=== PATIENT | female | born 2005 | race Caucasian/White ===

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

== ENCOUNTER 2023-01-03 12:43 | Emergency (ER) | payer MEDICAID, SELFPAY ==
[2023-01-03 12:45] VITALS: BP 106/59; PULSE 57; RESP 20; TEMP 36.9; O2SAT 98; BMI 22.8
--- NOTE | 2023-01-03 13:05 | EXP.UTC ---
Discharge Plan Disposition Patient Disposition: Home, Self-Care Condition: Good Prescriptions Prescriptions: No Action omeprazole 20 mg capsule,delayed release(DR/EC) 20 mg PO DAILY Qty: 30 2RF ondansetron HCl 4 mg tablet 4 mg PO Q8H PRN (Reason: nausea and vomiting) Qty: 20 0RF Qulipta 60 mg tablet 60 mg PO DAILY 30 Days Qty: 30 5RF Nurtec ODT 75 mg tablet,disintegrating 75 mg PO ONCE PRN (Reason: headache abortive therapy) Qty: 8 5RF hydroxyzine HCl 25 mg tablet 25 mg PO HS PRN (Reason: sleep) Qty: 90 1RF omeprazole 20 mg capsule,delayed release(DR/EC) 20 mg PO DAILY hydroxyzine HCl 25 mg tablet 25 mg PO HS PRN (Reason: Insomnia) Nurtec ODT 75 mg tablet,disintegrating 75 mg PO DAILYP PRN (Reason: Headache) Referrals Follow up/Referrals: Kimmy Green PA [Primary Care Provider] - See instructions Clinical Impressions Clinical Impression: Migraine Instructions Patient Instructions: DI for Migraine Discharge ED Provider: Venecia Moore [facility] General Stated complaint: h/a, vomiting Mode of Arrival: Ambulatory Source of Information: Patient Limitations: No Limitations Time Seen by Provider: 01/03/23 13:10 Description of Symptoms (Recalled from Triage Doc. by RN): PATIENT C/O HEADACHE THAT STARTED FRIDAY AND TURNED INTO A MIGRAINE YESTERDAY HEENT Symptoms (Recalled from RN notes): Yes Resp Symptoms (Recalled from RN notes): No Skin Symptoms (Recalled from RN notes): No MS Symptoms (Recalled from RN notes): No Functional Status (Recalled from RN notes): WNL History of Present Illness Provider Complaint: Pt relates that she has had a headache all week and then last night developed into a migraine. She reports taking Zofran and Nurtec, but this did not help. She has had vomiting with her migraine. She has started her period and attributes her migraine to her period. Related Data Home Medications Medication Instructions Recorded Confirmed hydroxyzine HCl 25 mg tablet 25 mg PO HS PRN Insomnia 01/03/23 01/03/23 omeprazole 20 mg capsule,delayed 20 mg PO DAILY Acid reflux 01/03/23 01/03/23 release rimegepant 75 mg disintegrating 75 mg PO DAILYP PRN Headache 01/03/23 01/03/23 tablet (Nurtec ODT) Previous Rx's Medication Instructions Recorded atogepant 60 mg tablet (Qulipta) 60 mg PO DAILY Migraine 30 days 11/29/22 #30 tabs Allergies Allergy/AdvReac Type Severity Reaction Status Date / Time No Known Allergies Allergy Verified 11/27/22 10:38 Worker's Comp Is this a Worker's Comp case?: No [facility] Disclaimer: The information contained in this section may have been updated after the patient was seen, as this information can be updated by other users. Medical History (Updated 01/03/23 @ 13:28 by Venecia Moore APRN) Anxiety Generalized anxiety disorder History of anxiety History of asthma History of depression History of gastroesophageal reflux (GERD) History of migraine Migraine Surgical History History of esophagogastroduodenoscopy (EGD) Family History Other Asthma Cancer Thyroid disorder Social History Smoking Status: Current every day smoker tobacco type: e-cigarettes second hand exposure: No alcohol intake: never substance use type: denies use current occupational status: student and other Travel in the last 8 weeks: None household members: family housing: house number of children: 0 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
[2023-01-03 13:31] VITALS: BP 106/59; PULSE 57; RESP 20; TEMP 36.9; O2SAT 98
== END 2023-01-03 13:42 | disposition home or self-care (01) ==
PROVIDERS: Emergency Provider Nurse Practitioner Family; PCP Physician Assistant
DX: G43.909 Migraine, unspecified, not intractable, without status migrainosus (principal); R11.2 Nausea with vomiting, unspecified; F17.290 Nicotine dependence, other tobacco product, uncomplicated; F41.9 Anxiety disorder, unspecified
CPT/HCPCS: 96372; 99212; 99214; G0463

== ENCOUNTER → 2023-01-18 09:44 | Outpatient (CLI) | payer MEDICAID, SELFPAY ==
[2023-01-17 17:53] LABS: Adenovirus,PCR Not Detected (NotDetected); Bordetella Pertussis Not Detected (NotDetected); Chlamydophila Pneumoniae, PCR Not Detected (NotDetected); Coronavirus 19, PCR Not Detected (NotDetected); Coronavirus 229E Not Detected (NotDetected); Coronavirus NL63 Not Detected (NotDetected); Coronavirus OC43 Not Detected (NotDetected); Coronovirus HKU1,PCR Not Detected (NotDetected); Human Metapneumovirus Not Detected (NotDetected); Influenza A, PCR Not Detected (NotDetected); Influenza AH1, 2009 Not Detected (NotDetected); Influenza AH1, PCR Not Detected (NotDetected); Influenza AH3,PCR Not Detected (NotDetected); Influenza B, PCR Not Detected (NotDetected); Mycoplasma Pneumoniae, PCR Not Detected (NotDetected); Parainfluenza 1, PCR Not Detected (NotDetected); Parainfluenza 2, PCR Not Detected (NotDetected); Parainfluenza 3, PCR Not Detected (NotDetected); Parainfluenza 4, PCR Not Detected (NotDetected); Respiratory Syncytial Virus Not Detected (NotDetected); Rhinovirus/Enterovirus Not Detected (NotDetected)
== END ==
LOC: LAB.DROPOF 09:45
PROVIDERS: PCP Nurse Practitioner Family; Visit Provider Nurse Practitioner Family
DX: R06.02 Shortness of breath (principal); R06.89 Other abnormalities of breathing; R07.89 Other chest pain; R09.81 Nasal congestion
CPT/HCPCS: 87581; 87632; 87798; C9803; U0003; U0005

== ENCOUNTER 2023-02-06 13:52 | Emergency (ER) | payer MEDICAID, SELFPAY ==
[2023-02-06 13:52] VITALS: BP 106/63; PULSE 68; RESP 16; TEMP 37; O2SAT 99; BMI 21.9
--- NOTE | 2023-02-06 14:03 | EXP.UTC ---
Discharge Plan Disposition Patient Disposition: Home, Self-Care Condition: Fair Prescriptions Prescriptions: No Action azithromycin 250 mg tablet See Rx Instructions PO .COMPLEX Qty: 6 0RF Rx Instructions: take 500 mg today (day 1), then 250 mg for 4 days (days 2-5) [id number] 2-30-10 mg/5 mL syrup 7.5 ml PO Q6H PRN (Reason: cold symptoms) Qty: 118 0RF methylprednisolone [Medrol (Tito)] 4 mg tablets,dose pack 4 mg PO DAILY Qty: 21 0RF albuterol sulfate 90 mcg/actuation HFA aerosol inhaler 2 puff inhalation Q4-6H PRN (Reason: shortness of breath or wheezing) Qty: 8.5 0RF Qulipta 60 mg tablet 60 mg PO DAILY 30 Days Qty: 30 5RF omeprazole 20 mg capsule,delayed release(DR/EC) 20 mg PO DAILY hydroxyzine HCl 25 mg tablet 25 mg PO HS PRN (Reason: Insomnia) Nurtec ODT 75 mg tablet,disintegrating 75 mg PO DAILYP PRN (Reason: Headache) Referrals Follow up/Referrals: Kimmy Green PA [Primary Care Provider] - See instructions Activity Restrictions/Add. Instructions Additional Instructions/Restrictions: Given that you came in with epigastric discomfort that improved with Pepcid and GI cocktail is most likely that your symptoms are secondary to GERD. Please discuss with Kimmy if you are not improving over the next few weeks to get an outpatient endoscopy scheduled. Additionally you may take Pepcid [id number], Tums, Maalox, or other OTC symptomatic medications as discussed. Please return with any worsening symptoms. Clinical Impressions Clinical Impression: Abdominal pain, epigastric Instructions Patient Instructions: DI for Acute Abdominal Pain Discharge ED Provider: Kalia Hinson [facility] General Chief complaint: Abdominal Pain Stated complaint: LT side abd pain Time Seen by Provider: 02/06/23 15:33 History of Present Illness Provider Complaint: She states she has had left sided abdominal pain for the past 1 day. She has had some nausea, but no vomiting. She denies diarrhea and constipation. Her last normal bowel movement was yesterday. She denies any blood in her stool. She denies any urinary symptoms. She is currently on her period. Pressing on the left side of her abdomen makes her pain worse. Nothing that she can identify makes it better. Related Data Home Medications Medication Instructions Recorded Confirmed hydroxyzine HCl 25 mg tablet 25 mg PO HS PRN Insomnia 01/03/23 01/17/23 omeprazole 20 mg capsule,delayed 20 mg PO DAILY Acid reflux 01/03/23 01/17/23 release rimegepant 75 mg disintegrating 75 mg PO DAILYP PRN Headache 01/03/23 01/17/23 tablet (Nurtec ODT) Previous Rx's Medication Instructions Recorded atogepant 60 mg tablet (Qulipta) 60 mg PO DAILY Migraine 30 days 11/29/22 #30 tabs albuterol sulfate 90 mcg/actuation 2 puff inhalation Q4-6H PRN 01/17/23 aerosol inhaler shortness of breath or wheezing #8.5 grams azithromycin 250 mg tablet See Rx Instructions PO .COMPLEX #6 01/17/23 tabs [id number] 7.5 ml PO Q6H PRN cold symptoms 01/17/23 2 mg-30 mg-10 mg/5 mL oral syrup #118 mL methylprednisolone 4 mg tablets in 4 mg PO DAILY #21 tabs 01/17/23 a dose pack (Medrol (Tito)) Allergies Allergy/AdvReac Type Severity Reaction Status Date / Time No Known Allergies Allergy Verified 01/17/23 16:13 [facility] Disclaimer: The information contained in this section may have been updated after the patient was seen, as this information can be updated by other users. Medical History Anxiety Generalized anxiety disorder History of anxiety History of asthma History of depression History of gastroesophageal reflux (GERD) History of migraine Migraine Surgical History History of esophagogastroduodenoscopy (EGD) Family History (Reviewed 02/06/23 @ 20:20 by Jose David López
[2023-02-06 14:14] LABS: Microscopic, Urine URINE MICROSCOPIC (MICROSCOPIC)
[2023-02-06 14:16] LABS: Appearance,Urine CLEAR (Clear); Bilirubin,Urine Negative (Negative); Blood, Urine 3+ (Negative); Color,Urine YELLOW (Yellow); Glucose,Urine (UA) Negative (Negative); Ketones,Urine Negative (Negative); Leukocyte Esterase,Urine Negative (Negative); Nitrate,Urine Negative (Negative); Protein,Urine TRACE (Negative); Specific Gravity, Urine >= 1.030 (1.005-1.030); Urobilinogen,Urine 0.2 EU/dl (0.2)
[2023-02-06 14:44] LABS: Bacteria,Urine Trace /lpf; WBC,Urine Occasional #/hpf (0-3)
[2023-02-06 15:07] VITALS: BP 108/63; PULSE 83; RESP 16; TEMP 36.8; O2SAT 97; BMI 21.9
[2023-02-06 15:30] VITALS: BP 107/65; PULSE 70; O2SAT 100
--- NOTE | 2023-02-06 15:33 | HMH.EDGENADL ---
Discharge Plan Disposition Patient Disposition: Home, Self-Care Prescriptions Prescriptions: No Action azithromycin 250 mg tablet See Rx Instructions PO .COMPLEX Qty: 6 0RF Rx Instructions: take 500 mg today (day 1), then 250 mg for 4 days (days 2-5) jahmhupxccufgnj-awhhurxvy-DR 2-30-10 mg/5 mL syrup 7.5 ml PO Q6H PRN (Reason: cold symptoms) Qty: 118 0RF methylprednisolone [Medrol (Tito)] 4 mg tablets,dose pack 4 mg PO DAILY Qty: 21 0RF albuterol sulfate 90 mcg/actuation HFA aerosol inhaler 2 puff inhalation Q4-6H PRN (Reason: shortness of breath or wheezing) Qty: 8.5 0RF Qulipta 60 mg tablet 60 mg PO DAILY 30 Days Qty: 30 5RF omeprazole 20 mg capsule,delayed release(DR/EC) 20 mg PO DAILY hydroxyzine HCl 25 mg tablet 25 mg PO HS PRN (Reason: Insomnia) Nurtec ODT 75 mg tablet,disintegrating 75 mg PO DAILYP PRN (Reason: Headache) Referrals Follow up/Referrals: Kimmy Green PA [Primary Care Provider] - See instructions Activity Restrictions/Add. Instructions Additional Instructions/Restrictions: Given that you came in with epigastric discomfort that improved with Pepcid and GI cocktail is most likely that your symptoms are secondary to GERD. Please discuss with Kimmy if you are not improving over the next few weeks to get an outpatient endoscopy scheduled. Additionally you may take Pepcid cavz-ref-ktiwkcn, Tums, Maalox, or other OTC symptomatic medications as discussed. Please return with any worsening symptoms. Clinical Impressions Clinical Impression: Abdominal pain, epigastric Instructions Patient Instructions: DI for Acute Abdominal Pain Discharge ED Provider: Kalia Hinson General Adult HPI General Chief complaint: Abdominal Pain Stated complaint: LT side abd pain Time Seen by Provider: 02/06/23 15:33 Mode of Arrival: Ambulatory Limitations: No Limitations Description of Symptoms (Recalled from ER Triage Doc. by RN): Pt. complains of LUQ abdominal pain since last night. She states the pain is dull at rest and sharp ad stabing with deep breathing and movement. History of Present Illness HPI narrative: 18-year-old female presenting today with left upper quadrant and epigastric abdominal pain. States she has some mild back discomfort as well. Denies any hematuria she is currently on her period but no hematuria preceding this. Her last menstrual period was 1 month ago and she has been regular. She is not on any control pills she has no respiratory symptoms no shortness of breath she does however have a little bit of pain with deep inspiration in the same location of her chief complaint. She has a known history of GERD and is on omeprazole which has been worsening over the last few months. She denies any positional changes any exertional symptoms or chest pain. Denies any vaginal bleeding or vaginal discharge. She denies any changes in bowel movements such as constipation or diarrhea. She was at the urgent treatment clinic where she had a urinalysis performed and was unremarkable aside from blood and she was sent to the emergency department. Related Data Home Medications Medication Instructions Recorded Confirmed hydroxyzine HCl 25 mg tablet 25 mg PO HS PRN Insomnia 01/03/23 01/17/23 omeprazole 20 mg capsule,delayed 20 mg PO DAILY Acid reflux 01/03/23 01/17/23 release rimegepant 75 mg disintegrating 75 mg PO DAILYP PRN Headache 01/03/23 01/17/23 tablet (Nurtec ODT) Previous Rx's Medication Instructions Recorded atogepant 60 mg tablet (Qulipta) 60 mg PO DAILY Migraine 30 days 11/29/22 #30 tabs albuterol sulfate 90 mcg/actuation 2 puff inhalation Q4-6H PRN 01/17/23 aerosol inhaler shortness of breath or wheezing #8.5 grams azithromycin 250 mg tablet See Rx Instructions PO .COMPLEX #6 01/17/23 tabs yatamfpkhbvtdrt-oikpbthwqjdkrxc-TL 7.5 ml PO Q6H PRN cold symptoms 01/17/23 2 mg-30 mg-10 mg/5 mL oral syrup #118 mL methylpredniso
--- NOTE | 2023-02-06 15:40 | XR_ITS ---
FINAL REPORT CLINICAL HISTORY: dyspnea FINDINGS: SINGLE VIEW CHEST The heart size is normal. The mediastinum is normal. The lungs are clear. There is no pneumothorax. IMPRESSION: No acute cardiopulmonary process. Reviewed, Interpreted and Dictated by Bhupinder Barclay III, MD Transcribed by Jhon Velazquez Authenticated and [facility]
--- NOTE | 2023-02-06 15:50 | PC.NURSE ---
Pt. refusing IV and labwork at this time.
--- NOTE | 2023-02-06 15:52 | PC.NURSE ---
rad at BS for portable xray
--- NOTE | 2023-02-06 16:18 | PC.NURSE ---
Pt. reports abdominal pain is unchanged. made aware.
[2023-02-06 16:31] VITALS: BP 111/59; PULSE 67; RESP 16; TEMP 36.7; O2SAT 97
== END 2023-02-06 16:36 | disposition home or self-care (01) ==
LOC: UTC 13:54 → ER 15:03
PROVIDERS: Nurse Practitioner Family; Emergency Provider Student in an Organized Health Care Education/Training Program; PCP Physician Assistant
DX: R10.13 Epigastric pain (principal); R10.12 Left upper quadrant pain; F41.1 Generalized anxiety disorder; G43.909 Migraine, unspecified, not intractable, without status migrainosus; F17.290 Nicotine dependence, other tobacco product, uncomplicated; K21.9 Gastro-esophageal reflux disease without esophagitis
CPT/HCPCS: 71045; 81001; 99284; 99285

== ENCOUNTER → 2023-02-24 12:11 | Outpatient (CLI) | payer MEDICAID, SELFPAY ==
--- NOTE | 2023-02-24 12:16 | XR_ITS ---
FINAL REPORT CLINICAL HISTORY: LUQ pain FINDINGS: TWO-VIEW ABDOMEN There is a nonobstructive bowel gas pattern. No bowel dilation is identified. There is a small amount of diffuse fecal impaction. No abnormal calcification is seen. There is no free air. IMPRESSION: Diffuse fecal impaction without obstruction. Reviewed, Interpreted and Dictated by Ha Saldivar MD Transcribed by Kalie Moser Authenticated and [facility]
== END ==
PROVIDERS: PCP Physician Assistant; Visit Provider Physician Assistant
DX: R10.12 Left upper quadrant pain (principal)
CPT/HCPCS: 74019

== ENCOUNTER 2023-03-13 09:40 | Emergency (ER) | payer MEDICAID, SELFPAY ==
[2023-03-13 09:41] VITALS: BP 115/69; PULSE 103; RESP 18; TEMP 37.8; O2SAT 100; BMI 21.9
--- NOTE | 2023-03-13 10:09 | EXP.UTC ---
Discharge Plan Disposition Patient Disposition: Home, Self-Care Condition: Good Prescriptions Prescriptions: New ondansetron 4 mg tablet,disintegrating 4 mg PO Q8H PRN (Reason: nausea and vomiting) Qty: 10 0RF No Action tizanidine 2 mg capsule 2 - 4 mg PO HS Qty: 60 0RF Rx Instructions: Take 2 mg by mouth 1 hour prior to bedtime for 1-2 weeks. If headaches persist without any side effects, may increase to 4 mg by mouth until follow-up. albuterol sulfate 90 mcg/actuation HFA aerosol inhaler 2 puff inhalation Q4-6H PRN (Reason: shortness of breath or wheezing) Qty: 8.5 0RF Qulipta 60 mg tablet 60 mg PO DAILY 30 Days Qty: 30 5RF magnesium citrate Solution 150 ml PO DAILY Qty: 296 0RF polyethylene glycol 3350 [Miralax] 17 gram powder in packet 17 g PO DAILY Qty: 30 0RF docusate sodium [Stool Softener] 100 mg capsule 100 mg PO DAILY Qty: 30 0RF omeprazole 20 mg capsule,delayed release(DR/EC) 20 mg PO DAILY hydroxyzine HCl 25 mg tablet 25 mg PO HS PRN (Reason: Insomnia) Nurtec ODT 75 mg tablet,disintegrating 75 mg PO DAILYP PRN (Reason: Headache) Referrals Follow up/Referrals: Kimmy Green PA [Primary Care Provider] - See instructions Activity Restrictions/Add. Instructions Additional Instructions/Restrictions: *Monitor Temp, Over the counter Motrin or Tylenol as directed/as needed Tylenol every 4 hours and Motrin every 6 hours (as long as your family doctor has told you that you can take it) for fever or pain. and straight to ER if unable to lower temp less than 101.0 after medication given *Warm salt water gargles may help to soothe the throat *Throat Lozenges? *Warm fluids like tea with honey may help to soothe the throat? *Sleep elevated *Humidifier/Vaporizer Your throat swab was sent for culture. Those results are typically sent to your primary care. Be sure to follow up in 2-3 days with your family doctor/primary care physician if no improvement so they can review those result and treat if necessary. If you don?t have a primary care doctor, I recommend you get one but in the mean time, you will have to return to a walk in clinic Follow up IMMEDIATELY for new or worsening symptoms or no Noticeable improvement over the next 48-72 hours. 911 for difficulty breathing or swallowing Clinical Impressions Clinical Impression: Viral syndrome Stand Alone Forms Stand Alone Forms: Work/School Release Instructions Patient Instructions: Sore Throat, DI for Vomiting -- Adult, DI for Fever (Symptom) -- Adult Discharge ED Provider: Stephie Beauchamp [facility] [place] H[place] General Stated complaint: body aches,nausea,VOMITING, headache Mode of Arrival: Ambulatory Source of Information: Patient Limitations: No Limitations Time Seen by Provider: 03/13/23 10:09 Description of Symptoms (Recalled from Triage Doc. by RN): Patient reports sore throat, chills, nausea, vomiting, headache, fever, congestion since Friday. 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
[2023-03-13 10:40] VITALS: BP 115/69; PULSE 103; RESP 18; TEMP 37.8; O2SAT 100
[2023-03-13 14:33] LABS: UTC Influenza A Antigen Negative (Negative); UTC Strep Screen (Rapid) Negative (Negative)
[2023-03-13 14:34] LABS: UTC Influenza B Antigen Negative (Negative)
== END 2023-03-13 10:41 | disposition home or self-care (01) ==
PROVIDERS: Emergency Provider Nurse Practitioner; PCP Physician Assistant
DX: B34.9 Viral infection, unspecified (principal); R50.9 Fever, unspecified; R11.2 Nausea with vomiting, unspecified; R51.9 Headache, unspecified; R07.0 Pain in throat; F17.290 Nicotine dependence, other tobacco product, uncomplicated; K21.9 Gastro-esophageal reflux disease without esophagitis; F41.1 Generalized anxiety disorder; F32.A Depression, unspecified
CPT/HCPCS: 87804; 87880; 99212; 99214; G0463

== ENCOUNTER 2023-03-17 14:33 | Emergency (ER) | payer MEDICAID, SELFPAY ==
[2023-03-17 14:55] VITALS: BP 131/76; PULSE 88; RESP 16; TEMP 37; O2SAT 98; BMI 20.5
--- NOTE | 2023-03-17 15:15 | EXP.UTC ---
Discharge Plan Disposition Patient Disposition: Home, Self-Care Condition: Good Prescriptions Prescriptions: No Action tizanidine 2 mg capsule 2 - 4 mg PO HS Qty: 60 0RF Rx Instructions: Take 2 mg by mouth 1 hour prior to bedtime for 1-2 weeks. If headaches persist without any side effects, may increase to 4 mg by mouth until follow-up. albuterol sulfate 90 mcg/actuation HFA aerosol inhaler 2 puff inhalation Q4-6H PRN (Reason: shortness of breath or wheezing) Qty: 8.5 0RF Qulipta 60 mg tablet 60 mg PO DAILY 30 Days Qty: 30 5RF magnesium citrate Solution 150 ml PO DAILY Qty: 296 0RF polyethylene glycol 3350 [Miralax] 17 gram powder in packet 17 g PO DAILY Qty: 30 0RF docusate sodium [Stool Softener] 100 mg capsule 100 mg PO DAILY Qty: 30 0RF omeprazole 20 mg capsule,delayed release(DR/EC) 20 mg PO DAILY hydroxyzine HCl 25 mg tablet 25 mg PO HS PRN (Reason: Insomnia) Nurtec ODT 75 mg tablet,disintegrating 75 mg PO DAILYP PRN (Reason: Headache) ondansetron 4 mg tablet,disintegrating 4 mg PO Q8H PRN (Reason: nausea and vomiting) Qty: 10 0RF Referrals Follow up/Referrals: Kimmy Green PA [Primary Care Provider] - See instructions Activity Restrictions/Add. Instructions Additional Instructions/Restrictions: Go home lay down and sleep off remainder of migraine headache Follow up with your Family Doctor if needed Straight to ER if worse headache of your life Return if needed Clinical Impressions Clinical Impression: Migraine Qualifiers: Migraine type: unspecified Status migrainosus presence: without status migrainosus Intractability: not intractable Qualified Code(s): G43.909 - Migraine, unspecified, not intractable, without status migrainosus Instructions Patient Instructions: Migraine -- Adult, DI for Migraine Discharge ED Provider: Stephie Beauchamp [facility] General Stated complaint: possible migraine Mode of Arrival: Ambulatory Source of Information: Patient Limitations: No Limitations Time Seen by Provider: 03/17/23 15:00 Description of Symptoms (Recalled from Triage Doc. by RN): PATIENT C/O MIGRAINE WITH VOMITING SINCE YESTERDAY HEENT Symptoms (Recalled from RN notes): Yes Resp Symptoms (Recalled from RN notes): No Skin Symptoms (Recalled from RN notes): No MS Symptoms (Recalled from RN notes): No Functional Status (Recalled from RN notes): WNL History of Present Illness Provider Complaint: Patient states that she has a history of migraine headaches States that she started with one yesterday and has been having n/v with it like she normally does States that she has taken her prescribed medication for migraines but not helped States that this one is like others that she has had in the past Denies vision changes Denies worsee headache of her life Related Data Home Medications Medication Instructions Recorded Confirmed hydroxyzine HCl 25 mg tablet 25 mg PO HS PRN Insomnia 01/03/23 02/24/23 omeprazole 20 mg capsule,delayed 20 mg PO DAILY Acid reflux 01/03/23 02/24/23 release rimegepant 75 mg disintegrating 75 mg PO DAILYP PRN Headache 01/03/23 02/24/23 tablet (Nurtec ODT) Previous Rx's Medication Instructions Recorded atogepant 60 mg tablet (Qulipta) 60 mg PO DAILY Migraine 30 days 11/29/22 #30 tabs albuterol sulfate 90 mcg/actuation 2 puff inhalation Q4-6H PRN 01/17/23 aerosol inhaler shortness of breath or wheezing #8.5 grams docusate sodium 100 mg capsule 100 mg PO DAILY #30 caps 02/24/23 (Stool Softener) magnesium citrate 150 ml PO DAILY constipation #296 02/24/23 mL polyethylene glycol 3350 17 gram 17 g PO DAILY #30 ea 02/24/23 oral powder packet (Miralax) tizanidine 2 mg capsule 2 - 4 mg PO HS headache #60 caps 02/24/23 ondansetron 4 mg disintegrating 4 mg PO Q8H PRN nausea and 03/13/23 tablet vomiting #10 tabs Allergies Allergy/AdvReac Type Severity Reaction Status Date / Time No Known Allergies Rickey
[2023-03-17 15:32] VITALS: BP 131/76; PULSE 88; RESP 16; TEMP 37; O2SAT 98
== END 2023-03-17 15:55 | disposition home or self-care (01) ==
PROVIDERS: Emergency Provider Nurse Practitioner; PCP Physician Assistant
DX: G43.909 Migraine, unspecified, not intractable, without status migrainosus (principal); R11.2 Nausea with vomiting, unspecified; K21.9 Gastro-esophageal reflux disease without esophagitis; F17.290 Nicotine dependence, other tobacco product, uncomplicated; F41.1 Generalized anxiety disorder
CPT/HCPCS: 96372; 99212; 99214; G0463

== ENCOUNTER 2023-05-16 10:18 | Emergency (ER) | payer MEDICAID, SELFPAY ==
--- NOTE | 2023-05-16 10:52 | PC.NURSE ---
Pt ambulatory to ED room 9 from [facility]
[2023-05-16 11:00] VITALS: BP 114/66; PULSE 78; RESP 20; TEMP 36.9; O2SAT 100; BMI 21.4
--- NOTE | 2023-05-16 11:08 | EXP.UTC ---
Discharge Plan Disposition Patient Disposition: Home, Self-Care Condition: Good Prescriptions Prescriptions: New ondansetron 4 mg Tablet,Disintegrating 4 mg PO Q8H PRN (Reason: Nausea) Qty: 12 0RF No Action tizanidine 2 mg capsule 2 - 4 mg PO HS Qty: 60 0RF Rx Instructions: Take 2 mg by mouth 1 hour prior to bedtime for 1-2 weeks. If headaches persist without any side effects, may increase to 4 mg by mouth until follow-up. albuterol sulfate 90 mcg/actuation HFA aerosol inhaler 2 puff inhalation Q4-6H PRN (Reason: shortness of breath or wheezing) Qty: 8.5 0RF Qulipta 60 mg tablet 60 mg PO DAILY 30 Days Qty: 30 5RF magnesium citrate Solution 150 ml PO DAILY Qty: 296 0RF polyethylene glycol 3350 [Miralax] 17 gram powder in packet 17 g PO DAILY Qty: 30 0RF docusate sodium [Stool Softener] 100 mg capsule 100 mg PO DAILY Qty: 30 0RF omeprazole 20 mg capsule,delayed release(DR/EC) 20 mg PO DAILY hydroxyzine HCl 25 mg tablet 25 mg PO HS PRN (Reason: Insomnia) Nurtec ODT 75 mg tablet,disintegrating 75 mg PO DAILYP PRN (Reason: Headache) ondansetron 4 mg tablet,disintegrating 4 mg PO Q8H PRN (Reason: nausea and vomiting) Qty: 10 0RF Referrals Follow up/Referrals: Kimmy Green PA [Primary Care Provider] - See instructions Activity Restrictions/Add. Instructions Additional Instructions/Restrictions: Drink plenty of fluids. Take tylenol or ibuprofen for pain or fever. Take the medications as directed. Follow up with your regular doctor. GO TO THE ER FOR ANY WORSENING SYMPTOMS Clinical Impressions Clinical Impression: Gastroenteritis Stand Alone Forms Stand Alone Forms: Work/School Release Instructions Patient Instructions: DI for Viral Gastroenteritis -- Adult, Ondansetron Discharge ED Provider: Juan F Treadwell [facility] [place] General Stated complaint: vomiting, nausea and body aches Time Seen by Provider: 05/16/23 10:55 History of Present Illness Provider Complaint: He states that for the past 3 days she has had n/v/d. Related Data Home Medications Medication Instructions Recorded Confirmed hydroxyzine HCl 25 mg tablet 25 mg PO HS PRN Insomnia 06/02/23 07/24/23 omeprazole 20 mg capsule,delayed 20 mg PO DAILY Acid reflux 01/03/23 02/24/23 release rimegepant 75 mg disintegrating 75 mg PO DAILYP PRN Headache 01/03/23 02/24/23 tablet (Nurtec ODT) Previous Rx's Medication Instructions Recorded atogepant 60 mg tablet (Qulipta) 60 mg PO DAILY Migraine 30 days 11/29/22 #30 tabs albuterol sulfate 90 mcg/actuation 2 puff inhalation Q4-6H PRN 01/17/23 aerosol inhaler shortness of breath or wheezing #8.5 grams docusate sodium 100 mg capsule 100 mg PO DAILY #30 caps 02/24/23 (Stool Softener) magnesium citrate 150 ml PO DAILY constipation #296 02/24/23 mL polyethylene glycol 3350 17 gram 17 g PO DAILY #30 ea 02/24/23 oral powder packet (Miralax) tizanidine 2 mg capsule 2 - 4 mg PO HS headache #60 caps 02/24/23 ondansetron 4 mg disintegrating 4 mg PO Q8H PRN nausea and 03/13/23 tablet vomiting #10 tabs ondansetron 4 mg disintegrating 4 mg PO Q8H PRN Nausea #12 tabs 05/16/23 tablet Allergies Allergy/AdvReac Type Severity Reaction Status Date / Time No Known Allergies Allergy Verified 02/24/23 11:18 [facility] Disclaimer: The information contained in this section may have been updated after the patient was seen, as this information can be updated by other users. Medical History Anxiety Generalized anxiety disorder History of anxiety History of asthma History of depression History of gastroesophageal reflux (GERD) History of migraine Migraine Surgical History History of esophagogastroduodenoscopy (EGD) Family History Other Asthma Cancer T
[2023-05-16 11:15] VITALS: BP 114/66; PULSE 78; RESP 20; TEMP 36.9; O2SAT 100
[2023-05-16 11:20] LABS: UTC Influenza A Antigen Negative (Negative); UTC Influenza B Antigen Negative (Negative)
== END 2023-05-16 11:20 | disposition home or self-care (01) ==
LOC: UTC 10:21 → ER 10:51 → UTC 11:01
PROVIDERS: Emergency Provider Nurse Practitioner Family; PCP Physician Assistant
DX: A08.4 Viral intestinal infection, unspecified (principal); R11.2 Nausea with vomiting, unspecified; F17.290 Nicotine dependence, other tobacco product, uncomplicated; F41.1 Generalized anxiety disorder; K21.9 Gastro-esophageal reflux disease without esophagitis
CPT/HCPCS: 87804; 99212; 99214; G0463

== ENCOUNTER → 2023-06-17 08:27 | Outpatient (CLI) | payer MEDICAID, SELFPAY ==
[2023-06-17 19:27] LABS: Adenovirus,PCR Not Detected (NotDetected); Coronavirus 19, PCR Not Detected (NotDetected); Coronavirus 229E Not Detected (NotDetected); Coronavirus NL63 Not Detected (NotDetected); Coronavirus OC43 Not Detected (NotDetected); Coronovirus HKU1,PCR Not Detected (NotDetected); Human Metapneumovirus Not Detected (NotDetected); Influenza A, PCR Not Detected (NotDetected); Influenza AH1, 2009 Not Detected (NotDetected); Influenza AH1, PCR Not Detected (NotDetected); Influenza AH3,PCR Not Detected (NotDetected); Influenza B, PCR Not Detected (NotDetected); Parainfluenza 1, PCR Not Detected (NotDetected); Parainfluenza 2, PCR Not Detected (NotDetected); Parainfluenza 3, PCR Not Detected (NotDetected); Parainfluenza 4, PCR Not Detected (NotDetected); Respiratory Syncytial Virus Not Detected (NotDetected); Rhinovirus/Enterovirus Not Detected (NotDetected)
== END ==
PROVIDERS: PCP Physician Assistant; Visit Provider Internal Medicine
DX: R06.02 Shortness of breath (principal); Z20.828 Contact with and (suspected) exposure to other viral communicable diseases
CPT/HCPCS: 87632; 87635

== ENCOUNTER 2023-11-20 15:59 | Outpatient (CLI) | payer MEDICAID, SELFPAY ==
[2023-11-19 18:18] LABS: Basophils % 0.5 % (0.1-2.0); Eosinophils # 0.1 K/mm3 (0.0-0.4); Eosinophils % 1.8 % (0.1-12.0); Hematocrit 48.2 % (37.0-47.0); Hemoglobin 15.8 g/dL (12.2-16.2); Lymphocytes # 2.1 K/mm3 (0.7-4.5); Lymphocytes % 29.8 % (10-50); Mean Corpuscular HGB Conc 32.7 g/dL (31.8-35.4); Mean Corpuscular Hemoglobin 31.5 pg (27.0-31.2); Mean Corpuscular Volume 96.3 fl (81-99); Mean Platelet Volume 8.7 fl (7.4-10.4); Monocytes # 0.6 K/mm3 (0.1-1.0); Monocytes % 8.2 % (1.7-9.3); Neutrophils # 4.2 K/mm3 (1.8-7.8); Neutrophils % 59.7 % (37.0-80.0); Platelet Count 313 K/mm3 (142-424); Red Cell Distribution Width 13.1 % (11.5-17.5)
[2023-11-19 18:31] LABS: Alanine Aminotransferase 11 U/L (12-78); Albumin Level 4.9 g/dl (3.5-5.0); Albumin/Globulin Ratio 1.8 (1.1-1.8); Alkaline Phosphatase 65 U/L (38-126); Anion Gap 11.7 mEq/L (5-15); Aspartate Amino Transferase 20 U/L (14-36); Bilirubin,Total 0.5 mg/dl (0.2-1.3); Blood Urea Nitrogen 15 mg/dl (7-17); Calcium 10.1 mg/dl (8.4-10.2); Carbon Dioxide 28 mmol/L (22.0-30.0); Chloride 104 mmol/L (98-107); Cholesterol 184 mg/dl (140-200); Estimated Glomerular Filt Rate 91 ml/min (>60); GFR (African American) 111 ML/MIN (>60); Globulin 2.7 g/dL (1.3-3.2); Glucose 92 mg/dl (74-100); HDL Cholesterol 37 mg/dl (40-60); Potassium 3.7 mmoL/L (3.5-5.1); Sodium 140 mmol/L (136-145); Total Protein,Serum 7.6 g/dl (6.3-8.2); Triglycerides 70 mg/dl (30-150); VLDL Cholesterol 14 mg/dL (0-40)
[2023-11-19 18:43] LABS: Direct LDL Cholesterol 109.74 mg/dL (100-129)
[2023-11-19 18:47] LABS: Free Thyroxine Index 2.8 ug/dL (5.93-13.13); T4 (Thyroxine) 7.9 ug/dl (5.53-11.0); Triiodothryronine (T3) Uptake 35 % (23.5-40.5)
[2023-11-19 19:17] LABS: Vitamin B12 417 pg/mL (239-931)
[2023-11-19 20:51] LABS: Ferritin 26.2 ng/ml (6.24-137)
[2023-11-21 08:37] LABS: Thyroid Peroxidase Antibodies <9 IU/mL (0-34)
[2023-11-23 12:08] LABS: Thyroid Stimulating Immunoglob <0.10 IU/L (0.00-0.55)
== END 2023-11-20 23:59 | disposition home or self-care (01) ==
LOC: LAB.DROPOF 16:00
PROVIDERS: PCP Physician Assistant; Visit Provider Physician Assistant
DX: R63.4 Abnormal weight loss (principal); R53.83 Other fatigue; R71.8 Other abnormality of red blood cells; R74.01 Elevation of levels of liver transaminase levels; Z68.20 Body mass index [BMI] 20.0-20.9, adult
CPT/HCPCS: 80053; 80061; 82306; 82607; 82728; 84436; 84443; 84445; 84479; 85025; 86376

== ENCOUNTER 2023-12-10 10:05 | Outpatient (CLI) | payer MEDICAID, SELFPAY ==
--- NOTE | 2023-12-10 10:09 | US_ITS ---
FINAL REPORT TECHNIQUE: Real-time grayscale and color ultrasound of the thyroid was performed. CLINICAL HISTORY: fatigue and weight loss COMPARISON: None FINDINGS: The thyroid gland measures 42 x 14 x 15 mm on the right and 35 x 13 x 13 mm on the left. The isthmus measures 3 mm. Thyroid gland demonstrates normal echogenicity.. Nodules: Left 5 x 3 x 2 mm cystic nodule with macrocalcifications, TR 2. IMPRESSION: Left TR 2 nodule with no follow-up required per TI-RADS criteria. Reviewed, Interpreted and Dictated by Bhupinder Barclay III, MD Transcribed by Joann Romero Authenticated and . [facility]
== END 2023-12-10 23:59 | disposition home or self-care (01) ==
LOC: RAD 10:06
PROVIDERS: PCP Physician Assistant; Visit Provider Physician Assistant
DX: R53.83 Other fatigue (principal)
CPT/HCPCS: 76536

== ENCOUNTER 2023-12-25 11:50 | Emergency (ER) | payer MEDICAID, SELFPAY ==
[2023-12-25 12:00] VITALS: BP 106/58; PULSE 76; RESP 20; TEMP 36.8; O2SAT 100; BMI 20.9
--- NOTE | 2023-12-25 12:09 | EXP.UTC ---
Discharge Plan Disposition Patient Disposition: Home, Self-Care Condition: Good Prescriptions Prescriptions: No Action Qulipta 60 mg tablet 60 mg PO DAILY Qty: 30 2RF buspirone 5 mg tablet 5 mg PO DAILY Rx Instructions: Take 1 tablet by mouth twice daily Nurtec ODT 75 mg tablet,disintegrating 75 mg PO DAILYP PRN (Reason: Headache) Referrals Follow up/Referrals: Kimmy Green PA [Primary Care Provider] - See instructions Activity Restrictions/Add. Instructions Additional Instructions/Restrictions: Go home and rest. It would be best if you rested tomorrow too. Resume your oral medications later today. Follow up with your regular doctor. GO TO THE ER FOR ANY WORSENING SYMPTOMS OR CONCERN, ESPECIALLY BOWEL OR BLADDER ISSUES, SADDLE AREA NUMBNESS, FEVER, ETC Clinical Impressions Clinical Impression: Migraine Qualifiers: Migraine type: unspecified Status migrainosus presence: without status migrainosus Intractability: not intractable Qualified Code(s): G43.909 - Migraine, unspecified, not intractable, without status migrainosus Stand Alone Forms Stand Alone Forms: Work/School Release Instructions Patient Instructions: Ketorolac Injection, Dexamethasone Injection, Diphenhydramine Injection Discharge ED Provider: Juan F Treadwell [facility] General Stated complaint: migraine vomiting dizziness Time Seen by Provider: 12/25/23 12:09 History of Present Illness Provider Complaint: Patient states that she has a history of migraine headaches. States that she started with one yesterday and has been having n/v with it like she normally does. States that she has taken her prescribed medication for migraines but not helped. States that this one is like others that she has had in the past. Denies vision changes. Denies worse headache of her life. Related Data Home Medications Medication Instructions Recorded Confirmed rimegepant 75 mg disintegrating 75 mg PO DAILYP PRN Headache 01/03/23 12/25/23 tablet (Nurtec ODT) buspirone 5 mg tablet 5 mg PO DAILY 12/25/23 12/25/23 Previous Rx's Medication Instructions Recorded atogepant 60 mg tablet (Qulipta) 60 mg PO DAILY #30 tabs 12/24/23 Allergies Allergy/AdvReac Type Severity Reaction Status Date / Time No Known Allergies Allergy Verified 12/24/23 09:00 [facility] Disclaimer: The information contained in this section may have been updated after the patient was seen, as this information can be updated by other users. Medical History Generalized anxiety disorder History of migraine History of gastroesophageal reflux (GERD) History of depression History of asthma History of anxiety Anxiety Migraine Surgical History History of esophagogastroduodenoscopy (EGD) Family History Other Asthma Cancer Thyroid disorder Social History Smoking Status: Current every day smoker tobacco type: e-cigarettes second hand exposure: No alcohol intake: never substance use type: denies use current occupational status: student and other Travel in the last 8 weeks: None household members: family housing: house number of children: 0 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 Obtained: Yes All systems reviewed & no additional complaints except as documented Constitutional Constitutional: Denies chills, Denies fever(s) and Reports headache(s) Eyes Eyes: Denies eye discharge ENT Ears, Nose, Mouth, and Throat: Denies disequilibrium, Denies dizziness, Denies otalgia, Reports headache(s) and Denies sore throat Cardiovascular Cardiovascular: Denies chest pain Respiratory Respiratory: Denies shortness of breath, Denies chest congestion, Denies cough, Denies stridor and Denies wheezing Gastrointestinal Gastrointestingal: Denies nausea or vomiting Musculoskeletal Musculoskeletal: Reports system reviewed and no additional complaints, except as documented and Denies arthralgias Integumentary/Breasts Skin/Breast: Denies rash Neurologic Neurologic: Reports as per HPI, Denies confusion, Denies disequilibrium, Denies dizziness, Denies focal weakness, Reports headache(s), Denies paresthesias and Denies radicular pain Allergic/Immunologic Allergic/Immunologic: Denies wheezing Physical Exam General General appearance: alert and in no apparent distress Head Head exam: atraumatic, normocephalic and normal inspection Eye Eye exam: Present normal appearance, PERRL and EOMI ENT ENT exam: Present normal exam, normal oropharynx, mucous membranes moist, TM's normal bilaterally and normal external ear exam Neck Neck exam: Present normal inspection, full ROM and trachea midline; Absent meningismus or lymphadenopathy Chest Chest inspection: Present normal inspection and symmetric chest wall rise; Absent tenderness Respiratory Respiratory exam: Present normal lung sounds bilaterally; Absent respiratory distress Cardiovascular Cardiovascular exam: Present regular rate and normal rhythm; Absent JVD Abdominal Exam Abdominal exam: Present soft and normal bowel sounds; Absent distention, tenderness or guarding Extremities Exam Extremities exam: Present normal inspection, full ROM and normal capillary refill; Absent calf tenderness Back Exam Back exam: Present normal inspection; Absent tenderness Neurological Exam Neurological exam: Present alert, oriented X3, CN II-XII intact, normal gait and reflexes normal; Absent motor sensory deficit Expanded Neurological Exam Patient oriented to: Present person, place and time Speech: Present fluid speech Cranial nerves: Normal: EOM function (II, III, IV, ), facial sensation (V), facial palsy (VII), gag reflex (IX), spinal accessory function (XI) and tongue deviation (XII) Cerebellar function: Normal: finger to nose Cerebellar function: normal gait and Romberg normal Motor strength - LUE: 5/5 Motor strength - RUE: 5/5 Motor strength - LLE: 5/5 Motor strength - RLE: 5/5 DTR: 2+: biceps (L), biceps (R), patellar (L), patellar (R), Achilles tendon (L) and Achilles tendon (R) Psychiatric Psychiatric exam: Present normal affect and normal mood Skin Skin exam: Present warm, dry, intact and normal color Lymphatic Lymphatic Findings: no adenopathy Medical Decision Making Medical Records Medical records reviewed: No I reviewed the patient's medical records. Steve Inquiry Pt receiving controlled substance: No
[2023-12-25] MEDS: diphenhydrAMINE 50MG/ML VIAL 25 MG IM (12:25)
[2023-12-25] MEDS: DEXAMETHASONE 4MG/ML 1ML VIAL 8 MG IM (12:25)
[2023-12-25] MEDS: KETOROLAC 60MG/2ML VIAL 60 MG IM (12:25)
[2023-12-25 12:40] VITALS: BP 106/58; PULSE 76; RESP 20; TEMP 36.8; O2SAT 100
== END 2023-12-25 12:45 | disposition home or self-care (01) ==
PROVIDERS: Emergency Provider Nurse Practitioner Family; PCP Physician Assistant
DX: G43.909 Migraine, unspecified, not intractable, without status migrainosus (principal); R11.2 Nausea with vomiting, unspecified
CPT/HCPCS: 96372; 99212; 99214; G0463

== ENCOUNTER 2024-02-24 11:59 | Emergency (ER) | payer MEDICAID, SELFPAY ==
[2024-02-24 12:15] VITALS: BP 114/64; PULSE 95; RESP 20; TEMP 37.1; O2SAT 98; BMI 20.9
--- NOTE | 2024-02-24 12:16 | EXP.UTC ---
Discharge Plan Disposition Patient Disposition: Home, Self-Care Condition: Good Prescriptions Prescriptions: New amoxicillin 500 mg tablet 500 mg PO TID 10 Days Qty: 30 0RF [id number]-kaarntqdh-UG [Bromfed DM] 2-30-10 mg/5 mL Syrup 5 ml PO Q6H PRN (Reason: Cough) Qty: 240 0RF No Action Qulipta 60 mg tablet 60 mg PO DAILY Qty: 30 2RF buspirone 5 mg tablet 5 mg PO DAILY Rx Instructions: Take 1 tablet by mouth twice daily propranolol 10 mg tablet 10 mg PO DAILY Patient Comments: TAKE 1 TABLET BY MOUTH TWICE DAILY Nurtec ODT 75 mg tablet,disintegrating 75 mg PO DAILYP PRN (Reason: Headache) Referrals Follow up/Referrals: Kimmy Green PA [Primary Care Provider] - See instructions Activity Restrictions/Add. Instructions Additional Instructions/Restrictions: Drink plenty of fluids. Take tylenol or ibuprofen for pain or fever. Take the medications as directed. Follow up with your regular doctor. GO TO THE ER FOR ANY WORSENING SYMPTOMS Clinical Impressions Clinical Impression: Strep throat Stand Alone Forms Stand Alone Forms: Work/School Release Instructions Patient Instructions: Strep Throat, DI for Strep Throat, Amoxicillin Discharge ED Provider: Juan F Treadwell [facility] General Stated complaint: possible strep Time Seen by Provider: 02/24/24 12:15 History of Present Illness Provider Complaint: She states that for the past 2 days she has had sore throat, fever, and malaise. She has been exposed to strep throat. Related Data Home Medications Medication Instructions Recorded Confirmed rimegepant 75 mg disintegrating 75 mg PO DAILYP PRN Headache 01/03/23 02/24/24 tablet (Nurtec ODT) buspirone 5 mg tablet 5 mg PO DAILY 12/25/23 02/24/24 propranolol 10 mg tablet 10 mg PO DAILY 02/24/24 02/24/24 Previous Rx's Medication Instructions Recorded atogepant 60 mg tablet (Qulipta) 60 mg PO DAILY #30 tabs 12/24/23 amoxicillin 500 mg tablet 500 mg PO TID 10 days #30 tabs 02/24/24 yyrrxpmzgjmmtql-bzcvgnmknprbbmm-PM 5 ml PO Q6H PRN Cough #240 mL 02/24/24 2 mg-30 mg-10 mg/5 mL oral syrup (Bromfed DM) Allergies Allergy/AdvReac Type Severity Reaction Status Date / Time No Known Allergies Allergy Verified 12/24/23 09:00 [facility] Disclaimer: The information contained in this section may have been updated after the patient was seen, as this information can be updated by other users. Medical History Generalized anxiety disorder History of migraine History of gastroesophageal reflux (GERD) History of depression History of asthma History of anxiety Anxiety Migraine Surgical History History of esophagogastroduodenoscopy (EGD) Family History Other Asthma Cancer Thyroid disorder Social History Smoking Status: Current every day smoker tobacco type: e-cigarettes second hand exposure: No alcohol intake: never substance use type: denies use current occupational status: student and other Travel in the last 8 weeks: None household members: family housing: house number of children: 0 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 Obtained: Yes All systems reviewed & no additional complaints except as documented Constitutional Constitutional: Reports chills and Reports fever(s) Eyes Eyes: Denies eye discharge ENT Ears, Nose, Mouth, and Throat: Reports as per HPI Cardiovascular Cardiovascular: Denies chest pain Respiratory Respiratory: Denies chest congestion and Reports cough Gastrointestinal Gastrointestingal: Reports nausea; Denies abdominal pain, constipation, cramping, diarrhea or vomiting Musculoskeletal Musculoskeletal: Denies arthralgias Integumentary/Breasts Skin/Breast: Denies rash Neurologic Neurologic: Denies paresthesias Physical Exam General General appearance: alert and in no apparent distress Head Head exam: atraumatic, normocephalic and normal inspection Eye Eye exam: Present normal appearance, PERRL and EOMI ENT ENT exam: Present mucous membranes moist and normal external ear exam Expanded ENT Exam TM/Canal exam: Bilateral TM: erythema and bulging Nose exam: Absent sinus tenderness Mouth exam: Present normal external inspection; Absent drooling Teeth exam: Present normal inspection Throat exam: Present tonsillar erythema, tonsillomegaly and tonsillar exudate Neck Neck exam: Present normal inspection, full ROM and trachea midline; Absent tenderness, meningismus or lymphadenopathy Chest Chest inspection: Present normal inspection and symmetric chest wall rise; Absent tenderness Respiratory Respiratory exam: Present normal lung sounds bilaterally; Absent respiratory distress, wheezes, stridor or accessory muscle use Cardiovascular Cardiovascular exam: Present regular rate and normal rhythm; Absent systolic murmur or diastolic murmur Abdominal Exam Abdominal exam: Present soft and normal bowel sounds; Absent distention, tenderness, guarding, rebound or rigidity Extremities Exam Extremities exam: Present normal inspection and normal capillary refill; Absent calf tenderness Back Exam Back exam: Present normal inspection and full ROM; Absent tenderness, CVA tenderness (R) or CVA tenderness (L) Neurological Exam Neurological exam: Present alert, oriented X3 and CN II-XII intact Psychiatric Psychiatric exam: Present normal affect and normal mood Skin Skin exam: Present warm, dry, intact and normal color Medical Decision Making Medical Records Medical records reviewed: No I reviewed the patient's medical records. Steve Inquiry Pt receiving controlled substance: No Lab Data Lab results reviewed: Yes I reviewed the patient's lab results.
[2024-02-24 12:31] LABS: UTC Strep Screen (Rapid) Positive (Negative)
[2024-02-24 12:45] VITALS: BP 114/64; PULSE 95; RESP 20; TEMP 37.1; O2SAT 98
== END 2024-02-24 12:47 | disposition home or self-care (01) ==
PROVIDERS: Emergency Provider Nurse Practitioner Family; PCP Physician Assistant
DX: J02.0 Streptococcal pharyngitis (principal); R50.9 Fever, unspecified; R53.81 Other malaise
CPT/HCPCS: 87880; 99212; 99214; G0463

== ENCOUNTER 2024-02-26 09:12 | Outpatient (CLI) | payer MEDICAID, SELFPAY ==
[2024-02-26 17:49] LABS: Adenovirus,PCR Not Detected (NotDetected); Bordetella Pertussis Not Detected (NotDetected); Chlamydophila Pneumoniae, PCR Not Detected (NotDetected); Coronavirus 19, PCR Not Detected (NotDetected); Coronavirus 229E Not Detected (NotDetected); Coronavirus NL63 Not Detected (NotDetected); Coronavirus OC43 Not Detected (NotDetected); Coronovirus HKU1,PCR Not Detected (NotDetected); Human Metapneumovirus Not Detected (NotDetected); Influenza A, PCR Not Detected (NotDetected); Influenza AH1, 2009 Not Detected (NotDetected); Influenza AH1, PCR Not Detected (NotDetected); Influenza AH3,PCR Not Detected (NotDetected); Influenza B, PCR Not Detected (NotDetected); Mycoplasma Pneumoniae, PCR Not Detected (NotDetected); Parainfluenza 1, PCR Not Detected (NotDetected); Parainfluenza 2, PCR Not Detected (NotDetected); Parainfluenza 3, PCR Not Detected (NotDetected); Parainfluenza 4, PCR Not Detected (NotDetected); Respiratory Syncytial Virus Not Detected (NotDetected)
[2024-02-26 23:14] LABS: Rhinovirus/Enterovirus Detected (NotDetected)
== END 2024-02-26 23:59 | disposition home or self-care (01) ==
LOC: LAB.DROPOF 02-27 09:13
PROVIDERS: PCP Student in an Organized Health Care Education/Training Program; Visit Provider Student in an Organized Health Care Education/Training Program
DX: J06.9 Acute upper respiratory infection, unspecified (principal); Z72.0 Tobacco use
CPT/HCPCS: 87581; 87632; 87635; 87798

== ENCOUNTER 2024-04-01 10:20 | Outpatient (CLI) | payer MEDICAID, SELFPAY | END 2024-04-01 23:59 | disposition home or self-care (01) | LOC: LAB.DROPOF 04-02 10:07 | PROVIDERS: PCP Student in an Organized Health Care Education/Training Program; Visit Provider Student in an Organized Health Care Education/Training Program | DX: J02.9 Acute pharyngitis, unspecified (principal) | CPT/HCPCS: 87070 ==

== ENCOUNTER 2024-04-06 16:57 | Emergency (ER) | payer MEDICAID, SELFPAY ==
[2024-04-06 18:30] VITALS: BP 112/68; PULSE 90; RESP 20; TEMP 36.9; O2SAT 100; BMI 20.7
--- NOTE | 2024-04-06 18:43 | ED_ITS ---
Discharge Plan Disposition Patient Disposition: Home, Self-Care Condition: Good Prescriptions Prescriptions: New amoxicillin 500 mg tablet 500 mg PO TID 10 Days Qty: 30 0RF methylprednisolone 4 mg Tablets,Dose Pack 4 mg PO DIRECTED 6 Days Qty: 21 0RF Rx Instructions: Take 1 pack as directed for 6 days mpdhqxhvlgtyopb-davuvncns-OE [Bromfed DM] 2-30-10 mg/5 mL Syrup 5 ml PO Q6H PRN (Reason: Cough) Qty: 240 0RF No Action buspirone 5 mg tablet 5 mg PO DAILY Rx Instructions: Take 1 tablet by mouth twice daily propranolol 10 mg tablet 10 mg PO DAILY Patient Comments: TAKE 1 TABLET BY MOUTH TWICE DAILY Nurtec ODT 75 mg tablet,disintegrating 75 mg PO DAILYP PRN (Reason: Headache) Qulipta 60 mg tablet 60 mg PO DAILY Patient Comments: TAKE 1 TABLET BY MOUTH ONCE DAILY Referrals Follow up/Referrals: Kimmy Green PA [Primary Care Provider] - See instructions Activity Restrictions/Add. Instructions Additional Instructions/Restrictions: Drink plenty of fluids. Take tylenol or ibuprofen for pain or fever. Take the medications as directed. Follow up with your regular doctor. GO TO THE ER FOR ANY WORSENING SYMPTOMS Clinical Impressions Clinical Impression: Sinusitis, Acute viral syndrome Stand Alone Forms Stand Alone Forms: Work/School Release Instructions Patient Instructions: Sinusitis, DI for Sinusitis Print Language Print Language: Upper Sorbian Discharge ED Provider: Juan F Treadwell [facility] [place] HPI General Stated complaint: SOA, radha Time Seen by Provider: 04/06/24 18:37 Related Data Home Medications ?Medication ?Instructions ?Recorded ?Confirmed rimegepant 75 mg disintegrating 75 mg PO DAILYP PRN Headache 01/03/23 04/06/24 tablet (Nurtec ODT) buspirone 5 mg tablet 5 mg PO DAILY 12/25/23 04/06/24 propranolol 10 mg tablet 10 mg PO DAILY 02/24/24 04/06/24 atogepant 60 mg tablet (Qulipta) 60 mg PO DAILY 04/06/24 04/06/24 Previous Rx's ?Medication ?Instructions ?Recorded amoxicillin 500 mg tablet 500 mg PO TID 10 days #30 tabs 04/06/24 imnldcivgteykwi-pbyibivpqzknxan-OF 5 ml PO Q6H PRN Cough #240 mL 04/06/24 2 mg-30 mg-10 mg/5 mL oral syrup (Bromfed DM) methylprednisolone 4 mg tablets in 4 mg PO DIRECTED 6 days #21 tabs 04/06/24 a dose pack Allergies Allergy/AdvReac Type Severity Reaction Status Date / Time No Known Allergies Allergy Verified 04/01/24 10:32 [facility] Disclaimer: The information contained in this section may have been updated after the patient was seen, as this information can be updated by other users. Medical History Generalized anxiety disorder History of migraine History of gastroesophageal reflux (GERD) History of depression History of asthma History of anxiety Anxiety Migraine Surgical History History of esophagogastroduodenoscopy (EGD) Family History Other Asthma Cancer Thyroid disorder Social History Smoking Status: Current every day smoker tobacco type: e-cigarettes second hand exposure: No alcohol intake: never substance use type: denies use current occupational status: student and other Travel in the last 8 weeks: None household members: family housing: house number of children: 0 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: Yes All systems reviewed & no additional complaints except as documented Constitutional Constitutional: Reports chills and Reports fever(s) Eyes Eyes: Denies eye discharge ENT Ears, Nose, Mouth, and Throat: Reports as per HPI Cardiovascular Cardiovascular: Denies chest pain Respiratory Respiratory: Denies chest congestion and Reports cough Gastrointestinal Gastrointestingal: Reports nausea; Denies abdominal pain, constipation, cramping, diarrhea or vomiting Musculoskeletal Musculoskeletal: Denies arthralgias Integumentary/Breasts Skin/Breast: Denies rash Neurologic Neurologic: Denies paresthesias Physical Exam General General appearance: alert and in no apparent distress Head Head exam: atraumatic, normocephalic and normal inspection Eye Eye exam: Present normal appearance, PERRL and EOMI ENT ENT exam: Present mucous membranes moist and normal external ear exam Expanded ENT Exam TM/Canal exam: Bilateral TM: erythema and bulging Nose exam: Absent sinus tenderness Mouth exam: Present normal external inspection; Absent drooling Teeth exam: Present normal inspection Throat exam: Present tonsillar erythema, tonsillomegaly and tonsillar exudate Neck Neck exam: Present normal inspection, full ROM and trachea midline; Absent tenderness, meningismus or lymphadenopathy Chest Chest inspection: Present normal inspection and symmetric chest wall rise; Absent tenderness Respiratory Respiratory exam: Present normal lung sounds bilaterally; Absent respiratory distress, wheezes, stridor or accessory muscle use Cardiovascular Cardiovascular exam: Present regular rate and normal rhythm; Absent systolic murmur or diastolic murmur Abdominal Exam Abdominal exam: Present soft and normal bowel sounds; Absent distention, tenderness, guarding, rebound or rigidity Extremities Exam Extremities exam: Present normal inspection and normal capillary refill; Absent calf tenderness Back Exam Back exam: Present normal inspection and full ROM; Absent tenderness, CVA tenderness (R) or CVA tenderness (L) Neurological Exam Neurological exam: Present alert, oriented X3 and CN II-XII intact Psychiatric Psychiatric exam: Present normal affect and normal mood Skin Skin exam: Present warm, dry, intact and normal color Medical Decision Making Medical Records Medical records reviewed: No I reviewed the patient's medical records. Steve Inquiry Pt receiving controlled substance: No Lab Data Lab results reviewed: Yes I reviewed the patient's lab results.
[2024-04-06 18:56] VITALS: BP 112/68; PULSE 90; RESP 20; TEMP 36.9; O2SAT 100
== END 2024-04-06 19:07 | disposition home or self-care (01) ==
PROVIDERS: Emergency Provider Nurse Practitioner Family; PCP Physician Assistant
DX: J01.90 Acute sinusitis, unspecified (principal); B34.9 Viral infection, unspecified
CPT/HCPCS: 87635; 99212; 99214; G0463

== ENCOUNTER 2024-04-21 14:34 | Emergency (ER) | payer MEDICAID, SELFPAY ==
[2024-04-21 15:07] VITALS: BP 114/70; PULSE 94; RESP 20; TEMP 36.9; O2SAT 98; BMI 20.9
--- NOTE | 2024-04-21 15:18 | EXP.UTC ---
Discharge Plan Disposition Patient Disposition: Home, Self-Care Condition: Good Prescriptions Prescriptions: No Action buspirone 5 mg tablet 5 mg PO DAILY Rx Instructions: Take 1 tablet by mouth twice daily propranolol 10 mg tablet 10 mg PO DAILY Patient Comments: TAKE 1 TABLET BY MOUTH TWICE DAILY Nurtec ODT 75 mg tablet,disintegrating 75 mg PO DAILYP PRN (Reason: Headache) Qulipta 60 mg tablet 60 mg PO DAILY Patient Comments: TAKE 1 TABLET BY MOUTH ONCE DAILY amoxicillin 500 mg tablet 500 mg PO TID 10 Days Qty: 30 0RF methylprednisolone 4 mg Tablets,Dose Pack 4 mg PO DIRECTED 6 Days Qty: 21 0RF Rx Instructions: Take 1 pack as directed for 6 days xpzgmtygdwirptb-tcwvjwgqc-IB [Bromfed DM] 2-30-10 mg/5 mL Syrup 5 ml PO Q6H PRN (Reason: Cough) Qty: 240 0RF Referrals Follow up/Referrals: Kimmy Green PA [Primary Care Provider] - See instructions Activity Restrictions/Add. Instructions Additional Instructions/Restrictions: *Monitor Temp, Over the counter Motrin or Tylenol as directed/as needed Tylenol every 4 hours and Motrin every 6 hours (as long as your family doctor has told you that you can take it) for fever or pain. and straight to ER if unable to lower temp less than 101.0 after medication given *Warm salt water gargles may help to soothe the throat *Throat Lozenges? *Warm fluids like tea with honey may help to soothe the throat? *Sleep elevated *Humidifier/Vaporizer The cough medication you was prescribed has a decongestant in it that should help with your nasal congestion Your throat swab was sent for culture. Those results are typically sent to your primary care. Be sure to follow up in 2-3 days with your family doctor/primary care physician if no improvement so they can review those result and treat if necessary. If you don?t have a primary care doctor, I recommend you get one but in the mean time, you will have to return to a walk in clinic Follow up IMMEDIATELY for new or worsening symptoms or no Noticeable improvement over the next 48-72 hours. 911 for difficulty breathing or swallowing You were tested for today for COVID19 your test result should be back in the next 24 hours, you may check your results on the [facility] My Health Portal Clinical Impressions Clinical Impression: Viral syndrome Stand Alone Forms Stand Alone Forms: Work/School Release Instructions Patient Instructions: DI for Viral Syndrome, Cough, DI for Nasal Congestion Print Language Print Language: Bulgarian Discharge ED Provider: Stephie Beauchamp [facility] [place] HPI General Stated complaint: congestion, sore throat, body aches Mode of Arrival: Ambulatory Source of Information: Patient Time Seen by Provider: 04/21/24 15:18 Description of Symptoms (Recalled from Triage Doc. 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 Just finished antibiotics a few days ago Related Data Home Medications ?Medication ?Instructions ?Recorded ?Confirmed rimegepant 75 mg disintegrating 75 mg PO DAILYP PRN Headache 01/03/23 04/06/24 tablet (Nurtec ODT) buspirone 5 mg tablet 5 mg PO DAILY 12/25/23 04/06/24 propranolol 10 mg tablet 10 mg PO DAILY 02/24/24 04/06/24 atogepant 60 mg tablet (Qulipta) 60 mg PO DAILY 04/06/24 04/06/24 Previous Rx's ?Medication ?Instructions ?Recorded amoxicillin 500 mg tablet 500 mg PO TID 10 days #30 tabs 04/06/24 oqpnfrlskuhgipi-ldpaysdiaheolun-BN 5 ml PO Q6H PRN Cough #240 mL 04/06/24 2 mg-30 mg-10 mg/5 mL oral syrup (Bromfed DM) methylprednisolone 4 mg tablets in 4 mg PO DIRECTED 6 days #21 tabs 04/06/24 a dose pack Allergies Allergy/AdvReac Type Severity Reaction Status Date / Time No Known Allergies Allergy Verified 04/01/24 10:32 Worker's Comp Is this a Worker's Comp case?: No [facility] Disclaimer: The information contained in this section may have been updated after the patient was seen, as this information can be updated by other users. Medical History Generalized anxiety disorder History of migraine History of gastroesophageal reflux (GERD) History of depression History of asthma History of anxiety Anxiety Migraine Surgical History History of esophagogastroduodenoscopy (EGD) Family History Other Asthma Cancer Thyroid disorder Social History Smoking Status: Current every day smoker tobacco type: e-cigarettes second hand exposure: No alcohol intake: never substance use type: denies use current occupational status: student and other Travel in the last 8 weeks: None household members: family housing: house number of children: 0 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 Obtained: Yes All systems reviewed & no additional complaints except as documented and Yes Systems reviewed as appropriate & no additional complaints except as documented Constitutional Constitutional: Reports system reviewed and no additional complaints, except as documented, Reports as per HPI, Reports body ache, Reports chills and Reports headache(s) ENT Ears, Nose, Mouth, and Throat: Reports system reviewed and no additional complaints, except as documented, Reports as per HPI, Reports headache(s), Reports nasal congestion, Reports sinus pressure and Reports sore throat Cardiovascular Cardiovascular: Reports system reviewed and no additional complaints, except as documented and Reports as per HPI Respiratory Respiratory: Reports system reviewed and no additional complaints, except as documented and Reports as per HPI Gastrointestinal Gastrointestingal: Reports system reviewed and no additional complaints, except as documented, as per HPI and diarrhea Neurologic Neurologic: Reports headache(s) Physical Exam General General appearance: alert and in no apparent distress ENT ENT exam: Present mucous membranes moist Expanded ENT Exam Nose exam: Present sinus tenderness Throat exam: Present other (PND noted) Respiratory Respiratory exam: Present normal lung sounds bilaterally; Absent respiratory distress or wheezes Cardiovascular Cardiovascular exam: Present regular rate, normal rhythm and normal heart sounds Abdominal Exam Abdominal exam: Present soft and normal bowel sounds; Absent distention or tenderness Neurological Exam Neurological exam: Present alert, oriented X3 and normal gait Medical Decision Making Medical Records Screening: Per USPSTF and CDC recommendations, given the prevalence of disease in our region, it is our hospital?s policy to screen for HIV and viral Hepatitis for all patients aged 18 and over and those with ongoing risk factors. Steve Inquiry Pt receiving controlled substance: No Steve was queried for this patient: No Vital Signs: 04/21/24 15:07 Temperature 98.5 F Temperature Source Oral Pulse Rate [Left Brachial] 94 H Respiratory Rate 20 Blood Pressure [Left Arm] 114/70 Blood Pressure Mean [Left Arm] 84 02 Sat by Pulse Oximetry 98 Lab Data Lab results reviewed: Yes I reviewed the patient's lab results. Orders (Tests/Meds): ORDERS Category Date Time Status Covid-19 Nasal PCR ([facility]) Routine Lab 04/21/24 15:08 Ordered
[2024-04-21 15:32] LABS: UTC Strep Screen (Rapid) Negative (Negative)
[2024-04-21 15:48] VITALS: BP 114/70; PULSE 94; RESP 20; TEMP 36.9
--- NOTE | 2024-04-22 08:17 | PC.NURSE ---
pt called and I relayed her positive covid results to her.
== END 2024-04-21 15:49 | disposition home or self-care (01) ==
PROVIDERS: Emergency Provider Nurse Practitioner; PCP Physician Assistant
DX: U07.1 COVID-19 (principal); R05.9 Cough, unspecified; R07.0 Pain in throat; R19.7 Diarrhea, unspecified
CPT/HCPCS: 87635; 87880; 99212; 99213; G0463

== ENCOUNTER 2024-05-20 19:22 | Emergency (ER) | payer MEDICAID, SELFPAY ==
[2024-05-20 19:23] VITALS: BP 114/72; PULSE 99; RESP 16; TEMP 37.2; O2SAT 99; BMI 20.5
--- NOTE | 2024-05-20 19:40 | ED_ITS ---
Discharge Plan Disposition Patient Disposition: Home, Self-Care Prescriptions Prescriptions: No Action buspirone 5 mg tablet 5 mg PO DAILY Rx Instructions: Take 1 tablet by mouth twice daily propranolol 10 mg tablet 10 mg PO DAILY Patient Comments: TAKE 1 TABLET BY MOUTH TWICE DAILY Nurtec ODT 75 mg tablet,disintegrating 75 mg PO DAILYP PRN (Reason: Headache) Qulipta 60 mg tablet 60 mg PO DAILY Patient Comments: TAKE 1 TABLET BY MOUTH ONCE DAILY amoxicillin 500 mg tablet 500 mg PO TID 10 Days Qty: 30 0RF methylprednisolone 4 mg Tablets,Dose Pack 4 mg PO DIRECTED 6 Days Qty: 21 0RF Rx Instructions: Take 1 pack as directed for 6 days [id number]-[id number]-MP [Bromfed DM] 2-30-10 mg/5 mL Syrup 5 ml PO Q6H PRN (Reason: Cough) Qty: 240 0RF Referrals Follow up/Referrals: Kimmy Green PA [Primary Care Provider] - See instructions Activity Restrictions/Add. Instructions Additional Instructions/Restrictions: Please follow-up with your neurologist as previously instructed and return with any significant worsening of her symptoms. Clinical Impressions Clinical Impression: Migraine Print Language Print Language: Romansh Discharge ED Provider: Kalia Hinson General Adult HPI General Chief complaint: Headache Stated complaint: Migraine with vomiting Time Seen by Provider: 05/20/24 19:26 Mode of Arrival: Ambulatory Source of Information: Patient Limitations: No Limitations Description of Symptoms (Recalled from ER Triage Doc. by RN): pt to ED with c/o migraine and vomiting since last night. pt reports hx of migraines and has taken her prescribed medications without adequate relief. Pt has also taken tylenol and ibuprofen. Pt reports pain is mostly behind her eyes and worsened with light/noise. History of Present Illness HPI narrative: Patient is a 19-year-old female presenting today with a recurrent and refractory migraine. She has a history of chronic migraines that she has dealt with for the last 8 years. She has been on many medications for this in the past. I said to come to the urgent treatment clinic for migraine medications in the past. She states that this particular migraine has been worsening since last night nothing really out of the ordinary for this. She has follow-up with neurology. She denies any fevers or chills or focal neurologic deficits or a symptom component to this. Related Data Home Medications ?Medication ?Instructions ?Recorded ?Confirmed rimegepant 75 mg disintegrating 75 mg PO DAILYP PRN Headache 01/03/23 04/06/24 tablet (Nurtec ODT) buspirone 5 mg tablet 5 mg PO DAILY 12/25/23 04/06/24 propranolol 10 mg tablet 10 mg PO DAILY 02/24/24 04/06/24 atogepant 60 mg tablet (Qulipta) 60 mg PO DAILY 04/06/24 04/06/24 Previous Rx's ?Medication ?Instructions ?Recorded amoxicillin 500 mg tablet 500 mg PO TID 10 days #30 tabs 04/06/24 vedowmnvuytzubl-fgejneisyiyspql-PY 5 ml PO Q6H PRN Cough #240 mL 04/06/24 2 mg-30 mg-10 mg/5 mL oral syrup (Bromfed DM) methylprednisolone 4 mg tablets in 4 mg PO DIRECTED 6 days #21 tabs 04/06/24 a dose pack Allergies Allergy/AdvReac Type Severity Reaction Status Date / Time No Known Allergies Allergy Verified 04/01/24 10:32 [facility] Disclaimer: The information contained in this section may have been updated after the patient was seen, as this information can be updated by other users. 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 Other Medical History Have you received the Flu Vaccine for this season: Yes Have you received the Pneumonia Vaccine: No ROS Obtained: Yes All systems reviewed & no additional complaints except as documented Physical Exam General General appearance: alert and in no apparent distress Respiratory Respiratory exam: Present normal lung sounds bilaterally Cardiovascular Cardiovascular exam: Present regular rate and normal rhythm Neurological Exam Neurological exam: Present alert, oriented X3, CN II-XII intact and normal gait; Absent motor sensory deficit Medical Decision Making Medical Records Screening: Per USPSTF and CDC recommendations, given the prevalence of disease in our region, it is our hospital?s policy to screen for HIV and viral Hepatitis for all patients aged 18 and over and those with ongoing risk factors. Steve Inquiry Pt receiving controlled substance: No Vital Signs: 05/20/24 19:23 Temperature 98.9 F Temperature Source Oral Pulse Rate [Left Radial] 99 H Respiratory Rate 16 Blood Pressure [Right Arm] 114/72 Blood Pressure Mean [Right Arm] 86 Blood Pressure Source [Right Arm] Automatic Cuff Blood Pressure Position [Right Arm] Sitting 02 Sat by Pulse Oximetry 99 Oxygen Delivery Method Room Air Orders (Tests/Meds): ED MEDICATIONS Generic Name Dose Route Start Last Admin Trade Name Freq PRN Reason Stop Dose Admin Lactated Ringer's 1,000 mls @ 999 mls/hr 05/20/24 19:45 05/20/24 20:18 Lactated Ringer's 1000 Ml Bag IV 05/20/24 20:45 Not Given .Q1H1M DHARMESH Discontinued Medications Generic Name Dose Route Start Last Admin Trade Name Freq PRN Reason Stop Dose Admin Dexamethasone Sodium Phosphate 10 mg 05/20/24 19:38 05/20/24 19:50 Dexamethasone 4mg/Ml 1ml Vial IV 05/20/24 19:39 10 mg ONCE ONE Administration Diphenhydramine HCl 25 mg 05/20/24 19:38 05/20/24 19:47 Diphenhydramine 50mg/Ml Vial IV 05/20/24 19:39 25 mg ONCE ONE Administration Ketorolac Tromethamine 15 mg 05/20/24 19:38 05/20/24 19:47 Ketorolac 30mg/Ml Vial IV 05/20/24 19:39 15 mg ONCE ONE Administration Prochlorperazine Edisylate 10 mg 05/20/24 19:38 05/20/24 19:47 Prochlorperazine 10mg/2ml Vial IV 05/20/24 19:39 10 mg ONCE ONE Administration Medical Decision Narrative: 19-year-old female with above history and physical GCS of 15 nonfocal and normal neurologic exam presenting today with recurrent and refractory migraine. No red flags from history of physical standpoint from emergency standpoint will give IV migraine cocktail including Toradol Benadryl Compazine and dexamethasone. I have advised that she follow-up with a headache specialist and we will give her a referral to this. Reassessment 8:29 PM patient states she is feeling much better pain is tolerable she was to go home she does not want stay and wait for her IV fluids. She was discharged in stable and improved condition. Critical Care Critical Care Time Critical Care Time: No
[2024-05-20] MEDS: KETOROLAC 30MG/ML VIAL 15 MG IV (19:47)
[2024-05-20] MEDS: PROCHLORPERAZINE 10MG/2ML VIAL 10 MG IV (19:47)
[2024-05-20] MEDS: diphenhydrAMINE 50MG/ML VIAL 25 MG IV (19:47)
[2024-05-20] MEDS: DEXAMETHASONE 4MG/ML 1ML VIAL 10 MG IV (19:50)
--- NOTE | 2024-05-20 20:15 | PC.NURSE ---
while giving pts meds, pt reports she does not want her IV fluids, and she wants to go home. Reported to MD Hinson, who states he will speak with pt. pt in bathroom at this time. MD Hinson talking to pts mother.
[2024-05-20 20:29] VITALS: BP 114/72; PULSE 99; RESP 16; TEMP 37.2; O2SAT 99
== END 2024-05-20 20:33 | disposition home or self-care (01) ==
PROVIDERS: Emergency Provider Student in an Organized Health Care Education/Training Program; PCP Physician Assistant
DX: G43.909 Migraine, unspecified, not intractable, without status migrainosus (principal); R11.11 Vomiting without nausea; H53.143 Visual discomfort, bilateral; H83.3X3 Noise effects on inner ear, bilateral
CPT/HCPCS: 96361; 96374; 96375; 99283; J0780; J1100; J1200; J1885; J7120

== ENCOUNTER 2024-06-03 21:01 | Emergency (ER) | payer MEDICAID, SELFPAY ==
[2024-06-03 21:04] VITALS: BP 132/83; PULSE 90; RESP 18; TEMP 36.9; O2SAT 100; BMI 21.1
--- NOTE | 2024-06-03 21:38 | ED_ITS ---
Discharge Plan Disposition Patient Disposition: Home, Self-Care Prescriptions Prescriptions: No Action buspirone 5 mg tablet 5 mg PO DAILY Rx Instructions: Take 1 tablet by mouth twice daily propranolol 10 mg tablet 10 mg PO DAILY Patient Comments: TAKE 1 TABLET BY MOUTH TWICE DAILY Nurtec ODT 75 mg tablet,disintegrating 75 mg PO DAILYP PRN (Reason: Headache) Qulipta 60 mg tablet 60 mg PO DAILY Patient Comments: TAKE 1 TABLET BY MOUTH ONCE DAILY amoxicillin 500 mg tablet 500 mg PO TID 10 Days Qty: 30 0RF methylprednisolone 4 mg Tablets,Dose Pack 4 mg PO DIRECTED 6 Days Qty: 21 0RF Rx Instructions: Take 1 pack as directed for 6 days [id number] [Bromfed DM] 2-30-10 mg/5 mL Syrup 5 ml PO Q6H PRN (Reason: Cough) Qty: 240 0RF Referrals Follow up/Referrals: Kimmy Green PA [Primary Care Provider] - See instructions Activity Restrictions/Add. Instructions Additional Instructions/Restrictions: Please follow-up with your COMPUTER SUPPORT ANALYST. Please return to the emergency department if you develop any new or worsening symptoms or become concerned for your health. Clinical Impressions Clinical Impression: Abdominal pain, Ovarian cyst Instructions Patient Instructions: DI for Acute Abdominal Pain Print Language Print Language: Bengali Discharge ED Provider: Berny Dobson General Adult HPI <VAL Willingham - Last Filed: 06/03/24 22:53> General Chief complaint: Abdominal Pain Stated complaint: Pain in lower left side with nausea Time Seen by Provider: 06/03/24 21:37 History of Present Illness HPI narrative: Patient presents for evaluation of abdominal pain. Patient gives a history of 24 hours of onset of left lower quadrant abdominal pain. She stated to begin around approximately noon yesterday and has been constant and persistent since. She denies any nausea vomiting diarrhea and has had a bowel movement and is passing flatus. She took a test on Friday which was negative but predated the abdominal pain. She has had no vaginal discharge no dysuria no hematuria. Pain does not radiate and is located in the left lower quadrant. Related Data Home Medications ?Medication ?Instructions ?Recorded ?Confirmed rimegepant 75 mg disintegrating 75 mg PO DAILYP PRN Headache 01/03/23 04/06/24 tablet (Nurtec ODT) buspirone 5 mg tablet 5 mg PO DAILY 12/25/23 04/06/24 propranolol 10 mg tablet 10 mg PO DAILY 02/24/24 04/06/24 atogepant 60 mg tablet (Qulipta) 60 mg PO DAILY 04/06/24 04/06/24 Previous Rx's ?Medication ?Instructions ?Recorded amoxicillin 500 mg tablet 500 mg PO TID 10 days #30 tabs 04/06/24 jtrzmslvujfcrxn-bbqzcadyrctlrxr-PI 5 ml PO Q6H PRN Cough #240 mL 04/06/24 2 mg-30 mg-10 mg/5 mL oral syrup (Bromfed DM) methylprednisolone 4 mg tablets in 4 mg PO DIRECTED 6 days #21 tabs 04/06/24 a dose pack Allergies Allergy/AdvReac Type Severity Reaction Status Date / Time No Known Allergies Allergy Verified 04/01/24 10:32 PFS <VAL Willingham - Last Filed: 06/03/24 22:53> [facility] [place] Disclaimer: The information contained in this section may have been updated after the patient was seen, as this information can be updated by other users. Medical History Generalized anxiety disorder History of migraine History of gastroesophageal reflux (GERD) History of depression History of asthma History of anxiety Anxiety Migraine Surgical History History of esophagogastroduodenoscopy (EGD) Family History Other Asthma Cancer Thyroid disorder Social History Smoking Status: Current every day smoker tobacco type: e-cigarettes second hand exposure: No alcohol intake: never substance use type: denies use current occupational status: student and other Travel in the last 8 weeks: None household members: family housing: house number of children: 0 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 Other Medical History Have you received the Flu Vaccine for this season: Yes Have you received the Pneumonia Vaccine: No <VAL Willingham - Last Filed: 06/03/24 22:53> ROS Obtained: Yes Systems reviewed as appropriate & no additional complaints except as documented Physical Exam <VAL Willingham - Last Filed: 06/03/24 22:53> General General appearance: alert and in no apparent distress Respiratory Respiratory exam: Present normal lung sounds bilaterally Cardiovascular Cardiovascular exam: Present regular rate Neurological Exam Neurological exam: Present alert and oriented X3 Medical Decision Making <VAL Willingham - Last Filed: 06/03/24 22:53> Medical Records Medical records reviewed: Yes I reviewed the patient's medical records. Screening: Per USPSTF and CDC recommendations, given the prevalence of disease in our region, it is our hospital?s policy to screen for HIV and viral Hepatitis for all patients aged 18 and over and those with ongoing risk factors. Steve Inquiry Pt receiving controlled substance: No Vital Signs: 06/03/24 21:04 Temperature 98.5 F Temperature Source Oral Pulse Rate [Left] 90 Respiratory Rate 18 Blood Pressure [Right Arm] 132/83 Blood Pressure Mean [Right Arm] 99 02 Sat by Pulse Oximetry 100 Oxygen Delivery Method Room Air Lab Data Lab results reviewed: Yes I reviewed the patient's lab results. Lab Results 06/03/24 21:39: WBC 10.2, RBC 4.69, Hgb 14.8, Hct 42.3, MCV 90.1, MCH 31.5 H, MCHC 34.9, RDW 12.7, Plt Count 291, MPV 7.1 L, Neut % (Auto) 63.3, Lymph % (Auto) 28.8, Stanton % (Auto) 5.7, Eos % (Auto) 1.7, Baso % (Auto) 0.5, Neut # (Auto) 6.5, Lymph # (Auto) 3.0, Stanton # (Auto) 0.6, Eos # (Auto) 0.2, Baso # (Auto) 0.1, Sodium 139, Potassium 3.4 L, Chloride 104, Carbon Dioxide 25, Anion Gap 13.4, BUN 15, Creatinine 0.90, Estimated Creat Clear 76, Estimated GFR 79, Est GFR ( Amer) 96, Glucose 98, Calcium 9.6, Total Bilirubin 0.5, AST 18, ALT 11 L, Alkaline Phosphatase 51, Total Protein 7.7, Albumin 4.9, Globulin 2.8, Albumin/Globulin Ratio 1.8, Serum HCG, Qual Negative, HIV 1&2 Antibody Rapid Nonreactive 06/03/24 21:42: Urine Color Yellow, Urine Appearance Clear, Urine pH 6.0, Ur Specific [place] 1.015, Urine Protein Negative, Urine Glucose (UA) Negative, Urine Ketones Negative, Urine Blood Negative, Urine Nitrate Negative, Urine Bilirubin Negative, Urine Urobilinogen 0.2, Ur Leukocyte Esterase Negative, Urine WBC Occasional, Ur Squamous Epith Cells 3-5, Urine Bacteria Trace 06/03/24 21:39 06/03/24 21:39 Orders (Tests/Meds): ED MEDICATIONS Generic Name Dose Route Start Last Admin Trade Name Freq PRN Reason Stop Dose Admin Sodium Chloride 10 ml 06/03/24 22:18 06/03/24 22:20 Sodium Chloride 0.9% 10ml Syr (Rad Only) IV 07/03/24 22:17 10 ml NEEDED PRN Administration Maintain IV Site Discontinued Medications Generic Name Dose Route Start Last Admin Trade Name Freq PRN Reason Stop Dose Admin Acetaminophen 1,000 mg 06/03/24 21:41 06/03/24 21:46 Acetaminophen 500mg Tab PO 06/03/24 21:42 1,000 mg ONCE ONE Administration Iopamidol 75 ml 06/03/24 22:18 06/03/24 22:21 Iopamidol-370 (76%);100ml Bottle IV 06/03/24 22:19 75 ml ONCE ONE Administration Ketorolac Tromethamine 15 mg 06/03/24 21:41 06/03/24 22:07 Ketorolac 30mg/Ml Vial IV 06/03/24 21:42 15 mg ONCE ONE Administration Ondansetron HCl 4 mg 06/03/24 21:41 06/03/24 21:46 Ondansetron 4mg/2ml Vial IV 06/03/24 21:42 4 mg ONCE ONE Administration ORDERS Category Date Time Status CT abdomen pelvis w con Stat Cat Scan 06/03/24 21:42 Completed US transvaginal Stat Exams 06/03/24 22:35 Completed CBC w/Auto Diff [Complete Blood Count Auto Diff] Stat Lab 06/03/24 21:39 Completed CMP [Comprehensive Metabolic Panel] Stat Lab 06/03/24 21:39 Completed HCG Qualitative, Serum Stat Lab 06/03/24 21:39 Completed HIV (1&2) Antibody Rapid Stat Lab 06/03/24 21:39 Completed Hep C Ab with Reflex to RNA Stat Lab 06/03/24 21:39 Received UA [Urinalysis and Microscopic] Stat Lab 06/03/24 21:42 Completed Medical Decision Narrative: In summary patient is a 19-year-old female who presents to the emergency department for evaluation of left lower quadrant abdominal pain. Patient is hemodynamically stable upon arrival, afebrile. Exam is remarkable for tenderness to palpation even lightly in the left lower quadrant without rebound or guarding or rigidity. Bowel sounds normal active.. Differential diagnosis includes ovarian cyst versus diverticulitis versus versus kidney stone versus UTI versus gastroenteritis although less likely etc. Initial workup will be conducted with hematologic labs CT scan abdomen pelvis. Initial interventions include Tylenol Toradol Zofran. Initial workup reviewed by me shows that her hematologic labs are nonactionable however my informed interpretation of her CT scan shows a left adnexal cyst that appears to be greater than 4 cm prior to radiology read. Upon repeat evaluation patient only had minimal improvement after initial intervention. Given this I ordered a transvaginal ultrasound as the risk of torsion is high given the size of the cyst. That is pending at the time of handoff to Dr. Dobson at 2300 hrs. <Garrett Lu MD - Last Filed: 06/03/24 23:08> Vital Signs: 06/03/24 21:04 Temperature 98.5 F Temperature Source Oral Pulse Rate [Left] 90 Respiratory Rate 18 Blood Pressure [Right Arm] 132/83 Blood Pressure Mean [Right Arm] 99 02 Sat by Pulse Oximetry 100 Oxygen Delivery Method Room Air Lab Data Lab Results 06/03/24 21:39: WBC 10.2, RBC 4.69, Hgb 14.8, Hct 42.3, MCV 90.1, MCH 31.5 H, MCHC 34.9, RDW 12.7, Plt Count 291, MPV 7.1 L, Neut % (Auto) 63.3, Lymph % (Auto) 28.8, Stanton % (Auto) 5.7, Eos % (Auto) 1.7, Baso % (Auto) 0.5, Neut # (Auto) 6.5, Lymph # (Auto) 3.0, Stanton # (Auto) 0.6, Eos # (Auto) 0.2, Baso # (Auto) 0.1, Sodium 139, Potassium 3.4 L, Chloride 104, Carbon Dioxide 25, Anion Gap 13.4, BUN 15, Creatinine 0.90, Estimated Creat Clear 76, Estimated GFR 79, Est GFR ( Amer) 96, Glucose 98, Calcium 9.6, Total Bilirubin 0.5, AST 18, ALT 11 L, Alkaline Phosphatase 51, Total Protein 7.7, Albumin 4.9, Globulin 2.8, Albumin/Globulin Ratio 1.8, Serum HCG, Qual Negative, HIV 1&2 Antibody Rapid Nonreactive 06/03/24 21:42: Urine Color Yellow, Urine Appearance Clear, Urine pH 6.0, Ur Specific [place] 1.015, Urine Protein Negative, Urine Glucose (UA) Negative, Urine Ketones Negative, Urine Blood Negative, Urine Nitrate Negative, Urine Bilirubin Negative, Urine Urobilinogen 0.2, Ur Leukocyte Esterase Negative, Urine WBC Occasional, Ur Squamous Epith Cells 3-5, Urine Bacteria Trace Orders (Tests/Meds): ED MEDICATIONS Generic Name Dose Route Start Last Admin Trade Name Freq PRN Reason Stop Dose Admin Sodium Chloride 10 ml 06/03/24 22:18 06/03/24 22:20 Sodium Chloride 0.9% 10ml Syr (Rad Only) IV 07/03/24 22:17 10 ml NEEDED PRN Administration Maintain IV Site Discontinued Medications Generic Name Dose Route Start Last Admin Trade Name Freq PRN Reason Stop Dose Admin Acetaminophen 1,000 mg 06/03/24 21:41 06/03/24 21:46 Acetaminophen 500mg Tab PO 06/03/24 21:42 1,000 mg ONCE ONE Administration Iopamidol 75 ml 06/03/24 22:18 06/03/24 22:21 Iopamidol-370 (76%);100ml Bottle IV 06/03/24 22:19 75 ml ONCE ONE Administration Ketorolac Tromethamine 15 mg 06/03/24 21:41 06/03/24 22:07 Ketorolac 30mg/Ml Vial IV 06/03/24 21:42 15 mg ONCE ONE Administration Ondansetron HCl 4 mg 06/03/24 21:41 06/03/24 21:46 Ondansetron 4mg/2ml Vial IV 06/03/24 21:42 4 mg ONCE ONE Administration ORDERS Category Date Time Status CT abdomen pelvis w con Stat Cat Scan 06/03/24 21:42 Completed US transvaginal Stat Exams 06/03/24 22:35 Completed CBC w/Auto Diff [Complete Blood Count Auto Diff] Stat Lab 06/03/24 21:39 Completed CMP [Comprehensive Metabolic Panel] Stat Lab 06/03/24 21:39 Completed HCG Qualitative, Serum Stat Lab 06/03/24 21:39 Completed HIV (1&2) Antibody Rapid Stat Lab 06/03/24 21:39 Completed Hep C Ab with Reflex to RNA Stat Lab 06/03/24 21:39 Received UA [Urinalysis and Microscopic] Stat Lab 06/03/24 21:42 Completed Medical Decision Narrative: In summary patient is a 19-year-old female who presents to the emergency department for evaluation of left lower quadrant abdominal pain. Patient is hemodynamically stable upon arrival, afebrile. Exam is remarkable for tenderness to palpation even lightly in the left lower quadrant without rebound or guarding or rigidity. Bowel sounds normal active.. Differential diagnosis includes ovarian cyst versus diverticulitis versus versus kidney stone versus UTI versus gastroenteritis although less likely etc. Initial workup will be conducted with hematologic labs CT scan abdomen pelvis. Initial interventions include Tylenol Toradol Zofran. Initial workup reviewed by me shows that her hematologic labs are nonactionable however my informed interpretation of her CT scan shows a left adnexal cyst that appears to be greater than 4 cm prior to radiology read. Upon repeat evaluation patient only had minimal improvement after initial intervention. Given this I ordered a transvaginal ultrasound as the risk of torsion is high given the size of the cyst. That is pending at the time of handoff to Dr. Dobson at 2300 hrs. I was consulted by the ANTONY, and we discussed the complexity of the problems being addressed. I approved the treatment and management plan for this patient's care in the emergency department, thus performing a substantive portion of the medical decision making. Garrett Lu MD <Berny Dobson MD - Last Filed: 06/04/24 00:16> Vital Signs: 06/03/24 21:04 Temperature 98.5 F Temperature Source Oral Pulse Rate [Left] 90 Respiratory Rate 18 Blood Pressure [Right Arm] 132/83 Blood Pressure Mean [Right Arm] 99 02 Sat by Pulse Oximetry 100 Oxygen Delivery Method Room Air Lab Data Lab Results 06/03/24 21:39: WBC 10.2, RBC 4.69, Hgb 14.8, Hct 42.3, MCV 90.1, MCH 31.5 H, MCHC 34.9, RDW 12.7, Plt Count 291, MPV 7.1 L, Neut % (Auto) 63.3, Lymph % (Auto) 28.8, Stanton % (Auto) 5.7, Eos % (Auto) 1.7, Baso % (Auto) 0.5, Neut # (Auto) 6.5, Lymph # (Auto) 3.0, Stanton # (Auto) 0.6, Eos # (Auto) 0.2, Baso # (Auto) 0.1, Sodium 139, Potassium 3.4 L, Chloride 104, Carbon Dioxide 25, Anion Gap 13.4, BUN 15, Creatinine 0.90, Estimated Creat Clear 76, Estimated GFR 79, Est GFR ( Amer) 96, Glucose 98, Calcium 9.6, Total Bilirubin 0.5, AST 18, ALT 11 L, Alkaline Phosphatase 51, Total Protein 7.7, Albumin 4.9, Globulin 2.8, Albumin/Globulin Ratio 1.8, Serum HCG, Qual Negative, HIV 1&2 Antibody Rapid Nonreactive 06/03/24 21:42: Urine Color Yellow, Urine Appearance Clear, Urine pH 6.0, Ur Specific [place] 1.015, Urine Protein Negative, Urine Glucose (UA) Negative, Urine Ketones Negative, Urine Blood Negative, Urine Nitrate Negative, Urine Bilirubin Negative, Urine Urobilinogen 0.2, Ur Leukocyte Esterase Negative, Urine WBC Occasional, Ur Squamous Epith Cells 3-5, Urine Bacteria Trace Orders (Tests/Meds): ED MEDICATIONS Generic Name Dose Route Start Last Admin Trade Name Freq PRN Reason Stop Dose Admin Sodium Chloride 10 ml 06/03/24 22:18 06/03/24 22:20 Sodium Chloride 0.9% 10ml Syr (Rad Only) IV 07/03/24 22:17 10 ml NEEDED PRN Administration Maintain IV Site Discontinued Medications Generic Name Dose Route Start Last Admin Trade Name Freq PRN Reason Stop Dose Admin Acetaminophen 1,000 mg 06/03/24 21:41 06/03/24 21:46 Acetaminophen 500mg Tab PO 06/03/24 21:42 1,000 mg ONCE ONE Administration Iopamidol 75 ml 06/03/24 22:18 06/03/24 22:21 Iopamidol-370 (76%);100ml Bottle IV 06/03/24 22:19 75 ml ONCE ONE Administration Ketorolac Tromethamine 15 mg 06/03/24 21:41 06/03/24 22:07 Ketorolac 30mg/Ml Vial IV 06/03/24 21:42 15 mg ONCE ONE Administration Ondansetron HCl 4 mg 06/03/24 21:41 06/03/24 21:46 Ondansetron 4mg/2ml Vial IV 06/03/24 21:42 4 mg ONCE ONE Administration ORDERS Category Date Time Status CT abdomen pelvis w con Stat Cat Scan 06/03/24 21:42 Completed US transvaginal Stat Exams 06/03/24 22:35 Completed CBC w/Auto Diff [Complete Blood Count Auto Diff] Stat Lab 06/03/24 21:39 Completed CMP [Comprehensive Metabolic Panel] Stat Lab 06/03/24 21:39 Completed HCG Qualitative, Serum Stat Lab 06/03/24 21:39 Completed HIV (1&2) Antibody Rapid Stat Lab 06/03/24 21:39 Completed Hep C Ab with Reflex to RNA Stat Lab 06/03/24 21:39 Received UA [Urinalysis and Microscopic] Stat Lab 06/03/24 21:42 Completed Medical Decision Narrative: In summary patient is a 19-year-old female who presents to the emergency department for evaluation of left lower quadrant abdominal pain. Patient is hemodynamically stable upon arrival, afebrile. Exam is remarkable for tenderness to palpation even lightly in the left lower quadrant without rebound or guarding or rigidity. Bowel sounds normal active.. Differential diagnosis includes ovarian cyst versus diverticulitis versus versus kidney stone versus UTI versus gastroenteritis although less likely etc. Initial workup will be conducted with hematologic labs CT scan abdomen pelvis. Initial interventions include Tylenol Toradol Zofran. Initial workup reviewed by me shows that her hematologic labs are nonactionable however my informed interpretation of her CT scan shows a left adnexal cyst that appears to be greater than 4 cm prior to radiology read. Upon repeat evaluation patient only had minimal improvement after initial intervention. Given this I ordered a transvaginal ultrasound as the risk of torsion is high given the size of the cyst. That is pending at the time of handoff to Dr. Dobson at 2300 hrs. I was consulted by the ANTONY, and we discussed the complexity of the problems being addressed. I approved the treatment and management plan for this patient's care in the emergency department, thus performing a substantive portion of the medical decision making. MD Bronson Rutherford MD: I assumed care of the patient at the time of handoff from the prior provider. On reassessment the transvaginal ultrasound shows a complex cyst, possibly hemorrhagic, on the left side but shows no evidence of ovarian torsion. I had an extensive discussion with patient regarding her CT and ultrasound findings. No evidence of torsion at this time, but she is still at risk for torsion given the size of the cyst. I gave her strict return precautions and encouraged her to follow-up with her COMPUTER SUPPORT ANALYST as soon as possible. Critical Care <VAL Willingham - Last Filed: 06/03/24 22:53> Critical Care Time Critical Care Time: No
--- NOTE | 2024-06-03 21:42 | CT_ITS ---
PROCEDURE INFORMATION: Exam: CT Abdomen And Pelvis With Contrast Exam date and time: 06/03/2024 10:21 PM Age: 19 years old Clinical indication: Abdominal pain; Additional info: Left lower quadrant abdominal pain TECHNIQUE: Imaging protocol: Computed tomography of the abdomen and pelvis with contrast. Radiation optimization: All CT scans at this facility use at least one of these dose optimization techniques: automated exposure control; mA and/or kV adjustment per patient size (includes targeted exams where dose is matched to clinical indication); or iterative reconstruction. Contrast material: ISOVUE; Contrast volume: 75 ml; Contrast route: IV; COMPARISON: 1. CT ABDOMEN PELVIS W CON 10/20/2020 3:[address] ABDOMEN PELVIS WO/W CON 03/11/2020 5:[address] abdomen pelvis w con 12/13/2018 1:31 PM FINDINGS: Liver: Normal. Gallbladder and biliary ducts: No acute process. Pancreas: Normal. Spleen: Normal. Adrenal glands: The adrenal glands appear normal. Kidneys and ureters: There are no soft tissue renal masses or hydronephrosis. Stomach and bowel: There is large volume stool throughout the colon. Appendix: No evidence of appendicitis. Intraperitoneal space: There is a small volume of free fluid in the pelvis. Vasculature: The abdominal aorta and its major branches appear normal without evidence of aneurysm or stenosis. There are pelvic phleboliths. Lymph nodes: No lymphadenopathy. Urinary bladder: Unremarkable as visualized. Reproductive: There is a 4.7 cm left adnexal cyst, further evaluation with pelvic ultrasound is suggested. Bones/joints: The visualized osseous structures of the abdomen and pelvis appear normal for patient age. Soft tissues: Unremarkable. IMPRESSION: There is a 4.7 cm left adnexal cyst, further evaluation with pelvic ultrasound is suggested.
[2024-06-03] MEDS: ONDANSETRON 4MG/2ML VIAL 4 MG IV (21:46)
[2024-06-03] MEDS: ACETAMINOPHEN 500MG TAB 1000 MG PO (21:46)
[2024-06-03 21:48] LABS: Basophils # 0.1 K/mm3 (0-0.2); Basophils % 0.5 % (0.1-2.0); Eosinophils # 0.2 K/mm3 (0.0-0.4); Eosinophils % 1.7 % (0.1-12.0); Hematocrit 42.3 % (37.0-47.0); Hemoglobin 14.8 g/dL (12.2-16.2); Lymphocytes % 28.8 % (10-50); Mean Corpuscular HGB Conc 34.9 g/dL (31.8-35.4); Mean Corpuscular Hemoglobin 31.5 pg (27.0-31.2); Mean Corpuscular Volume 90.1 fl (81-99); Mean Platelet Volume 7.1 fl (7.4-10.4); Monocytes # 0.6 K/mm3 (0.1-1.0); Monocytes % 5.7 % (1.7-9.3); Neutrophils # 6.5 K/mm3 (1.8-7.8); Neutrophils % 63.3 % (37.0-80.0); Platelet Count 291 K/mm3 (142-424); Red Blood Count 4.69 M/mm3 (4.20-5.40); Red Cell Distribution Width 12.7 % (11.5-17.5); White Blood Count 10.2 K/mm3 (4.8-10.8)
[2024-06-03 21:53] LABS: Albumin Level 4.9 g/dl (3.5-5.0); Chloride 104 mmol/L (98-107); Sodium 139 mmol/L (136-145)
[2024-06-03 21:54] LABS: Potassium 3.4 mmoL/L (3.5-5.1)
[2024-06-03 21:56] LABS: Alanine Aminotransferase 11 U/L (12-78); Albumin/Globulin Ratio 1.8 (1.1-1.8); Alkaline Phosphatase 51 U/L (38-126); Anion Gap 13.4 mEq/L (5-15); Aspartate Amino Transferase 18 U/L (14-36); Bilirubin,Total 0.5 mg/dl (0.2-1.3); Blood Urea Nitrogen 15 mg/dl (7-17); Carbon Dioxide 25 mmol/L (22.0-30.0); Creatinine Clearance Estimated 76 mL/min (50-200); Estimated Glomerular Filt Rate 79 ml/min (>60); GFR (African American) 96 ML/MIN (>60); Globulin 2.8 g/dL (1.3-3.2); Total Protein,Serum 7.7 g/dl (6.3-8.2)
[2024-06-03 21:57] LABS: Calcium 9.6 mg/dl (8.4-10.2); Glucose 98 mg/dl (74-100)
[2024-06-03 22:03] LABS: HCG Qualitative, Serum Negative (Negative)
[2024-06-03] MEDS: KETOROLAC 30MG/ML VIAL 15 MG IV (22:07)
[2024-06-03] MEDS: SODIUM CHLORIDE 0.9% 10ML SYR (RAD ONLY) 10 ML IV (22:20)
[2024-06-03 22:21] LABS: Microscopic, Urine URINE MICROSCOPIC (MICROSCOPIC)
[2024-06-03] MEDS: IOPAMIDOL-370 (76%);100ML BOTTLE 75 ML IV (22:21)
[2024-06-03 22:27] LABS: Appearance,Urine CLEAR (Clear); Bilirubin,Urine Negative (Negative); Blood, Urine Negative (Negative); Color,Urine YELLOW (Yellow); Glucose,Urine (UA) Negative (Negative); Ketones,Urine Negative (Negative); Leukocyte Esterase,Urine Negative (Negative); Nitrate,Urine Negative (Negative); Protein,Urine Negative (Negative); Specific Gravity, Urine 1.015 (1.005-1.030); Urobilinogen,Urine 0.2 EU/dl (0.2)
--- NOTE | 2024-06-03 22:35 | US_ITS ---
PROCEDURE INFORMATION: Exam: US Duplex Artery or Vein of the Abdominal and/or Reproductive Organs, Limited Ovaries Exam date and time: 06/03/2024 10:48 PM Age: 19 years old Clinical indication: Abdominal pain; Right lower quadrant; Additional info: Rlq abd pain TECHNIQUE: Imaging protocol: Real-time duplex ultrasound scan of the arterial or venous flow with branch scale, color Doppler flow and spectral waveform analysis with image documentation. Limited duplex exam focused on the ovaries. Duplex exam was performed to evaluate for torsion and other vascular conditions. COMPARISON: CT ABDOMEN PELVIS W CON 06/03/2024 10:21 PM FINDINGS: Uterus: Endometrial lining measures 1 cm. Uterus measures 6.7 x 3.5 x 4.9 cm. Right ovary/adnexa: Right ovary measures 3.0 x 2.6 x 1.8 cm. There is normal arterial and venous flow to the right ovary. Left ovary/adnexa: Left ovary measures 5.5 x 6.3 x 4.4 cm. There is a complex cystic lesion in the left ovary which 5.1 x 3.5 x 3.8 cm. There is normal arterial and venous flow to the left ovary. IMPRESSION: 5.1 cm left ovarian cyst may be hemorrhagic. Six week follow-up study is suggested. Normal vascular flow is demonstrated to both ovaries. PROCEDURE INFORMATION: Exam: US Pelvis, Transvaginal, Non-Obstetric Exam date and time: 06/03/2024 10:48 PM Age: 19 years old Clinical indication: Abdominal pain; Right lower quadrant; Additional info: Rlq abd pain TECHNIQUE: Imaging protocol: Real-time transvaginal pelvic (non-obstetric) ultrasound with image documentation. Transvaginal imaging was used for better evaluation of the endometrium, adnexa, and/or cervix. COMPARISON: CT ABDOMEN PELVIS W CON 06/03/2024 10:21 PM FINDINGS: Uterus: Endometrial lining measures 1 cm. Uterus measures 6.7 x 3.5 x 4.9 cm. Right ovary/adnexa: Right ovary measures 3.0 x 2.6 x 1.8 cm. There is normal arterial and venous flow to the right ovary. Left ovary/adnexa: Left ovary measures 5.5 x 6.3 x 4.4 cm. There is a complex cystic lesion in the left ovary which 5.1 x 3.5 x 3.8 cm. There is normal arterial and venous flow to the left ovary. Urinary bladder: Urinary bladder is limited. Intraperitoneal space: No free fluid.
[2024-06-03 22:44] LABS: HIV (1&2) Antibody Rapid NONREACTIVE (NONREACTIVE)
[2024-06-03 22:48] LABS: Bacteria,Urine Trace /lpf; WBC,Urine Occasional #/hpf (0-3)
[2024-06-04 00:16] VITALS: BP 99/62; PULSE 90; RESP 16; TEMP 36.9; O2SAT 99
[2024-06-05 05:11] LABS: HCV Ab Non Reactive (Non Reactive)
== END 2024-06-04 00:17 | disposition home or self-care (01) ==
PROVIDERS: Emergency Medicine; Physician Assistant; Emergency Provider Emergency Medicine; PCP Physician Assistant
DX: N83.209 Unspecified ovarian cyst, unspecified side (principal); R10.32 Left lower quadrant pain; R11.0 Nausea
CPT/HCPCS: 74177; 76830; 80053; 81001; 84703; 85025; 86803; 87389; 96374; 96375; 99285; J1885; J2405; Q9967

== ENCOUNTER 2024-06-09 08:52 | Outpatient (CLI) | payer MEDICAID, SELFPAY ==
--- NOTE | 2024-06-09 08:56 | CA_ITS ---
FINAL REPORT TECHNIQUE: Color Doppler, duplex Doppler and compression sonography of the right lower extremity venous system was performed. CLINICAL HISTORY: right leg pain and edema x 1 month without injury COMPARISON: None FINDINGS: There is no evidence of deep venous thrombosis from the level of the groin to the calf. The veins are patent and compressible. IMPRESSION: No evidence of deep venous thrombosis right lower extremity. Reviewed, Interpreted and Dictated by Bhupinder Barclay III, MD Transcribed by Joann Romero Authenticated and [facility]
== END 2024-06-09 23:59 | disposition home or self-care (01) ==
LOC: RT 08:52
PROVIDERS: PCP Physician Assistant; Visit Provider Physician Assistant
DX: M79.661 Pain in right lower leg (principal)
CPT/HCPCS: 93971

== ENCOUNTER 2024-06-10 07:15 | Emergency (ER) | payer MEDICAID, SELFPAY ==
[2024-06-10 07:17] VITALS: BP 119/73; PULSE 90; RESP 17; TEMP 36.8; O2SAT 97; BMI 20.4
--- NOTE | 2024-06-10 07:26 | PC.NURSE ---
Dr. Garcia at bedside
--- NOTE | 2024-06-10 07:33 | US_ITS ---
PROCEDURE INFORMATION: Exam: US Pelvis, Transvaginal, Non-Obstetric Exam date and time: 06/10/2024 7:49 AM Age: 19 years old Clinical indication: Pelvic pain; Additional info: Large L ov cyst, worsened pain TECHNIQUE: Imaging protocol: Real-time transvaginal pelvic (non-obstetric) ultrasound with image documentation. Transvaginal imaging was used for better evaluation of the endometrium, adnexa, and/or cervix. COMPARISON: US TRANSVAGINAL 06/03/2024 10:48 PM FINDINGS: Uterus: The uterus measures 6.9 x 3.5 x 3.9 cm. No focal myometrial lesions. Endometrial echo complex measures 0.8 cm Right ovary/adnexa: Right ovary measures 2.4 x 2.6 x 1.8 cm (6.2 mL). There is a 1.5 x 2.6 x 1.8 cm dominant follicle. Ovarian stroma is unremarkable. There is normal arterial inflow and venous outflow. Left ovary/adnexa: Left ovary measures 1.7 x 4.3 x 2.1 cm (8.6 mL). Irregular-walled cystic lesions due to decompression. Ovarian stroma is otherwise unremarkable. There is normal arterial inflow and venous outflow. Urinary bladder: Urinary bladder is limited. Intraperitoneal space: No free fluid. IMPRESSION: Decompressed prior left ovarian cysts. Otherwise, unremarkable evaluation of the uterus and adnexa.
--- NOTE | 2024-06-10 07:39 | ED_ITS ---
Discharge Plan Disposition Patient Disposition: Home, Self-Care Condition: Good Prescriptions Prescriptions: New ondansetron 4 mg tablet,disintegrating 4 mg PO Q8H PRN (Reason: nausea and vomiting) 4 Days Qty: 12 0RF dicyclomine 20 mg tablet 20 mg PO QID PRN (Reason: abdominal pain) Qty: 20 0RF ketorolac 10 mg tablet 10 mg PO Q8H PRN (Reason: pain) 3 Days Qty: 12 0RF No Action buspirone 5 mg tablet 5 mg PO DAILY Rx Instructions: Take 1 tablet by mouth twice daily propranolol 10 mg tablet 10 mg PO DAILY Patient Comments: TAKE 1 TABLET BY MOUTH TWICE DAILY Nurtec ODT 75 mg tablet,disintegrating 75 mg PO DAILYP PRN (Reason: Headache) Qulipta 60 mg tablet 60 mg PO DAILY Patient Comments: TAKE 1 TABLET BY MOUTH ONCE DAILY amoxicillin 500 mg tablet 500 mg PO TID 10 Days Qty: 30 0RF methylprednisolone 4 mg Tablets,Dose Pack 4 mg PO DIRECTED 6 Days Qty: 21 0RF Rx Instructions: Take 1 pack as directed for 6 days [id number] [Bromfed DM] 2-30-10 mg/5 mL Syrup 5 ml PO Q6H PRN (Reason: Cough) Qty: 240 0RF Referrals Follow up/Referrals: Kimmy Green PA [Primary Care Provider] - See instructions Activity Restrictions/Add. Instructions Additional Instructions/Restrictions: You were evaluated in the emergency department today. 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 You may also take Tylenol every 4-6 hours at home as needed. Follow-up closely with your primary care provider. Return to the emergency department for new or worsening symptoms Clinical Impressions Clinical Impression: Abdominal pain, Nausea vomiting and diarrhea, Ruptured cyst of left ovary Stand Alone Forms Stand Alone Forms: Work/School Release Instructions Patient Instructions: DI for Acute Abdominal Pain Print Language Print Language: Serbian Discharge ED Provider: Linn Garcia General Adult HPI General Chief complaint: Abdominal Pain Stated complaint: abd pain, bleeding, nausea, diarrhea, ovary cyst Time Seen by Provider: 06/10/24 07:26 Mode of Arrival: Family Vehicle Source of Information: Patient Limitations: No Limitations Description of Symptoms (Recalled from ER Triage Doc. by RN): Pt c/o left sided pelvic pain that radiates to her mid pelvis. She reports nausea, dry heaving, and diarrhea. Denies any fever, body aches, or chills. She was seen 1 w ago 06/03 and dx with 5.1 cm left ovarian cyst and has follow-up with OBGYN, Dr. Pool Garduno, and was prescirbed Gabapentin. Pt has not taken any medications this am. History of Present Illness HPI narrative: This patient is a 19-year-old female with history of mood disorder presenting to the emergency department for evaluation with concern for lower abdominal pain. Patient was seen here 06/03/2024 for abdominal pain and was diagnosed with a left ovarian cyst. She had good arterial flow on US and was discharged. She followed up with gynecology and was reportedly prescribed gabapentin. She notes that she woke up this morning with nausea, vomiting, and diarrhea as well as an increase in her pelvic pain. She did not take any medications this morning prior to coming in. Given that the pain is much worse, she decided to come in. No fevers, chills, urinary symptoms, vaginal discharge, or other concerns. Related Data Home Medications ?Medication ?Instructions ?Recorded ?Confirmed rimegepant 75 mg disintegrating 75 mg PO DAILYP PRN Headache 01/03/23 04/06/24 tablet (Nurtec ODT) buspirone 5 mg tablet 5 mg PO DAILY 12/25/23 04/06/24 propranolol 10 mg tablet 10 mg PO DAILY 02/24/24 04/06/24 atogepant 60 mg tablet (Qulipta) 60 mg PO DAILY 04/06/24 04/06/24 Previous Rx's ?Medication ?Instructions ?Recorded amoxicillin 500 mg tablet 500 mg PO TID 10 days #30 tabs 04/06/24 uajvhdsnwznqqgh-ztyzotnasudiksq-VN 5 ml PO Q6H PRN Cough #240 mL 04/06/24 2 mg-30 mg-10 mg/5 mL oral syrup (Bromfed DM) methylprednisolone 4 mg tablets in 4 mg PO DIRECTED 6 days #21 tabs 04/06/24 a dose pack dicyclomine 20 mg tablet 20 mg PO QID PRN abdominal pain 06/10/24 #20 tabs ketorolac 10 mg tablet 10 mg PO Q8H PRN pain 3 days #12 06/10/24 tabs ondansetron 4 mg disintegrating 4 mg PO Q8H PRN nausea and 06/10/24 tablet vomiting 4 days #12 tabs Allergies Allergy/AdvReac Type Severity Reaction Status Date / Time No Known Allergies Allergy Verified 04/01/24 10:32 [facility] Disclaimer: The information contained in this section may have been updated after the patient was seen, as this information can be updated by other users. Medical History Generalized anxiety disorder History of migraine History of gastroesophageal reflux (GERD) History of depression History of asthma History of anxiety Anxiety Migraine Surgical History History of esophagogastroduodenoscopy (EGD) Family History Other Asthma Cancer Thyroid disorder Social History Smoking Status: Current every day smoker tobacco type: e-cigarettes second hand exposure: No alcohol intake: never substance use type: denies use current occupational status: student and other Travel in the last 8 weeks: None household members: family housing: house number of children: 0 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 Other Medical History Have you received the Flu Vaccine for this season: Yes Have you received the Pneumonia Vaccine: No ROS Obtained: Yes All systems reviewed & no additional complaints except as documented Physical Exam General General appearance: alert and in no apparent distress Head Head exam: atraumatic and normocephalic Eye Eye exam: Present normal appearance, PERRL and EOMI ENT ENT exam: Present normal exam, normal oropharynx, mucous membranes moist and normal external ear exam Neck Neck exam: Present normal inspection, full ROM and trachea midline; Absent tenderness Chest Chest inspection: Present normal inspection and symmetric chest wall rise; Absent tenderness Respiratory Respiratory exam: Present normal lung sounds bilaterally; Absent respiratory distress, wheezes, stridor or accessory muscle use Cardiovascular Cardiovascular exam: Present regular rate and normal rhythm Abdominal Exam Abdominal exam: Present soft and tenderness (Lower abdomen); Absent distention, guarding, rebound or rigidity Extremities Exam Extremities exam: Present normal inspection, full ROM and normal capillary refill; Absent tenderness or edema Back Exam Back exam: Present normal inspection and full ROM; Absent tenderness Neurological Exam Neurological exam: Present alert, oriented X3, CN II-XII intact and normal gait; Absent motor sensory deficit Psychiatric Psychiatric exam: Present normal affect and normal mood Skin Skin exam: Present warm and dry Medical Decision Making Medical Records Medical records reviewed: Yes I reviewed the patient's medical records. Screening: Per USPSTF and CDC recommendations, given the prevalence of disease in our region, it is our hospital?s policy to screen for HIV and viral Hepatitis for all patients aged 18 and over and those with ongoing risk factors. Steve Inquiry Pt receiving controlled substance: No Vital Signs: 06/10/24 07:17 Temperature 98.3 F Temperature Source Oral Pulse Rate [Right] 90 Respiratory Rate 17 Blood Pressure [Right Arm] 119/73 Blood Pressure Mean [Right Arm] 88 Blood Pressure Source [Right Arm] Automatic Cuff 02 Sat by Pulse Oximetry 97 Oxygen Delivery Method Room Air Lab Data Lab results reviewed: Yes I reviewed the patient's lab results. Lab Results 06/10/24 07:21: Urine Color Dark yellow, Urine Appearance Cloudy, Urine pH 5.5, Ur Specific Hollis >= 1.030, Urine Protein 1+ A, Urine Glucose (UA) Negative, Urine Ketones Negative, Urine Blood 3+ A, Urine Nitrate Negative, Urine Bilirubin 1+ A, Urine Urobilinogen 0.2, Ur Leukocyte Esterase Trace, Urine RBC 3-5, Urine WBC Occasional, Ur Squamous Epith Cells 10-20, Urine Bacteria 1+ 06/10/24 07:40: WBC 5.3, RBC 4.77, Hgb 15.0, Hct 43.3, MCV 90.8, MCH 31.4 H, MCHC 34.6, RDW 12.7, Plt Count 219, MPV 7.1 L, Neut % (Auto) 81.9 H, Lymph % (Auto) 11.4, [place] % (Auto) 5.3, Eos % (Auto) 0.7, Baso % (Auto) 0.7, Neut # (Auto) 4.4, Lymph # (Auto) 0.6 L, [place] # (Auto) 0.3, Eos # (Auto) 0.0, Baso # (Auto) 0.0, Sodium 140, Potassium 4.4, Chloride 108 H, Carbon Dioxide 25, Anion Gap 11.4, BUN 10, Creatinine 0.70, Estimated Creat Clear 98, Estimated GFR 106, Est GFR ( Amer) 128, Glucose 104 H, Calcium 9.3, Total Bilirubin 0.5, AST 21, ALT 11 L, Alkaline Phosphatase 56, Total Protein 7.2, Albumin 4.6, Globulin 2.6, Albumin/Globulin Ratio 1.8, Lipase 84, Serum HCG, Qual Negative 06/10/24 07:40 06/10/24 07:40 Orders (Tests/Meds): ED MEDICATIONS Discontinued Medications Generic Name Dose Route Start Last Admin Trade Name Fabiana PRN Reason Stop Dose Admin Acetaminophen 1,000 mg 06/10/24 08:46 06/10/24 08:54 Acetaminophen 500mg Tab PO 06/10/24 08:47 1,000 mg ONCE ONE Administration Dicyclomine HCl 20 mg 06/10/24 08:46 06/10/24 08:54 Dicyclomine 10mg Capsule PO 06/10/24 08:47 20 mg ONCE ONE Administration Ketorolac Tromethamine 15 mg 06/10/24 07:33 06/10/24 07:44 Ketorolac 30mg/Ml Vial IV 06/10/24 07:34 15 mg ONCE ONE Administration Ondansetron HCl 4 mg 06/10/24 07:33 06/10/24 07:45 Ondansetron 4mg/2ml Vial IV 06/10/24 07:34 4 mg ONCE ONE Administration ORDERS Category Date Time Status US transvaginal Stat Exams 06/10/24 07:33 Completed Complete Blood Count Auto Diff Stat Lab 06/10/24 07:40 Completed Comprehensive Metabolic Panel Stat Lab 06/10/24 07:40 Completed Diarrhea 23 Panel, PCR Stat Lab 06/10/24 07:33 Ordered Lipase Stat Lab 06/10/24 07:40 Completed Serum [HCG Qualitative, Serum] Stat Lab 06/10/24 07:40 Completed UA [Urinalysis and Microscopic] Stat Lab 06/10/24 07:21 Completed Urine Culture Stat Micro 06/10/24 07:21 Received Medical Decision Narrative: In summary, this patient is a 19-year-old female presenting to the Emergency Department for evaluation of lower abdominal pain in the setting of ovarian cyst as well as new nausea, vomiting, and diarrhea. Differential diagnoses considered include but are not limited to gastroenteritis, colitis, ovarian cyst, ovarian torsion. Ruling out the most morbid conditions drove assessment. I reviewed patient's past medical records and noted previous evaluation here 06/03/2024 and diagnosis of ovarian cyst as per HPI. On exam, the patient is sitting upright in no acute distress. She has some lower abdominal tenderness but no rebound or guarding. Nothing focal, no right lower quadrant tenderness. Workup included CBC, CMP, lipase, urinalysis, transvaginal ultrasound to ensure that the patient has not developed ovarian torsion with her known large ovarian cyst. She was given IV Toradol and Zofran for symptomatic improvement. I independently interpreted ultrasound prior to the radiologist read and noted previous large cyst that was noted is newly visualized. Please see their read for final interpretation. Labs were obtained that demonstrated no significant leukocytosis, transaminitis, electrolyte derangements, or other concerns. Labs are reassuring. Urine is contaminated with squamous cells. Culture was sent and is pending. Radiology read confirms decompressed ovarian cyst. It is possible she could have ruptured the cyst and that is why she had an increase in pain, vs gastroenteritis. At time, I feel we have excluded acute life-threatening pathology or surgical emergency On reassessment, patient had good improvement after administration of interventions above, but she does still have some pain. For this, she was given oral Tylenol and Bentyl, which did help. Given improvement in symptoms and reassuring workup and exam, I feel that she is appropriate for discharge home with prescriptions for Toradol, Bentyl, and Zofran as well as instructions for close outpatient follow-up and strict return precautions. She was discharged after all questions were answered Critical Care Critical Care Time Critical Care Time: No
[2024-06-10 07:41] LABS: Microscopic, Urine URINE MICROSCOPIC (MICROSCOPIC)
[2024-06-10 07:43] LABS: Appearance,Urine CLOUDY (Clear); Blood, Urine 3+ (Negative); Color,Urine DARK YELLOW (Yellow); Glucose,Urine (UA) Negative (Negative); Ketones,Urine Negative (Negative); Leukocyte Esterase,Urine TRACE (Negative); Nitrate,Urine Negative (Negative); PH,Urine 5.5 (5.0-8.5); Protein,Urine 1+ (Negative); Specific Gravity, Urine >= 1.030 (1.005-1.030); Urobilinogen,Urine 0.2 EU/dl (0.2)
[2024-06-10] MEDS: KETOROLAC 30MG/ML VIAL 15 MG IV (07:44)
[2024-06-10 07:45] LABS: Bilirubin,Urine 1+ (Negative)
[2024-06-10] MEDS: ONDANSETRON 4MG/2ML VIAL 4 MG IV (07:45)
[2024-06-10 07:52] LABS: Basophils % 0.7 % (0.1-2.0); Eosinophils % 0.7 % (0.1-12.0); Hematocrit 43.3 % (37.0-47.0); Lymphocytes # 0.6 K/mm3 (0.7-4.5); Lymphocytes % 11.4 % (10-50); Mean Corpuscular HGB Conc 34.6 g/dL (31.8-35.4); Mean Corpuscular Hemoglobin 31.4 pg (27.0-31.2); Mean Corpuscular Volume 90.8 fl (81-99); Mean Platelet Volume 7.1 fl (7.4-10.4); Monocytes # 0.3 K/mm3 (0.1-1.0); Monocytes % 5.3 % (1.7-9.3); Neutrophils # 4.4 K/mm3 (1.8-7.8); Neutrophils % 81.9 % (37.0-80.0); Platelet Count 219 K/mm3 (142-424); Red Blood Count 4.77 M/mm3 (4.20-5.40); Red Cell Distribution Width 12.7 % (11.5-17.5); White Blood Count 5.3 K/mm3 (4.8-10.8)
[2024-06-10 08:00] LABS: Bacteria,Urine 1+ /lpf; WBC,Urine Occasional #/hpf (0-3)
--- NOTE | 2024-06-10 08:00 | PC.NURSE ---
pt to u/s via wheelchair
[2024-06-10 08:04] LABS: HCG Qualitative, Serum Negative (Negative)
[2024-06-10 08:09] LABS: Albumin Level 4.6 g/dl (3.5-5.0); Chloride 108 mmol/L (98-107); Potassium 4.4 mmoL/L (3.5-5.1); Sodium 140 mmol/L (136-145)
[2024-06-10 08:12] LABS: Alanine Aminotransferase 11 U/L (12-78); Albumin/Globulin Ratio 1.8 (1.1-1.8); Alkaline Phosphatase 56 U/L (38-126); Anion Gap 11.4 mEq/L (5-15); Aspartate Amino Transferase 21 U/L (14-36); Bilirubin,Total 0.5 mg/dl (0.2-1.3); Blood Urea Nitrogen 10 mg/dl (7-17); Calcium 9.3 mg/dl (8.4-10.2); Carbon Dioxide 25 mmol/L (22.0-30.0); Creatinine Clearance Estimated 98 mL/min (50-200); Estimated Glomerular Filt Rate 106 ml/min (>60); GFR (African American) 128 ML/MIN (>60); Globulin 2.6 g/dL (1.3-3.2); Glucose 104 mg/dl (74-100); Lipase 84 U/L (23-300); Total Protein,Serum 7.2 g/dl (6.3-8.2)
--- NOTE | 2024-06-10 08:14 | PC.NURSE ---
pt back from u/s
[2024-06-10 08:30] VITALS: BP 102/66; PULSE 100; RESP 18; O2SAT 100
--- NOTE | 2024-06-10 08:44 | PC.NURSE ---
Dr. Garcia at bedside discussing results and POC
[2024-06-10] MEDS: ACETAMINOPHEN 500MG TAB 1000 MG PO (08:54)
[2024-06-10] MEDS: DICYCLOMINE 10MG CAPSULE 20 MG PO (08:54)
[2024-06-10 09:20] VITALS: BP 100/49; PULSE 103; RESP 16; TEMP 37; O2SAT 98
== END 2024-06-10 09:26 | disposition home or self-care (01) ==
PROVIDERS: Emergency Provider Emergency Medicine; PCP Physician Assistant
DX: N83.202 Unspecified ovarian cyst, left side (principal); R11.2 Nausea with vomiting, unspecified; R19.7 Diarrhea, unspecified; R10.9 Unspecified abdominal pain
CPT/HCPCS: 76830; 80053; 81001; 83690; 84703; 85025; 87086; 96374; 96375; 99284; J1885; J2405

== ENCOUNTER 2024-07-06 17:22 | Emergency (ER) | payer MEDICAID, SELFPAY ==
[2024-07-06 18:35] VITALS: BP 104/63; PULSE 69; RESP 20; TEMP 36.9; O2SAT 100; BMI 20.7
[2024-07-06 18:47] LABS: UTC Strep Screen (Rapid) Negative (Negative)
[2024-07-06 18:48] LABS: UTC Influenza A Antigen Negative (Negative); UTC Influenza B Antigen Negative (Negative)
--- NOTE | 2024-07-06 19:06 | EXP.UTC ---
Discharge Plan Disposition Patient Disposition: Home, Self-Care Condition: Good Prescriptions Prescriptions: No Action cyproheptadine 4 mg tablet 4 mg PO HS Qty: 60 3RF Rx Instructions: Take 1 tablet 1 hour before bedtime for 2 weeks, then may increase to 2 tablets 1 hour before bedtime Qulipta 60 mg tablet 60 mg PO DAILY Qty: 30 3RF Nurtec ODT 75 mg tablet,disintegrating 75 mg PO DAILYP PRN (Reason: Headache) Qty: 30 3RF buspirone 5 mg tablet 5 mg PO DAILY Rx Instructions: Take 1 tablet by mouth twice daily Referrals Follow up/Referrals: Kimmy Green PA [Primary Care Provider] - See instructions Activity Restrictions/Add. Instructions Additional Instructions/Restrictions: *Monitor Temp, Over the counter Motrin or Tylenol as directed/as needed Tylenol every 4 hours and Motrin every 6 hours (as long as your family doctor has told you that you can take it) for fever or pain. and straight to ER if unable to lower temp less than 101.0 after medication given *Warm salt water gargles may help to soothe the throat *Throat Lozenges? *Warm fluids like tea with honey may help to soothe the throat? *Sleep elevated *Humidifier/Vaporizer *Over the counter Cold and cough may help with your symptoms make sure to discuss with your Pharmacist before taking anything Your throat swab was sent for culture. Those results are typically sent to your primary care. Be sure to follow up in 2-3 days with your family doctor/primary care physician if no improvement so they can review those result and treat if necessary. If you don?t have a primary care doctor, I recommend you get one but in the mean time, you will have to return to a walk in clinic Follow up IMMEDIATELY for new or worsening symptoms or no Noticeable improvement over the next 48-72 hours. 911 for difficulty breathing or swallowing Clinical Impressions Clinical Impression: Viral upper respiratory infection Instructions Patient Instructions: Sore Throat, DI for Viral Upper Respiratory Infection -- Adult Print Language Print Language: Frisian Discharge ED Provider: Stephie Beauchamp [facility] [place] General Stated complaint: sore throat,cough,congestion,nausea Mode of Arrival: Ambulatory Source of Information: Patient Time Seen by Provider: 07/06/24 19:06 Description of Symptoms (Recalled from Triage Doc. by RN): SORE THROAT, COUGH AND CONGESTION, FEVERS, BIRCH, NAUSEA HEENT Symptoms (Recalled from RN notes): Yes Resp Symptoms (Recalled from RN notes): Yes Skin Symptoms (Recalled from RN notes): No MS Symptoms (Recalled from RN notes): No Functional Status (Recalled from RN notes): WNL History of Present Illness Provider Complaint: Patient states that she started feeling bad over the weekend States that she has been having cough, sore throat, headache, and fever States that today she wasnt feeling any better and was worried that she may have flu or strep so she came in to get checked Related Data Home Medications ?Medication ?Instructions ?Recorded ?Confirmed buspirone 5 mg tablet 5 mg PO DAILY 12/25/23 07/06/24 Previous Rx's ?Medication ?Instructions ?Recorded atogepant 60 mg tablet (Qulipta) 60 mg PO DAILY #30 tabs 06/22/24 cyproheptadine 4 mg tablet 4 mg PO HS Headache #60 tabs 06/22/24 rimegepant 75 mg disintegrating 75 mg PO DAILYP PRN Headache #30 06/22/24 tablet (Nurtec ODT) tabs Allergies Allergy/AdvReac Type Severity Reaction Status Date / Time No Known Allergies Allergy Verified 06/22/24 13:53 Worker's Comp Is this a Worker's Comp case?: No [facility] Disclaimer: The information contained in this section may have been updated after the patient was seen, as this information can be updated by other users. Medical History Generalized anxiety disorder History of migraine History of gastroesophageal reflux (GERD) History of depression History of asthma History of anxiety Anxiety Migraine Surgical History History of esophagogastroduodenoscopy (EGD) Family History Other Asthma Cancer Thyroid disorder Social History Smoking Status: Current every day smoker tobacco type: e-cigarettes second hand exposure: No alcohol intake: never substance use type: denies use current occupational status: student and other Travel in the last 8 weeks: None household members: family housing: house number of children: 0 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 Obtained: Yes All systems reviewed & no additional complaints except as documented and Yes Systems reviewed as appropriate & no additional complaints except as documented Constitutional Constitutional: Reports system reviewed and no additional complaints, except as documented, Reports as per HPI, Reports body ache, Reports chills and Reports fever(s) Eyes Eyes: Reports system reviewed and no additional complaints, except as documented and Reports as per HPI ENT Ears, Nose, Mouth, and Throat: Reports nasal congestion, Reports nasal discharge and Reports sore throat Cardiovascular Cardiovascular: Reports system reviewed and no additional complaints, except as documented and Reports as per HPI Respiratory Respiratory: Reports system reviewed and no additional complaints, except as documented, Reports as per HPI and Reports cough Gastrointestinal Gastrointestingal: Reports system reviewed and no additional complaints, except as documented and as per HPI Physical Exam General General appearance: alert and in no apparent distress ENT ENT exam: Present mucous membranes moist Expanded ENT Exam Nose exam: Present other (reports clear drainage); Absent sinus tenderness Throat exam: Present tonsillar erythema; Absent tonsillomegaly or tonsillar exudate Respiratory Respiratory exam: Present normal lung sounds bilaterally; Absent respiratory distress or wheezes Cardiovascular Cardiovascular exam: Present regular rate, normal rhythm and normal heart sounds Neurological Exam Neurological exam: Present alert, oriented X3 and normal gait Medical Decision Making Medical Records Screening: Per USPSTF and CDC recommendations, given the prevalence of disease in our region, it is our hospital?s policy to screen for HIV and viral Hepatitis for all patients aged 18 and over and those with ongoing risk factors. Steve Inquiry Pt receiving controlled substance: No Steve was queried for this patient: No Vital Signs: 07/06/24 18:35 Temperature 98.4 F Temperature Source Oral Pulse Rate [Left Radial] 69 Respiratory Rate 20 Blood Pressure [Left Arm] 104/63 L Blood Pressure Mean [Left Arm] 76 02 Sat by Pulse Oximetry 100 Lab Data Lab results reviewed: Yes I reviewed the patient's lab results. Lab Results 07/06/24 18:38: Influenza Type A Ag Negative, Influenza Type B Ag Negative, Strep Scn Rapid Clinic Negative Orders (Tests/Meds): ORDERS Category Date Time Status Strep Screen Confirmation Stat Micro 07/06/24 18:38 Received
[2024-07-06 19:22] VITALS: BP 104/63; PULSE 69; RESP 20; TEMP 36.9
== END 2024-07-06 19:22 | disposition home or self-care (01) ==
PROVIDERS: Emergency Provider Nurse Practitioner; PCP Physician Assistant
DX: J06.9 Acute upper respiratory infection, unspecified (principal); R50.9 Fever, unspecified; J02.9 Acute pharyngitis, unspecified; R05.9 Cough, unspecified; R09.81 Nasal congestion; R51.9 Headache, unspecified; R11.0 Nausea
CPT/HCPCS: 87804; 87880; 99212; G0381

== ENCOUNTER 2024-07-21 16:23 | Emergency (ER) | payer MEDICAID, SELFPAY ==
--- NOTE | 2024-07-21 16:37 | ED_ITS ---
Discharge Plan Disposition Patient Disposition: Home, Self-Care Condition: Good Prescriptions Prescriptions: New amoxicillin 875 mg tablet 875 mg PO Q12H Qty: 20 0RF krwmfazodkswtnc-pitirqjsl-QK [Bromfed DM] 2-30-10 mg/5 mL Syrup 5 ml PO Q6H PRN (Reason: Cough) Qty: 240 0RF No Action cyproheptadine 4 mg tablet 4 mg PO HS Qty: 60 3RF Rx Instructions: Take 1 tablet 1 hour before bedtime for 2 weeks, then may increase to 2 tablets 1 hour before bedtime Qulipta 60 mg tablet 60 mg PO DAILY Qty: 30 3RF Nurtec ODT 75 mg tablet,disintegrating 75 mg PO DAILYP PRN (Reason: Headache) Qty: 30 3RF buspirone 5 mg tablet 5 mg PO DAILY Rx Instructions: Take 1 tablet by mouth twice daily Referrals Follow up/Referrals: Kimmy Green PA [Primary Care Provider] - See instructions Activity Restrictions/Add. Instructions Additional Instructions/Restrictions: Drink plenty of fluids. Take tylenol or ibuprofen for pain or fever. Take the medications as directed. Follow up with your regular doctor. GO TO THE ER FOR ANY WORSENING SYMPTOMS Throw your tooth brush away and get a new one. Clinical Impressions Clinical Impression: Strep throat Stand Alone Forms Stand Alone Forms: Work/School Release Instructions Patient Instructions: Strep Throat, DI for Strep Throat Print Language Print Language: Martiniquais Discharge ED Provider: Juan F Treadwell [facility] [place] General Stated complaint: body aches,sore throat,fever,nausea Time Seen by Provider: 07/21/24 16:36 History of Present Illness Provider Complaint: she states that she has had sore throat for the past 2 days. Related Data Home Medications ?Medication ?Instructions ?Recorded ?Confirmed buspirone 5 mg tablet 5 mg PO DAILY 12/25/23 07/21/24 Previous Rx's ?Medication ?Instructions ?Recorded atogepant 60 mg tablet (Qulipta) 60 mg PO DAILY #30 tabs 06/22/24 cyproheptadine 4 mg tablet 4 mg PO HS Headache #60 tabs 06/22/24 rimegepant 75 mg disintegrating 75 mg PO DAILYP PRN Headache #30 06/22/24 tablet (Nurtec ODT) tabs amoxicillin 875 mg tablet 875 mg PO Q12H #20 tabs 07/21/24 vepflzjidfassjt-rxymgqozxftvekk-SA 5 ml PO Q6H PRN Cough #240 mL 07/21/24 2 mg-30 mg-10 mg/5 mL oral syrup (Bromfed DM) Allergies Allergy/AdvReac Type Severity Reaction Status Date / Time No Known Allergies Allergy Verified 06/22/24 13:53 PFSH [facility] Disclaimer: The information contained in this section may have been updated after the patient was seen, as this information can be updated by other users. Medical History Generalized anxiety disorder History of migraine History of gastroesophageal reflux (GERD) History of depression History of asthma History of anxiety Anxiety Migraine Surgical History History of esophagogastroduodenoscopy (EGD) Family History Other Asthma Cancer Thyroid disorder Social History Smoking Status: Current every day smoker tobacco type: e-cigarettes second hand exposure: No alcohol intake: never substance use type: denies use current occupational status: student and other Travel in the last 8 weeks: None household members: family housing: house number of children: 0 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 Have you lived/traveled outside US in past 30 days?: No Contact w/someone who lives/traveled outside US past 30 days?: No Exposure to someone with infectious disease in past 14 days?: No Do you have a fever (greater than 100.4 F or 38 C)?: Yes Have you tested positive for COVID-19: No Exposed to someone with COVID-19 in past 14 days?: No Do you have a sore throat?: Yes Do you have a cough?: No Do you have any weakness?: No Do you have any diarrhea?: No Are you experiencing any unusual bleeding?: No Do you have any muscle aches/pain?: No Do you have any abdominal pain?: No Are you experiencing loss of taste or smell?: No ROS Obtained: Yes All systems reviewed & no additional complaints except as documented Constitutional Constitutional: Reports chills and Reports fever(s) Eyes Eyes: Denies eye discharge ENT Ears, Nose, Mouth, and Throat: Reports as per HPI Cardiovascular Cardiovascular: Denies chest pain Respiratory Respiratory: Denies chest congestion and Reports cough Gastrointestinal Gastrointestingal: Reports nausea; Denies abdominal pain, constipation, cramping, diarrhea or vomiting Musculoskeletal Musculoskeletal: Denies arthralgias Integumentary/Breasts Skin/Breast: Denies rash Neurologic Neurologic: Denies paresthesias Physical Exam General General appearance: alert and in no apparent distress Head Head exam: atraumatic, normocephalic and normal inspection Eye Eye exam: Present normal appearance, PERRL and EOMI ENT ENT exam: Present mucous membranes moist and normal external ear exam Expanded ENT Exam TM/Canal exam: Bilateral TM: erythema and bulging Nose exam: Absent sinus tenderness Mouth exam: Present normal external inspection; Absent drooling Teeth exam: Present normal inspection Throat exam: Present tonsillar erythema, tonsillomegaly and tonsillar exudate Neck Neck exam: Present normal inspection, full ROM and trachea midline; Absent tenderness, meningismus or lymphadenopathy Chest Chest inspection: Present normal inspection and symmetric chest wall rise; Absent tenderness Respiratory Respiratory exam: Present normal lung sounds bilaterally; Absent respiratory distress, wheezes, stridor or accessory muscle use Cardiovascular Cardiovascular exam: Present regular rate and normal rhythm; Absent systolic murmur or diastolic murmur Abdominal Exam Abdominal exam: Present soft and normal bowel sounds; Absent distention, tenderness, guarding, rebound or rigidity Extremities Exam Extremities exam: Present normal inspection and normal capillary refill; Absent calf tenderness Back Exam Back exam: Present normal inspection and full ROM; Absent tenderness, CVA tenderness (R) or CVA tenderness (L) Neurological Exam Neurological exam: Present alert, oriented X3 and CN II-XII intact Psychiatric Psychiatric exam: Present normal affect and normal mood Skin Skin exam: Present warm, dry, intact and normal color Medical Decision Making Medical Records Medical records reviewed: No I reviewed the patient's medical records. Screening: Per USPSTF and CDC recommendations, given the prevalence of disease in our region, it is our hospital?s policy to screen for HIV and viral Hepatitis for all patients aged 18 and over and those with ongoing risk factors. Steve Inquiry Pt receiving controlled substance: No Lab Data Lab results reviewed: Yes I reviewed the patient's lab results.
[2024-07-21 16:38] VITALS: BP 131/79; PULSE 132; RESP 18; TEMP 37.9; O2SAT 99; BMI 21.2
[2024-07-21] MEDS: IBUPROFEN 400 MG TABLET PO (16:43)
[2024-07-21 16:49] LABS: UTC Strep Screen (Rapid) Positive (Negative)
[2024-07-21 16:54] LABS: UTC Influenza A Antigen Negative (Negative); UTC Influenza B Antigen Negative (Negative)
[2024-07-21 17:15] VITALS: BP 131/79; PULSE 132; RESP 18; TEMP 37.7
== END 2024-07-21 17:18 | disposition home or self-care (01) ==
PROVIDERS: Emergency Provider Nurse Practitioner Family; PCP Physician Assistant
DX: J02.0 Streptococcal pharyngitis (principal)
CPT/HCPCS: 87804; 87880; 99213; G0381

== ENCOUNTER 2024-08-05 17:44 | Emergency (ER) | payer MEDICAID, SELFPAY ==
[2024-08-05 18:00] VITALS: BP 111/61; PULSE 79; RESP 16; TEMP 36.8; O2SAT 98; BMI 20.5
--- NOTE | 2024-08-05 18:06 | EXP.UTC ---
Discharge Plan Disposition Patient Disposition: Home, Self-Care Condition: Good Prescriptions Prescriptions: New azithromycin [Zithromax] 250 mg tablet 250 mg PO UD DOSE PK Qty: 6 0RF Rx Instructions: Take two (2) tablets today, then one (1) tablet days #2 thru #5 methylprednisolone 4 mg Tablets,Dose Pack 4 mg PO DIRECTED 6 Days Qty: 21 0RF Rx Instructions: Take 1 pack as directed for 6 days gzmpsnvjyrbmrwh-xxvblfeva-YA [Bromfed DM] 2-30-10 mg/5 mL Syrup 5 ml PO Q6H PRN (Reason: Cough) Qty: 240 0RF No Action cyproheptadine 4 mg tablet 4 mg PO HS Qty: 60 3RF Rx Instructions: Take 1 tablet 1 hour before bedtime for 2 weeks, then may increase to 2 tablets 1 hour before bedtime Qulipta 60 mg tablet 60 mg PO DAILY Qty: 30 3RF Nurtec ODT 75 mg tablet,disintegrating 75 mg PO DAILYP PRN (Reason: Headache) Qty: 30 3RF buspirone 5 mg tablet 5 mg PO DAILY Rx Instructions: Take 1 tablet by mouth twice daily Referrals Follow up/Referrals: Kimmy Green PA [Primary Care Provider] - See instructions Activity Restrictions/Add. Instructions Additional Instructions/Restrictions: Drink plenty of fluids. Take tylenol or ibuprofen for pain or fever. Take the medications as directed. Follow up with your regular doctor. GO TO THE ER FOR ANY WORSENING SYMPTOMS Clinical Impressions Clinical Impression: Acute bronchitis Stand Alone Forms Stand Alone Forms: Work/School Release Instructions Patient Instructions: Acute Bronchitis, DI for Acute Bronchitis Print Language Print Language: Bhutanese Discharge ED Provider: Juan F Treadwell [facility] General Stated complaint: cough,ribs and back pain Mode of Arrival: Ambulatory Source of Information: Patient Time Seen by Provider: 08/05/24 18:06 Description of Symptoms (Recalled from Triage Doc. by RN): COUGH, NONPRODUCTIVE BUT FEELS LIKE IT IS STUCK IN CHEST, HURTING INTO RIBS AND BACK HEENT Symptoms (Recalled from RN notes): No Resp Symptoms (Recalled from RN notes): Yes Skin Symptoms (Recalled from RN notes): No MS Symptoms (Recalled from RN notes): No Functional Status (Recalled from RN notes): WNL Related Data Home Medications ?Medication ?Instructions ?Recorded ?Confirmed buspirone 5 mg tablet 5 mg PO DAILY 12/25/23 08/05/24 Previous Rx's ?Medication ?Instructions ?Recorded atogepant 60 mg tablet (Qulipta) 60 mg PO DAILY #30 tabs 06/22/24 cyproheptadine 4 mg tablet 4 mg PO HS Headache #60 tabs 06/22/24 rimegepant 75 mg disintegrating 75 mg PO DAILYP PRN Headache #30 06/22/24 tablet (Nurtec ODT) tabs azithromycin 250 mg tablet 250 mg PO UD DOSE PK #6 tabs 08/05/24 (Zithromax) mweoexgothyskwm-sqmuxjmlolufzxf-PT 5 ml PO Q6H PRN Cough #240 mL 08/05/24 2 mg-30 mg-10 mg/5 mL oral syrup (Bromfed DM) methylprednisolone 4 mg tablets in 4 mg PO DIRECTED 6 days #21 tabs 08/05/24 a dose pack Allergies Allergy/AdvReac Type Severity Reaction Status Date / Time No Known Allergies Allergy Verified 06/22/24 13:53 Worker's Comp Is this a Worker's Comp case?: No [facility] Disclaimer: The information contained in this section may have been updated after the patient was seen, as this information can be updated by other users. Medical History Generalized anxiety disorder History of migraine History of gastroesophageal reflux (GERD) History of depression History of asthma History of anxiety Anxiety Migraine Surgical History History of esophagogastroduodenoscopy (EGD) Family History Other Asthma Cancer Thyroid disorder Social History Smoking Status: Current every day smoker tobacco type: e-cigarettes second hand exposure: No alcohol intake: never substance use type: denies use current occupational status: student and other Travel in the last 8 weeks: None household members: family housing: house number of children: 0 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 Have you lived/traveled outside US in past 30 days?: No Contact w/someone who lives/traveled outside US past 30 days?: No Exposure to someone with infectious disease in past 14 days?: No Do you have a fever (greater than 100.4 F or 38 C)?: No Have you tested positive for COVID-19: No Exposed to someone with COVID-19 in past 14 days?: No Do you have a sore throat?: No Do you have a cough?: Yes Do you have any weakness?: No Do you have any diarrhea?: No Are you experiencing any unusual bleeding?: No Do you have any muscle aches/pain?: No Do you have any abdominal pain?: No Are you experiencing loss of taste or smell?: No ROS Obtained: Yes All systems reviewed & no additional complaints except as documented Constitutional Constitutional: Reports poor appetite Eyes Eyes: Reports system reviewed and no additional complaints, except as documented ENT Ears, Nose, Mouth, and Throat: Reports as per HPI Cardiovascular Cardiovascular: Reports system reviewed and no additional complaints, except as documented and Denies chest pain Respiratory Respiratory: Denies shortness of breath, Reports chest congestion, Reports cough, Denies stridor and Denies wheezing Gastrointestinal Gastrointestingal: Reports system reviewed and no additional complaints, except as documented; Denies abdominal pain, diarrhea or vomiting Musculoskeletal Musculoskeletal: Reports system reviewed and no additional complaints, except as documented and Denies arthralgias Integumentary/Breasts Skin/Breast: Reports system reviewed and no additional complaints, except as documented and Denies rash Neurologic Neurologic: Denies paresthesias Allergic/Immunologic Allergic/Immunologic: Denies wheezing Physical Exam General General appearance: alert and in no apparent distress Eye Eye exam: Present normal appearance, PERRL and EOMI ENT ENT exam: Present mucous membranes moist and normal external ear exam Expanded ENT Exam External ear exam: Present normal external inspection TM/Canal exam: Bilateral TM: erythema and bulging Nose exam: Absent sinus tenderness Nasal speculum exam: Bilateral: normal Mouth exam: Present normal external inspection; Absent drooling Teeth exam: Present normal inspection Throat exam: Present tonsillar erythema and tonsillomegaly Neck Neck exam: Present normal inspection, full ROM and trachea midline; Absent tenderness, lymphadenopathy or thyromegaly Chest Chest inspection: Present normal inspection and symmetric chest wall rise; Absent tenderness or rash Respiratory Respiratory exam: Present normal lung sounds bilaterally; Absent respiratory distress, wheezes, stridor or accessory muscle use Cardiovascular Cardiovascular exam: Present regular rate, normal rhythm and normal heart sounds Abdominal Exam Abdominal exam: Present soft; Absent distention, tenderness, guarding, rebound or rigidity Extremities Exam Extremities exam: Present normal inspection, full ROM and normal capillary refill; Absent tenderness or calf tenderness Back Exam Back exam: Present normal inspection and full ROM; Absent tenderness Neurological Exam Neurological exam: Present alert and oriented X3 Psychiatric Psychiatric exam: Present normal affect and normal mood Skin Skin exam: Present warm, dry, intact and normal color Lymphatic Lymphatic Findings: no adenopathy Medical Decision Making Medical Records Medical records reviewed: No I reviewed the patient's medical records. Screening: Per USPSTF and CDC recommendations, given the prevalence of disease in our region, it is our hospital?s policy to screen for HIV and viral Hepatitis for all patients aged 18 and over and those with ongoing risk factors. Steve Inquiry Pt receiving controlled substance: No Vital Signs: 08/05/24 18:00 Temperature 98.3 F Temperature Source Oral Pulse Rate [Left Radial] 79 Respiratory Rate 16 Blood Pressure [Left Arm] 111/61 Blood Pressure Mean [Left Arm] 77 02 Sat by Pulse Oximetry 98 Lab Data Lab results reviewed: Yes I reviewed the patient's lab results.
[2024-08-05 18:44] VITALS: BP 111/61; PULSE 79; RESP 16; TEMP 36.8
== END 2024-08-05 19:01 | disposition home or self-care (01) ==
PROVIDERS: Emergency Provider Nurse Practitioner Family; PCP Physician Assistant
DX: J20.9 Acute bronchitis, unspecified (principal)
CPT/HCPCS: 99213; G0381

== ENCOUNTER 2024-08-14 15:33 | Emergency (ER) | payer MEDICAID, SELFPAY ==
[2024-08-14 15:43] VITALS: BP 151/76; PULSE 98; RESP 14; TEMP 37.2; O2SAT 97; BMI 20.1
--- NOTE | 2024-08-14 15:48 | ED_ITS ---
Discharge Plan Disposition Patient Disposition: Home, Self-Care Condition: Good Prescriptions Prescriptions: New doxycycline hyclate 100 mg capsule 100 mg PO BID 10 Days Qty: 20 0RF yiiwfytwkwrjhpx-fhpuggloe-ID [Bromfed DM] 2-30-10 mg/5 mL syrup 10 ml PO Q4-6H PRN (Reason: cold symptoms) Qty: 200 0RF No Action cyproheptadine 4 mg tablet 4 mg PO HS Qty: 60 3RF Rx Instructions: Take 1 tablet 1 hour before bedtime for 2 weeks, then may increase to 2 tablets 1 hour before bedtime Nurtec ODT 75 mg tablet,disintegrating 75 mg PO DAILYP PRN (Reason: Headache) Qty: 30 3RF Referrals Follow up/Referrals: Kimmy Green PA [Primary Care Provider] - See instructions Activity Restrictions/Add. Instructions Additional Instructions/Restrictions: Take medication as prescribed. Increase fluids and rest. Tylenol/Ibuprofen as needed for pain/fever. Follow up next week with your PCP. Clinical Impressions Clinical Impression: Community acquired pneumonia Qualifiers: Laterality: unspecified laterality Qualified Code(s): J18.9 - Pneumonia, unspecified organism Instructions Patient Instructions: Pneumonia--Adult Print Language Print Language: New Zealander Discharge ED Provider[place] Venecia [place] [facility] [place] General Stated complaint: bronchitis+ diff breathing Mode of Arrival: Ambulatory Source of Information: Patient Time Seen by Provider: 08/14/24 15:43 Description of Symptoms (Recalled from Triage Doc. by RN): WORSENING BROCHITIS HEENT Symptoms (Recalled from RN notes): No Resp Symptoms (Recalled from RN notes): Yes Skin Symptoms (Recalled from RN notes): No MS Symptoms (Recalled from RN notes): No Functional Status (Recalled from RN notes): WNL History of Present Illness Provider Complaint: Pt reports that she was seen on 08/05 and diagnosed with bronchitis and was given antibiotics, Bromfed, and steroids. She reports that her symptoms have worsened. She states that her chest and ribs hurt when she tries to lay down and she feels as if she can't get a good breath. Related Data Previous Rx's ?Medication ?Instructions ?Recorded cyproheptadine 4 mg tablet 4 mg PO HS Headache #60 tabs 06/22/24 rimegepant 75 mg disintegrating 75 mg PO DAILYP PRN Headache #30 06/22/24 tablet (Nurtec ODT) tabs cgjjcyvugnnipks-clxaxhugbybnzrg-TV 10 ml PO Q4-6H PRN cold symptoms 08/14/24 2 mg-30 mg-10 mg/5 mL oral syrup #200 mL (Bromfed DM) doxycycline hyclate 100 mg capsule 100 mg PO BID 10 days #20 caps 08/14/24 Allergies Allergy/AdvReac Type Severity Reaction Status Date / Time No Known Allergies Allergy Verified 06/22/24 13:53 Worker's Comp Is this a Worker's Comp case?: No [facility] Disclaimer: The information contained in this section may have been updated after the flower nt was seen, as this information can be updated by other users. Medical History Generalized anxiety disorder History of migraine History of gastroesophageal reflux (GERD) History of depression History of asthma History of anxiety Anxiety Migraine Surgical History History of esophagogastroduodenoscopy (EGD) Family History Other Asthma Cancer Thyroid disorder Social History Smoking Status: Current every day smoker tobacco type: e-cigarettes second hand exposure: No alcohol intake: never substance use type: denies use current occupational status: student and other Travel in the last 8 weeks: None household members: family housing: house number of children: 0 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 Have you lived/traveled outside US in past 30 days?: No Contact w/someone who lives/traveled outside US past 30 days?: No Exposure to someone with infectious disease in past 14 days?: No Do you have a fever (greater than 100.4 F or 38 C)?: No Have you tested positive for COVID-19: No Exposed to someone with COVID-19 in past 14 days?: No Do you have a sore throat?: No Do you have a cough?: No Do you have any weakness?: No Do you have any diarrhea?: No Are you experiencing any unusual bleeding?: No Do you have any muscle aches/pain?: No Do you have any abdominal pain?: No Are you experiencing loss of taste or smell?: No ROS Obtained: Yes All systems reviewed & no additional complaints except as documented Constitutional Constitutional: Reports system reviewed and no additional complaints, except as documented and Reports malaise Eyes Eyes: Reports system reviewed and no additional complaints, except as documented ENT Ears, Nose, Mouth, and Throat: Reports system reviewed and no additional complaints, except as documented and Reports nasal discharge Cardiovascular Cardiovascular: Reports system reviewed and no additional complaints, except as documented Respiratory Respiratory: Reports chest congestion, Reports cough and Reports pain with cough Gastrointestinal Gastrointestingal: Reports system reviewed and no additional complaints, except as documented Genitourinary Female Genitourinary: Reports system reviewed and no additional complaints, except as documented Musculoskeletal Musculoskeletal: Reports system reviewed and no additional complaints, except as documented Integumentary/Breasts Skin/Breast: Reports system reviewed and no additional complaints, except as documented Neurologic Neurologic: Reports system reviewed and no additional complaints, except as documented Endocrine Endocrine: Reports system reviewed and no additional complaints, except as documented Hematologic/Lymphatic Henatologic/Lymphatic: Reports system reviewed and no additional complaints, except as documented Allergic/Immunologic Allergic/Immunologic: Reports system reviewed and no additional complaints, except as documented Physical Exam General General appearance: alert and in no apparent distress Head Head exam: atraumatic and normocephalic Eye Eye exam: Present normal appearance Expanded ENT Exam External ear exam: Present normal external inspection Nasal speculum exam: Bilateral: normal Mouth exam: Present normal external inspection Teeth exam: Present normal inspection Throat exam: Present normal inspection Neck Neck exam: Present normal inspection; Absent lymphadenopathy Chest Chest inspection: Present normal inspection and symmetric chest wall rise Respiratory Respiratory exam: Present other Expanded Respiratory Exam Location: Left: decreased breath sounds, Right: decreased breath sounds and Lower: decreased breath sounds Cardiovascular Cardiovascular exam: Present regular rate, normal rhythm and normal heart sounds Abdominal Exam Abdominal exam: Present soft and normal bowel sounds Extremities Exam Extremities exam: Present normal inspection Back Exam Back exam: Present normal inspection Neurological Exam Neurological exam: Present alert and oriented X3 Psychiatric Psychiatric exam: Present normal affect and normal mood Skin Skin exam: Present warm, dry and intact Lymphatic Lymphatic Findings: no adenopathy Medical Decision Making Medical Records Screening: Per USPSTF and CDC recommendations, given the prevalence of disease in our region, it is our hospital?s policy to screen for HIV and viral Hepatitis for all patients aged 18 and over and those with ongoing risk factors. Steve Inquiry Pt receiving controlled substance: No Steve was queried for this patient: No Vital Signs: 08/14/24 15:43 Temperature 98.9 F Temperature Source Oral Pulse Rate [Left Radial] 98 H Respiratory Rate 14 Blood Pressure [Left Arm] 151/76 H Blood Pressure Mean [Left Arm] 101 02 Sat by Pulse Oximetry 97
--- NOTE | 2024-08-14 15:55 | XR_ITS ---
PROCEDURE INFORMATION: Exam: XR Chest Exam date and time: 08/14/2024 4:29 PM Age: 19 years old Clinical indication: Cough and shortness of breath; Additional info: R/O pna TECHNIQUE: Imaging protocol: Radiologic exam of the chest. Views: 2 views. PA and Lateral COMPARISON: CR XR CHEST PORTABLE 02/06/2023 3:48 PM FINDINGS: Tubes, catheters and devices: None. Lungs: Questionable minimal central perihilar interstitial pulmonary infiltrates within the lungs. The peripheral lungs are otherwise clear. Pleural spaces: No pleural effusion. No pneumothorax. Heart/Mediastinum: Mediastinum and sharifa appear unremarkable. Bones/joints: No acute bony abnormality identified. IMPRESSION: Questionable perihilar infiltrates.
[2024-08-14 16:16] LABS: UTC Pregnancy Test, Urine Negative (Negative)
--- NOTE | 2024-08-14 16:39 | PC.NURSE ---
PT GONE TO XRAY
--- NOTE | 2024-08-14 16:42 | PC.NURSE ---
PT ARRIVED BACK TO ROOM FROM XRAY
[2024-08-14 17:16] VITALS: BP 151/76; PULSE 98; RESP 14; TEMP 37.2
== END 2024-08-14 17:19 | disposition home or self-care (01) ==
PROVIDERS: Emergency Provider Nurse Practitioner Family; PCP Physician Assistant
DX: J18.9 Pneumonia, unspecified organism (principal)
CPT/HCPCS: 71046; 81025; 99213; G0381

== ENCOUNTER 2024-09-09 18:09 | Emergency (ER) | payer MEDICAID, SELFPAY ==
[2024-09-09 18:11] VITALS: BP 121/69; PULSE 82; RESP 16; TEMP 36.6; O2SAT 99; BMI 21.9
[2024-09-09 18:22] VITALS: BP 121/69; PULSE 81; O2SAT 97
--- NOTE | 2024-09-09 18:26 | ED_ITS ---
<Statement entered by Linn Garcia DO - 09/10/24 00:23> I was consulted by the ANTONY, and we discussed the complexity of the problems being addressed. I approved the treatment and management plan for this patient's care in the emergency department, thus performing a substantive portion of the medical decision making. Linn Garcia DO Discharge Plan Disposition Patient Disposition: Home, Self-Care Condition: Good Prescriptions Prescriptions: No Action cyproheptadine 4 mg tablet 4 mg PO HS Qty: 60 3RF Rx Instructions: Take 1 tablet 1 hour before bedtime for 2 weeks, then may increase to 2 tablets 1 hour before bedtime Nurtec ODT 75 mg tablet,disintegrating 75 mg PO DAILYP PRN (Reason: Headache) Qty: 30 3RF doxycycline hyclate 100 mg capsule 100 mg PO BID 10 Days Qty: 20 0RF ixfthjtifbwhcup-qemjucycs-BM [Bromfed DM] 2-30-10 mg/5 mL syrup 10 ml PO Q4-6H PRN (Reason: cold symptoms) Qty: 200 0RF Referrals Follow up/Referrals: Kimmy Green PA [Primary Care Provider] - See instructions Activity Restrictions/Add. Instructions Additional Instructions/Restrictions: As we discussed please call Dr. Garduno office in the morning to schedule follow-up. If you have continued new or worsening signs or symptoms follow-up with Dr. Garduno or return to the ER as needed. Please utilize the disimpaction sheet that I gave you and then after you have a bowel movement start MiraLAX daily the next day. Follow-up with your PCP within 1 week for recheck. Clinical Impressions Clinical Impression: Pain due to intrauterine contraceptive device (IUD) Qualifiers: Encounter type: initial encounter Qualified Code(s): T83.84XA - Pain due to genitourinary prosthetic devices, implants and grafts, initial encounter Constipation Qualifiers: Constipation type: unspecified constipation type Qualified Code(s): K59.00 - Constipation, unspecified Stand Alone Forms Stand Alone Forms: Work/School Release Print Language Print Language: Yakut Discharge ED Provider: Linn Garcia General Adult HPI General Chief complaint: Urogenital-Female Stated complaint: IUD painful Time Seen by Provider: 09/09/24 18:24 History of Present Illness HPI narrative: Patient presents for evaluation of abdominal cramping. Patient had an IUD placed by Dr. Garduno in [place] on Friday. She had expected discomfort on Friday and Friday but by Friday it was gone. Patient was doing well until today and she began having lower abdominal cramping again. However it is much more intense and persistent. Patient states that she is having some vaginal bleeding but has only gone through 2 pads today. She denies any fever chills hemoptysis hematochezia melena hematemesis hematuria. She reports that she is tolerant of oral intake and has had a bowel movement and is passing flatus. Related Data Previous Rx's ?Medication ?Instructions ?Recorded cyproheptadine 4 mg tablet 4 mg PO HS Headache #60 tabs 06/22/24 rimegepant 75 mg disintegrating 75 mg PO DAILYP PRN Headache #30 06/22/24 tablet (Nurtec ODT) tabs wovnamzvaapezkf-vonoclribhmjaue-NL 10 ml PO Q4-6H PRN cold symptoms 08/14/24 2 mg-30 mg-10 mg/5 mL oral syrup #200 mL (Bromfed DM) doxycycline hyclate 100 mg capsule 100 mg PO BID 10 days #20 caps 08/14/24 Allergies Allergy/AdvReac Type Severity Reaction Status Date / Time No Known Allergies Allergy Verified 06/22/24 13:53 [facility] Disclaimer: The information contained in this section may have been updated after the patient was seen, as this information can be updated by other users. Medical History Generalized anxiety disorder History of migraine History of gastroesophageal reflux (GERD) History of depression History of asthma History of anxiety Anxiety Migraine Surgical History History of esophagogastroduodenoscopy (EGD) Family History Other Asthma Cancer Thyroid disorder Social History Smoking Status: Current every day smoker tobacco type: e-cigarettes second hand exposure: No alcohol intake: never substance use type: denies use current occupational status: student and other Travel in the last 8 weeks: None household members: family housing: house number of children: 0 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 Have you lived/traveled outside US in past 30 days?: No Contact w/someone who lives/traveled outside US past 30 days?: No Exposure to someone with infectious disease in past 14 days?: No Do you have a fever (greater than 100.4 F or 38 C)?: No Have you tested positive for COVID-19: No Exposed to someone with COVID-19 in past 14 days?: No Do you have a sore throat?: No Do you have a cough?: No Do you have any weakness?: No Do you have any diarrhea?: No Are you experiencing any unusual bleeding?: No Do you have any muscle aches/pain?: No Do you have any abdominal pain?: No Are you experiencing loss of taste or smell?: No Other Medical History Have you received the Flu Vaccine for this season: Yes Have you received the Pneumonia Vaccine: No ROS Obtained: Yes Systems reviewed as appropriate & no additional complaints except as documented Physical Exam General General appearance: alert and in no apparent distress Respiratory Respiratory exam: Present normal lung sounds bilaterally Cardiovascular Cardiovascular exam: Present regular rate Neurological Exam Neurological exam: Present alert and oriented X3 Medical Decision Making Medical Records Medical records reviewed: Yes I reviewed the patient's medical records. Screening: Per USPSTF and CDC recommendations, given the prevalence of disease in our region, it is our hospital?s policy to screen for HIV and viral Hepatitis for all patients aged 18 and over and those with ongoing risk factors. Steve Inquiry Pt receiving controlled substance: No Vital Signs: 09/09/24 18:11 09/09/24 18:22 09/09/24 18:31 Temperature 97.9 F Temperature Source Oral Pulse Rate 81 90 Pulse Rate [Right] 82 Respiratory Rate 16 Blood Pressure 121/69 116/63 Blood Pressure [Right Arm] 121/69 Blood Pressure Mean 77 74 Blood Pressure Mean [Right Arm] 86 02 Sat by Pulse Oximetry 99 97 96 Oxygen Delivery Method Room Air Room Air Lab Data Lab results reviewed: Yes I reviewed the patient's lab results. Lab Results 09/09/24 18:35: WBC 5.7, RBC 4.86, Hgb 14.5, Hct 44.0, MCV 90.5, MCH 29.8, MCHC 33.0, RDW 11.9, Plt Count 215, MPV 9.4, Neut % (Auto) 63.4, Lymph % (Auto) 23.3, [place] % (Auto) 10.6 H, Eos % (Auto) 2.1, Baso % (Auto) 0.4, Neut # (Auto) 3.6, Lymph # (Auto) 1.3, [place] # (Auto) 0.6, Eos # (Auto) 0.1, Baso # (Auto) 0.0, PT 10.0, INR 0.90, Sodium 140, Potassium 3.8, Chloride 104, Carbon Dioxide 29, Anion Gap 10.8, BUN 12, Creatinine 0.70, Estimated Creat Clear 102, Estimated GFR 106, Est GFR ( Amer) 128, Glucose 93, Calcium 9.1, Total Bilirubin 0.4, AST 25, ALT 16, Alkaline Phosphatase 56, Total Protein 7.0, Albumin 4.5, Globulin 2.5, Albumin/Globulin Ratio 1.8 09/09/24 18:45: Urine Color Yellow, Urine Appearance Clear, Urine pH 6.0, Ur Specific Angela 1.025, Urine Protein Negative, Urine Glucose (UA) Negative, Urine Ketones Negative, Urine Blood 3+ A, Urine Nitrate Negative, Urine Bilirubin Negative, Urine Urobilinogen 0.2, Ur Leukocyte Esterase Negative, Urine HCG, Qual Negative 09/09/24 18:35 09/09/24 18:35 Orders (Tests/Meds): ED MEDICATIONS Discontinued Medications Generic Name Dose Route Start Last Admin Trade Name Toniq PRN Reason Stop Dose Admin Acetaminophen 1,000 mg 09/09/24 18:27 09/09/24 18:44 Acetaminophen 1,000mg/100ml Vial IV 09/09/24 18:28 1,000 mg ONCE ONE Administration Iopamidol 75 ml 09/09/24 19:16 09/09/24 19:17 Iopamidol-370 (76%);100ml Bottle IV 09/09/24 19:17 75 ml ONCE ONE Administration Ketorolac Tromethamine 15 mg 09/09/24 18:27 09/09/24 18:43 Ketorolac 30mg/Ml Vial IV 09/09/24 18:28 15 mg ONCE ONE Administration Sodium Chloride 10 ml 09/09/24 19:16 09/09/24 19:17 Sodium Chloride 0.9% 10ml Syr (Rad Only) IV 09/09/24 19:17 10 ml ONCE ONE Administration ORDERS Category Date Time Status CT abdomen pelvis w con Stat Cat Scan 09/09/24 18:27 Completed CBC w/Auto Diff [Complete Blood Count Auto Diff] Stat Lab 09/09/24 18:35 Completed CMP [Comprehensive Metabolic Panel] Stat Lab 09/09/24 18:35 Completed INR [Prothrombin Time INR] Stat Lab 09/09/24 18:35 Completed UA [Urinalysis and Microscopic] Stat Lab 09/09/24 18:45 Results Urine , HCG Qual. Stat Lab 09/09/24 18:45 Completed Medical Decision Narrative: In summary patient is a 19-year-old female who presents to the emergency department for evaluation of abdominal cramping after IUD placement. Patient is hemodynamically stable with a blood pressure 121/69 pulse 82 with normal sinus rhythm on the bedside monitor breathing 16 times a minute satting at 99% on room air upon arrival, afebrile. Physical exam is remarkable for mild abdominal discomfort on palpation in the suprapubic area but there is no rebound or guarding or rigidity. Bowel sounds normal active.. Differential diagnosis includes uterine cramping after IUD placement versus UTI versus postoperative complication etc. Initial workup will be conducted with hematologic labs urine CT scan abdomen pelvis. Initial interventions include Tylenol Toradol. Initial workup reviewed by me shows that her hematologic labs are nonactionable patient is not urinalysis is bland and my informed interpretation of her CT scan abdomen pelvis shows no acute intra-abdominal abnormality prior to radiology read.. Upon repeat evaluation patient had significant improvement in her discomfort after initial intervention. Given this patient is appropriate for discharge with close follow-up with her PATIENT SERVICES ASSISTANT and strict return precautions. Critical Care Critical Care Time Critical Care Time: No
--- NOTE | 2024-09-09 18:27 | CT_ITS ---
PROCEDURE INFORMATION: Exam: CT Abdomen And Pelvis With Contrast Exam date and time: 09/09/2024 7:14 PM Age: 19 years old Clinical indication: Abdominal pain; Additional info: Abdominal pain after iud placement TECHNIQUE: Imaging protocol: Computed tomography of the abdomen and pelvis with contrast. Radiation optimization: All CT scans at this facility use at least one of these dose optimization techniques: automated exposure control; mA and/or kV adjustment per patient size (includes targeted exams where dose is matched to clinical indication); or iterative reconstruction. Contrast material: ISOVUE; Contrast volume: 75 ml; Contrast route: IV; COMPARISON: CT ABDOMEN PELVIS W CON 06/03/2024 10:21 PM FINDINGS: Liver: Unremarkable. Gallbladder and biliary ducts: No calcified stones. No ductal dilation. Pancreas: Unremarkable. No ductal dilation. Spleen: No splenomegaly. Adrenal glands: No mass. Kidneys and ureters: Unremarkable. No significant hydronephrosis. Stomach and bowel: No definite mural thickening. No obstruction. Appendix: No findings to suggest appendicitis. Intraperitoneal space: No significant fluid collection. No definite free air. Vasculature: Unremarkable. No aneurysm. Lymph nodes: No pathologically enlarged lymph nodes. Urinary bladder: Unremarkable. Reproductive: IUD. Probable 1.7 cm follicle within LEFT ovary. Bones/joints: No acute fracture. Soft tissues: Unremarkable. IMPRESSION: No definite acute intraabdominal abnormality.
[2024-09-09 18:31] VITALS: BP 116/63; PULSE 90; O2SAT 96
[2024-09-09] MEDS: KETOROLAC 30MG/ML VIAL 15 MG IV (18:43)
[2024-09-09] MEDS: ACETAMINOPHEN 1,000MG/100ML VIAL 1000 MG IV (18:44)
[2024-09-09 18:45] LABS: Basophils % 0.4 % (0.1-2.0); Eosinophils # 0.1 K/mm3 (0.0-0.4); Eosinophils % 2.1 % (0.1-12.0); Hemoglobin 14.5 g/dL (12.2-16.2); Lymphocytes # 1.3 K/mm3 (0.7-4.5); Lymphocytes % 23.3 % (10-50); Mean Corpuscular Hemoglobin 29.8 pg (27.0-31.2); Mean Corpuscular Volume 90.5 fl (81-99); Mean Platelet Volume 9.4 fl (7.4-10.4); Monocytes # 0.6 K/mm3 (0.1-1.0); Monocytes % 10.6 % (1.7-9.3); Neutrophils # 3.6 K/mm3 (1.8-7.8); Neutrophils % 63.4 % (37.0-80.0); Platelet Count 215 K/mm3 (142-424); Red Blood Count 4.86 M/mm3 (4.20-5.40); Red Cell Distribution Width 11.9 % (11.5-17.5); White Blood Count 5.7 K/mm3 (4.8-10.8)
[2024-09-09 18:51] LABS: Microscopic, Urine URINE MICROSCOPIC (MICROSCOPIC)
[2024-09-09 18:52] LABS: Appearance,Urine CLEAR (Clear); Bilirubin,Urine Negative (Negative); Blood, Urine 3+ (Negative); Color,Urine YELLOW (Yellow); Glucose,Urine (UA) Negative (Negative); Ketones,Urine Negative (Negative); Leukocyte Esterase,Urine Negative (Negative); Nitrate,Urine Negative (Negative); Protein,Urine Negative (Negative); Specific Gravity, Urine 1.025 (1.005-1.030); Urobilinogen,Urine 0.2 EU/dl (0.2)
[2024-09-09 18:52] LABS: Albumin Level 4.5 g/dl (3.5-5.0); Chloride 104 mmol/L (98-107); Potassium 3.8 mmoL/L (3.5-5.1); Sodium 140 mmol/L (136-145)
[2024-09-09 18:54] LABS: Urine Pregnancy, HCG Qual. Negative (Negative)
[2024-09-09 18:55] LABS: Alanine Aminotransferase 16 U/L (12-78); Albumin/Globulin Ratio 1.8 (1.1-1.8); Alkaline Phosphatase 56 U/L (38-126); Anion Gap 10.8 mEq/L (5-15); Aspartate Amino Transferase 25 U/L (14-36); Bilirubin,Total 0.4 mg/dl (0.2-1.3); Blood Urea Nitrogen 12 mg/dl (7-17); Calcium 9.1 mg/dl (8.4-10.2); Carbon Dioxide 29 mmol/L (22.0-30.0); Creatinine Clearance Estimated 102 mL/min (50-200); Estimated Glomerular Filt Rate 106 ml/min (>60); GFR (African American) 128 ML/MIN (>60); Globulin 2.5 g/dL (1.3-3.2); Glucose 93 mg/dl (74-100)
[2024-09-09] MEDS: SODIUM CHLORIDE 0.9% 10ML SYR (RAD ONLY) 10 ML IV (19:17)
[2024-09-09] MEDS: IOPAMIDOL-370 (76%);100ML BOTTLE 75 ML IV (19:17)
--- NOTE | 2024-09-09 19:28 | PC.NURSE ---
Report received from Nancie PHILLIP Pt awake alert and oriented x3 Skin pink warm and dry Speech clear and appropriate. Resp full and easy Pt states pain a 3 on 1-10 scale at this time
[2024-09-09 20:13] LABS: Amorphous Sediment,Urine 1+ /lpf; Bacteria,Urine 1+ /lpf; Mucus,Urine 1+ /lpf
[2024-09-09 20:22] VITALS: TEMP 36.9
--- NOTE | 2024-09-09 20:53 | PC.NURSE ---
Pt alert and oriented skin pink warm and dry Resp full and easy at time of discharge
[2024-09-09 20:54] VITALS: BP 109/72; PULSE 79; RESP 20; TEMP 36.8; O2SAT 98
== END 2024-09-09 20:55 | disposition home or self-care (01) ==
PROVIDERS: Physician Assistant; Emergency Provider Emergency Medicine; PCP Physician Assistant
DX: T83.84XA Pain due to genitourinary prosthetic devices, implants and grafts, initial encounter (principal); K59.00 Constipation, unspecified; F17.290 Nicotine dependence, other tobacco product, uncomplicated; R10.30 Lower abdominal pain, unspecified
CPT/HCPCS: 74177; 80053; 81001; 81025; 85025; 85610; 96374; 96375; 99284; J0131; J1885; Q9967

== ENCOUNTER 2024-11-14 00:46 | Emergency (ER) | payer MEDICAID, SELFPAY ==
--- NOTE | 2024-11-14 00:49 | [facility].EDGENADL ---
Discharge Plan Disposition Patient Disposition: Home, Self-Care Prescriptions Prescriptions: No Action cyproheptadine 4 mg tablet 4 mg PO HS Qty: 30 5RF Rx Instructions: Take 1 tablet 1 hour before bedtime for 2 weeks, then may increase to 2 tablets 1 hour before bedtime Nurtec ODT 75 mg tablet,disintegrating 75 mg PO ONCE PRN (Reason: Headache) Qty: 8 5RF Referrals Follow up/Referrals: Kimmy Green PA [Primary Care Provider] - See instructions Activity Restrictions/Add. Instructions Additional Instructions/Restrictions: Please follow-up with your primary care provider. Please return to the emergency department if you develop any new or worsening symptoms or become concerned for your health. Clinical Impressions Clinical Impression: Left lower quadrant abdominal pain Instructions Patient Instructions: DI for Acute Abdominal Pain Print Language Print Language: Arabic Discharge ED Provider: Berny Dobson General Adult HPI General Chief complaint: Abdominal Pain Stated complaint: left side abd pain Time Seen by Provider: 11/14/24 00:49 History of Present Illness HPI narrative: 19-year-old female with history of prior ovarian presents for left pelvic pain, nausea vomiting, diarrhea. Reports symptoms started around 10:30 PM. She reports she has had approximately 10 episodes of diarrhea since that time. She reports that she had a 5 cm cyst last year around [facility], has never had to have any surgical intervention. Denies any fever at home. Did not take anything for nausea or pain prior to arrival. She reports that the last time she had her cyst ruptured she had diarrhea in the same way that she is today. Related Data Previous Rx's ?Medication ?Instructions ?Recorded cyproheptadine 4 mg tablet 4 mg PO HS Headache #30 tabs 10/06/24 rimegepant 75 mg disintegrating 75 mg PO ONCE PRN Headache #8 tabs 10/06/24 tablet (Nurtec ODT) Allergies Allergy/AdvReac Type Severity Reaction Status Date / Time No Known Allergies Allergy Verified 10/06/24 09:17 [facility] Disclaimer: The information contained in this section may have been updated after the patient was seen, as this information can be updated by other users. Medical History Generalized anxiety disorder History of migraine History of gastroesophageal reflux (GERD) History of depression History of asthma History of anxiety Anxiety Migraine Surgical History History of esophagogastroduodenoscopy (EGD) Family History Other Asthma Cancer Thyroid disorder Social History Smoking Status: Current every day smoker tobacco type: e-cigarettes second hand exposure: No alcohol intake: never substance use type: denies use current occupational status: student and other Travel in the last 8 weeks: None household members: family housing: house number of children: 0 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 Have you lived/traveled outside US in past 30 days?: No Contact w/someone who lives/traveled outside US past 30 days?: No Exposure to someone with infectious disease in past 14 days?: No Do you have a fever (greater than 100.4 F or 38 C)?: No Have you tested positive for COVID-19: No Exposed to someone with COVID-19 in past 14 days?: No Do you have a sore throat?: No Do you have a cough?: No Do you have any weakness?: No Do you have any diarrhea?: No Are you experiencing any unusual bleeding?: No Do you have any muscle aches/pain?: No Do you have any abdominal pain?: Yes Are you experiencing loss of taste or smell?: No Other Medical History Have you received the Flu Vaccine for this season: Yes Have you received the Pneumonia Vaccine: No ROS Obtained: Yes All systems reviewed & no additional complaints except as documented Physical Exam General General appearance: alert and in no apparent distress Head Head exam: atraumatic and normocephalic Eye Eye exam: Present normal appearance, PERRL and EOMI ENT ENT exam: Present normal oropharynx and normal external ear exam Neck Neck exam: Present normal inspection and full ROM Chest Chest inspection: Present normal inspection and symmetric chest wall rise; Absent tenderness Respiratory Respiratory exam: Present normal lung sounds bilaterally; Absent respiratory distress Cardiovascular Cardiovascular exam: Present regular rate and normal rhythm Abdominal Exam Abdominal exam: Present soft and tenderness (Generalized, worsening left lower quadrant); Absent distention or guarding Extremities Exam Extremities exam: Present normal inspection; Absent edema or joint swelling Back Exam Back exam: Present normal inspection; Absent tenderness Neurological Exam Neurological exam: Present alert and oriented X3; Absent motor sensory deficit Psychiatric Psychiatric exam: Present normal affect and normal mood Skin Skin exam: Present warm, dry and normal color Lymphatic Lymphatic Findings: no adenopathy Medical Decision Making Medical Records Medical records reviewed: Yes I reviewed the patient's medical records. Screening: Per USPSTF and CDC recommendations, given the prevalence of disease in our region, it is our hospital?s policy to screen for HIV and viral Hepatitis for all patients aged 18 and over and those with ongoing risk factors. Steve Inquiry Pt receiving controlled substance: No Steve was queried for this patient: No Vital Signs: 11/14/24 00:57 11/14/24 01:00 11/14/24 04:06 Temperature 97.8 F 98.9 F Temperature Source Oral Pulse Rate 60 66 Pulse Rate [Radial] 79 Respiratory Rate 18 20 Blood Pressure 104/75 L 104/75 L Blood Pressure [Right Arm] 117/76 Blood Pressure Mean 82 Blood Pressure Mean [Right Arm] 89 Blood Pressure Position [Right Arm] Sitting 02 Sat by Pulse Oximetry 99 99 Oxygen Delivery Method Room Air Room Air Lab Data Lab results reviewed: Yes I reviewed the patient's lab results. Lab Results 11/14/24 01:19: Urine Color Yellow, Urine Appearance Clear, Urine pH 5.5, Ur Specific [place] >= 1.030, Urine Protein Negative, Urine Glucose (UA) Negative, Urine Ketones Negative, Urine Blood Negative, Urine Nitrate Negative, Urine Bilirubin Negative, Urine Urobilinogen 0.2, Ur Leukocyte Esterase Negative, Urine RBC None, Urine WBC Occasional, Ur Squamous Epith Cells 3-5, Urine Bacteria Trace, Urine Mucus Trace, Urine HCG, Qual Negative Orders (Tests/Meds): ED MEDICATIONS Discontinued Medications Generic Name Dose Route Start Last Admin Trade Name Fabiana PRN Reason Stop Dose Admin Acetaminophen 1,000 mg 11/14/24 01:00 11/14/24 01:05 Acetaminophen 500mg Tab PO 11/14/24 01:01 1,000 mg ONCE ONE Administration Ketorolac Tromethamine 30 mg 11/14/24 02:14 11/14/24 02:21 Ketorolac 30mg/Ml Vial IM 11/14/24 02:15 30 mg ONCE ONE Administration Ondansetron HCl 4 mg 11/14/24 01:00 11/14/24 01:05 Ondansetron 4mg Odt SL 11/14/24 01:01 4 mg ONCE ONE Administration ORDERS Category Date Time Status US transvaginal Stat Exams 11/14/24 01:55 Completed UA [Urinalysis and Microscopic] Stat Lab 11/14/24 01:19 Completed Urine , HCG Qual. Stat Lab 11/14/24 01:19 Completed Medical Decision Narrative: 19-year-old female with history of prior ovarian cyst presents for left lower quadrant abdominal pain, nausea vomiting and diarrhea that all started relatively suddenly this evening.. History was obtained via interactive discussion with patient. On arrival, patient is [afebrile, hemodynamically stable, satting appropriately, alert, oriented x4, GCS 15], moving all extremities spontaneously. Full physical exam performed and significant for generalized abdominal tenderness, worse left lower quadrant. Differential includes but is not limited to gastroenteritis/food poisoning, ectopic , ruptured ovarian cyst, ovarian torsion, UTI. Patient was given Tylenol, Zofran for symptomatic management and correction of underlying abnormalities. Workup initiated including UA, urine and transvaginal ultrasound. On re-evaluation, patient [remains afebrile, HD stable.] Laboratory workup independently interpreted by me and significant for negative test, negative UA. Imaging independently interpreted by me and significant for no evidence of ovarian mass, cyst or torsion. See radiology read for full review of final results. CT imaging was considered, but deemed unnecessary due to low utility. Given patient history, exam and workup, patient's presentation most likely represents mild colitis/gastroenteritis. No right lower quadrant tenderness to suggest appendicitis. No abnormalities noted on transvaginal ultrasound to suggest torsion. Interactive discussion was had with the patient regarding her presentation. Patient discharged in stable condition with return precautions.. Procedures Risk/Benefits of Procedure(s) Were Explained: Yes Critical Care Critical Care Time Critical Care Time: No
--- OUTSIDE RECORDS SUMMARY | 2024-11-14 00:51 | XMS_ITS | Data Portability ---
Author Organization [facility] ADMIN Address [address] [place] [id number] Care Team Providers Care Final Operations Technician Name Role Phone KIMMY GREEN Primary Care Provider Assessment No assessment recorded. Plan of Treatment Reminders Order Date Submit Date Provider Last Modified By Organization Details Last Modified Time Details Appointments None recorded. Lab None recorded. Referral None recorded. Procedures None recorded. Surgeries None recorded. Imaging None recorded. Medication Orders propranolol 10 mg tablet 2023 024 [facility], [address], [address], 4 12:03:20 Qulipta 60 mg tablet 2023 024 [facility], [address], [address], 4 12:03:19 Patient TargetsNo targets recorded. Patient InstructionsNo instructions recorded. Reason for Referral None Reported. Problems Name Problem SNOMED Code Status Onset Date Resolution Date Notes Provider Name and Address Organization Details Recorded Time Migraine [id number] Active 2023 Latrice james, [facility] & [place] 4 11:21:37 Episodic migraine 78354497499918 6 Active [address], [place], [address] , [facility] & [place] 4 12:01:54 Chronic daily headache 90537402641018 2 Active [address], [place], [address] , [facility] & [place] 12:02:01 Problem Notes None recorded. Procedures Surgical History Date Name Laterality Status Provider Name and Address Organization Details Recorded Time esophagogastroduodenoscopy completed Michelle Emery [facility] [place] 11:23:51 Imaging Results None recorded. Procedure Notes None recorded. Medical Equipment None Reported. Allergies No known drug allergies Medications Name Sig Start Date Stop Date Status Note LastModified by Organization Details LastModified Time buspirone 5 mg tablet TAKE 1 TABLET BY MOUTH TWICE DAILY active Not Available Not Available No t Available tizanidine 2 mg tablet 01/27 completed Not Available Not Available Not Available propranolol 10 mg tablet TAKE 1 TABLET BY MOUTH TWICE DAILY active Not Available Not Available No t Available docusate sodium 100 mg capsule TAKE 1 CAPSULE BY MOUTH ONCE DAILY 01/27 completed Not Available Not Available Not Available hydroxyzine HCl 25 mg tablet TAKE 1 TABLET BY MOUTH AT BEDTIME NEEDED FOR SLEEP 01/27 completed Not Available Not Available Not Available polyethylen e glycol 3350 17 gram/dose oral powder MIX AND DRINK 17 GRAMS DAILY DIRECTED 01/27 completed Not Available Not Available Not Available ondansetron 4 mg disintegrat ing tablet DISSOLVE 1 TABLET IN MOUTH EVERY 8 HOURS NEEDED FOR NAUSEA 01/27 completed Not Available Not Available Not Available Nurtec ODT 75 mg disintegrat ing tablet Take 1 tablet by oral route as needed. active Not Available Not Available No t Available Qulipta 60 mg tablet TAKE 1 TABLET BY MOUTH ONCE DAILY active Not Available Not Available No t Available Vitals Date Recorded Heart rate Systolic blood pressure Diastolic blood pressure Provider Name and Address Organization Details Last Updated DateTime 01/28/2024 79 /min 107 mm[Hg] 65 mm[Hg] Latrice Emery [facility] & [place] 01/28/2024 11:29:37 Date Recorded Body height Body mass index (BMI) Body weight Provider Name and Address Organization Details Last Updated DateTime 01/28/2024 152.4 cm 20.7 kg/m2 17370.79 g Venecia Keating, [address] , [place], [address], [facility] & [place] 01/28/2024 11:42:26 Social History Question Answer Notes LastModified by Organizat ion Details LastModified Time Tobacco Smoking Status Never Smoker [facility] [place] 01/28/2024 11:23:16 What Is Your Level Of Alcohol Consumption? None Information not available 01/28/2024 What Is Your Level Of Caffeine Consumption? Occasional Information not available 01/28/2024 Are You Currently Employed? Yes Information not available 01/28/2024 What Is Your Relationship Status? Single Lives With Parents Information not available 01/28/2024 Do You Use Any Illicit Or Recreational Drugs? No Information not available 01/28/2024 Are You Currently In School? No Some College Information not available 01/28/2024 Sex: Unknown Functional Status None recorded. Mental Status None recorded. Family History Relationship Description Onset Age of this Age Resolved Age Notes LastModified by Organization Details LastModified Time Father No current problems or disability ldalla Not available 01/27 11:21:46 Mother No current problems or disability ldalla Not available 01/27 11:21:46 Mother Hypothyroidi sm ldalla Not available 2023 11:22:05 Paternal Grandmother Malignant tumor of breast ldalla Not available 2023 11:22:35 Maternal Grandmother Hypothyroidi sm ldalla Not available 2023 11:22:47 Medical History Condition Response Anxiety/Depression Y Spine Problems Y ADD/ADHD Y Reflux/GERD Y Gynecological HistoryNo gynecological history recorded. Obstetrics History GPAL:G 0 P 0 0 0 0 Past Encounters Encounter ID Performer Location Encounter Start Date Encounter Closed Date Diagnosis/Indication Diagnosis SNOMED-CT Code Diagnosis ICD10 Code Diagnosis Note [id number] DO REBECCA Kiser [facility] [address] [facility],[address] [place] [address] 01/28/2024 11:15:14 01/28/2024 12:08:09 Episodic migraine [id number] 17571 G43.C1 She is having 2 migraine episodes a month since qulipta was added. This would be reasonable to continue due to good clinical response. She needs new prescripti on today.She is not able to give me the name of her prior neurologis t to obtain records. I asked her to see if she is able to get any records from her PCP. Chronic da ayanna headache [id number] [address]6965 R51.9 Daily headaches that have persisted despite improved migraine control. These do affect her quality of life and likely need interventi on. She is encouraged to do regular physical exercise and obtain good sleep habits. She can try adding daily magnesium and riboflavin as these supplement s can be helpful with headaches. Will give her a trial of propranolo l, if this is effective this also could work for migraines. She is asked to keep a BIRCH log until the next visit. Health Concerns Section Related Observation LastModified by Organization Detai ls LastModified Time None Recorded Concern Status LastModified by Organization Details LastModified Time None Recorded Advance Directives Directive None Recorded Payers Encounter Date Sequence Insurance Name Policy Number Policy Dewitt Covered Member ID Dewitt Member ID Guarantor Name 01/28/2024 1 [facility] (MEDICAID HMO) Ly Gaston [id number] Ly Gaston Notes Date Note Type Note Provider Name and Address Organization Details Recorded Time 01/28/2024 text/html 19 y/o right handed female here for neurologic consultation requested by Kimmy Green regarding migraines. Ly is the primary historian for today's visit. Ly was diagnosed with migraines at age 11. She really never had any treatment for the headaches until the last couple of years. She was seeing a neurologist in [place] but can't recall the physician's name. She last saw her about a year ago. While under the neurologist care she was started on qulipta and nurtec for migraines. She estimates being on these for a year and half. She does feel that once she was started on these medications her migraine frequency definitely decreased. At the same time she has noticed an increase in her daily headaches. She has never been on a preventative other than qulipta. Currently she is having a non migrainous daily headache. She has a more severe migraine headache about twice a month. Her primary headaches are a dull holocephalic headaches that are associated with sensitivity to light and feeling tired. She will be able to get through her job with a headache but once she is done she will often have to go home and go to bed. She feels tired from these daily headaches. She has not had any recent ER visits due to headaches.She often does not need to take anything for the daily headaches but if they are bothersome enough she will take ibuprofen or tylenol. These OTC medications will help ease the headache.She finds stress is her biggest trigger for these daily headaches.She does report getting regular sleep and exercise. Venecia Keating, DO [address], [place], [address], [facility] - [place] & [place] 01/28/2024 12:17:24 OBGyn Episode No OBEpisode recorded.
[2024-11-14 00:57] VITALS: BP 117/76; PULSE 79; RESP 18; TEMP 36.6; O2SAT 99; BMI 23.4
[2024-11-14 01:00] VITALS: BP 104/75; PULSE 60; O2SAT 99
[2024-11-14] MEDS: ACETAMINOPHEN 500MG TAB 1000 MG PO (01:05)
[2024-11-14] MEDS: ONDANSETRON 4MG ODT 4 MG SL (01:05)
[2024-11-14 01:44] LABS: Microscopic, Urine URINE MICROSCOPIC (MICROSCOPIC)
[2024-11-14 01:47] LABS: Appearance,Urine CLEAR (Clear); Bilirubin,Urine Negative (Negative); Blood, Urine Negative (Negative); Color,Urine YELLOW (Yellow); Glucose,Urine (UA) Negative (Negative); Ketones,Urine Negative (Negative); Leukocyte Esterase,Urine Negative (Negative); Nitrate,Urine Negative (Negative); PH,Urine 5.5 (5.0-8.5); Protein,Urine Negative (Negative); Specific Gravity, Urine >= 1.030 (1.005-1.030); Urobilinogen,Urine 0.2 EU/dl (0.2)
[2024-11-14 01:48] LABS: Urine Pregnancy, HCG Qual. Negative (Negative)
--- NOTE | 2024-11-14 01:55 | US_ITS ---
PROCEDURE INFORMATION: Exam: US Pelvis, Transvaginal, Non-Obstetric Exam date and time: 11/14/2024 2:02 AM Age: 19 years old Clinical indication: Pelvic pain; Additional info: Left pelvic pain, possible torsion TECHNIQUE: Imaging protocol: Real-time transvaginal pelvic (non-obstetric) ultrasound with image documentation. Transvaginal imaging was used for better evaluation of the endometrium, adnexa, and/or cervix. COMPARISON: US TRANSVAGINAL 06/10/2024 7:49 AM FINDINGS: Uterus: The uterus measures 6.4 x 2.8 x 4.4 cm. The endometrium measures 2.6 mm. Right ovary/adnexa: The right ovary measures 3.9 x 2.8 x 2.3 cm. Multiple cysts are seen in the right adnexa. Left ovary/adnexa: The left ovary measures 3.0 x 2.2 x 1.4 cm. Urinary bladder: Urinary bladder is limited. Vasculature: Arterial and venous flow is noted bilaterally. Intraperitoneal space: No free fluid is noted. IMPRESSION: No evidence of torsion or mass.
--- NOTE | 2024-11-14 01:55 | PC.NURSE ---
notified radiology of TVUS order.
[2024-11-14 02:03] LABS: Bacteria,Urine Trace /lpf; Mucus,Urine Trace /lpf; WBC,Urine Occasional #/hpf (0-3)
[2024-11-14] MEDS: KETOROLAC 30MG/ML VIAL 30 MG IM (02:21)
[2024-11-14 04:06] VITALS: BP 104/75; PULSE 66; RESP 20; TEMP 37.2; O2SAT 98
== END 2024-11-14 04:13 | disposition home or self-care (01) ==
PROVIDERS: Emergency Provider Emergency Medicine; PCP Physician Assistant
DX: R10.32 Left lower quadrant pain (principal); R11.2 Nausea with vomiting, unspecified; R19.7 Diarrhea, unspecified
CPT/HCPCS: 76830; 81001; 81025; 96372; 99284; J1885; Q0162

== ENCOUNTER 2025-01-25 18:15 | Outpatient (CLI) | payer MEDICAID, SELFPAY ==
[2025-01-25 20:18] LABS: HCG Qualitative, Serum Negative (Negative)
--- OUTSIDE RECORDS SUMMARY | 2025-01-26 12:29 | XMS_ITS | Clinical Summary ---
Author Organization Healthcare Address [address] [place] [address] Care Team Providers Care Registered Nurse Post Partum Name Role Phone Kimmy Green Primary Care Provider [phone] Allergies No known active allergies Medications Nurtec 75 MG tablet dispersible DISSOLVE 1 TABLET BY MOUTH ONCE DAILY NEEDED FOR HEADACHE 3 Active cyproheptadine (Periactin) 4 MG tablet Take 1 tablet (4 mg) by mouth nightly. Active Active Problems Problem Noted Date Diagnosed Date History of ovarian cyst 09/29/2024 Pelvic and perineal pain 09/29/2024 Lactose intolerance 10/31/2020 Weight loss 10/31/2020 Migraines 08/18/2019 Anxiety and depression 03/09/2019 Delayed gastric emptying 03/09/2019 GERD (gastroesophageal reflux disease) 9 Encounters Date Type Department Care Team Description 11/18/2024 10:45 AM EDT Procedure Visit Obstetrics & Gynecology [address] [place] [phone] Sheila Gale, STEEL CHECKER, DNP Encounter for IUD removal (Primary Dx); Family planning education, guidance, and counseling; LGSIL on Pap smear of cervix 11/18/2024 Travel 11/15/2024 Travel from Last 3 Months Family History Medical History Relation Name Comments ADD / ADHD Father Other cancer Maternal Grandmother Autoimmune disease Mother Yareli lewis Depression Mother Yareli lewis Thyroid disease Mother Yareli lewis Breast cancer Paternal Grandmother Anxiety disorder Sister 1 Depression Sister 2 Summer quinton Miscarriages / Stillbirths Sister 2 Summer frankli n Depression Sister 3 Saray alcantara Relation Name Status Comments Father Maternal Grandmother Mother Yareli lewis Paternal Grandmother Sister 1 Sister 2 Summer quinton Sister 3 Saray alcantara Social History Tobacco Use Types Packs/Day Years Used Date Smoking Tobacco: Never Passive Smoke Exposure: Yes Smokeless Tobacco: Never Tobacco Cessation:Counseling Given: Not Answered Alcohol Use Standard Drinks/Week Comments Never 0 (1 standard drink = 0.6 oz pur e alcohol) PHQ-2 Answer Date Recorded Patient Health Questionnaire-2 Score 0 11/18/2024 PHQ-9 Answer Date Recorded Patient Health Questionnaire-9 Score 0 09/03/2024 Comments No Sex and Gender Information Value Date Recorded Sex Assigned at Not on file Legal Sex Female 6:47 PM EDT Gender Identity Not on file Sexual Orientation Not on file Last Filed Vital Signs Vital Sign Reading Time Taken Comments Blood Pressure 112/72 11/18/2024 10:51 AM EDT Pulse 67 11/18/2024 10:51 AM EDT Temperature 36.8 C (98.2 F) 11/18/2024 10:51 AM EDT Respiratory Rate 20 09/03/2024 1:44 PM EST Oxygen Saturation 99% 11/18/2024 10: 51 AM EDT Inhaled Oxygen Concentration - - Weight 52.5 kg (115 lb 11.9 oz) 025 10:51 AM EDT Height 152.4 cm (5') 10/06/2024 10:28 AM EST Body Mass Index 22.6 10/06/2024 10:28 AM EST Plan of Treatment Upcoming Encounters Date Type Department Care Team (Late st Contact Info) Description 08/25/2025 2:00 PM EST Procedure Visit Obstetrics & Gynecology [address] [place] [address] Pool Garduno MD [address] [place] [address] Health Maintenance Due Date Last Done Comments [facility]-/Child/Adol SDOH Screenings 2003 HPV Vaccines (3 - 3-dose series) 07/15/2019 02/15/2019, 2019 [facility]- SDOH Screenings 2021 [facility]-Adult SDOH Screenings 2021 [facility]-DTaP,Tdap,and Td Vaccines (7 - Td or Tdap) 10/26/2023 10/25/2013, 01/14/2007, 04/20/2004, Additional history exists [facility]-Pap Smear 01/14/2024 [id number] Vaccine (3 - season) 2024 09/21/2021, 08/24/2021 [facility]-Influenza Vaccine (Season Ended) 2025 05/03/2009, 05/27/2008, 06/01/2007 [facility]-Chlamydia and Gonorrhea Screening 08/24/2025 08/24/2024, 08/24/2024, 01/08/2024, Additional history exists [facility]-Depression Screening 11/18/2025 11/18/2024, 08/06 [facility]-Zoster Vaccines (1 of 2) 2053 10/25/2013, 01/16/2004 [facility]-Pneumococcal Vaccine: Pediatrics (0 to 5 Years) and At-Risk Patients (6 to 49 Years) Aged Out 2003, 2003, 2003 No longer eligible based on patient's age to complete this topic [facility]-HIB Vaccines Completed 01/16/2004, , 2003 [facility]-Hepatitis B Vaccines Completed 004, 2003, 2003 [facility]-IPV Vaccines Completed 01/14/2007, , 2003, Additional history exists [facility]-Varicella Vaccines Completed 10/25/2013, 2003 [facility]-Hepatitis A Vaccines Completed 03/06/2018, 08/05 [facility]-HIV Screening Completed 08/24/2024, , 11/20/2022 [facility]-Hepatitis C Screening Completed 2024, 01/08/2024, 11/20/2022 [facility]-Rotavirus Vaccines Aged Out No lo nger eligible based on patient's age to complete this topic Procedures Procedure Name Priority Date/Time Associated Diagnosis Comments AL REMOVE INTRAUTERINE DEVICE Routine 11/18/2024 10:45 AM EDT Encounter for IUD removal HEPATITIS C ANTIBODY W/REFLEX TO HCV QUANT PCR Routine 08/24/2024 3:03 PM EST Screening for STD (sexually transmitted disease) HIV 1/2 ANTIBODY/ANTIGEN SCREEN WITH REFLEX TO HIV I/II DIFFERENTIATION Routine 08/24/2024 3:03 PM EST Screening for STD (sexually transmitted disease) CHLAMYDIA TRACHOMATIS DNA BY PCR Routine 08/24/2024 3:03 PM EST Screening for STD (sexually transmitted disease) from Last 3 Months or Most Recently Relevant to Health Maintenance Results * AL REMOVE INTRAUTERINE DEVICE (11/18/2024 10:45 AM EDT) Narrative Sheila Gale APRN, DNP - 11/18/2024 10:45 AM EDT Sheila Gale APRN, DNP 11/18/2024 11:39 AM IUD Management Performed by: Sheila Gale APRN, DNP Authorized by: Sheila Gale APRN, DNP Procedure: IUD removal Consent obtained by patient, parent, or legal power of workers compensation defense attorney - including discussion of procedure risks and benefits, patient questions answered, and patient education provided: yes Reason for removal: patient request Strings visualized: yes IUD grasped by forceps: yes IUD removed: yes Date/Time of Removal: 11/18/2024 11:15 AM Removed without complications: yes IUD intact: yes Removal comments: Pt tolerated procedure well. Sheila Gale APRN, DNP IN CLINIC/BEDSIDE ORDER BEKA Final Result * Chlamydia trachomatis DNA by PCR (08/24/2024 3:03 PM EST) Chlamydia trachomatis DNA PCR Result Not Detected Not Detected 08/25/2024 2:46 PM EST [facility] Urine Urine specimen obtained by clean catch procedure / Unknown Non-blood Collection / Unknown 08/24/2024 3:03 PM EST 08/24/2024 6:01 PM EST Narrative [facility] - 08/25/2024 2:46 PM EST This test is performed by the [employer] m2000 instrument for Real Time PCR C. trachomatis and N. gonorrhea. This test is FDA approved for use with endocervical, vaginal, and urine specimens. This test is used for clinical purposes. It should not be regarded as invesigational or for research. The [facility] Clinical Microbiology Laboratory is certified under the Clinical Laboratory Improvement Amendments of 1988 (CLIA-88) as qualified to perform high complexity clinical laboratory testing. Result Nakita Garduno MD LAB MICROBIOLOGY - [facility] Final Result Performing Organization Address [facility]/ZIP Co de Phone Number [facility] [address] [place] [address] * HIV 1 & 2 Antibody/Antigen Screen (08/24/2024 3:03 PM EST) Pathologist [facility] HIV 1 & 2 Antibody/Antigen Screen Non Reactive Non Reactive 08/24/2024 6:39 PM EST [facility] Comment:Screening for HIV 1 & 2 antibodies, and P24 antigen is NONREACTIVE. No confirmatory testing is required. Blood Venous blood specimen / Unknown Venipuncture / Unknown 08/24/2024 3:03 PM EST 08/24/2024 6:02 PM EST Result Nakita Garduno MD LAB BLOOD ORDERABLES Final Resu lt Performing Organization Address [facility] Co de Phone Number [facility] [address] [place] [address] * Hepatitis C Antibody w/Reflex to HCV Quant PCR (08/24/2024 3:03 PM EST) Pathologist [facility] Hepatitis C Antibody Negative Negative 08/24/2024 7:19 PM EST [facility] Blood Venous blood specimen / Unknown Venipuncture / Unknown 08/24/2024 3:03 PM EST 08/24/2024 6:02 PM EST Result Nakita Garduno MD LAB BLOOD ORDERABLES Final Resu lt Performing Organization Address City/[facility]/ZIP Co de Phone Number [facility] [address] [place] [address] from Last 3 Months or Most Recently Relevant to Health Maintenance Insurance [facility] MEDICAID Care Teams Registered Nurse Post Partum Relationship Specialty Start Date End Date Kimmy Green PA [address] [place] [address] PCP - General 12/15/20
== END 2025-01-25 23:59 | disposition home or self-care (01) ==
LOC: LAB.DROPOF 01-26 12:27
PROVIDERS: PCP Student in an Organized Health Care Education/Training Program; Visit Provider Student in an Organized Health Care Education/Training Program
DX: N39.0 Urinary tract infection, site not specified (principal); N91.2 Amenorrhea, unspecified
CPT/HCPCS: 84703; 87086; 87088; 87186

== ENCOUNTER 2025-03-04 08:40 | Outpatient (CLI) | payer MEDICAID, SELFPAY ==
[2025-03-04 15:11] LABS: Coronavirus 19, PCR Not Detected (NotDetected); Influenza A, PCR Not Detected (NotDetected); Influenza B, PCR Not Detected (NotDetected)
--- OUTSIDE RECORDS SUMMARY | 2025-03-05 10:12 | XMS_ITS | Clinical Summary ---
Author Organization [facility] Address [address] [place] [address] Care Team Providers Care Golf Technician Name Role Phone Kimmy Green Primary Care Provider [phone] Allergies No known active allergies Medications Nurtec [...] emptying 03/09/2019 GERD (gastroesophageal reflux disease) 9 Family History Medical History Relation Name Comments ADD / ADHD Father Other cancer Maternal Grandmother Autoimmune disease Mother Yareli lewis Depression Mother Yareli lewis Thyroid disease Mother Yareli lewis Breast cancer Paternal Grandmother Anxiety disorder Sister 1 Depression Sister 2 summer Miscarriages / Stillbirths Sister 2 Summer frankli [...] Visit Obstetrics & Gynecology [address] [place] [address] Pool Garduno MD [address] [place] [address] Health Maintenance Due Date Last Done Comments [facility]-Infant/Child/Adol SDOH Screenings 2003 HPV Vaccines (3 - 3-dose series) 07/15/2019 02/15/2019, 2019 [facility]- SDOH Screenings 2021 [facility]-Adult SDOH Screenings 2021 [facility]-DTaP,Tdap,and Td Vaccines (7 - Td or Tdap) 10/26/2023 10/25/2013, 01/14/2007, 04/20/2004, Additional history exists [facility]-Pap Smear 01/14/2024 [id number] Vaccine ( season) 2024 09/21/2021, 08/24/2021 [facility]-Influenza Vaccine (#1) 04/04/202505/03, 05/27/2008, 06/01/2007 [facility]-Chlamydia and Gonorrhea Screening 08/24/2025 [...] Procedure Name Priority Date/Time Associated Diagnosis Comments HEPATITIS C ANTIBODY W/REFLEX TO HCV QUANT [...] Recently Relevant to Health Maintenance Results * Chlamydia trachomatis DNA by PCR (08/24/2024 3:03 PM EST) Chlamydia trachomatis DNA PCR Result Not Detected Not Detected 08/25/2024 2:46 PM EST [facility] Urine Urine specimen obtained by clean catch procedure / Unknown Non-blood Collection / Unknown 08/24/2024 3:03 PM EST 08/24/2024 6:01 PM EST Narrative [facility] - 08/25/2024 2:46 PM EST This test is performed by the [employer] instrument for Real Time PCR C. trachomatis and N. gonorrhea. This test is FDA approved for use with endocervical, vaginal, and urine specimens. This test is used for clinical purposes. It should not be regarded as invesigational or for research. The [facility] Clinical Microbiology Laboratory is certified under the Clinical Laboratory Improvement Amendments of 1988 (CLIA-88) as qualified to perform high complexity clinical laboratory testing. us Pool Garduno MD LAB [facility]OLOGY [facility] Final Result Performing Organization Address City/[facility]/ZIP Co de Phone Number [facility] [address] [place] [address] * HIV 1 & 2 Antibody/Antigen Screen (08/24/2024 3:03 PM EST) Pathologist [facility] HIV 1 & 2 Antibody/Antigen Screen Non Reactive Non Reactive 08/24/2024 6:39 PM EST [facility] Comment:Screening for HIV 1 & 2 antibodies, and P24 antigen is NONREACTIVE. No confirmatory testing is required. Blood Venous blood specimen / Unknown Venipuncture / Unknown 08/24/2024 3:03 PM EST 08/24/2024 6:02 PM EST Result Nakiat Garduno MD LAB BLOOD ORDERABLES Final Resu lt Performing Organization Address City/[facility]/ZIP Co de Phone Number [facility] [address] [place] [address] * Hepatitis C Antibody w/Reflex to HCV Quant PCR (08/24/2024 3:03 PM EST) Hepatitis C Antibody Negative Negative 08/24/2024 7:19 PM EST [facility] Blood Venous blood specimen / Unknown Venipuncture / Unknown 08/24/2024 3:03 PM EST 08/24/2024 6:02 PM EST us Pool Garduno MD LAB BLOOD ORDERABLES Final Resu lt [facility] [address] [place] [address] from Last 3 Months or Most Recently Relevant to Health Maintenance Insurance [facility] MEDICAID Care Teams Golf Technician Relationship Specialty Start Date End Date Kimmy Green PA [address] [place] [address] PCP - General 12/15/20
== END 2025-03-04 23:59 | disposition home or self-care (01) ==
LOC: LAB.DROPOF 03-05 10:10
PROVIDERS: PCP Nurse Practitioner Family; Visit Provider Nurse Practitioner Family
DX: J06.9 Acute upper respiratory infection, unspecified (principal)
CPT/HCPCS: 87631

== ENCOUNTER 2025-03-30 11:12 | Emergency (ER) | payer MEDICAID, SELFPAY ==
--- OUTSIDE RECORDS SUMMARY | 2025-03-16 13:30 | XMS_ITS | Encounter Summary ---
Author Organization Healthcare Address [address] [place] [address] Care Team Providers Care Superintendent Transportation Name Role Phone Kimmy Green Primary Care Provider [phone] Reason for Visit * Reason Comments Metrorrhagia Having 40 day cycles . Encounter Details Date Type Department Care Team (Late st Contact Info) Description 03/16/2025 1:30 PM EDT Office Visit Obstetrics & Gynecology [address] [place] [address] Radha Blue MD [address] [place] [address] Family planning education, guidance, and counseling (Primary Dx); Menorrhagia with irregular cycle Social History Tobacco Use Types Packs/Day Years Used Date Smoking Tobacco: Never Passive Smoke Exposure: Yes Smokeless Tobacco: Never Alcohol Use Standard Drinks/Week Comments Never 0 (1 standard drink = 0.6 oz pur e alcohol) PHQ-2 Answer Date Recorded Patient Health Questionnaire-2 Score 0 03/16/2025 PHQ-9 Answer Date Recorded Patient Health Questionnaire-9 Score 0 03/16/2025 Comments No Sex and Gender Information Value Date Recorded Sex Assigned at Not on file Legal Sex Female 6:47 PM EDT Gender Identity Not on file Sexual Orientation Not on file documented as of this encounter Last Filed Vital Signs Vital Sign Reading Time Taken Comments Blood Pressure 108/72 03/16/2025 1:36 PM EDT Pulse 80 03/16/2025 1:36 PM EDT Temperature - - Respiratory Rate 16 03/16/2025 1:36 PM EDT Oxygen Saturation 97% 03/16/2025 1:36 PM EDT Inhaled Oxygen Concentration - - Weight 51.7 kg (114 lb) 03/16/2025 1:36 PM EDT Height 152.4 cm (5') 03/16/2025 1:36 PM EDT Body Mass Index 22.26 03/16/2025 1:36 PM EDT documented in this encounter Functional Status * Over the past 2 weeks, how often have you been bothered by any of the following problems? Question Answer Date of Assessment Author Little interest or pleasure in doing things Not at all 03/16/2025 1:37 PM EDT Bob Tavarez Feeling down, depressed, or hopeless Not at all 03/16/2025 1:37 PM EDT Bob Tavarez Patient Health Questionnaire -2 Score 0 03/16/2025 1:37 PM EDT Bob Tavarez * Question Answer Date of Assessment Author Trouble falling or staying a sleep, or sleeping too much Not at all 03/16/2025 1:37 PM EDT Bob Tavarez Feeling tired or having candie le energy Not at all 03/16/2025 1:37 PM EDT Bob Tavarez Poor appetite or overeating Not at all 03/16/2025 1: 37 PM EDT Bob Tavarez Feeling bad about yourself - or that you are a failure or have let yourself or your family down Not at all 03/16/2025 1:37 PM EDT Jose David Tavarez Trouble concentrating on thi ngs, such as reading the newspaper or watching television Not at all 03/16/2025 1:37 PM EDT Bob Tavarez Moving or speaking so slowly that other people could have noticed? Or the opposite - being so fidgety or restless that you have been moving around a lot more than usual. Not at all 03/16/2025 1:37 PM EDT Bob Tavarez Thoughts that you would be b maggi off or hurting yourself in some way Not at all 03/16/2025 1:37 PM EDT Bob Tavraez Patient Health Questionnaire -9 Score 0 03/16/2025 1:37 PM EDT Bob Tavarez * If you checked off any problems on this questionnaire so far, Question Answer Date of Assessment Author How difficult have these problems made it for you to do your work, take care of things at home, or get along with other people? Not difficult at all 03/16/2025 1:37 PM EDT Bob Tavarez documented as of this encounter Miscellaneous Notes * Assessment & Plan Note - Maria Isaac - 03/16/2025 1:30 PM EDTAssociated Problem(s): Menorrhagia with irregular cycle Orders: tranexamic acid (Lysteda) 650 MG tablet tablet; Take 2 tablets by mouth 3 times a day for 20 days. * Assessment & Plan Note - Maria Isaac - 03/16/2025 1:30 PM EDTAssociated Problem(s): Family planning education, guidance, and counseling Orders: Follicle stimulating hormone; Future Estradiol; Future Prolactin; Future Testosterone Total 17-Hydroxyprogesterone; Future Hemoglobin A1c; Future CBC; Future * Progress Notes - Maria Isaac - 03/16/2025 1:30 PM EDT Gynecology Progress Note Chief Complaint Patient presents with Metrorrhagia Having 40 day cycles. Subjective History of Present Illness: Bharati Gaston is a 20 y.o. who presents for irregular and heavy cycles. She states that she has 14-40 days between each cycle. LMP was 8/6-8/12. Has 6-7 days cycles with heavy bleeding. She states she has to use a super tampon and a pad and has to change every hour. She is also actively trying to conceive and has been trying since her IUD removal this past November. The patient???s medical, surgical, family, social history were reviewed, as well as current medications and allergies. Review of Systems All other systems reviewed and are negative. Current Outpatient Medications Medication Instructions cyproheptadine (PERIACTIN) 4 mg, Nightly Nurtec 75 MG tablet dispersible DISSOLVE 1 TABLET BY MOUTH ONCE DAILY NEEDED FOR HEADACHE tranexamic acid (LYSTEDA) 1,300 mg, Oral, 3 times daily Objective BP 108/72 Pulse 80 Resp 16 Ht 1.524 m (5') Wt 51.7 kg (114 lb) LMP 03/09/2025 Physical Exam: Physical Exam Constitutional: Appearance: Normal appearance. HENT: Head: Normocephalic and atraumatic. Eyes: Pupils: Pupils are equal, round, and reactive to light. Cardiovascular: Rate and Rhythm: Normal rate. Pulmonary: Effort: Pulmonary effort is normal. Neurological: General: No focal deficit present. Mental Status: She is alert and oriented to person, place, and time. Skin: General: Skin is warm. Capillary Refill: Capillary refill takes less than 2 seconds. Psychiatric: Mood and Affect: Mood normal. Behavior: Behavior normal. Thought Content: Thought content normal. Judgment: Judgment normal. Vitals and nursing note reviewed. Labs & Imaging: CBC, FSH, A1C, Estradiol, Prolactin, total testosterone, 17-hydroxyprogesterone; will f/u result Assessment/Plan Bharati Gaston is a 20 y.o. presenting for irregular periods and menorrhagia. - Discussed treatment options for heavy bleeding including hormonal or Lysteda. Since patient is actively trying to conceive, counseled patient on Lysteda use to decrease amount of bleeding. Patient agreeable to plan - Discussed obtaining labs and ultrasound to further assess irregular periods. Will f/u on result - Patient has been actively trying to conceive for 3 months. - RTC for CAREER DEVELOPMENT DIRECTOR US Assessment & Plan Family planning education, guidance, and counseling Orders: Follicle stimulating hormone; Future Estradiol; Future Prolactin; Future Testosterone Total 17-Hydroxyprogesterone; Future Hemoglobin A1c; Future CBC; Future Menorrhagia with irregular cycle Orders: tranexamic acid (Lysteda) 650 MG tablet tablet; Take 2 tablets by mouth 3 times a day for 20 days. RTC for CAREER DEVELOPMENT DIRECTOR US Time Spent: I personally spent a total of 28 minutes on this encounter. This time includes face to face with patient, counseling and discussion and/or coordination of care. Cosigned by Radha Blue MD at 03/16/2025 3:53 PM EDT Associated attestation - Radha Blue MD - 03/16/2025 3:53 PM EDT I saw and evaluated the patient with the medical/GIS COORDINATOR/PA student. I discussed the case with the medical/GIS COORDINATOR/PA student and agree with the findings and plan as documented. I personally performed the Examand Medical Decision Making. documented in this encounter Plan of Treatment Upcoming Encounters Date Type Department Care Team (Late st Contact Info) Description 04/06/2025 3:00 PM EDT Office Visit Obstetrics & Gynecology [address] [place] [address] Radha Blue MD [address] [place] [address] 08/25/2025 2:00 PM EST Procedure Visit Obstetrics & Gynecology [address] [place] [address] Pool Garduno MD [address] [place] [address] documented as of this encounter Procedures Procedure Name Priority Date/Time Associated Diagnosis Comments TESTOSTERONE, TOTAL Routine 03/16/2025 2 :26 PM EDT Family planning education, guidance, and counseling 17-HYDROXYPROGESTERON E, PEDS (ESOTERIX) Routine 03/16/2025 2:26 PM EDT Family planning education, guidance, and counseling PROLACTIN, SERUM Routine 03/16/2025 2:26 PM EDT Family planning education, guidance, and counseling ESTRADIOL, ADULT PREMENOPAUSAL, FEMALE Routine 03/16/2025 2:26 PM EDT Family planning education, guidance, and counseling CBC W/O DIFFERENTIAL Routine 03/16/2025 2:26 PM EDT Family planning education, guidance, and counseling HEMOGLOBIN A1C Routine 03/16/2025 2:26 PM EDT Family planning education, guidance, and counseling FOLLICLE STIMULATING HORMONE, SERUM Routine 03/16/2025 2:26 PM EDT Family planning education, guidance, and counseling documented in this encounter Results * CBC (03/16/2025 2:26 PM EDT) WBC Count 7.57 3.70 - 10.30 10*3/uL LAB HEMATOLOGY METHOD 03/16/2025 7:04 PM EDT [facility] RBC Count 4.58 3.90 - 5.20 10*6/uL LAB HEMATOLOGY METHOD 03/16/2025 7:04 PM EDT [facility] HGB 14.2 11.2 - 15.7 g/dL LAB HEMATOLOGY METHOD 03/16/2025 7:04 PM EDT [facility] HCT 41.7 34.0 - 45.0 % LAB HEMATOLOGY METHOD 03/16/2025 7:04 PM EDT [facility] Platelet Count 272 155 - 369 10*3/uL LAB HEMATOLOGY METHOD 03/16/2025 7:04 PM EDT [facility] MCV 91 79 - 98 fL LAB HEMATOLOGY METHOD 03/16/2025 7:04 PM EDT [facility] MCH 31.0 26.0 - 32.0 pg LAB HEMATOLOGY METHOD 03/16/2025 7:04 PM EDT [facility] MCHC 34.1 30.7 - 35.5 g/dL LAB HEMATOLOGY METHOD 03/16/2025 7:04 PM EDT [facility] RDW 11.5 11.5 - 14.5 % LAB HEMATOLOGY METHOD 03/16/2025 7:04 PM EDT [facility] MPV 10.3 8.8 - 12.5 fL LAB HEMATOLOGY METHOD 03/16/2025 7:04 PM EDT [facility] nRBC 0.0 <=0.0 per 100 WBCs LAB HEMATOLOGY METHOD 03/16/2025 7:04 PM EDT [facility] Blood Venous blood specimen / Unknown Venipuncture / Unknown 03/16/2025 2:26 PM EDT 03/16/2025 6:38 PM EDT us Radha Blue MD LAB BLOOD ORDERABLES Fin al Result Performing Organization Address City/[facility]/ZIP Co de Phone Number [facility] [address] [place] [address] * Hemoglobin A1c (03/16/2025 2:26 PM EDT) Hemoglobin A1c 4.9 <5.7 % 03/16/2025 8:41 PM EDT [facility] Blood Venous blood specimen / Unknown Venipuncture / Unknown 03/16/2025 2:26 PM EDT 03/16/2025 6:38 PM EDT Narrative [facility] - 03/16/2025 8:41 PM EDT HA1C Interpretive Data: Diagnosis of Diabetes: Diabetic > or = 6.5% Pre-diabetic 5.7 to 6.4% Non-diabetic < or = 5.6% Glycemic Targets for Type I and Type II Diabetics: Non- Adults <7.0% Adults <6.0% Children and Adolescents <7.5% Source: [place] [employer]. Standards of medical care in diabetes,2017. Diabetes Care.2017:40 (suppl 1):S1-S135. us Radha Blue MD LAB BLOOD ORDERABLES Fin al Result Performing Organization Address City/[facility]/ZIP Co de Phone Number [facility] [address] [place] [address] * 17-Hydroxyprogesterone (03/16/2025 2:26 PM EDT) 17 [place] PROGESTERONE 33 ng/dL 2024 8:09 PM EDT [facility] (JOSE CARLOS) Comment: This test was developed and its performance characteristics determined by [facility]. It has not been cleared or approved by the Food and Drug Administration. Reference Range: Adult Female Follicular: 15 - 70 Luteal: 35 - 290 Blood Venous blood specimen / Unknown Venipuncture / Unknown 03/16/2025 2:26 PM EDT 03/16/2025 6:35 PM EDT Narrative MYLES LUIS MANUEL) - 03/21/2025 8:09 PM EDT Performed at: [facility] [employer] [address] [place] [id number] Instructor [employer]: Andria DAILY, Phone: [phone] Radha Blue MD LAB BLOOD ORDERABLES Fin al Result Performing Organization Address City/[facility]/ZIP Co de Phone Number [facility] LUIS MANUEL) * Testosterone Total (03/16/2025 2:26 PM EDT) [facility] Testosterone Total 21.2 ng/dL 03/19/2025 5:04 PM EDT [facility] Comment: Female Reference Values, age greater than 18 years: premenopausal ................ 10.0-55.0 ng/dL postmenopausal ............... 7.0-40.0 ng/dL Blood Venous blood specimen / Unknown Venipuncture / Unknown 03/16/2025 2:26 PM EDT 03/16/2025 6:38 PM EDT Narrative [facility] - 03/19/2025 5:04 PM EDT Test performed by LC-MS/MS at the [facility]. This test was developed and its performance characteristics determined by [facility]. It has not been cleared or approved by the FDA. The laboratory is regulated under CLIA as qualified to perform high-complexity testing. This test is used for clinical purposes. Radha Blue MD LAB BLOOD ORDERABLES Fin al Result [facility] [address] [place] [address] * Prolactin (03/16/2025 2:26 PM EDT) Prolactin, Serum 21.0 4.4 - 23.3 ng/mL 03/16/2025 11:26 PM EDT [facility] Blood Venous blood specimen / Unknown Venipuncture / Unknown 03/16/2025 2:26 PM EDT 03/16/2025 6:35 PM EDT Narrative [facility] - 03/16/2025 11:26 PM EDT Performed by Miryam electrochemiluminescent immunoassay which is traceable to the Prolactin 3rd IRP (WHO 84/500). Results obtained with different test methods or kits cannot be used interchangeably. us Radha Blue MD LAB BLOOD ORDERABLES Fin al Result Performing Organization Address City/[facility]/[place]IP [place] [address] * Estradiol (03/16/2025 2:26 PM EDT) Estradiol 27.6 pg/mL 03/16/2025 7:3 1 PM EDT [facility] Blood Venous blood specimen / Unknown Venipuncture / Unknown 03/16/2025 2:26 PM EDT 03/16/2025 6:35 PM EDT Narrative [facility] - 03/16/2025 7:31 PM EDT Females >17 Y (pg/mL): Follicular Phase 26 -233 Ovulatory Peak Phase 60 - 600 Luteal Phase 30 - 305 Post-Menopausal <138 us Radha Blue MD LAB BLOOD ORDERABLES Fin al Result [facility] [address] [place] [address] * Follicle stimulating hormone (03/16/2025 2:26 PM EDT) FSH 6.9 mIU/mL 03/16/2025 11:26 PM EDT [facility] Blood Venous blood specimen / Unknown Venipuncture / Unknown 03/16/2025 2:26 PM EDT 03/16/2025 6:35 PM EDT Narrative [facility] - 03/16/2025 11:26 PM EDT FSH Female Reference Ranges: Huey Stage 1: 0.6 - 8.4 mIU/mL Huey Stage 2: 0.6 - 8.9 mIU/mL Huey Stage 3: 0.5 - 8.9 mIU/mL Huey Stage 4-5: 0.7 - 9.3 mIU/mL Adult Female >17 years: Follicular: 3.5 - 12.5 mIU/mL Midcycle: 4.7 - 21.5 mIU/mL Luteal: 1.7 - 7.7 mIU/mL Postmenopause: 25.8 - 134.8 mIU/mL : low to undetectable us Radha Blue MD LAB BLOOD ORDERABLES [facility] al Result [facility] [address] [place] [address] documented in this encounter Visit Diagnoses Diagnosis Family planning education, guidance, and counseling- Primary Other general counseling and advice for contraceptive management Menorrhagia with irregular cycle documented in this encounter Additional Health Concerns Assessment Noted Time PHQ-9 Depression Total Score: 0 03/16/20 25 1:37 PM EDT A fall risk assessment has been complete d for the patient 03/16/2025 1:38 PM EDT A Body Mass Index follow-up plan has been documented for the patient 03/16/2025 3:53 PM EDT documented as of this encounter Care Teams Superintendent Transportation Relationship Specialty Start Date End Date Kimmy Green PA [address] [place] [address] PCP - General 12/15/20 documented as of this encounter
[2025-03-30 11:21] VITALS: BP 106/60; PULSE 59; RESP 16; TEMP 37.1; O2SAT 97; BMI 22.3
--- NOTE | 2025-03-30 11:31 | XR_ITS ---
PROCEDURE INFORMATION: Exam: XR Right Wrist Exam date and time: 03/30/2025 11:44 AM Age: 20 years old Clinical indication: Pain; Wrist; Right; Additional info: Right wrist injury TECHNIQUE: Imaging protocol: Radiologic exam of the right wrist. Views: 3 or more views. COMPARISON: No relevant prior studies available. FINDINGS: Bones/joints: Normal. Soft tissues: Normal. IMPRESSION: No acute findings.
--- NOTE | 2025-03-30 11:56 | PC.NURSE ---
attempted to place patient in treatment room. patient not currently in lobby, will call radiology to see if patient is in xray.
--- NOTE | 2025-03-30 12:00 | PC.NURSE ---
patient moved to treatment room 10 from [facility] at this time
--- NOTE | 2025-03-30 12:01 | ED_ITS ---
<Statement entered by Bhupendra Gomez MD - 03/30/25 13:06> I was consulted by the ANTONY, and we discussed the complexity of the problems being addressed. I approve the treatment and management plan for this patient's care in the emergency department, thus performing a substantive portion of the medical decision making. Bhupendra Gomez MD Discharge Plan Disposition Patient Disposition: Home, Self-Care Condition: Fair Prescriptions Prescriptions: No Action cyproheptadine 4 mg tablet 4 mg PO HS Qty: 30 5RF Rx Instructions: Take 1 tablet 1 hour before bedtime for 2 weeks, then may increase to 2 tablets 1 hour before bedtime Referrals Follow up/Referrals: Kimmy Green PA [Primary Care Provider, Medical] - See instructions Activity Restrictions/Add. Instructions Additional Instructions/Restrictions: Use Rodney wrap for comfort. Use ice, ibuprofen and Tylenol for pain and swelling. If any other problems or concerns please return to PCP for further treatment and management. Clinical Impressions Clinical Impression: Right wrist sprain Instructions Patient Instructions: DI for Wrist Sprain Print Language Print Language: Portuguese Discharge ED Provider: Bhupendra Gomez General Adult HPI General Chief complaint: Extremity Injury, Upper Stated complaint: R Wrist Injury Time Seen by Provider: 03/30/25 11:44 Mode of Arrival: Ambulatory Source of Information: Patient Description of Symptoms (Recalled from ER Triage Doc. by RN): Patient states yesterday morning she was changing a child and injured her right wrist. Patient states she has full ROM in wrist and continued working throughout the day but continues to have pain all the way through arm and wrist. Patient states she took 2 x Tylenol about 0730 this morning. History of Present Illness HPI narrative: 20-year-old female presents to the ED after injuring her right hand and wrist yesterday while changing a child at work. She says it was hurting yesterday she took Tylenol and ibuprofen. She says it has been hurting worse this morning. She said it hurts through her wrist and thumb. Related Data Previous Rx's ?Medication ?Instructions ?Recorded cyproheptadine 4 mg tablet 4 mg PO HS Headache #30 ta bs 10/06/24 Allergies Allergy/AdvReac Type Severity Reaction Status Date / Time No Known Allergies Allergy Verified 03/29/25 17:02 [facility] Disclaimer: The information contained in this section may have been updated after the patient was seen, as this information can be updated by other users. Medical History Sinusitis Allergic rhinitis Generalized anxiety disorder History of migraine History of gastroesophageal reflux (GERD) History of depression History of asthma History of anxiety Anxiety Migraine Surgical History History of esophagogastroduodenoscopy (EGD) Family History Other Asthma Cancer Thyroid disorder Social History Smoking Status: Current every day smoker tobacco type: e-cigarettes second hand exposure: No alcohol intake: never substance use type: denies use current occupational status: student and other Travel in the last 8 weeks?: None household members: family housing: house number of children: 0 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 Have you lived/traveled outside US in past 30 days?: No Contact w/someone who lives/traveled outside US past 30 days?: No Exposure to someone with infectious disease in past 14 days?: No Do you have a fever (greater than 100.4 F or 38 C)?: No Have you tested positive for COVID-19?: No Exposed to someone with COVID-19 in past 14 days?: No Do you have a sore throat?: No Do you have a cough?: No Do you have any weakness?: No Do you have any diarrhea?: No Are you experiencing any unusual bleeding?: No Do you have any muscle aches/pain?: No Do you have any abdominal pain?: No Are you experiencing loss of taste or smell?: No Other Medical History Have you received the Flu Vaccine for this season: Yes Have you received the Pneumonia Vaccine: No ROS Obtained: Yes Systems reviewed as appropriate & no additional complaints except as documented Constitutional Constitutional: Reports as per HPI Physical Exam General General appearance: alert and in no apparent distress Head Head exam: normocephalic Eye Eye exam: Present PERRL and EOMI ENT ENT exam: Present normal oropharynx and mucous membranes moist Neck Neck exam: Present full ROM and trachea midline Respiratory Respiratory exam: Present normal lung sounds bilaterally Cardiovascular Cardiovascular exam: Present regular rate, normal rhythm, normal heart sounds, +S1 and +S2 Extremities Exam Extremities exam: Present full ROM, tenderness and normal capillary refill Neurological Exam Neurological exam: Present alert and oriented X3 Skin Skin exam: Present warm, dry and intact Medical Decision Making Medical Records Screening: Per USPSTF and CDC recommendations, given the prevalence of disease in our region, it is our hospital?s policy to screen for HIV and viral Hepatitis for all patients aged 18 and over and those with ongoing risk factors. Steve Inquiry Pt receiving controlled substance: No Steve was queried for this patient: No Vital Signs: 03/30/25 11:21 03/30/25 12:39 03/30/25 12:42 Temperature 98.7 F 98.0 F Temperature Source Oral Pulse Rate 81 81 Pulse Rate [Left Brachial] 59 L Respiratory Rate 16 16 Blood Pressure 99/69 L 99/69 L Blood Pressure [Left Arm] 106/60 L Blood Pressure Mean [Left Arm] 75 Blood Pressure Source [Left Arm] Automatic Cuff Blood Pressure Position [Left Arm] Sitting 02 Sat by Pulse Oximetry 97 98 Oxygen Delivery Method Room Air Orders (Tests/Meds): ORDERS Category Date Time Status Wrist XR right minimum 3 views [XR wrist RT min 3V] Exams 03/30/25 11:31 Completed Stat Medical Decision Narrative: patient is a 20-year-old female presenting to the emergency department for evaluation of right wrist pain since yesterday. Patient is hemodynamically stable and nontoxic-appearing upon arrival, afebrile. Differential diagnosis includes wrist sprain versus fracture. Workup will be conducted with specific imagiing. I viewed the wrist imaging did not see initial fracture. I am waiting for radiology to read. Radiology read no acute fracture. Patient will go home with Rodney wrap, ibuprofen and Tylenol for pain and swelling and then see PCP if any worsening pain or swelling. Patient safe for discharge home. Critical Care Critical Care Time Critical Care Time: No
--- OUTSIDE RECORDS SUMMARY | 2025-03-30 12:09 | XMS_ITS | Encounter Summary ---
Author Organization Healthcare Address [address] [place] [address] Care Team Providers Care Global Engineering Manager Name Role Phone Kimmy Green Primary Care Provider [phone] Encounter Details Date Type Department Care Team (Latest Contact Info) Description 03/16/2025 Travel Social History Tobacco Use Types Packs/Day Years [...] on file documented as of this encounter Functional Status * Over the [...] Bob Tavarez documented as of this encounter Plan of Treatment Upcoming Encounters Date Type Department Care Team (Late st Contact Info) Description 04/06/2025 3:00 PM EDT Office Visit Obstetrics & Gynecology [address] [place] [address] Radha Blue MD [address] [place] [address] 08/25/2025 2:00 PM EST Procedure Visit Obstetrics & Gynecology [address] [place] [address] Pool Garduno MD [address] [place] [address] documented as of this encounter Visit Diagnoses Not on filedocumented in this encounter Additional Health Concerns Assessment Noted Time PHQ-9 Depression Total Score: 0 03/16/20 25 1:37 PM EDT A fall risk assessment has been complete d for the patient 03/16/2025 1:38 PM EDT A Body Mass Index follow-up plan has been documented for the patient 03/16/2025 3:53 PM EDT documented as of this encounter Care Teams Global Engineering Manager Relationship Specialty Start Date End Date Kimmy Green PA [address] [place] [address] PCP - General 12/15/20 documented as of this encounter
--- OUTSIDE RECORDS SUMMARY | 2025-03-30 12:09 | XMS_ITS | Encounter Summary ---
Author Organization Healthcare Address [address] [place] [address] Care Team Providers Care Crystal Finisher Name Role Phone Kimmy Green Primary Care Provider [phone] Encounter Details Date Type Department Care Team (Late st Contact Info) Description 03/22/2025 Results Follow-Up Obstetrics & Gynecology [address] [place] [address] Radha Blue MD [address] [place] [address] Social History Tobacco Use Types Packs/Day Years [...] on file documented as of this encounter Plan of Treatment Upcoming Encounters Date Type Department Care Team (Late st Contact Info) Description 04/06/2025 3:00 PM EDT Office Visit Obstetrics & Gynecology [address] [place] [address] Radha Blue MD [address] [place] [address] 08/25/2025 2:00 PM EST Procedure Visit Obstetrics & Gynecology [address] [place] [address] Pool Garduno MD [address] [place] [address] documented as of this encounter [...] documented as of this encounter Care Teams Crystal Finisher Relationship Specialty Start Date End Date Kimmy Green PA [address] [place] [address] PCP - General 12/15/20 documented as of this encounter
--- OUTSIDE RECORDS SUMMARY | 2025-03-30 12:09 | XMS_ITS | Clinical Summary ---
Author Organization [facility] Address [address] [place] [address] Care Team Providers Care Dynamics Ax Technical Architect Name Role Phone Kimmy Green Primary Care Provider [phone] Allergies No known active allergies Medications Nurtec 75 MG tablet dispersible DISSOLVE 1 TABLET BY MOUTH ONCE DAILY NEEDED FOR HEADACHE 3 Active cyproheptadine (Periactin) 4 MG tablet Take 1 tablet (4 mg) by mouth nightly. Active tranexamic acid (Lysteda) 650 MG tablet tabletIndication s:Menorrhagia with irregular cycle Take 2 tablets by mouth 3 times a day for 20 days. 30 tablet 3 5 04/05/20 25 Active Active Problems Problem Noted Date Diagnosed Date Menorrhagia with irregular cycle 03/16/2025 Assessment & Plan (03/16/2025 3:53 PM EDT): Orders: tranexamic acid (Lysteda) 650 MG tablet tablet; Take 2 tablets by mouth 3 times a day for 20 days. Family planning education, guidance, and benefits counselor ing 03/16/2025 Assessment & Plan (03/16/2025 3:53 PM EDT): Orders: Follicle stimulating hormone; Future Estradiol; Future Prolactin; Future Testosterone Total 17-Hydroxyprogesterone; Future Hemoglobin A1c; Future CBC; Future History of ovarian cyst 09/29/2024 Pelvic and perineal pain 09/29/2024 Lactose intolerance 10/31/2020 Weight loss 10/31/2020 Migraines 08/18/2019 Anxiety and depression 03/09/2019 Delayed gastric emptying 03/09/2019 GERD (gastroesophageal reflux disease) 9 Encounters Date Type Department Care Team Description 03/22/2025 Results Follow-Up Obstetrics & Gynecology [address] [address] Radha Blue MD 03/16/2025 1:30 PM EDT Office Visit Obstetrics & Gynecology [address] [address] Radha Blue MD Family planning education, guidance, and counseling (Primary Dx); Menorrhagia with irregular cycle 03/16/2025 Travel 03/15/2025 Travel from Last 3 Months Family History Medical History Relation Name Comments ADD / ADHD Father Other cancer Maternal Grandmother Autoimmune disease Mother Yareli lewis Depression Mother Yareli lewis Thyroid disease Mother Yareli lewis Breast cancer Paternal Grandmother Anxiety disorder Sister 1 Depression Sister 2 Summer [place] Miscarriages / Stillbirths Sister 2 Summer [facility] n Depression Sister 3 Saray alcantara Relation [...] Pulse 80 03/16/2025 1:36 PM EDT Temperature 36.8 C (98.2 F) 11/18/2024 10:51 AM EDT Respiratory Rate 16 03/16/2025 1:36 PM EDT Oxygen Saturation 97% 03/16/2025 1:36 PM EDT Inhaled Oxygen Concentration - - Weight 51.7 kg (114 lb) 03/16/2025 1:36 PM EDT Height 152.4 cm (5') 03/16/2025 1:36 PM EDT Body Mass Index 22.26 03/16/2025 1:36 PM EDT Plan of Treatment Upcoming Encounters Date Type Department Care Team (Late st Contact Info) Description 04/06/2025 3:00 PM EDT Office Visit Obstetrics & Gynecology [address] [place] [address] Radha Blue MD [address] [place] [address] 08/25/2025 2:00 PM EST Procedure Visit Obstetrics & Gynecology [address] [place] [address] Pool Garduno MD [address] [place] [address] Health Maintenance Due Date Last Done Comments [facility]-/Child/Adol SDOH Screenings 2003 HPV Vaccines (3 - 3-dose series) 07/15/2019 02/15/2019, 2019 [facility]- SDOH Screenings 2021 [facility]-Adult SDOH Screenings 2021 [facility]-DTaP,Tdap,and Td Vaccines (7 - Td or Tdap) 10/26/2023 10/25/2013, 01/14/2007, 04/20/2004, Additional history exists [facility]-Pap Smear 01/14/2024 QQI-OCKYM-26 Vaccine ( - season) 2024 09/21/2021, 08/24/2021 [facility]-Influenza Vaccine (#1) 04/04/202505/03, 05/27/2008, 06/01/2007 [facility]-Chlamydia and Gonorrhea Screening 08/24/2025 08/24/2024, 08/24/2024, 01/08/2024, Additional history exists [facility]-Depression Screening 03/16/2026 03/16/2025, 03/04 [facility]-Zoster Vaccines (1 of 2) 2053 10/25/2013, [...] Procedure Name Priority Date/Time Associated Diagnosis Comments CBC W/O DIFFERENTIAL Routine 03/16/2025 2:26 PM EDT Family planning education, guidance, and counseling HEMOGLOBIN A1C Routine 03/16/2025 2:26 PM EDT Family planning education, guidance, and counseling 17-HYDROXYPROGESTERONE, PEDS (ESOTERIX) Routine 03/16/2025 2:26 PM EDT Family planning education, guidance, and counseling PROLACTIN, SERUM Routine 03/16/2025 2:26 PM EDT Family planning education, guidance, and counseling ESTRADIOL, ADULT PREMENOPAUSAL, FEMALE Routine 03/16/2025 2:26 PM EDT Family planning education, guidance, and counseling FOLLICLE STIMULATING HORMONE, SERUM Routine 03/16/2025 2:26 PM EDT Family planning education, guidance, and counseling TESTOSTERONE, TOTAL Routine 03/16/2025 2 :26 PM EDT Family planning education, guidance, and counseling HEPATITIS C ANTIBODY W/REFLEX TO HCV QUANT [...] Recently Relevant to Health Maintenance Results * Testosterone Total (03/16/2025 2:26 PM EDT) Testosterone Total 21.2 ng/dL 03/19/2025 5:04 PM EDT [facility] Comment: Female Reference Values, age greater than 18 years: premenopausal ................ 10.0-55.0 ng/dL postmenopausal ............... 7.0-40.0 ng/dL Blood Venous blood specimen / Unknown Venipuncture / Unknown 03/16/2025 2:26 PM EDT 03/16/2025 6:38 PM EDT Narrative [facility] - 03/19/2025 5:04 PM EDT Test performed by LC-MS/MS at the [facility]. This test was developed and its performance characteristics determined by [facility]. It has not been cleared or approved by the FDA. The laboratory is regulated under CLIA as qualified to perform high-complexity testing. This test is used for clinical purposes. us Radha Blue MD LAB BLOOD ORDERABLES Fin al Result [facility] [address] [place] [address] * 17-Hydroxyprogesterone (03/16/2025 2:26 PM EDT) 17 [...] PM EDT 03/16/2025 6:35 PM EDT Narrative [facility] (JOSE [facility]) - 03/21/2025 8:09 PM EDT Performed at: [facility] [employer] [address] [place] [address] [id number] Gang Head Saw Operator: Andria DAILY, Phone: [phone] us Radha Blue MD LAB BLOOD ORDERABLES Fin al Result Performing Organization Address City/[facility]/ZIP Co de Phone Number [facility]EL) * Prolactin (03/16/2025 2:26 PM EDT) Prolactin, Serum 21.0 4.4 - 23.3 ng/mL 03/16/2025 11:26 PM EDT [facility] Blood Venous blood specimen / Unknown Venipuncture / Unknown 03/16/2025 2:26 PM EDT 03/16/2025 6:35 PM EDT Narrative [facility] - 03/16/2025 11:26 PM EDT Performed by [employer] electrochemiluminescent immunoassay which is traceable to the Prolactin 3rd IRP (WHO 84/500). Results obtained with different test methods or kits cannot be used interchangeably. Radha Blue MD LAB BLOOD ORDERABLES Fin al Result [facility] [address] [place] [address] * Estradiol (03/16/2025 2:26 PM EDT) Pathologist [facility] Estradiol 27.6 pg/mL 03/16/2025 7:3 1 PM EDT [facility] Blood Venous blood specimen / Unknown Venipuncture / Unknown 03/16/2025 2:26 PM EDT 03/16/2025 6:35 PM EDT Narrative [facility] - 03/16/2025 7:31 PM EDT Females >17 Y (pg/mL): Follicular Phase 26 -233 Ovulatory Peak Phase 60 - 600 Luteal Phase 30 - 305 Post-Menopausal <138 us Radha Blue MD LAB BLOOD ORDERABLES Fin al Result [facility] [address] [place] [address] * CBC (03/16/2025 2:26 PM EDT) Pathologist [facility] WBC Count 7.57 3.70 - 10.30 10*3/uL LAB HEMATOLOGY METHOD 03/16/2025 7:04 PM EDT [facility] RBC Count 4.58 3.90 - 5.20 10*6/uL LAB HEMATOLOGY METHOD 03/16/2025 7:04 PM EDT [facility] HGB 14.2 11.2 - 15.7 g/dL LAB HEMATOLOGY METHOD 03/16/2025 7:04 PM EDT [facility] HCT 41.7 34.0 - 45.0 % LAB HEMATOLOGY METHOD 03/16/2025 7:04 PM EDT [facility] Platelet Count 272 155 - 369 10*3/uL LAB HEMATOLOGY METHOD 03/16/2025 7:04 PM EDT [facility] MCV 91 79 - 98 fL LAB HEMATOLOGY METHOD 03/16/2025 7:04 PM EDT [facility] MCH 31.0 26.0 - 32.0 pg LAB HEMATOLOGY METHOD 03/16/2025 7:04 PM EDT [facility] MCHC 34.1 30.7 - 35.5 g/dL LAB HEMATOLOGY METHOD 03/16/2025 7:04 PM EDT [facility] RDW 11.5 11.5 - 14.5 % LAB HEMATOLOGY METHOD 03/16/2025 7:04 PM EDT [facility] MPV 10.3 8.8 - 12.5 fL LAB HEMATOLOGY METHOD 03/16/2025 7:04 PM EDT [facility] nRBC 0.0 <=0.0 per 100 WBCs LAB HEMATOLOGY METHOD 03/16/2025 7:04 PM EDT [facility] Blood Venous blood specimen / Unknown Venipuncture / Unknown 03/16/2025 2:26 PM EDT 03/16/2025 6:38 PM EDT us Radha Blue MD LAB BLOOD ORDERABLES Fin al Result Performing Organization Address [facility]/ZIP Co de Phone Number [facility] [address] [place] [address] * Hemoglobin A1c (03/16/2025 2:26 PM EDT) Hemoglobin A1c 4.9 <5.7 % 03/16/2025 8:41 PM EDT [facility] Blood Venous blood specimen / Unknown Venipuncture / Unknown 03/16/2025 2:26 PM EDT 03/16/2025 6:38 PM EDT Narrative [facility] - 03/16/2025 8:41 PM EDT HA1C Interpretive Data: Diagnosis of Diabetes: Diabetic > or = 6.5% Pre-diabetic 5.7 to 6.4% Non-diabetic < or = 5.6% Glycemic Targets for Type I and Type II Diabetics: Non- Adults <7.0% Adults <6.0% Children and Adolescents <7.5% Source: [place] [employer]. Standards of medical care in diabetes,2017. Diabetes Care.2017:40 (suppl 1):S1-S135. us Radha Blue MD LAB BLOOD ORDERABLES Fin al Result Performing Organization Address [facility] Co de Phone Number [facility] [address] [place] [address] * Follicle stimulating hormone (03/16/2025 2:26 PM EDT) FSH 6.9 mIU/mL 03/16/2025 11:26 PM EDT [facility] Blood Venous blood specimen / Unknown Venipuncture / Unknown 03/16/2025 2:26 PM EDT 03/16/2025 6:35 PM EDT Narrative [facility] - 03/16/2025 11:26 PM EDT FSH [...] MD LAB BLOOD ORDERABLES Fin al Result [facility] [address] [place] [address] * Chlamydia trachomatis DNA by PCR (08/24/2024 3:03 PM EST) Chlamydia trachomatis DNA PCR Result Not Detected Not Detected 08/25/2024 2:46 PM EST [facility] Urine Urine specimen obtained by clean catch procedure / Unknown Non-blood Collection / Unknown 08/24/2024 3:03 PM EST 08/24/2024 6:01 PM EST Narrative [facility] - 08/25/2024 2:46 PM EST This test is performed by the [employer] m2000 instrument for Real Time PCR C. trachomatis and N. gonorrhea. This test is FDA approved for use with endocervical, vaginal, and urine specimens. This test is used for clinical purposes. It should not be regarded as invesigational or for research. The [facility]biology [facility] is certified under the Clinical Laboratory Improvement Amendments of 1988 (CLIA-88) as qualified to perform high complexity clinical laboratory testing. Result Nakita Garduno MD LAB MICROBIOLOGY - GENERAL ORDE [facility] Final Result Performing Organization Address [facility]/ZIP Co de Phone Number [facility] [address] [place] [address] * HIV 1 & 2 Antibody/Antigen Screen (08/24/2024 3:03 PM EST) HIV 1 & 2 Antibody/Antigen Screen Non Reactive Non Reactive 08/24/2024 6:39 PM EST [facility] Comment:Screening for HIV 1 & 2 antibodies, and P24 antigen is NONREACTIVE. No confirmatory testing is required. Blood Venous blood specimen / Unknown Venipuncture / Unknown 08/24/2024 3:03 PM EST 08/24/2024 6:02 PM EST Result Nakita Garduno MD LAB BLOOD ORDERABLES Final Resu lt Performing Organization Address [facility] Co de Phone Number [facility] [address] [place] [address] * Hepatitis C Antibody w/Reflex to HCV Quant PCR (08/24/2024 3:03 PM EST) Hepatitis C Antibody Negative Negative 08/24/2024 7:19 PM EST [facility] Blood Venous blood specimen / Unknown Venipuncture / Unknown 08/24/2024 3:03 PM EST 08/24/2024 6:02 PM EST Result Nakita Garduno MD LAB BLOOD ORDERABLES Final Resu lt Performing Organization Address City/[facility]/ZIP Co de Phone Number [facility] [address] [place] [address] from Last 3 Months or Most Recently Relevant to Health Maintenance Insurance [facility] Care Teams Dynamics Ax Technical Architect Relationship Specialty Start Date End Date Kimmy Green PA [address] [place] [address] PCP - General 12/15/20
--- OUTSIDE RECORDS SUMMARY | 2025-03-30 12:09 | XMS_ITS | Encounter Summary ---
Author Organization [facility] Address [address] [place] [address] Care Team Providers Care Piece Worker Name Role Phone Kimmy Green Primary Care Provider [phone] Encounter Details Date Type Department Care Team (Latest Contact Info) Description 03/15/2025 Travel Social History Tobacco Use Types Packs/Day [...] EDT Office Visit Obstetrics & Gynecology [address] [place] [address] Radha Blue MD [address] [place] [address] 08/25/2025 2:00 PM EST Procedure Visit Obstetrics & Gynecology [address] [place] [address] Pool Garduno MD [address] [place] [address] documented as of this encounter Visit Diagnoses Not on filedocumented in this encounter Additional Health Concerns Assessment Noted Time PHQ-9 Depression Total Score: 0 09/03/19 25 1:50 PM EST A fall risk assessment has been complete d for the patient 11/18/2024 10:52 AM EDT A Body Mass Index follow-up plan has been documented for the patient 11/18/2024 11:39 AM EDT documented as of this encounter Care Teams Piece Worker Relationship Specialty Start Date End Date Kimmy Green PA [address] [place] [address] PCP - General 12/15/20 documented as of this encounter
[2025-03-30 12:39] VITALS: BP 99/69; PULSE 81; O2SAT 98
[2025-03-30 12:42] VITALS: BP 99/69; PULSE 81; RESP 16; TEMP 36.7; O2SAT 99
== END 2025-03-30 12:43 | disposition home or self-care (01) ==
PROVIDERS: Emergency Provider Student in an Organized Health Care Education/Training Program; PCP Physician Assistant
DX: S63.501A Unspecified sprain of right wrist, initial encounter (principal); X50.0XXA Overexertion from strenuous movement or load, initial encounter
CPT/HCPCS: 73110; 99283

== ENCOUNTER 2025-05-06 09:07 | Outpatient (CLI) | payer MEDICAID, SELFPAY ==
--- OUTSIDE RECORDS SUMMARY | 2025-03-16 13:30 | XMS_ITS | Encounter Summary ---
Author Organization Healthcare Address [address] [place] [address] Care Team Providers Care Service Engineer Name Role Phone Kimmy Green Primary Care Provider [phone] Reason for Visit * Reason Comments Metrorrhagia Having 40 day cycles . Encounter Details Date Type Department Care Team (Late st Contact Info) Description 03/16/2025 1:30 PM EDT Office Visit Obstetrics & Gynecology [address] [place] [address] Radha Blue MD [address] [place] [address] Family planning education, guidance, and [...] PM EDT Bob Tavarez Patient Health Questionnaire -9 Score 0 03/16/2025 1:37 PM EDT Bob Tavarez * How difficult have these problems made it for you to do your work, take care of things at home, or get along with other people? Answer Date of Assessment Author Not difficult at all 03/16/2025 1:37 PM EDT Bob Grigsby documented as of this encounter Miscellaneous Notes [...] conceive for 3 months. - RTC for INTERVENTIONAL PHYSICIAN US Assessment & Plan Family planning education, guidance, and counseling Orders: Follicle stimulating hormone; Future Estradiol; Future Prolactin; Future Testosterone Total 17-Hydroxyprogesterone; Future Hemoglobin A1c; Future CBC; Future Menorrhagia with irregular cycle Orders: tranexamic acid (Lysteda) 650 MG tablet tablet; Take 2 tablets by mouth 3 times a day for 20 days. RTC for INTERVENTIONAL PHYSICIAN US Time Spent: I personally spent a total of 28 minutes on this encounter. This time includes face to face with patient, counseling and discussion and/or coordination of care. Cosigned by Radha Blue MD at 03/16/2025 3:53 PM EDT Associated attestation - Radha Blue MD - 03/16/2025 3:53 PM EDT I saw and evaluated the patient with the medical/CLINICAL EDUCATION COORDINATOR/PA student. I discussed the case with the medical/CLINICAL EDUCATION COORDINATOR/PA student and agree with the findings and plan as documented. I personally performed the Examand Medical Decision Making. documented in this encounter Plan of Treatment Upcoming Encounters Date Type Department Care Team (Late st Contact Info) Description 05/11/2025 1:45 PM EDT Office Visit Obstetrics & Gynecology [address] [place] [address] Radha Blue MD [address] [place] [address] 07/13/2025 2:00 PM EST Office Visit Obstetrics & Gynecology [address] [place] [address] Radha Blue MD [address] [place] [address] 08/25/2025 2:00 PM EST Procedure Visit Obstetrics & Gynecology [address] [place] [address] Pool Garduno MD [address] [place] [address] documented as of this encounter Procedures Procedure [...] LAB HEMATOLOGY METHOD 03/16/2025 7:04 PM EDT [facility] RBC Count 4.58 3.90 - 5.20 10*6/uL LAB HEMATOLOGY METHOD 03/16/2025 7:04 PM EDT [facility] HGB 14.2 11.2 - 15.7 g/dL LAB HEMATOLOGY METHOD 03/16/2025 7:04 PM EDT [facility] HCT 41.7 34.0 - 45.0 % LAB HEMATOLOGY METHOD 03/16/2025 7:04 PM EDT [facility] Platelet Count 272 155 - 369 10*3/uL LAB HEMATOLOGY METHOD 03/16/2025 7:04 PM EDT [facility] MCV 91 79 - 98 fL LAB HEMATOLOGY METHOD 03/16/2025 7:04 PM EDT [facility] MCH 31.0 26.0 - 32.0 pg LAB HEMATOLOGY METHOD 03/16/2025 7:04 PM EDT [facility] MCHC 34.1 30.7 - 35.5 g/dL LAB HEMATOLOGY METHOD 03/16/2025 7:04 PM EDT [facility] RDW 11.5 11.5 - 14.5 % LAB HEMATOLOGY METHOD 03/16/2025 7:04 PM EDT [facility] MPV 10.3 8.8 - 12.5 fL LAB HEMATOLOGY METHOD 03/16/2025 7:04 PM EDT [facility] nRBC 0.0 <=0.0 per 100 WBCs LAB HEMATOLOGY METHOD 03/16/2025 7:04 PM EDT [facility] Blood Venous blood specimen / Unknown Venipuncture / Unknown 03/16/2025 2:26 PM EDT 03/16/2025 6:38 PM EDT us Radha Blue MD LAB BLOOD ORDERABLES Fin al Result [facility] [address] [place] [address] * Hemoglobin A1c (03/16/2025 2:26 PM EDT) Hemoglobin A1c 4.9 <5.7 % 03/16/2025 8:41 PM EDT [facility] Blood Venous blood specimen / Unknown Venipuncture / Unknown 03/16/2025 2:26 PM EDT 03/16/2025 6:38 PM EDT Narrative [facility] - 03/16/2025 8:41 PM EDT HA1C Interpretive Data: Diagnosis of Diabetes: Diabetic > or = 6.5% Pre-diabetic 5.7 to 6.4% Non-diabetic < or = 5.6% Glycemic Targets for Type I and Type II Diabetics: Non- Adults <7.0% Adults <6.0% Children and Adolescents <7.5% Source: [place] [employer]. Standards of medical care in diabetes,2017. Diabetes Care.2017:40 (suppl 1):S1-S135. us Radha Blue MD LAB BLOOD ORDERABLES Fin al Result [facility] [address] [place] [address] * 17-Hydroxyprogesterone (03/16/2025 2:26 PM EDT) 17 [place] PROGESTERONE 33 ng/dL 2024 8:09 PM EDT [facility] (JOSE CARLOS) Comment: This test was developed and its performance characteristics determined by [facility]. It has not been cleared or approved by the Food and Drug Administration. Reference Range: Adult Female Follicular: 15 - 70 Luteal: 35 - 290 Blood Venous blood specimen / Unknown Venipuncture / Unknown 03/16/2025 2:26 PM EDT 03/16/2025 6:35 PM EDT Narrative [facility] (JOSE CARLOS) - 03/21/2025 8:09 PM EDT Performed at: - [facility] [address] [place] [id number] Wrapper And Preserver: Andria DAILY, Phone: [phone] us Radha Blue MD LAB BLOOD ORDERABLES Fin al Result [facility] LUIS MANUEL) * Testosterone Total (03/16/2025 2:26 PM EDT) Pathologist [facility] Testosterone Total 21.2 ng/dL 03/19/2025 5:04 PM EDT [facility] Comment: Female Reference Values, age greater than 18 years: premenopausal ................ 10.0-55.0 ng/dL postmenopausal ............... 7.0-40.0 ng/dL Blood Venous blood specimen / Unknown Venipuncture / Unknown 03/16/2025 2:26 PM EDT 03/16/2025 6:38 PM EDT Narrative [facility] - 03/19/2025 5:04 PM EDT Test performed by LC-MS/MS at the [facility]. This test was developed and its performance characteristics determined by [facility]. It has not been cleared or approved by the FDA. The laboratory is regulated under CLIA as qualified to perform high-complexity testing. This test is used for clinical purposes. Radha Blue MD LAB BLOOD ORDERABLES Fin al Result Performing Organization Address City/[facility]/ZIP Co de Phone Number [facility] [address] [place] [address] * Prolactin (03/16/2025 2:26 PM EDT) Prolactin, Serum 21.0 4.4 - 23.3 ng/mL 03/16/2025 11:26 PM EDT [facility] Blood Venous blood specimen / Unknown Venipuncture / Unknown 03/16/2025 2:26 PM EDT 03/16/2025 6:35 PM EDT Narrative [facility] - 03/16/2025 11:26 PM EDT Performed by Miryam electrochemiluminescent immunoassay which is traceable to the Prolactin 3rd IRP (WHO 84/500). Results obtained with different test methods or kits cannot be used interchangeably. Radha Blue MD LAB BLOOD ORDERABLES Fin al Result Performing Organization Address [facility] de Phone Number [facility] [address] [place] [address] * Estradiol (03/16/2025 2:26 PM EDT) Estradiol 27.6 pg/mL 03/16/2025 7:3 1 PM EDT [facility] Blood Venous blood specimen / Unknown Venipuncture / Unknown 03/16/2025 2:26 PM EDT 03/16/2025 6:35 PM EDT Narrative [facility] - 03/16/2025 7:31 PM EDT Females >17 Y (pg/mL): Follicular Phase 26 -233 Ovulatory Peak Phase 60 - 600 Luteal Phase 30 - 305 Post-Menopausal <138 Radha Blue MD LAB BLOOD ORDERABLES Fin al Result [facility] [address] [place] [address] * Follicle stimulating hormone (03/16/2025 2:26 PM EDT) FSH 6.9 mIU/mL 03/16/2025 11:26 PM EDT [facility] Blood Venous blood specimen / Unknown Venipuncture / Unknown 03/16/2025 2:26 PM EDT 03/16/2025 6:35 PM EDT Narrative [facility] - 03/16/2025 11:26 PM [...] MD LAB BLOOD ORDERABLES Fin al Result [facility] [address] [place] [address] documented in this encounter Visit Diagnoses Diagnosis [...] documented as of this encounter Care Teams Service Engineer Relationship Specialty Start Date End Date Kimmy Green PA [address] [place] [address] PCP - General 12/15/20 documented as of this encounter
--- OUTSIDE RECORDS SUMMARY | 2025-04-06 14:55 | XMS_ITS | Encounter Summary ---
Author Organization Healthcare Address [address] [place] [address] Care Team Providers Care Microstrategy Bi Developer Name Role Phone Kimmy Green Primary Care Provider [phone] Encounter Details Date Type Department Care Team (Latest Contact Info) Description 04/06/2025 2:55 PM EDT Ancillary Procedure Obstetrics & Gynecology [address] [place] [address] Menorrhagia with irregular cycle Social History Tobacco Use Types Packs/Day Years Used Date Smoking Tobacco: Never Passive Smoke Exposure: Yes Smokeless Tobacco: Never Alcohol Use Standard Drinks/Week Comments Never 0 (1 standard drink = 0.6 oz pur e alcohol) PHQ-2 Answer Date Recorded Patient Health Questionnaire-2 Score 0 04/06/2025 PHQ-9 Answer Date Recorded Patient Health Questionnaire-9 [...] pleasure in doing things Not at all 04/06/2025 3:03 PM EDT Maria Eugenia Kirkland Feeling down, depressed, or hopeless Not at all 04/06/2025 3:03 PM EDT Maria Eugenia Kirkland Patient Health Questionnaire -2 Score 0 04/06/2025 3:03 PM EDT Maria Eugenia Kirkland * How difficult have these problems made it for you to do your work, take care of things at home, or get along with other people? Answer Date of Assessment Author Not difficult at all 04/06/2025 3:03 PM EDT Maria Eugenia Fuentes am documented as of this encounter Plan of Treatment Upcoming Encounters Date Type Department Care Team (Late st Contact Info) Description 05/11/2025 1:45 PM EDT Office Visit Obstetrics & Gynecology [address] [place] [phone] Radha Blue MD [address] [place] [address] 07/13/2025 2:00 PM EST Office Visit Obstetrics & Gynecology [address] [place] [phone] [place] [address] [place] [phone] 08/25/2025 2:00 PM EST Procedure Visit Obstetrics & Gynecology [address] [place] [phone] Pool Garduno MD [address] [place] [address] documented as of this encounter Procedures Procedure Name Priority Date/Time Associated Diagnosis Comments US PELVIS TRANSVAGINAL Routine 04/06/2025 2:52 PM EDT Menorrhagia with irregular cycle documented in this encounter Results * US Pelvis Transvaginal (04/06/2025 2:52 PM EDT) Anatomical Region Laterality Modality Pelvis Ultrasound 04/06/2025 3:17 PM EDT Impressions 04/06/2025 4:37 PM EDT The OB Ultrasound you requested has been resulted. Please navigate to the Imaging tab in [employer] for review. This message has been generated by the interface. Narrative Procedure Note Radha Blue MD - 04/06/2025 IMPRESSION: The OB Ultrasound you requested has been resulted. Please navigate to theImaging tab in [employer] for review. This message has been generated by [employer] us Radha Blue MD IMG US PROCEDURES Final Result documented in this encounter Visit Diagnoses Diagnosis Menorrhagia with irregular cycle documented in this encounter Additional Health Concerns Assessment Noted Time PHQ-9 Depression Total Score: 0 03/16/20 25 1:37 PM EDT A fall risk assessment has been complete d for the patient 04/06/2025 3:03 PM EDT A Body Mass Index follow-up plan has been documented for the patient 04/06/2025 4:02 PM EDT documented as of this encounter Care Teams Microstrategy Bi Developer Relationship Specialty Start Date End Date Kimmy Green PA [address] [place] [address] PCP - General 12/15/20 documented as of this encounter
--- OUTSIDE RECORDS SUMMARY | 2025-04-06 15:00 | XMS_ITS | Encounter Summary ---
Author Organization Healthcare Address [address] [place] [address] Care Team Providers Care Chemistry Manager Name Role Phone Kimmy Green Primary Care Provider [phone] Reason for Visit * Reason Comments Ultrasound Drafter Commercial usPt denies pain , no complaints. Encounter Details Date Type Department Care Team (Late st Contact Info) Description 04/06/2025 3:00 PM EDT Office Visit Obstetrics & Gynecology [address] [place] [address] Radha Blue MD [address] [place] [address] Menorrhagia with irregular cycle (Primary Dx); Cyst of right ovary; Family planning education, guidance, and counseling Social History Tobacco Use Types Packs/Day Years [...] Sign Reading Time Taken Comments Blood Pressure 100/62 04/06/2025 3:02 PM EDT Pulse 71 04/06/2025 3:02 PM EDT Temperature 37 C (98.6 F) 04/06/2025 3:02 PM EDT Respiratory Rate - - Oxygen Saturation 99% 04/06/2025 3:02 PM EDT Inhaled Oxygen Concentration - - Weight 51.9 kg (114 lb 8.5 oz) 04/06/2025 3:02 P M EDT Height 152.4 cm (5') 04/06/2025 3:02 PM EDT Body Mass Index 22.37 04/06/2025 3:02 PM EDT documented in this encounter Functional [...] Fuentes am documented as of this encounter Miscellaneous Notes * Assessment & Plan Note - Radha Blue MD - 04/06/2025 3:00 PM EDT Associated Problem(s): Menorrhagia with irregular cycle Orders: US Pelvis Transvaginal; Future progesterone (Prometrium) 200 MG capsule; Take 1 capsule by mouth every 14 days. * Assessment & Plan Note - Radha Blue MD - 04/06/2025 3:00 PM EDT Associated Problem(s): Cyst of right ovary * Assessment & Plan Note - Radha Blue MD - 04/06/2025 3:00 PM EDT Associated Problem(s): Family planning education, guidance, and counseling * Progress Notes - Radha Blue MD - 04/06/2025 3:00 PM EDT Gynecology Progress Note Chief Complaint Patient presents with Ultrasound Drafter Commercial us Pt denies pain, no complaints. Subjective History of Present Illness: Bharati Gaston is a 20 y.o. 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 History from last visit: She states that she has 14-40 days between each cycle. LMP was 8-03/15. Has 6-7 days cycles with heavy bleeding. [...] BY MOUTH ONCE DAILY NEEDED FOR HEADACHE progesterone (PROMETRIUM) 200 mg, Oral, Every 14 days Objective BP 100/62 Pulse 71 Temp 37 ??C (98.6 ??F) Ht 1.524 m (5') Wt 51.9 kg (114 lb 8.5 oz) LMP 03/09/2025 (Exact Date) Physical Exam: Physical Exam Constitutional: Appearance: Normal appearance. Genitourinary: Vulva normal. HENT: Head: Normocephalic and atraumatic. Eyes: Extraocular Movements: Extraocular movements intact. Cardiovascular: Rate and Rhythm: Normal rate. Pulmonary: Effort: Pulmonary effort is normal. Abdominal: General: Bowel sounds are normal. There is no distension. Palpations: Abdomen is soft. Tenderness: There is no abdominal tenderness. Neurological: General: No focal deficit present. Mental Status: She is alert and oriented to person, place, and time. Psychiatric: Mood and Affect: Mood normal. Behavior: Behavior normal. Thought Content: Thought content normal. Judgment: Judgment normal. Vitals and nursing note reviewed. Exam conducted with a tool design drafter present. Labs & Imaging: CBC, FSH, A1C, Estradiol, Prolactin, total testosterone, 17-hydroxyprogesterone from previous visitnormal TVUS: normal uterus and left ovary, right ovary with 3 cm unilocular solid mass with internal dots and lines, no internal vascularity, no free fluid Assessment/Plan Bharati Gaston is a 20 y.o. presenting for irregular periods and menorrhagia. Assessment & Plan Menorrhagia with irregular cycle Orders: US Pelvis Transvaginal; Future progesterone (Prometrium) 200 MG capsule; Take 1 capsule by mouth every 14 days. Cyst of right ovary Family planning education, guidance, and counseling - labs normal - US does not show signs of PCOS - does have irregular periods. discussed trial of progesterone to induce menses if cycles are > 35 days. Discussed that 85-90% of couples will conceive within 12 months. Discussed timed intercourse days 11-19 every other day. Discussed it can take up to 2 weeks after completing course of Prometrium to have bleeding. Discussed if no bleeding within 14 days of finishing 10 day course to call. - discussed incidental finding of cyst on ultrasound. Discussed likely hemorrhagic cyst vs. Dermoidvs. Endometrioma or others. She is not having pelvic pain. Discussed that it is likely unrelated toabnormal periods. Will perform US in 3 months to evaluate. Discussed reasons to call sooner. - will return for GAS OPERATIONS SUPERINTENDENT US to follow up cyst in 3 months and to see how progesterone/periods are. Will likely discuss ovulation induction agent if needed. - RTC for GAS OPERATIONS SUPERINTENDENT US and follow up in 3 months Time Spent: I personally spent a total of 32 minutes on this encounter. This time includes face to face with patient, counseling and discussion and/or coordination of care. documented in this encounter Plan of Treatment Upcoming Encounters Date Type Department Care Team (Late st Contact Info) Description 05/11/2025 1:45 PM EDT Office Visit Obstetrics & Gynecology [address] [place] [address] Radha Blue MD [address] [place] [address] 07/13/2025 2:00 PM EST Office Visit Obstetrics & Gynecology [address] [place] [address] Radha Blue MD [address] [place] [address] 08/25/2025 2:00 PM EST Procedure Visit Obstetrics & Gynecology [address] [place] [address] [place] [address] [place] [phone] documented as of this encounter Results * US Pelvis Transvaginal (04/06/2025 2:52 PM EDT) Anatomical Region Laterality Modality Pelvis Ultrasound 04/06/2025 3:17 PM EDT Impressions 04/06/2025 4:37 PM EDT The OB Ultrasound you requested has been resulted. Please navigate to the Imaging tab in [employer] for review. This message has been generated by the interface. Narrative Procedure Note Radha Blue MD - 04/06/2025 IMPRESSION: The OB Ultrasound you requested has been resulted. Please navigate to theImaging tab in [employer] for review. This message has been generated by [employer]. us Radha Blue MD IMG US PROCEDURES Final Result documented in this encounter Visit Diagnoses Diagnosis Menorrhagia with irregular cycle- Primary Cyst of right ovary Other and unspecified ovarian cyst Family planning education, guidance, and counseling Other general counseling and advice for contraceptive [...] documented as of this encounter Care Teams Chemistry Manager Relationship Specialty Start Date End Date Kimmy Green PA [address] [place] [address] PCP - General 12/15/20 documented as of this encounter
--- OUTSIDE RECORDS SUMMARY | 2025-04-11 23:15 | XMS_ITS | Encounter Summary ---
Author Organization [employer] ([place], [place], [place], [place]) Address [address] [place] [address] Care Team Providers Care Dioramist Name Role Phone [facility], [facility] Primary Care Provider Kimmy Green PA-C Primary Care Provider [phone] Reason for Visit * Reason Comments Abdominal Pain Pt c/o lower abdomin al pain x 1 hr with nausea. Hx of ovarian cyst Encounter Details Date Type Department Care Team (Late st Contact Info) Description 04/11/2025 11:15 PM EDT - 04/12/2025 1:57 AM EDT Emergency [facility] Emergency Department [address] [place] [phone] Nneka Angel MD [facility] [place] [address] Ovarian cyst (Primary Dx); Cyst of ovary, unspecified laterality Discharge Disposition: Home or Self Care Social History Tobacco Use Types Packs/Day Years Used Date Smoking Tobacco: Never Assessed Comments Unknown Sex and Gender Information Value Date Recorded Sex Assigned at Not on file Legal Sex Female 10:10 PM CDT Gender Identity Not on file Sexual Orientation Not on file documented as of this encounter Last Filed Vital Signs Vital Sign Reading Time Taken Comments Blood Pressure 113/64 04/12/2025 1:15 AM EDT Pulse 87 04/12/2025 1:15 AM EDT Temperature 36.4 C (97.6 F) 04/11/2025 11:21 PM EDT Respiratory Rate 18 04/11/2025 11:21 PM EDT Oxygen Saturation 99% 04/12/2025 1:15 AM EDT Inhaled Oxygen Concentration - - Weight 51.3 kg (113 lb) 04/11/2025 11:21 PM EDT Height 152.4 cm (5') 04/11/2025 11:21 PM EDT Body Mass Index 22.07 04/11/2025 11:21 PM EDT documented in this encounter Discharge Instructions * Attachments The following attachments cannot be sent through Care Everywhere. * Ovarian Cyst [id number] ([place]aguan) documented in this encounter ED Notes * Nneka Angel MD - 04/11/2025 11:27 PM EDT Subjective Chief Complaint: Abdominal Pain (Pt c/o lower abdominal pain x 1 hr with nausea. Hx of ovarian cyst) HPI 20-year-old female with medical problems as listed below presents to ED with complaints of lower abdominal pain that began 1 hour prior to arrival. Patient reports associated nausea. She denies any fever or chills, chest pain or shortness of breath, vomiting, diarrhea or urinary complaints. She endorses history of ovarian cyst recently diagnosed. She denies any history of intra- abdominal procedures. She denies any vaginal bleeding or discharge. Last menstrual period was 03/09/2025. Patient History No past medical history on file. No past surgical history on file. No family history on file. Social History Tobacco Use Smoking status: Not on file Smokeless tobacco: Not on file Substance Use Topics Alcohol use: Not on file I reviewed the HPI, ROS and PFSH documentation recorded by others in the medical record and supplemented my note as needed. Review of Systems Review of Systems Gastrointestinal: Positive for abdominal pain and nausea. All other systems reviewed and are negative. Physical Exam ED Triage Vitals [04/11/25 2321] Encounter Vitals Group BP 121/65 Girls Systolic BP Percentile Girls Diastolic BP Percentile Boys Systolic BP Percentile Boys Diastolic BP Percentile Pulse 81 Resp 18 Temp 97.6 ??F (36.4 ??C) Temp src Tympanic SpO2 98 % Weight 51.3 kg (113 lb) Height 1.524 m (5') Head Circumference Peak Flow Pain Score Nine Pain Loc Pain Education Exclude from Growth Chart Physical Exam Vitals and nursing note reviewed. Constitutional: General: She is not in acute distress. Appearance: Normal appearance. She is normal weight. She is not ill-appearing. HENT: Head: Normocephalic. Mouth/Throat: Mouth: Mucous membranes are dry. Pharynx: Oropharynx is clear. Cardiovascular: Rate and Rhythm: Normal rate and regular rhythm. Pulmonary: Effort: Pulmonary effort is normal. No respiratory distress. Breath sounds: Normal breath sounds. Abdominal: General: Bowel sounds are normal. Palpations: Abdomen is soft. Tenderness: There is abdominal tenderness in the right upper quadrant and right lower quadrant. Musculoskeletal: Cervical back: Neck supple. Right lower leg: No edema. Left lower leg: No edema. Neurological: Mental Status: She is alert. Mental status is at baseline. Neurological Exam Mental Status Alert. Ortho Exam ED Course & MDM Medications sodium chloride flush 10 mL (has no administration in time range) sodium chloride 0.9% (NS) bolus (0 mLs intravenous Stopped 04/12/25 0103) ketorolac (TORADOL) injection 15 mg (15 mg intravenous Given 04/12/25 0003) ondansetron (ZOFRAN) injection 4 mg (4 mg intravenous Given 04/12/25 0002) iopamidoL (ISOVUE-370) 370 mg iodine /mL (76 %) injection 75 mL (75 mLs intravenous Given 04/12/25 0058) Results for orders placed or performed during the hospital encounter of 04/11/25 Screen, urine Result Value Ref Range Preg Test, Ur Negative Negative, Inconclusive Urinalysis w/Microscopic Result Value Ref Range Color, UA Yellow Clarity, UA Clear Specific Adams, UA >=1.030 1.002 - 1.030 pH, UA 6.0 5.0 - 9.0 Leukocytes, UA Negative Negative Nitrite, UA Negative Negative Protein, UA Negative Negative Glucose, UA Negative Negative Ketones, UA Negative Negative Urobilinogen, UA 0.2 mg/dL Normal Bilirubin, UA Negative Negative Blood, UA Negative Negative WBC, UA None Seen None Seen, Occasional , 0-5 /HPF Specimen Source Urine, Clean Catch CBC with Auto Diff Result Value Ref Range WBC 14.3 (H) 4.8 - 10.8 K/??L RBC 4.58 3.50 - 5.20 M/??L Hemoglobin 14.0 11.7 - 15.8 GM/DL Hematocrit 40.1 35.0 - 47.0 % MCV 88 81 - 101 fL MCH 30.6 27.0 - 34.0 pg MCHC 34.9 32.0 - 36.0 GM/DL RDW 11.4 (L) 11.5 - 14.5 % Platelets 268 150 - 400 K/CU MM MPV 9.5 9.4 - 12.4 fL Nucleated Red Blood Cell 0.0 0 - 0.2 % % Neutros 80 37 - 80 % % Lymphs 14 10 - 50 % % Monos 6 5 - 13 % % Eos 1 0 - 7 % % Baso 0 0 - 3 % NRBC Absolute <0.01 0 - 0.012 K/ul # Neutros 11.39 (H) 2.00 - 6.90 K/??L # Lymphs 1.94 0.60 - 3.40 K/??L # Monos 0.80 0.00 - 0.90 K/??L # Eos 0.10 0.00 - 0.70 K/??L # Baso 0.04 0.00 - 0.20 K/??L Immature Granulocytes-Relative 0.30 % # IG 0.05 (H) 0.00 - 0.00 K/uL Comprehensive metabolic panel Result Value Ref Range Sodium 138 136 - 145 meq/L Potassium 3.6 3.5 - 5.1 meq/L Chloride 104 98 - 107 meq/L CO2 27 21 - 32 meq/L Calcium 8.9 8.5 - 10.1 mg/dL Glucose 138 (H) 74 - 100 mg/dL BUN 13 7 - 18 mg/dL Creatinine 0.78 0.55 - 1.10 mg/dL BUN/Creatinine 17 Albumin 4.1 3.4 - 5.0 g/dL Alkaline Phosphatase 67 46 - 116 U/L ALT 12 12 - 78 U/L AST 13 (L) 15 - 37 U/L Total Bilirubin 0.3 0.2 - 1.0 mg/dL Protein, Total 7.3 6.4 - 8.2 gm/dL Anion Gap 11 11 - 22 A/G Ratio 1.3 Globulin 3.2 g/dL Osmolality Calc 278.0 mOsm/kg eGFR (mL/min/1.73m2) >60 >=60 mL/min/1.73m2 Lipase Result Value Ref Range Lipase 57 16 - 77 U/L CT ABDOMEN/PELVIS WITH IV CONTRAST Final Result 1. Heterogeneous right adnexal lesion measuring 4.1 x 4 cm with small amount of high density pelvic free fluid likely reflecting a component of hemorrhage. Hemorrhagic cyst is possible and can be further characterized with pelvic ultrasound. 2. No other acute findings. Appendix is normal. Authenticated and Course as of 04/12/25147Apr 12, 2025 0038 Labs unremarkable [CD] 0106 I have personally interpreted her CT abd/pelvis. No gallstones. [CD] 0147 Nneka Angel MD: I saw the patient [id number]. I performed a substantive portion of the MDM. My differential diagnosis includes the following severe or life-threatening etiologies: ovarian torsion, ovarian cyst, appendicitis, nephrolithiasis.CT scan shows a hemorrhagic ovarian cyst. Pain improved at this time. Will dc [CD] ED Course User Index [CD] Nneka Angel MD Procedures Medical Decision Making 20-year-old female presents for evaluation of lower abdominal pain. On examination patient is nontoxic-appearing sitting in bed in no acute distress. Vital signs are normal and stable. Cardiopulmonary exam is benign. On abdominal exam patient exhibits soft abdomen without distention right upper quadrant tenderness as well as right lower quadrant abdominal tenderness to palpation. No rebound or guarding. IVs obtained, labs and urine studies were collected. Patient was administered supportive measures. CT scan of the abdomen pelvis with IV contrast was performed. Differential diagnosis to include but not limited to: Cholecystitis, appendicitis, pancreatitis, ruptured ovarian cyst, ectopic Amount and/or Complexity of Data Reviewed Labs: ordered. Radiology: ordered. Risk Prescription drug management. Assessment & Plan Clinical Impression Diagnosis Comment Added By Time Added Ovarian cyst Nneka Angel MD 04/12/2025 1:47 AM Disposition Discharge [1] - 04/12/2025 1:47 AM New Prescriptions No medications on file Contact information for follow-up Kimmy Green PA-C Specialty: Physician Hide Cleaner Relationship: PCP - General [address] [place] [id number] Next Steps: Schedule an appointment as soon as possible for a visit Electronically Signed By Nneka Angel MD 04/12/25147 documented in this encounter Plan of Treatment Not on file documented as of this encounter Procedures Procedure Name Priority Date/Time Associated Diagnosis Comments CT ABDOMEN/PELVIS WITH IV CONTRAST STAT 04/12/2025 12:58 AM EDT SCREEN, URINE STAT 04/12/2025 12:27 AM EDT URINALYSIS W/ MICROSCOPIC STAT 04/12/2025 12:27 AM EDT CBC W/ AUTO DIFF STAT 04/12/2025 12:0 2 AM EDT LIPASE STAT 04/12/2025 12:02 AM EDT COMPREHENSIVE METABOLIC PANEL STAT 04/12/2025 12:02 AM EDT documented in this encounter Results * CT ABDOMEN/PELVIS WITH IV CONTRAST (04/12/2025 12:58 AM EDT) Anatomical Region Laterality Modality Abdomen, Pelvis Computed Tomogra phy (CT) 04/12/2025 1:41 AM EDT Impressions 04/12/2025 1:41 AM EDT 1. Heterogeneous right adnexal lesion measuring 4.1 x 4 cm with small amount of high density pelvic free fluid likely reflecting a component of hemorrhage. Hemorrhagic cyst is possible and can be further characterized with pelvic ultrasound. 2. No other acute findings. Appendix is normal. Authenticated and Narrative 04/12/2025 1:41 AM EDT FINAL REPORT TECHNIQUE: null CLINICAL HISTORY: RLQ pain x few hours, hx of ovarian cysts, no prior studies COMPARISON: null FINDINGS: CT abdomen and pelvis with contrast Comparison: None provided Findings: No consolidation or effusion. The liver enhances homogeneously. Gallbladder is unremarkable. No biliary dilatation. The portal and splenic veins appear patent. The spleen, pancreas, and adrenal glands are unremarkable. Both kidneys enhance symmetrically without hydroureteronephrosis. No bowel obstruction, pneumoperitoneum, or pneumatosis. The appendix is normal. Nonaneurysmal aorta. No enlarged abdominal or pelvic lymph nodes. The urinary bladder and uterus are unremarkable. Heterogeneous hypodense right adnexal lesion measuring 4.1 x 4 cm with small amount of high-density pelvic fluid. There are no aggressive osseous lesions. Procedure Note Jose Alejandro Limon MD - 04/12/2025 FINAL REPORT TECHNIQUE: null CLINICAL HISTORY: RLQ pain x few hours, hx of ovarian cysts, no prior studies COMPARISON: null FINDINGS: CT abdomen and pelvis with contrast Comparison: None provided Findings: No consolidation or effusion. The liver enhances homogeneously. Gallbladder is unremarkable. No biliary dilatation. The portal and splenic veins appear patent. The spleen, pancreas, and adrenal glands are unremarkable. Both kidneys enhance symmetrically without hydroureteronephrosis. No bowel obstruction, pneumoperitoneum, or pneumatosis. The appendix is normal. Nonaneurysmal aorta. No enlarged abdominal or pelvic lymph nodes. The urinary bladder and uterus are unremarkable. Heterogeneous hypodense right adnexal lesion measuring 4.1 x 4 cm with small amount of high-density pelvic fluid. There are no aggressive osseous lesions. IMPRESSION: 1. Heterogeneous right adnexal lesion measuring 4.1 x 4 cm with small amount of high density pelvic free fluid likely reflecting a component of hemorrhage. Hemorrhagic cyst is possible and can be further characterized with pelvic ultrasound. 2. No other acute findings. Appendix is normal. Authenticated and Annalee Whiting PA-C [facility] ORDERABLES Final Res ult * Urinalysis w/Microscopic (04/12/2025 12:27 AM EDT) Color, UA Yellow 04/12/2025 12:36 AM EDT [facility] Clarity, UA Clear 04/12/2025 12:36 AM EDT [facility] Specific Adams, UA >=1.030 1.002 - 1.030 04/12/2025 12:36 AM EDT [facility] pH, UA 6.0 5.0 - 9.0 04/12/2025 12:36 AM EDT [facility] Leukocytes, UA Negative Negative 04/12/2025 12:36 AM EDT [facility] Nitrite, UA Negative Negative 04/12/2025 12:36 AM EDT [facility] Protein, UA Negative Negative 04/12/2025 12:36 AM EDT [facility] Glucose, UA Negative Negative 04/12/2025 12:36 AM EDT [facility] Ketones, UA Negative Negative 04/12/2025 12:36 AM EDT [facility] Urobilinogen, UA 0.2 mg/dL Normal 04/12/2025 12:36 AM EDT [facility] Bilirubin, UA Negative Negative 04/12/2025 12:36 AM EDT [facility] Blood, UA Negative Negative 04/12/2025 12:36 AM EDT [facility] WBC, UA None Seen None Seen, Occasional , 0-5 /HPF 04/12/2025 12:36 AM EDT [facility] Specimen Source Urine, Clean Catch 04/12/2025 12:36 AM EDT [facility] Urine URINE SPECIMEN COLLECTION, CLEAN CATCH / Unknown 04/12/2025 12:27 AM EDT 04/12/2025 12:27 AM EDT Nneka Angel MD URINE ORDERABLES Final Re sult [facility] [address] [place] [address] * Screen, urine (04/12/2025 12:27 AM EDT) Preg Test, Ur Negative Negative, Inconclusive 04/12/2025 12:38 AM EDT [facility] Urine 04/12/2025 12:2 7 AM EDT 04/12/2025 12:27 AM EDT us Nneka Angel MD URINE ORDERABLES Final Re sult [facility] [address] [place] [address] * Lipase (04/12/2025 12:02 AM EDT) Lipase 57 16 - 77 U/L 04/12/2025 12:37 AM EDT [facility] Blood Venipuncture / Unknown 04/12/2025 12:02 AM EDT 04/12/2025 12:10 AM EDT us Annalee Whiting PA-C LAB BLOOD ORDERABLES Final Result [facility] [address] [place] [address] * (ABNORMAL) Comprehensive metabolic panel (04/12/2025 12:02 AM EDT) Sodium 138 136 - 145 meq/L 04/12/2025 12:36 AM EDT [facility] Potassium 3.6 3.5 - 5.1 meq/L 04/12/2025 12:36 AM EDT [facility] Chloride 104 98 - 107 meq/L 04/12/2025 12:36 AM EDT [facility] CO2 27 21 - 32 meq/L 04/12/2025 12:36 AM EDT [facility] Calcium 8.9 8.5 - 10.1 mg/dL 04/12/2025 12:36 AM EDT [facility] Glucose 138(H) 74 - 100 mg/dL 04/12/2025 12:36 AM EDT [facility] BUN 13 7 - 18 mg/dL 04/12/2025 12:36 AM EDT [facility] Creatinine 0.78 0.55 - 1.10 mg/dL 04/12/2025 12:36 AM EDT [facility] BUN/Creatinine 17 04/12/2025 12:36 AM EDT [facility] Albumin 4.1 3.4 - 5.0 g/dL 04/12/2025 12:36 AM EDT [facility] Alkaline Phosphatase 67 46 - 116 U/L 04/12/2025 12:36 AM EDT [facility] ALT 12 12 - 78 U/L 04/12/2025 12:36 AM EDT [facility] AST 13(L) 15 - 37 U/L 04/12/2025 12:36 AM EDT [facility] Total Bilirubin 0.3 0.2 - 1.0 mg/dL 04/12/2025 12:36 AM EDT [facility] Protein, Total 7.3 6.4 - 8.2 gm/dL 04/12/2025 12:36 AM EDT [facility] Anion Gap 11 11 - 22 04/12/2025 12:36 AM EDT [facility] A/G Ratio 1.3 04/12/2025 12:36 AM EDT [facility] Globulin 3.2 g/dL 04/12/2025 12:36 AM EDT [facility] Osmolality Calc 278.0 mOsm/kg 12:36 AM EDT [facility] eGFR (mL/min/1.73m2) >60 >=60 mL/min/1.7 3m2 04/12/2025 12:36 AM EDT [facility] Comment:ESTIMATED GFR IS NOT ACCURATE CREATININE CLEARANCE IN PREDICTING GLOMERULAR FILTRATION RATE. ESTIMATED GFR IS NOT APPLICABLE FOR DIALYSIS PATIENTS. Blood Venipuncture / Unknown 04/12/2025 12:02 AM EDT 04/12/2025 12:10 AM EDT Annalee Whiting PA-C LAB BLOOD ORDERABLES Final Result [facility] [address] [place] [address], [facility] [phone] * (ABNORMAL) CBC with Auto Diff (04/12/2025 12:02 AM EDT) WBC 14.3(H) 4.8 - 10.8 K/ L 04/12/2025 12:15 AM EDT [facility] RBC 4.58 3.50 - 5.20 M/ L 04/12/2025 12:15 AM EDT [facility] Hemoglobin 14.0 11.7 - 15.8 GM/DL 04/12/2025 12:15 AM EDT [facility] Hematocrit 40.1 35.0 - 47.0 % 04/12/2025 12:15 AM EDT [facility] MCV 88 81 - 101 fL 04/12/2025 12:15 AM EDT [facility] MCH 30.6 27.0 - 34.0 pg 04/12/2025 12:15 AM EDT [facility] MCHC 34.9 32.0 - 36.0 GM/DL 04/12/2025 12:15 AM EDT [facility] RDW 11.4(L) 11.5 - 14.5 % 04/12/2025 12:15 AM EDT [facility] Platelets 268 150 - 400 K/CU MM 04/12/2025 12:15 AM EDT [facility] MPV 9.5 9.4 - 12.4 fL 04/12/2025 12:15 AM EDT [facility] Nucleated Red Blood Cell 0.0 0 - 0.2 % 04/12/2025 12:15 AM EDT [facility] % Neutros 80 37 - 80 % 04/12/2025 12:15 AM EDT [facility] % Lymphs 14 10 - 50 % 04/12/2025 12:15 AM EDT [facility] % Monos 6 5 - 13 % 04/12/2025 12:15 AM EDT [facility] % Eos 1 0 - 7 % 04/12/2025 12:15 AM EDT [facility] % Baso 0 0 - 3 % 04/12/2025 12:15 AM EDT [facility] NRBC Absolute <0.01 0 - 0.012 K/ul 04/12/2025 12:15 AM EDT [facility] # Neutros 11.39(H) 2.00 - 6.90 K/ L 04/12/2025 12:15 AM EDT [facility] # Lymphs 1.94 0.60 - 3.40 K/ L 04/12/2025 12:15 AM EDT [facility] # Monos 0.80 0.00 - 0.90 K/ L 04/12/2025 12:15 AM EDT [facility] # Eos 0.10 0.00 - 0.70 K/ L 04/12/2025 12:15 AM EDT [facility] # Baso 0.04 0.00 - 0.20 K/ L 04/12/2025 12:15 AM EDT [facility] Immature Granulocytes-Re lative 0.30 % 04/12/2025 12:15 AM EDT [facility] # IG 0.05(H) 0.00 - 0.00 K/uL 04/12/2025 12:15 AM EDT [facility] Blood Venipuncture / Unknown 04/12/2025 12:02 AM EDT 04/12/2025 12:10 AM EDT Narrative [facility] - 04/12/2025 12:15 AM EDT When CBC w/ Auto Diff is ordered the lab will add a Manual Differential as a quality check at no additional charge if: Lymphocytes greater than seventy five percent with normal or increased WBC Monocytes greater than Fifteen percent Basophil greater than four percent Bands >10% or several immature myeloids are seen on scan Blast? Flag noted Atypical Lymph flag noted Annalee Whiting PA-C LAB BLOOD ORDERABLES Final Result [facility] [address] [id number] [phone] documented in this encounter Visit Diagnoses Diagnosis Ovarian cyst- Primary Other and unspecified ovarian cyst Cyst of ovary, unspecified laterality documented in this encounter Administered Medications Inactive Administered Medications - up to 3 most recent administrations Medication Order MAR Action Action Date Dose Rate Site iopamidoL (ISOVUE-370) 370 mg iodine /mL (76 %) injection 75 mL 75 mL IMG once as needed, intravenous, contrast, Starting on Fri04/11/25 at 2330, For 1 dose, Intra-op Given 04/12/2025 12:58 AM EDT 75 mLs ketorolac (TORADOL) injection 15 mg 15 mg Once, intravenous, On Fri04/11/25 at 2330, For 1 dose Given 04/12/2025 12:03 AM EDT 15 mg ondansetron (ZOFRAN) injection 4 mg 4 mg Once, intravenous, On Fri04/11/25 at 2330, For 1 dose, For IV push, give over 2 - 5 minutes. Given 04/12/2025 12:02 AM EDT 4 mg sodium chloride 0.9% (NS) bolus 1,000 mL Once, intravenous, Administer over 60 Minutes, On Fri04/11/25 at 2330, For 1 dose New Bag 04/12/2025 12:03 AM EDT 1,000 mLs 1000 mL/hr sodium chloride flush 10 mL 10 mL As needed, intravenous, line care, Line care for flush, Starting on Fri04/11/25 at 2327, For 30 doses documented in this encounter Active and Recently Administered Medications Times are shown in EDT. Scheduled Medication Order 04/10/2025 04/11/2025 04/12/2025 ketorolac (TORADOL) injection 15 mg (COMPLETED) 15 mg Once, intravenous, On Fri04/11/25 at 2330, For 1 dose 0003 (Given - Provid er: Mily Green RN) ondansetron (ZOFRAN) injection 4 mg (COMPLETED) 4 mg Once, intravenous, On Fri04/11/25 at 2330, For 1 dose, For IV push, give over 2 - 5 minutes. 0002 (Given - Provid er: Mily Green RN) sodium chloride 0.9% (NS) bolus (COMPLETED) 1,000 mL Once, intravenous, Administer over 60 Minutes, On Fri04/11/25 at 2330, For 1 dose 0003 (New Bag - Prov ider: Mily Green RN)0103 (Stopped - Provider: Angelic Renaldo, RN) PRN Medication Order 04/10/2025 04/11/2025 04/12/2025 iopamidoL (ISOVUE-370) 370 mg iodine /mL (76 %) injection 75 mL (COMPLETED) 75 mL IMG once as needed, intravenous, contrast, Starting on Fri04/11/25 at 2330, For 1 dose, Intra-op 0058 (Given - Provid er: Silke Fletcher) sodium chloride flush 10 mL 10 mL As needed, intravenous, line care, Line care for flush, Starting on Fri04/11/25 at 2327, For 30 doses documented in this encounter Care Teams Dioramist Relationship Specialty Start Date End Date [facility], [facility] [place] [address] PCP - General 04/11/25 04/11/25 Kimmy Green, [place] [address] [place] [address] PCP - General Physician Hide Cleaner 04/12/25 documented as of this encounter
--- OUTSIDE RECORDS SUMMARY | 2025-04-20 14:30 | XMS_ITS | Encounter Summary ---
Author Organization [facility] Address [address] [place] [address] Care Team Providers Care Surgical Technician Name Role Phone Kimmy Green Primary Care Provider [phone] Reason for Visit * Reason Comments Ovarian Cyst Follow up from ER, h emorrhagic cyst. Encounter Details Date Type Department Care Team (Late st Contact Info) Description 04/20/2025 2:30 PM EDT Office Visit Obstetrics & Gynecology [address] [place] [address] Radha Blue MD [address] [place] [address] Hemorrhagic cyst of ovary (Primary Dx) Social History Tobacco Use Types Packs/Day Years Used Date Smoking Tobacco: Never Passive Smoke Exposure: Yes Smokeless Tobacco: Never Alcohol Use Standard Drinks/Week Comments Never 0 (1 standard drink = 0.6 oz pur e alcohol) PHQ-2 Answer Date Recorded Patient Health Questionnaire-2 Score 0 04/20/2025 PHQ-9 Answer Date Recorded Patient Health Questionnaire-9 Score 0 04/20/2025 Comments No Sex and Gender Information Value Date Recorded Sex Assigned at Not on file Legal Sex Female 6:47 PM EDT Gender Identity Not on file Sexual Orientation Not on file documented as of this encounter Last Filed Vital Signs Vital Sign Reading Time Taken Comments Blood Pressure 100/65 04/20/2025 2:46 PM EDT Pulse 82 04/20/2025 2:46 PM EDT Temperature 37.2 C (98.9 F) 04/20/2025 2:46 PM EDT Respiratory Rate 16 04/20/2025 2:46 PM EDT Oxygen Saturation 98% 04/20/2025 2:46 PM EDT Inhaled Oxygen Concentration - - Weight 49 kg (108 lb 0.4 oz) 04/20/2025 2:46 PM EDT Height 152.4 cm (5') 04/20/2025 2:46 PM EDT Body Mass Index 21.1 04/20/2025 2:46 PM EDT documented in this encounter Functional Status * Over the past 2 weeks, how often have you been bothered by any of the following problems? Question Answer Date of Assessment Author Little interest or pleasure in doing things Not at all 04/20/2025 2:45 PM EDT Bob Tavarez Feeling down, depressed, or hopeless Not at all 04/20/2025 2:45 PM EDT Bob Tavarez Patient Health Questionnaire -2 Score 0 04/20/2025 2:45 PM EDT Bob Tavarez * Question Answer Date of Assessment Author Trouble falling or staying a sleep, or sleeping too much Not at all 04/20/2025 2:45 PM EDT Bob Tavarez Feeling tired or having candie le energy Not at all 04/20/2025 2:45 PM EDT Bob Tavarez Poor appetite or overeating Not at all 04/20/2025 2: 45 PM EDT Bob Tavarez Feeling bad about yourself - or that you are a failure or have let yourself or your family down Not at all 04/20/2025 2:45 PM EDT Janeth Tavarez Trouble concentrating on thi ngs, such as reading the newspaper or watching television Not at all 04/20/2025 2:45 PM EDT Bob Tavarez Moving or speaking so slowly that other people could have noticed? Or the opposite - being so fidgety or restless that you have been moving around a lot more than usual. Not at all 04/20/2025 2:45 PM EDT Bob Tavarez Thoughts that you would be b maggi off or hurting yourself in some way Not at all 04/20/2025 2:45 PM EDT Bob Tavarez Patient Health Questionnaire -9 Score 0 04/20/2025 2:45 PM EDT Corby Bob S * How difficult have these problems made it for you to do your work, take care of things at home, or get along with other people? Answer Date of Assessment Author Not difficult at all 04/20/2025 2:45 PM EDT Bob Grigsby documented as of this encounter Miscellaneous Notes * Assessment & Plan Note - Radha Blue MD - 04/20/2025 2:30 PM EDT Associated Problem(s): Hemorrhagic cyst of ovary * Progress Notes - Marixa Robbins Donato - 04/20/2025 2:30 PM EDT Gynecology Progress Note Chief Complaint Patient presents with Ovarian Cyst Follow up from ER, hemorrhagic cyst. Subjective History of Present Illness: Bharati Gaston is a 20 y.o. 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 She was monitored inpatient for signs of continued bleeding from ruptured cyst - labs were stable and pain improved.She was discharged home in stable condition with ibuprofen, tylenol, and a short dose of oxycodone.She rated her pain as 7/10 when first entering hospital and 4/10 when leaving hospital. Today, she rates her pain 3/10. She said she is nauseous sometimes and still has tenderness in lower abdomen. She reports no fever, vomiting, or other symptoms. She says that she is feeling better. The patient???s medical, surgical, family, social history were reviewed, as well as current medications and allergies. Review of Systems All other systems reviewed and are negative. Current Outpatient Medications Medication Instructions cyproheptadine (PERIACTIN) 4 mg, Nightly Nurtec 75 MG tablet dispersible DISSOLVE 1 TABLET BY MOUTH ONCE DAILY NEEDED FOR HEADACHE progesterone (PROMETRIUM) 200 mg, Oral, Every 14 days Objective BP 100/65 Pulse 82 Temp 37.2 ??C (98.9 ??F) Resp 16 Ht 1.524 m (5') Wt 49 kg (108 lb 0.4 oz) LMP 04/17/2025 (Exact Date) Physical Exam: Physical Exam Constitutional: Appearance: Normal appearance. HENT: Head: Normocephalic and atraumatic. Eyes: Extraocular Movements: Extraocular movements intact. Cardiovascular: Rate and Rhythm: Normal rate and regular rhythm. Pulmonary: Effort: Pulmonary effort is normal. Breath sounds: Normal breath sounds. Abdominal: General: Bowel sounds are normal. There is no distension. Palpations: Abdomen is soft. There is no mass. Tenderness: There is abdominal tenderness. There is no guarding or rebound. Neurological: General: No focal deficit present. Mental Status: She is alert and oriented to person, place, and time. Skin: General: Skin is warm and dry. Psychiatric: Mood and Affect: Mood normal. Behavior: Behavior normal. Thought Content: Thought content normal. Judgment: Judgment normal. Vitals and nursing note reviewed. Assessment/Plan Bharati Gaston is a 20 y.o. 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 Hemorrhagic ovarian cyst Continues to clinically improve, benign exam, hemodynamically stable Return to work with limited precautions Continue pain medications prn Discussed that pain will subside gradually and to return to clinic if new symptoms appear RTC: In 2 weeks Assessment & Plan Hemorrhagic cyst of ovary Time Spent: I personally spent a total of 21 minutes on this encounter. This time includes face to face with patient, counseling and discussion and/or coordination of care. Marixa Marker: Third Year Medical Student Cosigned by Radha Blue MD at 04/21/2025 8:40 AM EDT Associated attestation - Radha Blue MD - 04/21/2025 8:40 AM EDT I saw and evaluated the patient with the medical/APPLIQUE CUTTER/PA student. I discussed the case with the medical/APPLIQUE CUTTER/PA student and agree with the findings and plan as documented. I personally performed the Examand Medical Decision Making. documented in this encounter Plan of Treatment Upcoming Encounters Date Type Department Care Team (Late st Contact Info) Description 05/11/2025 1:45 PM EDT Office Visit Obstetrics & Gynecology [address] [place] [address] Radha Blue MD [address] [place] [address] 07/13/2025 2:00 PM EST Office Visit Obstetrics & Gynecology [address] [place] [address] Radha Blue MD [address] [place] [address] 08/25/2025 2:00 PM EST Procedure Visit Obstetrics & Gynecology [address] [place] [address] Pool Garduno MD [address] [place] [address] documented as of this encounter Visit Diagnoses Diagnosis Hemorrhagic cyst of ovary- Primary Other and unspecified ovarian cyst documented in this encounter Additional Health Concerns Assessment Noted Time PHQ-9 Depression Total Score: 0 04/20/20 25 2:45 PM EDT A fall risk assessment has been complete d for the patient 04/20/2025 2:50 PM EDT A Body Mass Index follow-up plan has been documented for the patient 04/21/2025 8:40 AM EDT documented as of this encounter Care Teams Surgical Technician Relationship Specialty Start Date End Date Kimmy Green PA [address] [place] [address] PCP - General 12/15/20 documented as of this encounter
[2025-05-06 14:51] LABS: Coronavirus 19, PCR Not Detected (NotDetected); Influenza A, PCR Not Detected (NotDetected); Influenza B, PCR Not Detected (NotDetected)
--- OUTSIDE RECORDS SUMMARY | 2025-05-09 09:14 | XMS_ITS | Encounter Summary ---
Author Organization [facility] Address [address] [place] [id number] Care Team Providers Care Coil Winding Machines Set Up Mechanic Name Role Phone Kimmy Green Primary Care Provider Reason for Visit * Reason Onset Date Comments HCN - Patient Message 04/14/2025 Encounter Details Date Type Department Care Team (Late st Contact Info) Description 04/14/2025 Telephone Obstetrics & Gynecology [address] [place] [address] Radha Blue MD [address] [place] [address] HCN - Patient Message Social History Tobacco Use Types Packs/Day Years [...] on file documented as of this encounter Miscellaneous Notes * Telephone Encounter - Bob Tavarez Kayce - 04/14/2025 9:46 AM EDT Called patient and she is already on her way to the ER. Advised her to reach out if she needs to follow up after that. * Telephone Encounter - Sagrario Cortes - 04/14/2025 9:17 AM EDT Clinical Concern/Question Reason for Call: she is needing to with the nurse she states that the pt is having really bad rightlower quadrant pain , she is wondering if you want to see her or does she need to send her to the ED Best contact number: Other: [phone] Optimal time of day to reach caller: OTHER: Pt is there now Additional comments/information from caller: None Note: Please do not reply to this message. Follow-up communication and further actions as a result of this message need to be communicated with the patient directly, if the patient is not active onMyChart. If the patient is active on MyChart, they will receive notification of the communication/outcome via CloudBees[employer]. documented in this encounter Plan of Treatment Upcoming Encounters Date Type Department Care Team (Late st Contact Info) Description 05/11/2025 1:45 PM EDT Office Visit Obstetrics & Gynecology [address] [place] [address] Radha Blue MD [address] [place] [address] 07/13/2025 2:00 PM EST Office Visit Obstetrics & Gynecology [address] [place] [address] Radha Blue MD [address] [place] [address] 08/25/2025 2:00 PM EST Procedure Visit Obstetrics & Gynecology [address] [place] [address] Pool Garduno MD [address] [place] [address] documented as of this encounter Visit Diagnoses [...] documented as of this encounter Care Teams Coil Winding Machines Set Up Mechanic Relationship Specialty Start Date End Date Kimmy Green PA [address] [place] [address] PCP - General 12/15/20 documented as of this encounter
--- OUTSIDE RECORDS SUMMARY | 2025-05-09 09:14 | XMS_ITS | Encounter Summary ---
Author Organization [facility] Address [address] [place] [address] Care Team Providers Care Diaper Folder Name Role Phone Kimmy Green Primary Care Provider [phone] Encounter Details Date Type Department Care Team (Latest Contact Info) Description 04/18/2025 Travel Social History Tobacco Use Types Packs/Day [...] EDT Office Visit Obstetrics & Gynecology [address] [place] [address] Radha Blue MD [address] [place] [address] 07/13/2025 2:00 PM EST Office Visit Obstetrics & Gynecology [address] [place] [address] Radha Blue MD [address] [place] [address] 08/25/2025 2:00 PM EST Procedure Visit Obstetrics & Gynecology [address] [place] [address] Pool Garduno MD [address] [place] [address] documented as of this encounter [...] documented as of this encounter Care Teams Diaper Folder Relationship Specialty Start Date End Date Kimmy Green PA [address] [place] [address] PCP - General 12/15/20 documented as of this encounter
--- OUTSIDE RECORDS SUMMARY | 2025-05-09 09:14 | XMS_ITS | Encounter Summary ---
Author Organization [facility] Address [address] [place] [id number] Care Team Providers Care Backend Tester Name Role Phone Kimmy Green Primary Care Provider [phone] Encounter Details Date Type Department Care Team (Late st Contact Info) Description 04/11/2025 Telephone Obstetrics & Gynecology [address] [place] [address] Radha Blue MD [address] [place] [address] Social History Tobacco Use Types [...] Notes * Telephone Encounter - Bob Tavarez - 04/12/2025 12:37 PM EDT Called and LM with corrected instructions. * Telephone Encounter - Kamala Kwong - 04/11/2025 10:23 AM EDT Clinical Concern/Question Reason for Call: [facility] is calling to clarify script Best contact number: Other: [phone] Optimal time of day to reach caller: ANYTIME Additional comments/information from caller: Not Applicable Note: Please do not reply to this message. Follow-up communication and further actions as a result of this message need to be communicated with the patient directly, if the patient is not active onMyChart. If the patient is active on MyChart, they will receive notification of the communication/outcome via Skedo. documented in this encounter Plan of Treatment Upcoming Encounters Date Type Department Care Team (Late st Contact Info) Description 05/11/2025 1:45 PM EDT Office Visit Obstetrics & Gynecology [address] [place] [address] Radha Blue MD [address] [place] [address] 07/13/2025 2:00 PM EST Office Visit Obstetrics & Gynecology [address] [place] [address] Radha Blue MD [address] [place] [address] 08/25/2025 2:00 PM EST Procedure Visit Obstetrics & Gynecology [address] [place] [address] Pool Garduno MD [address] [place] [address] documented as of this encounter Visit Diagnoses [...] documented as of this encounter Care Teams Backend Tester Relationship Specialty Start Date End Date Kimmy Green PA [address] [place] [address] PCP - General 12/15/20 documented as of this encounter
--- OUTSIDE RECORDS SUMMARY | 2025-05-09 09:14 | XMS_ITS | Encounter Summary ---
Author Organization [facility] Address [address] [place] [address] Care Team Providers Care Printing Press Machine Operator Name Role Phone Kimmy Green Primary Care Provider [phone] Encounter Details Date Type Department Care Team (Late st Contact Info) Description 04/14/2025 Orders Only External Location [address] [place] [address] Hermelinda De Jesus MD [address] [place] [address] Social History Tobacco Use Types [...] Encounters Date Type Department Care Team (Late Contact Info) Description 05/11/2025 1:45 PM EDT Office Visit Obstetrics & Gynecology [address] [place] [address] Radha Blue MD [address] [place] [address] 07/13/2025 2:00 PM EST Office Visit Obstetrics & Gynecology [address] [place] [address] Radha Blue MD [address] [place] [address] 08/25/2025 2:00 PM EST Procedure Visit Obstetrics & Gynecology [address] [place] [address] Pool Garduno MD [address] [place] [address] documented as of this encounter Procedures Procedure Name Priority Date/Time Associated Diagnosis Comments CBC W/O DIFFERENTIAL Routine 04/15/2025 12:30 PM EDT CBC WITH AUTO DIFFERENTIAL Routine 04/15/2025 6:06 AM EDT CBC W/O DIFFERENTIAL Routine 04/14/2025 9:00 PM EDT TYPE AND SCREEN Routine 04/14/2025 9:00 PM EDT CBC WITH AUTO DIFFERENTIAL Routine 04/14/2025 4:16 PM EDT documented in this encounter Results * (ABNORMAL) CBC W/O Differential (04/15/2025 12:30 PM EDT) External WBC 5.5 4.0 - 10.5 K/ul [facility] External Red Blood Cell (RBC) 3.1(L) 4.2 - 6.4 M/mm3 [facility] External Hemoglobin 9.7(L) 12.5 - 16.0 gm/dl [facility] External Hematocrit 29.2(L) 37.0 - 47.0 % [facility] External MCV 93.3 78 - 100 fl [facility] External MCH 31.0 27 - 31 pg [facility] External MCHC 33.2 32 - 36 g/dl [facility] External RDW 11.6 11.5 - 14.0 % [facility] External Platelets 211 150 - 450 K/ul [facility] External MPV 9.7(H) 6 - 9.5 [facility] External Manual Differential NO [facility] 04/15/2025 12:3 0 PM EDT 04/15/2025 12:34 PM EDT us Hermelinda De Jesus MD LAB BLOOD ORDERABLES Final Res ult [facility] * (ABNORMAL) CBC and Differential (04/15/2025 6:06 AM EDT) External WBC 4.7 4.0 - 10.5 K/ul [facility] External Red Blood Cell (RBC) 2.9(L) 4.2 - 6.4 M/mm3 [facility] External Hemoglobin 9.0(L) 12.5 - 16.0 gm/dl [facility] External Hematocrit 27.2(L) 37.0 - 47.0 % [facility] External MCV 93.2 78 - 100 fl [facility] External MCH 30.8 27 - 31 pg [facility] External MCHC 33.1 32 - 36 g/dl [facility] External RDW 11.6 11.5 - 14.0 % [facility] External Platelets 180 150 - 450 K/ul [facility] External MPV 9.3 6 - 9.5 [facility] External Neutrophils % 54.1 43 - 65 % [facility] External Lymphocyte % 32.9 20.5 - 45.5 % [facility] External Monocyte % 9.2 5.5 - 11.7 % [facility] External Eosinophil% 3.2(H) 0.9 - 2.9 % [facility] External Basophil % 0.4 0.2 - 1.0 % [facility] External Immature Granulocyte% 0.2 0.0 - 0.8 % [facility] External Nucleated RBC % 0.0 % [facility] External Neutrophil# 2.5 2.2 - 4.8 K/uL [facility] External Lymphocyte# 1.5 1.3 - 2.9 [facility] External Monocyte# 0.4 0.3 - 0.8 [facility] External Eosinophils# 0.2 0 - 0.2 [facility] External Baso# 0.0 0.0 - 1.0 [facility] External Immature Granulocyte Abs 0.01 K/ul [facility] External Nucleated RBC Absolute 0.00 K/uL [facility] External Manual Differential NO [facility] 04/15/2025 6:06 AM EDT 04/15/2025 6:09 AM EDT us Hermelinda De Jesus MD LAB BLOOD ORDERABLES Final Res ult Performing Organization Address [facility]/ZIP Co de Phone Number [facility] * Type and Screen (04/14/2025 9:00 PM EDT) External History Check Completed [facility] External ABO/Rh A POSITIVE [facility] External Antibody Screen NEGATIVE [facility] External Status Information Completed [facility] 04/14/2025 9:00 PM EDT 04/14/2025 9:00 PM EDT us Hermelinda De Jesus MD LAB BLOOD BANK TEST ORDERABLES Final Result Performing Organization Address [facility]/ZIP Co de Phone Number [facility] * (ABNORMAL) CBC W/O Differential (04/14/2025 9:00 PM EDT) External WBC 6.3 4.0 - 10.5 K/ul [facility] External Red Blood Cell (RBC) 3.0(L) 4.2 - 6.4 M/mm3 [facility] External Hemoglobin 8.9(L) 12.5 - 16.0 gm/dl [facility] External Hematocrit 27.2(L) 37.0 - 47.0 % [facility] External MCV 91.9 78 - 100 fl [facility] External MCH 30.1 27 - 31 pg [facility] External MCHC 32.7 32 - 36 g/dl [facility] External RDW 11.5 11.5 - 14.0 % [facility] External Platelets 189 150 - 450 K/ul [facility] External MPV 9.5 6 - 9.5 fl [facility] External Manual Differential NO [facility] 04/14/2025 9:00 PM EDT 04/14/2025 9:15 PM EDT us Hermelinda De Jesus MD LAB BLOOD ORDERABLES Final Res ult [facility] * (ABNORMAL) CBC and Differential (04/14/2025 4:16 PM EDT) External WBC 7.0 4.0 - 10.5 K/ul [facility] External Red Blood Cell (RBC) 3.2(L) 4.2 - 6.4 M/mm3 [facility] External Hemoglobin 9.5(L) 12.5 - 16.0 gm/dl [facility] External Hematocrit 29.3(L) 37.0 - 47.0 % [facility] External MCV 92.4 78 - 100 fl [facility] External MCH 30.0 27 - 31 pg [facility] External MCHC 32.4 32 - 36 g/dl [facility] External RDW 11.3(L) 11.5 - 14.0 % [facility] External Platelets 215 150 - 450 K/ul [facility] External MPV 9.6(H) 6 - 9.5 fl [facility] External Neutrophils % 65.9(H) 43 - 65 % [facility] External Lymphocyte % 25.6 20.5 - 45.5 % [facility] External Monocyte % 7.0 5.5 - 11.7 % [facility] External Eosinophil% 0.9 0.9 - 2.9 % [facility] External Basophil % 0.3 0.2 - 1.0 % [facility] External Immature Granulocyte% 0.3 0.0 - 0.8 % [facility] External Nucleated RBC % 0.0 % [facility] External Neutrophil# 4.6 2.2 - 4.8 K/uL [facility] External Lymphocyte# 1.8 1.3 - 2.9 [facility] External Monocyte# 0.5 0.3 - 0.8 [facility] External Eosinophils# 0.1 0 - 0.2 [facility] External Baso# 0.0 0.0 - 1.0 [facility] External Immature Granulocyte Abs 0.02 K/ul [facility] External Nucleated RBC Absolute 0.00 K/uL [facility] External Manual Differential NO [facility] 04/14/2025 4:16 PM EDT 04/14/2025 4:17 PM EDT us Hermelinda De Jesus MD LAB BLOOD ORDERABLES Final Res ult [facility] documented in this encounter Visit Diagnoses Not on filedocumented [...] documented as of this encounter Care Teams Printing Press Machine Operator Relationship Specialty Start Date End Date Kimmy Green PA [address] [place] [address] PCP - General 12/15/20 documented as of this encounter
--- OUTSIDE RECORDS SUMMARY | 2025-05-09 09:15 | XMS_ITS | Encounter Summary ---
Author Organization [facility] Address [address] [place] [address] Care Team Providers Care Director Of Compliance Name Role Phone Kimmy Green Primary Care Provider [phone] Encounter Details Date Type Department Care Team (Latest Contact Info) Description 04/20/2025 Travel Social History Tobacco Use Types Packs/Day [...] Not at all 04/20/2025 2:45 PM EDT Jose David Tavarez Trouble concentrating [...] -9 Score 0 04/20/2025 2:45 PM EDT Bob Tavarez * How difficult have these problems made it for you to do your work, take care of things at home, or get along with other people? Answer Date of Assessment Author Not difficult at all 04/20/2025 2:45 PM EDT Bob Grigsby documented as of this encounter Plan of Treatment Upcoming Encounters Date Type Department Care Team (Late st Contact Info) Description 05/11/2025 1:45 PM EDT Office Visit Obstetrics & Gynecology [address] [place] [address] Radha Blue MD [address] [place] [address] 07/13/2025 2:00 PM EST Office Visit Obstetrics & Gynecology [address] [place] [address] Radha Blue MD [address] [place] [address] 08/25/2025 2:00 PM EST Procedure Visit Obstetrics & Gynecology [address] [place] [address] Pool Garduno MD [address] [place] [address] documented as of this encounter [...] documented as of this encounter Care Teams Director Of Compliance Relationship Specialty Start Date End Date Kimmy Green PA [address] [place] [address] PCP - General 12/15/20 documented as of this encounter
--- OUTSIDE RECORDS SUMMARY | 2025-05-09 09:15 | XMS_ITS | Clinical Summary ---
Author Organization [employer] ([place], [place], [place], [place]) Address [address] [place] [address] Care Team Providers Care Double Needle Operator Name Role Phone Kimmy Green PA-C Primary Care Provider [phone] Allergies No known active allergies Medications No known medications Encounters Date Type Department Care Team Description 04/11/2025 11:15 PM EDT - 04/12/2025 1:57 AM EDT Emergency [facility] Emergency Department [address] [place] [phone] Nneka Angel MD Ovarian cyst (Primary Dx); Cyst of ovary, unspecified laterality Discharge Disposition: Home or Self Care 04/11/2025 Travel from Last 3 Months Social History Tobacco Use Types Packs/Day Years [...] Mass Index 22.07 04/11/2025 11:21 PM EDT Plan of Treatment Health Maintenance Due Date Last Done Comments Depression Screening (12+) 2015 Tobacco Cessation Counseling and Screening (12+) 2015 HIV Screening 2018 Meningococcal B Vaccine (1 of 2 - Standard) 2019 Hepatitis C Screening 2021 DTAP/TDAP/TD VACCINES (7 - Td or Tdap) 10/26/2023 10/25/2013, 01/14/2007, 04/20/2004, Additional history exists Pap Smear 01/14/2024 COVID-19 VACCINE (3 - season) 2025 09/21/2021, 08/24/2021 Influenza Vaccine (#1) 2025 Pneumococcal Vaccine: 0-49 Years Aged Out 2003, 2003, 2003 No longer eligible based on patient's age to complete this topic Procedures Procedure Name Priority Date/Time Associated Diagnosis Comments CT ABDOMEN/PELVIS WITH IV CONTRAST STAT 04/12/2025 12:58 AM EDT URINALYSIS W/ MICROSCOPIC STAT 04/12/2025 12:27 AM EDT SCREEN, URINE STAT 04/12/2025 12:27 AM EDT LIPASE STAT 04/12/2025 12:02 AM EDT COMPREHENSIVE METABOLIC PANEL STAT 04/12/2025 12:02 AM EDT CBC W/ AUTO DIFF STAT 04/12/2025 12:0 2 AM EDT from Last 3 Months Results * CT ABDOMEN/PELVIS WITH IV CONTRAST [...] acute findings. Appendix is normal. Authenticated and us Annalee Whiting PA-C IMG CT ORDERABLES Final Res ult * Screen, urine (04/12/2025 12:27 AM EDT) Preg Test, Ur Negative Negative, Inconclusive 04/12/2025 12:38 AM EDT [facility] Urine 04/12/2025 12:2 7 AM EDT 04/12/2025 12:27 AM EDT us Nneka Angel MD URINE ORDERABLES Final Re sult [facility] [address] [place] [address], [facility] [phone] * Urinalysis w/Microscopic (04/12/2025 12:27 AM EDT) Color, UA Yellow 04/12/2025 12:36 AM EDT [facility] Clarity, UA Clear 04/12/2025 12:36 AM EDT [facility] Specific [place], UA >=1.030 1.002 - 1.030 04/12/2025 12:36 AM EDT [facility] pH, UA 6.0 5.0 - 9.0 04/12/2025 12:36 AM EDT [facility] Leukocytes, UA Negative Negative 04/12/2025 12:36 AM EDT [facility] Nitrite, UA Negative Negative 04/12/2025 12:36 AM EDT [facility] Protein, UA Negative Negative 04/12/2025 12:36 AM EDT [facility] Glucose, UA Negative Negative 04/12/2025 12:36 AM EDT [facility] Ketones, UA Negative Negative 04/12/2025 12:36 AM EDT [facility] Urobilinogen, UA 0.2 mg/dL Normal 04/12/2025 12:36 AM EDT [facility] Bilirubin, UA Negative Negative 04/12/2025 12:36 AM EDT [facility] Blood, UA Negative Negative 04/12/2025 12:36 AM EDT [facility] WBC, UA None Seen None Seen, Occasional , 0-5 /HPF 04/12/2025 12:36 AM EDT [facility] Specimen Source Urine, Clean Catch 04/12/2025 12:36 AM EDT [facility] Urine URINE SPECIMEN COLLECTION, CLEAN CATCH / Unknown 04/12/2025 12:27 AM EDT 04/12/2025 12:27 AM EDT us Nneka Angel MD URINE ORDERABLES Final Re sult [facility] [address] [place] [address] * (ABNORMAL) CBC with Auto Diff (04/12/2025 12:02 AM EDT) WBC 14.3(H) 4.8 - 10.8 K/ L 04/12/2025 12:15 AM EDT [facility] RBC 4.58 3.50 - 5.20 M/ L 04/12/2025 12:15 AM EDT [facility] Hemoglobin 14.0 11.7 - 15.8 GM/DL 04/12/2025 12:15 AM EDT [facility] Hematocrit 40.1 35.0 - 47.0 % 04/12/2025 12:15 AM EDT [facility] MCV 88 81 - 101 fL 04/12/2025 12:15 AM EDT [facility] MCH 30.6 27.0 - 34.0 pg 04/12/2025 12:15 AM EDT [facility] MCHC 34.9 32.0 - 36.0 GM/DL 04/12/2025 12:15 AM EDT [facility] RDW 11.4(L) 11.5 - 14.5 % 04/12/2025 12:15 AM EDT [facility] Platelets 268 150 - 400 K/CU MM 04/12/2025 12:15 AM EDT [facility] MPV 9.5 9.4 - 12.4 fL 04/12/2025 12:15 AM EDT [facility] Nucleated Red Blood Cell 0.0 0 - 0.2 % 04/12/2025 12:15 AM EDT [facility] % Neutros 80 37 - 80 % 04/12/2025 12:15 AM EDT [facility] % Lymphs 14 10 - 50 % 04/12/2025 12:15 AM EDT [facility] % Monos 6 5 - 13 % 04/12/2025 12:15 AM EDT [facility] % Eos 1 0 - 7 % 04/12/2025 12:15 AM EDT [facility] % Baso 0 0 - 3 % 04/12/2025 12:15 AM EDT [facility] NRBC Absolute <0.01 0 - 0.012 K/ul 04/12/2025 12:15 AM EDT [facility] # Neutros 11.39(H) 2.00 - 6.90 K/ L 04/12/2025 12:15 AM EDT [facility] # Lymphs 1.94 0.60 - 3.40 K/ L 04/12/2025 12:15 AM EDT [facility] # Monos 0.80 0.00 - 0.90 K/ L 04/12/2025 12:15 AM EDT [facility] # Eos 0.10 0.00 - 0.70 K/ L 04/12/2025 12:15 AM EDT [facility] # Baso 0.04 0.00 - 0.20 K/ L 04/12/2025 12:15 AM EDT [facility] Immature Granulocytes-Re lative 0.30 % 04/12/2025 12:15 AM EDT [facility] # IG 0.05(H) 0.00 - 0.00 K/uL 04/12/2025 12:15 AM EDT [facility] Blood Venipuncture / Unknown 04/12/2025 12:02 AM EDT 04/12/2025 12:10 AM EDT Narrative [facility] - 04/12/2025 12:15 AM EDT [...] Blast? Flag noted Atypical Lymph flag noted [email or web address].shiff PA-C LAB BLOOD ORDERABLES Final Result [facility] [address] [place] [address] * Lipase (04/12/2025 12:02 AM EDT) Lipase 57 16 - 77 U/L 04/12/2025 12:37 AM EDT [facility] Blood Venipuncture / Unknown 04/12/2025 12:02 AM EDT 04/12/2025 12:10 AM EDT [employer] PA-C LAB BLOOD ORDERABLES Final Result [facility] [address] [place] [address] * (ABNORMAL) Comprehensive metabolic panel (04/12/2025 12:02 AM EDT) Sodium 138 136 - 145 meq/L 04/12/2025 12:36 AM EDT [facility] Potassium 3.6 3.5 - 5.1 meq/L 04/12/2025 12:36 AM EDT [facility] Chloride 104 98 - 107 meq/L 04/12/2025 [facility] CO2 27 21 - 32 meq/L 04/12/2025 12:36 AM [facility] Calcium 8.9 8.5 - 10.1 mg/dL 04/12/2025 12:36 AM [facility] Glucose 138(H) 74 - 100 mg/dL 04/12/2025 12:36 AM [facility] BUN 13 7 - 18 mg/dL 04/12/2025 12:36 AM [facility] Creatinine 0.78 0.55 - 1.10 mg/dL 04/12/2025 12:36 AM [facility] BUN/Creatinine 17 04/12/2025 12:36 AM [facility] Albumin 4.1 3.4 - 5.0 g/dL 04/12/2025 12:36 AM [facility] Alkaline Phosphatase 67 46 - 116 U/L 04/12/2025 12:36 AM [facility] ALT 12 12 - 78 U/L 04/12/2025 12:36 AM [facility] AST 13(L) 15 - 37 U/L 04/12/2025 12:36 AM [facility] Total Bilirubin 0.3 0.2 - 1.0 mg/dL 04/12/2025 12:36 AM [facility] Protein, Total 7.3 6.4 - 8.2 gm/dL 04/12/2025 12:36 AM [facility] Anion Gap 11 11 - 22 04/12/2025 12:36 AM [facility] A/G Ratio 1.3 04/12/2025 12:36 AM [facility] Globulin 3.2 g/dL 04/12/2025 12:36 AM [facility] Osmolality Calc 278.0 mOsm/kg 12:36 AM [facility] eGFR (mL/min/1.73m2) >60 >=60 mL/min/1.7 3m2 04/12/2025 12:36 AM EDT [facility] Comment:ESTIMATED GFR IS NOT ACCURATE CREATININE CLEARANCE IN PREDICTING GLOMERULAR FILTRATION RATE. ESTIMATED GFR IS NOT APPLICABLE FOR DIALYSIS PATIENTS. Blood Venipuncture / Unknown 04/12/2025 12:02 AM EDT 04/12/2025 12:10 AM EDT Annalee Whiting PA-C LAB BLOOD ORDERABLES Final Result [facility] [address] [place] [address], [facility] [phone] from Last 3 Months Insurance [facility] Care Teams Double Needle Operator Relationship Specialty Start Date End Date Kimmy Green PA-C [address] [place] [address] PCP - General Physician Sprayer Leather 04/12/25
--- OUTSIDE RECORDS SUMMARY | 2025-05-09 09:15 | XMS_ITS | Clinical Summary ---
Author Organization [facility] Address [address] [place] [address] Care Team Providers Care Buckle Assembler Name Role Phone Kimmy Green Primary Care Provider Allergies No known active allergies Medications Nurtec 75 MG tablet dispersible DISSOLVE 1 TABLET BY MOUTH ONCE DAILY NEEDED FOR HEADACHE 3 Active cyproheptadine (Periactin) 4 MG tablet Take 1 tablet (4 mg) by mouth nightly. Active progesterone (Prometrium) 200 MG capsuleIndicatio ns:Menorrhagia with irregular cycle Take 1 capsule by mouth every 14 days. 14 capsule 3 5 Active Active Problems Problem Noted Date Diagnosed Date Hemorrhagic cyst of ovary 04/21/2025 Assessment & Plan (04/21/2025 8:40 AM EDT): Cyst of right ovary 04/06/2025 Assessment & Plan (04/06/2025 4:02 PM EDT): Menorrhagia with irregular cycle 03/16/2025 Assessment & Plan (04/06/2025 4:02 PM EDT): Orders: US Pelvis Transvaginal; Future progesterone (Prometrium) 200 MG capsule; Take 1 capsule by mouth every 14 days. Assessment & Plan (03/16/2025 3:53 PM EDT): Orders: tranexamic acid (Lysteda) 650 MG tablet tablet; Take 2 tablets by mouth 3 times a day for 20 days. Family planning education, guidance, and loan counselor ing 03/16/2025 Assessment & Plan (04/06/2025 4:02 PM EDT): Assessment & Plan (03/16/2025 3:53 PM EDT): Orders: Follicle stimulating hormone; Future Estradiol; Future Prolactin; Future Testosterone Total 17-Hydroxyprogesterone; Future Hemoglobin A1c; Future CBC; Future Lactose intolerance 10/31/2020 Migraines 08/18/2019 Anxiety and depression 03/09/2019 Delayed gastric emptying 03/09/2019 GERD (gastroesophageal reflux disease) 9 Resolved Problems Problem Noted Date Diagnosed Date Resolved Date History of ovarian cyst 09/29/20240 10/2024 Pelvic and perineal pain 09/29/202410/2024 Weight loss 10/31/2020 04/24/2025 Encounters Date Type Department Care Team Description 04/20/2025 2:30 PM EDT Office Visit Obstetrics & Gynecology [facility] [place] [address] Radha Blue MD Hemorrhagic cyst of ovary (Primary Dx) 04/20/2025 Travel 04/18/2025 Travel 04/14/2025 Orders Only External Location [address] [place] [address] Hermelinda De Jesus MD 04/14/2025 Telephone Obstetrics & Gynecology [address] [place] [phone] Radha Blue MD HCN - Patient Message 04/11/2025 Telephone Obstetrics & Gynecology [address] [place] [phone] Radha Blue MD 04/06/2025 3:00 PM EDT Office Visit Obstetrics & Gynecology [address] [place] [address] Radha Blue MD Menorrhagia with irregular cycle (Primary Dx); Cyst of right ovary; Family planning education, guidance, and counseling 04/06/2025 2:55 PM EDT Ancillary Procedure Obstetrics & Gynecology [address] [address] Menorrhagia with irregular cycle 04/06/2025 Travel 03/22/2025 Results Follow-Up Obstetrics & Gynecology [address] [address] Radha Blue MD 03/16/2025 1:30 PM EDT Office Visit Obstetrics & Gynecology [address] [address] Radha Blue MD Family planning education, guidance, [...] summer Miscarriages / Stillbirths Sister 2 [facility] Sister 3 Saray alcantara Relation [...] Mass Index 21.1 04/20/2025 2:46 PM EDT Plan of Treatment Upcoming Encounters Date Type Department Care Team (Late st Contact Info) Description 05/11/2025 1:45 PM EDT Office Visit Obstetrics & Gynecology [address] [place] [address] Radha Blue MD [address] [place] [address] 07/13/2025 2:00 PM EST Office Visit Obstetrics & Gynecology [address] [place] [address] Radha Blue MD [address] [place] [address] 08/25/2025 2:00 PM EST Procedure Visit Obstetrics & Gynecology [address] [place] [address] Pool Garduno MD [address] [place] [address] Health Maintenance Due Date Last Done Comments [facility]-Infant/Child/Adol SDOH Screenings 2003 HPV Vaccines (3 - 3-dose series) 07/15/2019 02/15/2019, 2019 [facility]- SDOH Screenings 2021 [facility]-Adult SDOH Screenings 2021 [facility]-DTaP,Tdap,and Td Vaccines (7 - Td or Tdap) 10/26/2023 10/25/2013, 01/14/2007, 04/20/2004, Additional history exists [facility]-Pap Smear 01/14/2024 [id number]-04 Vaccine ( season) 2025 09/21/2021, 08/24/2021 [facility]-Influenza Vaccine (#1) 04/04/202505/03, 05/27/2008, 06/01/2007 [facility]-Chlamydia and Gonorrhea Screening 08/24/2025 08/24/2024, 08/24/2024, 01/08/2024, Additional history exists [facility]-Depression Screening 04/20/2026 04/20/2025, 04/04 [facility]-Zoster Vaccines (1 of 2) 2053 10/25/2013, [...] AUTO DIFFERENTIAL Routine 04/15/2025 6:06 AM EDT TYPE AND SCREEN Routine 04/14/2025 9:00 PM EDT CBC W/O DIFFERENTIAL Routine 04/14/2025 9:00 PM EDT CBC WITH AUTO DIFFERENTIAL Routine 04/14/2025 4:16 PM EDT US PELVIS TRANSVAGINAL Routine 2:52 PM EDT Menorrhagia with irregular cycle CBC W/O DIFFERENTIAL Routine 03/16/2025 2:26 PM [...] Recently Relevant to Health Maintenance Results * (ABNORMAL) CBC W/O Differential (04/15/2025 12:30 PM EDT) Only the most recent of3 resultswithin the time period is included. External WBC 5.5 4.0 - 10.5 K/ul [facility] External Red Blood Cell (RBC) 3.1(L) 4.2 - 6.4 M/mm3 [facility] External Hemoglobin 9.7(L) 12.5 - 16.0 gm/dl [facility] External Hematocrit 29.2(L) 37.0 - 47.0 % [facility] External MCV 93.3 78 - 100 fl [facility] External MCH 31.0 27 - 31 pg [facility] External MCHC 33.2 32 - 36 g/dl [facility] External RDW 11.6 11.5 - 14.0 % [facility] External Platelets 211 150 - 450 K/ul [facility] External MPV 9.7(H) 6 - 9.5 fl [facility] External Manual Differential NO [facility] 04/15/2025 12:3 0 PM EDT 04/15/2025 12:34 PM EDT us Hermelinda De Jesus MD LAB BLOOD ORDERABLES Final Res ult [facility] * (ABNORMAL) CBC and Differential (04/15/2025 6:06 AM EDT) Only the most recent of2 resultswithin the time period is included. External WBC 4.7 4.0 - 10.5 K/ul [facility] External Red Blood Cell (RBC) 2.9(L) 4.2 - 6.4 M/mm3 [facility] External Hemoglobin 9.0(L) 12.5 - 16.0 gm/dl [facility] External Hematocrit 27.2(L) 37.0 - 47.0 % [facility] External MCV 93.2 78 - 100 fl [facility] External MCH 30.8 27 - 31 pg [facility] External MCHC 33.1 32 - 36 g/dl [facility] External RDW 11.6 11.5 - 14.0 % [facility] External Platelets 180 150 - 450 K/ul [facility] External MPV 9.3 6 - 9.5 fl [facility] External Neutrophils % 54.1 43 - 65 % [facility] External Lymphocyte % 32.9 20.5 - 45.5 % [facility] External Monocyte % 9.2 5.5 - 11.7 % [facility] External Eosinophil% 3.2(H) 0.9 - 2.9 % [facility] External Basophil % 0.4 0.2 - 1.0 % [facility] External Immature Granulocyte% 0.2 0.0 - 0.8 % [facility] External Nucleated RBC % 0.0 % [facility] External Neutrophil# 2.5 2.2 - 4.8 K/uL [facility] External Lymphocyte# 1.5 1.3 - 2.9 [facility] External Monocyte# 0.4 0.3 - 0.8 [facility] External Eosinophils# 0.2 0 - 0.2 [facility] External Baso# 0.0 0.0 - 1.0 [facility] External Immature Granulocyte Abs 0.01 K/ul [facility] External Nucleated RBC Absolute 0.00 K/uL [facility] External Manual Differential NO [facility] 04/15/2025 6:06 AM EDT 04/15/2025 6:09 AM EDT us Hermelinda De Jesus MD LAB BLOOD ORDERABLES Final Res ult [facility] * Type and Screen (04/14/2025 9:00 PM EDT) External History Check Completed [facility] External ABO/Rh A POSITIVE [facility] External Antibody Screen NEGATIVE [facility] External Status Information Completed [facility] 04/14/2025 9:00 PM EDT 04/14/2025 9:00 PM EDT us Hermelinda De Jesus MD LAB BLOOD BANK TEST ORDERABLES Final Result Performing Organization Address [facility]/ZIP Co de Phone Number [facility] * US Pelvis Transvaginal (04/06/2025 2:52 PM EDT) Anatomical Region Laterality Modality Pelvis Ultrasound 04/06/2025 3:17 PM EDT Impressions 04/06/2025 4:37 PM EDT The OB Ultrasound you requested has been resulted. Please navigate to the Imaging tab in Cover for review. This message has been generated by the interface. Narrative Procedure Note Radha Blue MD - 04/06/2025 IMPRESSION: The OB Ultrasound you requested has been resulted. Please navigate to theImaging tab in Cover for review. This message has been generated by theinterface. us Radha Blue MD IMG US PROCEDURES Final Result * Testosterone Total (03/16/2025 2:26 PM EDT) Testosterone Total 21.2 ng/dL 03/19/2025 5:04 PM EDT [facility] Comment: Female Reference Values, age greater than 18 years: premenopausal ................ 10.0-55.0 ng/dL postmenopausal ............... 7.0-40.0 ng/dL Blood Venous blood specimen / Unknown Venipuncture / Unknown 03/16/2025 2:26 PM EDT 03/16/2025 6:38 PM EDT Narrative [facility] - 03/19/2025 5:04 PM EDT Test performed by LC-MS/MS at the [facility]. This test was developed and its performance characteristics determined by [facility]. It has not been cleared or approved by the FDA. The laboratory is regulated under CLIA as qualified to perform high-complexity testing. This test is used for clinical purposes. Radha Blue MD LAB BLOOD ORDERABLES Fin al Result Performing Organization Address City/[facility]/ZIP Co de Phone Number [facility] [address] [place] [address] * 17-Hydroxyprogesterone (03/16/2025 2:26 PM EDT) 17 [place] PROGESTERONE 33 ng/dL 2024 8:09 PM EDT [facility] ([facility]) Comment: This test was developed and its performance characteristics determined by [facility]. It has not been cleared or approved by the Food and Drug Administration. Reference Range: Adult Female Follicular: 15 - 70 Luteal: 35 - 290 Blood Venous blood specimen / Unknown Venipuncture / Unknown 03/16/2025 2:26 PM EDT 03/16/2025 6:35 PM EDT Narrative [facility] ([facility]) - 03/21/2025 8:09 PM EDT Performed at: 01 - [employer] [address] [place] [id number] Underbaster: Andria DAILY, Phone: [phone] Radha Blue MD LAB BLOOD ORDERABLES Fin al Result Performing Organization Address City/[facility]/ZIP Co de Phone Number [facility] ([facility]) * Prolactin (03/16/2025 2:26 PM EDT) Prolactin, Serum 21.0 4.4 - 23.3 ng/mL 03/16/2025 11:26 PM EDT [facility] Blood Venous blood specimen / Unknown Venipuncture / Unknown 03/16/2025 2:26 PM EDT 03/16/2025 6:35 PM EDT Narrative [facility] - 03/16/2025 11:26 PM EDT Performed by [employer] electrochemiluminescent immunoassay which is traceable to the Prolactin 3rd IRP (WHO 84/500). Results obtained with different test methods or kits cannot be used interchangeably. Radha Blue MD LAB BLOOD ORDERABLES Fin al Result Performing Organization Address City/[facility]/[place] [address] * Estradiol (03/16/2025 2:26 PM EDT) Estradiol 27.6 pg/mL 03/16/2025 7:3 1 PM EDT [facility] Blood Venous blood specimen / Unknown Venipuncture / Unknown 03/16/2025 2:26 PM EDT 03/16/2025 6:35 PM EDT [facility] - 03/16/2025 7:31 PM EDT Females >17 Y (pg/mL): Follicular Phase 26 -233 Ovulatory Peak Phase 60 - 600 Luteal Phase 30 - 305 Post-Menopausal <138 Radha Blue MD LAB BLOOD ORDERABLES Fin al Result [facility] [address] [place] [address] * Hemoglobin A1c (03/16/2025 2:26 PM EDT) Hemoglobin A1c 4.9 <5.7 % 03/16/2025 8:41 PM EDT [facility] Blood Venous blood specimen / Unknown Venipuncture / Unknown 03/16/2025 2:26 PM EDT 03/16/2025 6:38 PM EDT Narrative [facility] - 03/16/2025 8:41 PM EDT HA1C Interpretive Data: Diagnosis of Diabetes: Diabetic > or = 6.5% Pre-diabetic 5.7 to 6.4% Non-diabetic < or = 5.6% Glycemic Targets for Type I and Type II Diabetics: Non- Adults <7.0% Adults <6.0% Children and Adolescents <7.5% Source: [place] [employer]. Standards of medical care in diabetes,2017. Diabetes Care.2017:40 (suppl 1):S1-S135. us Radha Blue MD LAB BLOOD ORDERABLES Fin al Result [facility] [address] [place] [address] * Follicle stimulating hormone (03/16/2025 2:26 PM EDT) FSH 6.9 mIU/mL 03/16/2025 11:26 PM EDT [facility] Blood Venous blood specimen / Unknown Venipuncture / Unknown 03/16/2025 2:26 PM EDT 03/16/2025 6:35 PM EDT Narrative [facility] - 03/16/2025 11:26 PM EDT [...] - 134.8 mIU/mL : low to undetectable Radha Blue MD LAB BLOOD ORDERABLES Fin al Result Performing Organization Address City/[facility]/ZIP Co de Phone Number [facility] [address] [place] [address] * Chlamydia trachomatis DNA by PCR (08/24/2024 3:03 PM EST) Chlamydia trachomatis DNA PCR Result Not Detected Not Detected 08/25/2024 2:46 PM EST [facility] Urine Urine specimen obtained by clean catch procedure / Unknown Non-blood Collection / Unknown 08/24/2024 3:03 PM EST 08/24/2024 6:01 PM EST Narrative [facility] - 08/25/2024 2:46 PM EST This test is performed by the [id number] instrument for Real Time PCR C. trachomatis and N. gonorrhea. This test is FDA approved for use with endocervical, vaginal, and urine specimens. This test is used for clinical purposes. It should not be regarded as invesigational or for research. The [facility] is certified under the Clinical Laboratory Improvement Amendments of 1988 (CLIA-88) as qualified to perform high complexity clinical laboratory testing. Result [facility] Pool Garduno MD LAB MICROBIOLOGY - GENERAL ORDE [facility] Final Result Performing Organization Address [facility] de Phone Number [facility] [address] [place] [address] * HIV 1 & 2 Antibody/Antigen Screen (08/24/2024 3:03 PM EST) Pathologist [facility] HIV 1 & 2 Antibody/Antigen Screen Non Reactive Non Reactive 08/24/2024 6:39 PM EST [facility] Comment:Screening for HIV 1 & 2 antibodies, and P24 antigen is NONREACTIVE. No confirmatory testing is required. Blood Venous blood specimen / Unknown Venipuncture / Unknown 08/24/2024 3:03 PM EST 08/24/2024 6:[address] [facility] Pool Garduno MD LAB BLOOD ORDERABLES Final Resu lt [facility] [address] [place] [address] * Hepatitis C Antibody w/Reflex to HCV Quant PCR (08/24/2024 3:03 PM EST) Hepatitis C Antibody Negative Negative 08/24/2024 7:19 PM EST [facility] Blood Venous blood specimen / Unknown Venipuncture / Unknown 08/24/2024 3:03 PM EST 08/24/2024 6:02 PM EST us Pool Garduno MD LAB BLOOD ORDERABLES Final Resu lt [facility] [address] [place] [address] from Last 3 Months or Most Recently Relevant to Health Maintenance Insurance Care Teams Buckle Assembler Relationship Specialty Start Date End Date Kimmy Green PA [address] [place] [address] PCP - General 12/15/20
--- OUTSIDE RECORDS SUMMARY | 2025-05-09 09:15 | XMS_ITS | Data Portability ---
Author Organization [facility] ADMIN Address [address] [place] [address] Care Team Providers Care Ballet Company Member Name Role Phone KIMMY GREEN Primary Care Provider [phone] Assessment No assessment recorded. Plan of Treatment Reminders Order Date Submit Date Provider Last Modified By Organization Details Last Modified Time Details Appointments None recorded. Lab None recorded. Referral None recorded. Procedures None recorded. Surgeries None recorded. Imaging None recorded. Medication Orders propranolol 10 mg tablet 2023 024 [facility], [address], [address], 4 12:03:20 Qulipta 60 mg tablet 2023 024 [facility], [address], [address], 4 12:03:19 Patient TargetsNo targets recorded. Patient InstructionsNo instructions recorded. Reason for Referral None Reported. Problems Name Problem SNOMED Code Status Onset Date Resolution Date Notes Provider Name and Address Organization Details Recorded Time Migraine 37262469 Active 2023 Latrice james, [facility] & [place] 4 11:21:37 Episodic migraine 90351377777963 6 Active [address], [place], [address] , [facility] & [place] 4 12:01:54 Chronic daily headache 27638756099602 2 Active [address], [place], [address] , [facility] & [place] 12:02:01 Problem Notes None recorded. Procedures Surgical History Date Name Laterality Status Provider Name and Address Organization Details Recorded Time esophagogastroduodenoscopy completed Michelle Emery [facility] & [place] 11:23:51 Imaging Results None recorded. Procedure Notes [...] Available No t Available Vitals Date Recorded Body height Body mass index (BMI) Body weight Provider Name and Address Organization Details Last Updated DateTime 01/28/2024 152.4 cm 20.7 kg/m2 82264.79 g Venecia Keating, [address], [place], [address], [facility] & [place] 01/28/2024 11:42:26 Date Recorded Heart rate Systolic And Diastolic Provider Name and Address Organization Details Last Updated DateTime 01/28/2024 79 /min 107/65 mm[Hg] Latrice Emery [facility] & [place] 01/28/2024 11:29:37 Social History Question Answer Notes LastModified by Organizat ion Details LastModified Time Tobacco Smoking Status Never Smoker Latrice Emery erika [facility] & [place] 01/28/2024 11:23:16 What Is Your Level Of Caffeine Consumption? Occasional Information not available 01/28/2024 What Is Your Relationship Status? Single Lives With Parents Information not available 01/28/2024 Are You Currently In School? No Some College Information not available 01/28/2024 Sex: Unknown Functional Status Question Answer Note LastModified by Organizat ion Details LastModified Time Do you use any illicit or recreational drugs? No Information not available 01/28/2024 What is your level of alcohol consumption? None Information not available 01/28/2024 Are you currently employed? Yes Information not available 01/28/2024 Mental Status None recorded. Family History Relationship Description Onset Age of this Age Resolved Age Notes LastModified by Organization Details LastModified Time Father No current problems or disability ldalla Not available 01/27 11:21:46 Mother No current problems or disability ldalla Not available 01/27 11:21:46 Mother Hypothyroidi sm ldalla Not available 2023 11:22:05 Paternal Grandmother Malignant neoplasm of breast ldalla Not available 2023 11:22:35 Maternal Grandmother Hypothyroidi sm ldalla Not available 2023 11:22:47 Medical History Condition Response ADD/ADHD Y Anxiety/Depression Y Spine Problems Y Reflux/GERD Y Gynecological HistoryNo gynecological history recorded. Obstetrics History GPAL:G 0 P 0 0 0 0 Past Encounters Encounter ID Performer Location Encounter Start Date Encounter Closed Date Diagnosis/Indication Diagnosis SNOMED-CT Code Diagnosis ICD10 Code Diagnosis IMO Codes Diagnosis Note [id number] DO REBECCA Kiser [facility] [address] [place] [address] 01/28/2024 11:15:14 01/28/2024 12:08:09 Episodic migraine 2080348007 09465 G43.C1 She is having 2 migraine episodes [...] from her PCP. Chronic da ayanna headache 7026917085 78945 R51.9 Daily headaches that have persisted despite [...] Recorded Advance Directives Directive None Recorded Payers Insurance Date Sequence Insurance Name Policy Number Policy Dewitt Covered Member ID Dewitt Member ID Guarantor Name 01/28/2024 1 *SELF PAY* Germain fabiana Alek 01/28/2024 1 [facility] [place] [facility] [facility] Ly Gaston [id number] Ly Gaston Notes Date Note Type Note [...] years. She was seeing a neurologist in [place] but can't recall the physician's name. She [...] sleep and exercise. Venecia Keating, DO [address], [place], [address], [facility] [place] - [place] & [place] 01/28/2024 12:17:24 OBGyn Episode No OBEpisode recorded.
--- OUTSIDE RECORDS SUMMARY | 2025-05-09 09:15 | XMS_ITS | Encounter Summary ---
Author Organization [facility] Address [address] [place] [address] Care Team Providers Care Solid Waste Facility Supervisor Name Role Phone Kimmy Green Primary Care Provider [phone] Encounter Details Date Type Department Care Team (Latest Contact Info) Description 04/06/2025 Travel Social History Tobacco Use Types Packs/Day [...] at all 04/06/2025 3:03 PM EDT Maria Euegnia Fuentes am documented as of this encounter Plan of Treatment Upcoming Encounters Date Type Department Care Team (Late st Contact Info) Description 05/11/2025 1:45 PM EDT Office Visit Obstetrics & Gynecology [address] [place] [address] Radha Blue MD [address] [place] [address] 07/13/2025 2:00 PM EST Office Visit Obstetrics & Gynecology [address] [place] [address] Radha Blue MD [address] [place] [address] 08/25/2025 2:00 PM EST Procedure Visit Obstetrics & Gynecology [address] [place] [address] Pool Garduno MD [address] [place] [address] documented as of this encounter [...] documented as of this encounter Care Teams Solid Waste Facility Supervisor Relationship Specialty Start Date End Date Kimmy Green PA [address] [place] [address] PCP - General 12/15/20 documented as of this encounter
--- OUTSIDE RECORDS SUMMARY | 2025-05-09 09:16 | XMS_ITS | Encounter Summary ---
Author Organization Healthcare Address [address] [place] [address] Care Team Providers Care Pattern Maker Programer Name Role Phone Kimmy Green Primary Care Provider [phone] Encounter Details Date Type Department Care Team [...] EDT Office Visit Obstetrics & Gynecology [address] [place] [address] Radha Blue MD [address] [place] [address] 07/13/2025 2:00 PM EST Office Visit Obstetrics & Gynecology [address] [place] [address] Radha Blue MD [address] [place] [address] 08/25/2025 2:00 PM EST Procedure Visit Obstetrics & Gynecology [address] [place] [address] Pool Garduno MD [address] [place] [address] documented as of this encounter [...] documented as of this encounter Care Teams Pattern Maker Programer Relationship Specialty Start Date End Date Kimmy Green PA [address] [place] [address] PCP - General 12/15/20 documented as of this encounter
--- OUTSIDE RECORDS SUMMARY | 2025-05-09 09:16 | XMS_ITS | Encounter Summary ---
Author Organization Healthcare Address [address] [place] [address] Care Team Providers Care Car Filler Name Role Phone Kimmy Green Primary Care Provider Encounter Details Date Type Department Care Team (Late st Contact Info) Description 03/22/2025 Results Follow-Up Obstetrics & Gynecology [address] [place] [address] Radha Blue MD [address] [place] [address] Social History Tobacco Use Types [...] EDT Office Visit Obstetrics & Gynecology [address] [place] [address] Radha Blue MD [address] [place] [address] 07/13/2025 2:00 PM EST Office Visit Obstetrics & Gynecology [address] [place] [address] aRdha Blue MD [address] [place] [address] 08/25/2025 2:00 PM EST Procedure Visit Obstetrics & Gynecology [address] [place] [address] Pool Garduno MD [address] [place] [address] documented as of this encounter [...] documented as of this encounter Care Teams Car Filler Relationship Specialty Start Date End Date Kimmy Green PA [address] [place] [address] PCP - General 12/15/20 documented as of this encounter
--- OUTSIDE RECORDS SUMMARY | 2025-05-09 09:16 | XMS_ITS | Referral Summary ---
Author Organization [employer] ([place], [place], [place], [place]) Address [address] [place] [address] Care Team Providers Care Aircraft Mechanic Name Role Phone Kimmy Green PA-C Primary Care Provider Encounters Date Type Department Care Team Description 04/11/2025 11:15 PM EDT - 04/12/2025 1:57 AM EDT Emergency [facility] Emergency Department [address] [place] [address] Nneka Angel MD Ovarian cyst (Primary Dx); Cyst of ovary, unspecified laterality Discharge Disposition: Home or Self Care 04/11/2025 Travel from Last 3 Months Allergies No known active allergies Medications No known medications Social History Tobacco Use Types Packs/Day Years [...] 04/11/2025 11:21 PM EDT Plan of Treatment Not on file Procedures Procedure Name Priority Date/Time Associated Diagnosis [...] is normal. Authenticated and Annalee Whiting PA-C IMG CT ORDERABLES Final Res ult * Screen, urine (04/12/2025 12:27 AM EDT) Preg Test, Ur Negative Negative, Inconclusive 04/12/2025 12:38 AM EDT [facility] Urine 04/12/2025 12:2 7 AM EDT 04/12/2025 12:27 AM EDT Nneka Angel MD URINE ORDERABLES Final Re sult [facility] [address] [place] [address] * Urinalysis w/Microscopic (04/12/2025 12:27 AM EDT) Color, UA Yellow 04/12/2025 12:36 AM EDT [facility] Clarity, UA Clear 04/12/2025 12:36 AM EDT [facility] Specific [place], UA >=1.030 1.002 - 1.030 04/12/2025 12:36 AM EDT [facility] pH, UA 6.0 5.0 - 9.0 04/12/2025 12:36 AM EDT [facility] Leukocytes, UA Negative Negative 04/12/2025 12:36 AM EDT [facility] Nitrite, UA Negative Negative 04/12/2025 12:36 AM EDT [facility] Protein, UA Negative Negative 04/12/2025 12:36 AM EDT [facility] Glucose, UA Negative Negative 04/12/2025 12:36 AM EDT [facility] Ketones, UA Negative Negative 04/12/2025 12:36 AM EDT [facility] Urobilinogen, UA 0.2 mg/dL Normal 04/12/2025 12:36 AM EDT [facility] Bilirubin, UA Negative Negative 04/12/2025 12:36 AM EDT [facility] Blood, UA Negative Negative 04/12/2025 12:36 AM EDT [facility] WBC, UA None Seen None Seen, Occasional , 0-5 /HPF 04/12/2025 12:36 AM EDT [facility] Specimen Source Urine, Clean Catch 04/12/2025 12:36 AM EDT [facility] Urine URINE SPECIMEN COLLECTION, CLEAN CATCH / Unknown 04/12/2025 12:27 AM EDT 04/12/2025 12:27 AM EDT us Nneka Angel MD URINE ORDERABLES Final Re sult [facility] [address] [place] [address], [facility] [phone] * (ABNORMAL) CBC with Auto Diff (04/12/2025 12:02 AM EDT) WBC 14.3(H) 4.8 - 10.8 K/ L 04/12/2025 12:15 AM EDT [facility] RBC 4.58 3.50 - 5.20 M/ L 04/12/2025 12:15 AM EDT [facility] Hemoglobin 14.0 11.7 - 15.8 GM/DL 04/12/2025 12:15 AM EDT [facility] Hematocrit 40.1 35.0 - 47.0 % 04/12/2025 12:15 AM EDT [facility] MCV 88 81 - 101 fL 04/12/2025 12:15 AM EDT [facility] MCH 30.6 27.0 - 34.0 pg 04/12/2025 12:15 AM EDT [facility] MCHC 34.9 32.0 - 36.0 GM/DL 04/12/2025 12:15 AM EDT [facility] RDW 11.4(L) 11.5 - 14.5 % 04/12/2025 12:15 AM EDT [facility] Platelets 268 150 - 400 K/CU MM 04/12/2025 12:15 AM EDT [facility] MPV 9.5 9.4 - 12.4 fL 04/12/2025 12:15 AM EDT [facility] Nucleated Red Blood Cell 0.0 0 - 0.2 % 04/12/2025 12:15 AM EDT [facility] % Neutros 80 37 - 80 % 04/12/2025 12:15 AM EDT [facility] % Lymphs 14 10 - 50 % 04/12/2025 12:15 AM EDT [facility] % Monos 6 5 - 13 % 04/12/2025 12:15 AM EDT [facility] % Eos 1 0 - 7 % 04/12/2025 12:15 AM EDT [facility] % Baso 0 0 - 3 % 04/12/2025 12:15 AM EDT [facility] NRBC Absolute <0.01 0 - 0.012 K/ul 04/12/2025 12:15 AM EDT [facility] # Neutros 11.39(H) 2.00 - 6.90 K/ L 04/12/2025 12:15 AM EDT [facility] # Lymphs 1.94 0.60 - 3.40 K/ L 04/12/2025 12:15 AM EDT [facility] # Monos 0.80 0.00 - 0.90 K/ L 04/12/2025 12:15 AM EDT [facility] # Eos 0.10 0.00 - 0.70 K/ L 04/12/2025 12:15 AM EDT [facility] # Baso 0.04 0.00 - 0.20 K/ L 04/12/2025 12:15 AM EDT [facility] Immature Granulocytes-Re lative 0.30 % 04/12/2025 12:15 AM EDT [facility] # IG 0.05(H) 0.00 - 0.00 K/uL 04/12/2025 12:15 AM EDT [facility] Blood Venipuncture / Unknown 04/12/2025 12:02 AM EDT 04/12/2025 12:10 AM EDT Narrative [facility] - 04/12/2025 12:15 AM EDT When [...] Whiting PA-C LAB BLOOD ORDERABLES Final Result [facility] [address] [phone] * Lipase (04/12/2025 12:02 AM EDT) Lipase 57 16 - 77 U/L 04/12/2025 12:37 AM EDT [facility] Blood Venipuncture / Unknown 04/12/2025 12:02 AM EDT 04/12/2025 12:10 AM EDT Annalee Whiting PA-C LAB BLOOD ORDERABLES Final Result [facility] [address] [phone] * (ABNORMAL) Comprehensive metabolic panel (04/12/2025 12:02 AM EDT) Sodium 138 136 - 145 meq/L 04/12/2025 12:36 AM EDT [facility] Potassium 3.6 3.5 - 5.1 meq/L 04/12/2025 12:36 AM EDT [facility] Chloride 104 98 - 107 meq/L 04/12/2025 12:36 AM EDT [facility] CO2 27 21 - 32 meq/L 04/12/2025 12:36 AM EDT [facility] Calcium 8.9 8.5 - 10.1 mg/dL 04/12/2025 12:36 AM EDT [facility] Glucose 138(H) 74 - 100 mg/dL 04/12/2025 12:36 AM EDT [facility] BUN 13 7 - 18 mg/dL 04/12/2025 12:36 AM EDT [facility] Creatinine 0.78 0.55 - 1.10 mg/dL 04/12/2025 12:36 AM EDT [facility] BUN/Creatinine 17 04/12/2025 12:36 AM EDT [facility] Albumin 4.1 3.4 - 5.0 g/dL 04/12/2025 12:36 AM EDT [facility] Alkaline Phosphatase 67 46 - 116 U/L 04/12/2025 12:36 AM EDT [facility] ALT 12 12 - 78 U/L 04/12/2025 12:36 AM EDT [facility] AST 13(L) 15 - 37 U/L 04/12/2025 12:36 AM EDT [facility] Total Bilirubin 0.3 0.2 - 1.0 mg/dL 04/12/2025 12:36 AM EDT [facility] Protein, Total 7.3 6.4 - 8.2 gm/dL 04/12/2025 12:36 AM EDT [facility] Anion Gap 11 11 - 22 04/12/2025 12:36 AM EDT [facility] A/G Ratio 1.3 04/12/2025 12:36 AM EDT [facility] Globulin 3.2 g/dL 04/12/2025 12:36 AM EDT [facility] Osmolality Calc 278.0 mOsm/kg 12:36 AM EDT [facility] eGFR (mL/min/1.73m2) >60 >=60 mL/min/1.7 3m2 04/12/2025 12:36 AM EDT [facility] Comment:ESTIMATED GFR IS NOT ACCURATE CREATININE CLEARANCE IN PREDICTING GLOMERULAR FILTRATION RATE. ESTIMATED GFR IS NOT APPLICABLE FOR DIALYSIS PATIENTS. Blood Venipuncture / Unknown 04/12/2025 12:02 AM EDT 04/12/2025 12:10 AM EDT us Annalee Whiting PA-C LAB BLOOD ORDERABLES Final Result [facility] [address] [place], [place] [address] [[email or web address]] [phone] from Last 3 Months Insurance [facility] Care Teams Aircraft Mechanic Relationship Specialty Start Date End Date Kimmy Green PA-C [address] [place] [address] PCP - General Physician Physical Chemistry Teacher 04/12/25
--- OUTSIDE RECORDS SUMMARY | 2025-05-09 09:16 | XMS_ITS | Encounter Summary ---
Author Organization [employer] ([place], [place], [place], [place]) Address [address] [place] [address] Care Team Providers Care Bath Mixer Name Role Phone [facility] Irine[facility], [facility] Primary Care Provider Encounter Details Date Type Department Care Team (Latest Contact Info) Description 04/11/2025 Travel Social History Tobacco Use Types Packs/Day Years Used Date Smoking Tobacco: Never Assessed Comments Unknown Sex and Gender Information Value Date Recorded Sex Assigned at Not on file Legal Sex Female 10:10 PM CDT Gender Identity Not on file Sexual Orientation Not on file documented as of this encounter Plan of Treatment Not on file documented as of this encounter Visit Diagnoses Not on filedocumented in this encounter Care Teams Bath Mixer Relationship Specialty Start Date End Date [facility] [place] [address] PCP - General 04/11/25 04/11/25 documented as of this encounter
--- OUTSIDE RECORDS SUMMARY | 2025-05-09 09:16 | XMS_ITS | Encounter Summary ---
Author Organization Healthcare Address [address] [place] [address] Care Team Providers Care Art Appraiser Name Role Phone Kimmy Green Primary Care Provider [phone] Encounter Details Date Type Department Care Team [...] EDT Office Visit Obstetrics & Gynecology [address] [place] [address] Radha Blue MD [address] [place] [address] 07/13/2025 2:00 PM EST Office Visit Obstetrics & Gynecology [address] [place] [address] Radha Blue MD [address] [place] [address] 08/25/2025 2:00 PM EST Procedure Visit Obstetrics & Gynecology [address] [place] [address] Pool Garduno MD [address] [place] [address] documented as of this encounter [...] documented as of this encounter Care Teams Art Appraiser Relationship Specialty Start Date End Date Kimmy Green PA [address] [place] [address] PCP - General 12/15/20 documented as of this encounter
== END 2025-05-06 23:59 ==
LOC: LAB.DROPOF 05-09 09:07
PROVIDERS: PCP Student in an Organized Health Care Education/Training Program; Visit Provider Student in an Organized Health Care Education/Training Program
DX: R52 Pain, unspecified (principal)
CPT/HCPCS: 87636

== ENCOUNTER 2025-07-05 08:08 | Outpatient (CLI) | payer MEDICAID, SELFPAY ==
--- OUTSIDE RECORDS SUMMARY | 2025-07-05 08:14 | XMS_ITS | Encounter Summary ---
Author Organization Healthcare Address [address] [place] [address] Care Team Providers Care Cement Sprayer Helper Name Role Phone Kimmy Green Primary Care Provider [phone] Encounter Details Date Type Department Care Team (Late st Contact Info) Description 04/11/2025 Telephone Obstetrics & Gynecology [address] [place] [address] Radha Blue MD [address] [place] [address] Social History Tobacco Use Types [...] down, depressed, or hopeless Not at all 04/04 2:45 PM EDT Bob Tavarez Patient Health Questionnaire-2 Score 0 04/04 2:45 PM EDT Bob Tavarez * Question Answer Date of Assessment Author Trouble falling or staying a sleep, or sleeping too much Not at all 04/20/2025 2:45 PM EDT Bob Tavarez Feeling tired or having little energy Not at all 2:45 PM EDT Bob Tavarez Poor appetite [...] Not at all 04/20/2025 2:45 PM EDT Corby, Bob Moving or speaking so slowly that other [...] 2:45 PM EDT Bob Tavarez Patient Health Questionnaire-9 Score 0 04/04 2:45 PM EDT Bob Tavarez * How [...] AM EDT Clinical Concern/Question Reason for Call: [facility] is calling to clarify script Best contact number: Other: [phone] Optimal time of day to reach caller: ANYTIME Additional comments/information from caller: Not Applicable Note: Please do not reply to this message. Follow-up communication and further actions as a result of this message need to be communicated with the patient directly, if the patient is not active onMyChart. If the patient is active on MyChart, they will receive notification of the communication/outcome via MyChart. documented in this encounter Plan of Treatment Upcoming Encounters Date Type Department Care Team (Late st Contact Info) Description 07/13/2025 2:00 PM EST Office Visit Obstetrics & Gynecology [address] [place] [address] Radha Blue MD [address] [place] [address] 08/25/2025 2:00 PM EST Procedure Visit Obstetrics & Gynecology [address] [place] [address] Pool Garduno MD [address] [place] [address] documented as of this encounter [...] documented as of this encounter Care Teams Cement Sprayer Helper Relationship Specialty Start Date End Date Kimmy Green PA [address] [place] [address] PCP - General 12/15/20 documented as of this encounter
--- OUTSIDE RECORDS SUMMARY | 2025-07-05 08:14 | XMS_ITS | Encounter Summary ---
Author Organization Healthcare Address [address] [place] [address] Care Team Providers Care Doctor Of Osteopathy Name Role Phone Kimmy Green Primary Care Provider [phone] Reason for Visit * Reason Onset Date Comments HCN - Patient Message 04/14/2025 Encounter Details Date Type Department Care Team (Late st Contact Info) Description 04/14/2025 Telephone Obstetrics & Gynecology [address] [place] [address] Radha Blue MD [address] [place] [address] HCN - Patient Message Social [...] at all 04/20/2025 2: 45 PM EDT Corby, Bob Feeling bad about yourself - or that [...] * Telephone Encounter - Bob Tavarez - 04/14/2025 9:46 AM EDT Called patient [...] to the ED Best contact number: Other: [phone] Optimal time of day to reach caller: [...] will receive notification of the communication/outcome via [facility] documented in this encounter Plan of Treatment Upcoming Encounters Date Type Department Care Team (Late st Contact Info) Description 07/13/2025 2:00 PM EST Office Visit Obstetrics & Gynecology [address] [place] [address] Radha Blue MD [address] [place] [address] 08/25/2025 2:00 PM EST Procedure Visit Obstetrics & Gynecology [address] [place] [address] Pool Garduno MD [address] [place] [address] documented as of this encounter [...] documented as of this encounter Care Teams Doctor Of Osteopathy Relationship Specialty Start Date End Date Kimmy Green PA [address] [place] [address] PCP - General 12/15/20 documented as of this encounter
--- OUTSIDE RECORDS SUMMARY | 2025-07-05 08:15 | XMS_ITS | Referral Summary ---
Author Organization [employer] ([place], [place], [place], [place], [place]) Address [address] [place] [address] Care Team Providers Care Warm In Worker Name Role Phone Kimmy Green PA-C Primary Care Provider [phone] Encounters Date Type Department Care Team Description 04/11/2025 11:15 PM EDT - 04/12/2025 1:57 AM EDT Emergency [facility] Emergency Department [address] [place] [address] Nneka Angel MD Ovarian cyst (Primary [...] Negative Negative, Inconclusive 04/12/2025 12:38 AM EDT [facility] Urine 04/12/2025 12:2 7 AM EDT 04/12/2025 12:27 AM EDT Nneka Angel MD URINE ORDERABLES Final Re sult [facility] [address] [place] [address], [facility] [phone] * Urinalysis w/Microscopic (04/12/2025 12:27 AM EDT) Color, UA Yellow 04/12/2025 12:36 AM EDT [facility] Clarity, UA Clear 04/12/2025 12:36 AM EDT [facility] Specific [place], UA >=1.030 1.002 - 1.030 04/12/2025 12:36 AM EDT [facility] pH, UA 6.0 5.0 - 9.0 04/12/2025 12:36 AM EDT [facility] Leukocytes, UA Negative Negative 04/12/2025 12:36 AM EDT [facility] Nitrite, UA Negative Negative 04/12/2025 12:36 AM EDT [facility] Protein, UA Negative Negative 04/12/2025 12:36 AM EDT [facility] Glucose, UA Negative Negative 04/12/2025 12:36 AM EDT [facility] Ketones, UA Negative Negative 04/12/2025 12:36 AM EDT [facility] Urobilinogen, UA 0.2 mg/dL Normal 04/12/2025 12:36 AM EDT [facility] Bilirubin, UA Negative Negative 04/12/2025 12:36 AM EDT [facility] Blood, UA Negative Negative 04/12/2025 12:36 AM EDT [facility] WBC, UA None Seen None Seen, Occasional , 0-5 /HPF 04/12/2025 12:36 AM EDT [facility] Specimen Source Urine, Clean Catch 04/12/2025 12:36 AM EDT [facility] Urine URINE SPECIMEN COLLECTION, CLEAN CATCH / Unknown 04/12/2025 12:27 AM EDT 04/12/2025 12:27 AM EDT us Nneka Angel MD URINE ORDERABLES Final Re sult [facility] [address] [place] [address], [facility] [phone] * (ABNORMAL) CBC with Auto Diff (04/12/2025 12:02 AM EDT) WBC 14.3(H) 4.8 - 10.8 K/ L 04/12/2025 12:15 AM EDT [facility] RBC 4.58 3.50 - 5.20 M/ L 04/12/2025 12:15 AM EDT [facility] Hemoglobin 14.0 11.7 - 15.8 GM/DL 04/12/2025 12:15 AM EDT [facility] Hematocrit 40.1 35.0 - 47.0 % 04/12/2025 12:15 AM EDT [facility] MCV 88 81 - 101 fL 04/12/2025 12:15 AM EDT [facility] MCH 30.6 27.0 - 34.0 pg 04/12/2025 12:15 AM EDT [facility] MCHC 34.9 32.0 - 36.0 GM/DL 04/12/2025 12:15 AM EDT [facility] RDW 11.4(L) 11.5 - 14.5 % 04/12/2025 12:15 AM EDT [facility] Platelets 268 150 - 400 K/CU MM 04/12/2025 12:15 AM EDT [facility] MPV 9.5 9.4 - 12.4 fL 04/12/2025 12:15 AM EDT [facility] Nucleated Red Blood Cell 0.0 0 - 0.2 % 04/12/2025 12:15 AM EDT [facility] % Neutros 80 37 - 80 % 04/12/2025 12:15 AM EDT [facility] % Lymphs 14 10 - 50 % 04/12/2025 12:15 AM EDT [facility] % Monos 6 5 - 13 % 04/12/2025 12:15 AM EDT [facility] % Eos 1 0 - 7 % 04/12/2025 12:15 AM EDT [facility] % Baso 0 0 - 3 % 04/12/2025 12:15 AM EDT [facility] NRBC Absolute <0.01 0 - 0.012 K/ul 04/12/2025 12:15 AM EDT [facility] # Neutros 11.39(H) 2.00 - 6.90 K/ L 04/12/2025 12:15 AM EDT [facility] # Lymphs 1.94 0.60 - 3.40 K/ L 04/12/2025 12:15 AM EDT [facility] # Monos 0.80 0.00 - 0.90 K/ L 04/12/2025 12:15 AM EDT [facility] # Eos 0.10 0.00 - 0.70 K/ L 04/12/2025 12:15 AM EDT [facility] # Baso 0.04 0.00 - 0.20 K/ L 04/12/2025 12:15 AM EDT [facility] % Imm Grans 0.30 % 04/12/2025 12:15 AM EDT [facility] # IG 0.05(H) 0.00 - 0.00 K/uL 04/12/2025 12:15 AM EDT [facility] Blood Venipuncture / Unknown 04/12/2025 12:02 AM EDT 04/12/2025 12:10 AM EDT Narrative [facility] - 04/12/2025 12:15 AM [...] Whiting PA-C LAB BLOOD ORDERABLES Final Result [facility] [address] [phone] * Lipase (04/12/2025 12:02 AM EDT) Lipase 57 16 - 77 U/L 04/12/2025 12:37 AM EDT [facility] Blood Venipuncture / Unknown 04/12/2025 12:02 AM EDT 04/12/2025 12:10 AM EDT Annalee Whiting PA-C LAB BLOOD ORDERABLES Final Result [facility] [address] [phone] * (ABNORMAL) Comprehensive metabolic panel (04/12/2025 12:02 AM EDT) Sodium 138 136 - 145 meq/L 04/12/2025 12:36 AM EDT [facility] Potassium 3.6 3.5 - 5.1 meq/L 04/12/2025 12:36 AM EDT [facility] Chloride 104 98 - 107 meq/L 04/12/2025 12:36 AM EDT [facility] CO2 27 21 - 32 meq/L 04/12/2025 12:36 AM EDT [facility] Calcium 8.9 8.5 - 10.1 mg/dL 04/12/2025 12:36 AM EDT [facility] Glucose 138(H) 74 - 100 mg/dL 04/12/2025 12:36 AM EDT [facility] BUN 13 7 - 18 mg/dL 04/12/2025 12:36 AM EDT [facility] Creatinine 0.78 0.55 - 1.10 mg/dL 04/12/2025 12:36 AM EDT [facility] BUN/Creatinine 17 04/12/2025 12:36 AM EDT [facility] Albumin 4.1 3.4 - 5.0 g/dL 04/12/2025 12:36 AM EDT [facility] Alkaline Phosphatase 67 46 - 116 U/L 04/12/2025 12:36 AM EDT [facility] ALT 12 12 - 78 U/L 04/12/2025 12:36 AM EDT [facility] AST 13(L) 15 - 37 U/L 04/12/2025 12:36 AM EDT [facility] Total Bilirubin 0.3 0.2 - 1.0 mg/dL 04/12/2025 12:36 AM EDT [facility] Protein, Total 7.3 6.4 - 8.2 gm/dL 04/12/2025 12:36 AM EDT [facility] Anion Gap 11 11 - 22 04/12/2025 12:36 AM EDT [facility] A/G Ratio 1.3 04/12/2025 12:36 AM EDT [facility] Globulin 3.2 g/dL 04/12/2025 12:36 AM EDT [facility] Osmolality Calc 278.0 mOsm/kg 12:36 AM EDT [facility] eGFR (mL/min/1.73m2) >60 >=60 mL/min/1.7 3m2 04/12/2025 12:36 AM EDT [facility] Comment:ESTIMATED GFR IS NOT ACCURATE CREATININE CLEARANCE IN PREDICTING GLOMERULAR FILTRATION RATE. ESTIMATED GFR IS NOT APPLICABLE FOR DIALYSIS PATIENTS. Blood Venipuncture / Unknown 04/12/2025 12:02 AM EDT 04/12/2025 12:10 AM EDT us Annalee Whiting PA-C LAB BLOOD ORDERABLES Final Result [facility] [address] [place], [place] [id number] [phone] from Last 3 Months Insurance [facility] Care Teams Warm In Worker Relationship Specialty Start Date End Date Kimmy Green PA-C [address] [place] [address] PCP - General Physician Bilingual Speech Language Pathologist 04/12/25
--- OUTSIDE RECORDS SUMMARY | 2025-07-05 08:15 | XMS_ITS | Clinical Summary ---
Author Organization [employer] ([place], [place], [place], [place], [place]) Address [address] [place] [address] Care Team Providers Care Twisting Frame Operator Name Role Phone Kimmy Green PA-C Primary Care Provider [phone] Allergies No known active allergies Medications No known medications Encounters Date Type Department Care Team Description 04/11/2025 11:15 PM EDT - 04/12/2025 1:57 AM EDT Emergency [facility] Emergency Department [address] [place] [phone] Nneka Angel MD Ovarian cyst (Primary [...] history exists Pap Smear 01/14/2024 COVID-19 VACCINE ( season) 2025 09/21/2021, 08/24/2021 Influenza Vaccine (#1) [...] Negative Negative, Inconclusive 04/12/2025 12:38 AM EDT [facility] Urine 04/12/2025 12:2 7 AM EDT 04/12/2025 12:27 AM EDT us Nneka Angel MD URINE ORDERABLES Final Re sult [facility] [address] [place] [address] * Urinalysis w/Microscopic (04/12/2025 12:27 AM EDT) Color, UA Yellow 04/12/2025 12:36 AM EDT [facility] Clarity, UA Clear 04/12/2025 12:36 AM EDT [facility] Specific [place], UA >=1.030 1.002 - 1.030 04/12/2025 12:36 AM EDT [facility] pH, UA 6.0 5.0 - 9.0 04/12/2025 12:36 AM EDT [facility] Leukocytes, UA Negative Negative 04/12/2025 12:36 AM EDT [facility] Nitrite, UA Negative Negative 04/12/2025 12:36 AM EDT [facility] Protein, UA Negative Negative 04/12/2025 12:36 AM EDT [facility] Glucose, UA Negative Negative 04/12/2025 12:36 AM EDT [facility] Ketones, UA Negative Negative 04/12/2025 12:36 AM EDT [facility] Urobilinogen, UA 0.2 mg/dL Normal 04/12/2025 12:36 AM EDT [facility] Bilirubin, UA Negative Negative 04/12/2025 12:36 AM EDT [facility] Blood, UA Negative Negative 04/12/2025 12:36 AM EDT [facility] WBC, UA None Seen None Seen, Occasional , 0-5 /HPF 04/12/2025 12:36 AM EDT [facility] Specimen Source Urine, Clean Catch 04/12/2025 12:36 AM EDT [facility] Urine URINE SPECIMEN COLLECTION, CLEAN CATCH / Unknown 04/12/2025 12:27 AM EDT 04/12/2025 12:27 AM EDT us Nneka Angel MD URINE ORDERABLES Final Re sult [facility] [address] [place] [address] * (ABNORMAL) CBC with Auto Diff (04/12/2025 12:02 AM EDT) WBC 14.3(H) 4.8 - 10.8 K/ L 04/12/2025 12:15 AM EDT [facility] RBC 4.58 3.50 - 5.20 M/ L 04/12/2025 12:15 AM EDT [facility] Hemoglobin 14.0 11.7 - 15.8 GM/DL 04/12/2025 12:15 AM EDT [facility] Hematocrit 40.1 35.0 - 47.0 % 04/12/2025 12:15 AM EDT [facility] MCV 88 81 - 101 fL 04/12/2025 12:15 AM EDT [facility] MCH 30.6 27.0 - 34.0 pg 04/12/2025 12:15 AM EDT [facility] MCHC 34.9 32.0 - 36.0 GM/DL 04/12/2025 12:15 AM EDT [facility] RDW 11.4(L) 11.5 - 14.5 % 04/12/2025 12:15 AM EDT [facility] Platelets 268 150 - 400 K/CU MM 04/12/2025 12:15 AM EDT [facility] MPV 9.5 9.4 - 12.4 fL 04/12/2025 12:15 AM EDT [facility] Nucleated Red Blood Cell 0.0 0 - 0.2 % 04/12/2025 12:15 AM EDT [facility] % Neutros 80 37 - 80 % 04/12/2025 12:15 AM EDT [facility] % Lymphs 14 10 - 50 % 04/12/2025 12:15 AM EDT [facility] % Monos 6 5 - 13 % 04/12/2025 12:15 AM EDT [facility] % Eos 1 0 - 7 % 04/12/2025 12:15 AM EDT [facility] % Baso 0 0 - 3 % 04/12/2025 12:15 AM EDT [facility] NRBC Absolute <0.01 0 - 0.012 K/ul 04/12/2025 12:15 AM EDT [facility] # Neutros 11.39(H) 2.00 - 6.90 K/ L 04/12/2025 12:15 AM EDT [facility] # Lymphs 1.94 0.60 - 3.40 K/ L 04/12/2025 12:15 AM EDT [facility] # Monos 0.80 0.00 - 0.90 K/ L 04/12/2025 12:15 AM EDT [facility] # Eos 0.10 0.00 - 0.70 K/ L 04/12/2025 12:15 AM EDT [facility] # Baso 0.04 0.00 - 0.20 K/ L 04/12/2025 12:15 AM EDT [facility] % Imm Grans 0.30 % 04/12/2025 12:15 AM EDT [facility] # IG 0.05(H) 0.00 - 0.00 K/uL 04/12/2025 12:15 AM EDT [facility] Blood Venipuncture / Unknown 04/12/2025 12:02 AM EDT 04/12/2025 12:10 AM EDT Narrative [facility] - 04/12/2025 12:15 AM EDT [...] Blast? Flag noted Atypical Lymph flag noted Yoopiesiff PA-C LAB BLOOD ORDERABLES Final Result [facility] [address] [place] [address] * Lipase (04/12/2025 12:02 AM EDT) Lipase 57 16 - 77 U/L 04/12/2025 12:37 AM EDT [facility] Blood Venipuncture / Unknown 04/12/2025 12:02 AM EDT 04/12/2025 12:10 AM EDT Adkucliff PA-C LAB BLOOD ORDERABLES Final Result [facility] [address] [place] [address] * (ABNORMAL) Comprehensive metabolic panel (04/12/2025 12:02 AM EDT) Sodium 138 136 - 145 meq/L 04/12/2025 12:36 AM EDT [facility] Potassium 3.6 3.5 - 5.1 meq/L 04/12/2025 12:36 AM EDT [facility] Chloride 104 98 - 107 meq/L 04/12/2025 [facility] CO2 27 21 - 32 meq/L 04/12/2025 12:36 AM [facility] Calcium 8.9 8.5 - 10.1 mg/dL 04/12/2025 12:36 AM [facility] Glucose 138(H) 74 - 100 mg/dL 04/12/2025 12:36 AM [facility] BUN 13 7 - 18 mg/dL 04/12/2025 12:36 AM [facility] Creatinine 0.78 0.55 - 1.10 mg/dL 04/12/2025 12:36 AM [facility] BUN/Creatinine 17 04/12/2025 12:36 AM [facility] Albumin 4.1 3.4 - 5.0 g/dL 04/12/2025 12:36 AM [facility] Alkaline Phosphatase 67 46 - 116 U/L 04/12/2025 12:36 AM [facility] ALT 12 12 - 78 U/L 04/12/2025 12:36 AM [facility] AST 13(L) 15 - 37 U/L 04/12/2025 12:36 AM [facility] Total Bilirubin 0.3 0.2 - 1.0 mg/dL 04/12/2025 12:36 AM [facility] Protein, Total 7.3 6.4 - 8.2 gm/dL 04/12/2025 12:36 AM [facility] Anion Gap 11 11 - 22 04/12/2025 12:36 AM [facility] A/G Ratio 1.3 04/12/2025 12:36 AM [facility] Globulin 3.2 g/dL 04/12/2025 12:36 AM [facility] Osmolality Calc 278.0 mOsm/kg 12:36 AM [facility] eGFR (mL/min/1.73m2) >60 >=60 mL/min/1.7 3m2 04/12/2025 12:36 AM EDT [facility] Comment:ESTIMATED GFR IS NOT ACCURATE CREATININE CLEARANCE IN PREDICTING GLOMERULAR FILTRATION RATE. ESTIMATED GFR IS NOT APPLICABLE FOR DIALYSIS PATIENTS. Blood Venipuncture / Unknown 04/12/2025 12:02 AM EDT 04/12/2025 12:10 AM EDT Annalee Whiting PA-C LAB BLOOD ORDERABLES Final Result [facility] [address] [place] [address], [facility] [phone] from Last 3 Months Insurance [facility] Care Teams Twisting Frame Operator Relationship Specialty Start Date End Date Kimmy Green PA-C [address] [place] [address] PCP - General Physician Sign Board Erector 04/12/25
--- OUTSIDE RECORDS SUMMARY | 2025-07-05 08:15 | XMS_ITS | Encounter Summary ---
Author Organization Healthcare Address [address] [place] [address] Care Team Providers Care Tub Wash Operator Name Role Phone Kimmy Green Primary Care Provider [phone] Encounter Details Date Type Department Care Team (Late st Contact Info) Description 03/22/2025 Results Follow-Up Obstetrics & Gynecology [address] [place] [address] Radha Blue MD [address] [place] [address] Social History Tobacco Use Types [...] 3:03 PM EDT Maria Eugenia Fuentes am * How difficult have these problems made [...] Office Visit Obstetrics & Gynecology [address] [place] [address] Radha Blue MD [address] [place] [address] 08/25/2025 2:00 PM EST Procedure Visit Obstetrics & Gynecology [address] [place] [address] Pool Garduno MD [address] [place] [address] documented as of this encounter [...] documented as of this encounter Care Teams Tub Wash Operator Relationship Specialty Start Date End Date Kimmy Green PA [address] [place] [address] PCP - General 12/15/20 documented as of this encounter
--- OUTSIDE RECORDS SUMMARY | 2025-07-05 08:15 | XMS_ITS | Clinical Summary ---
Author Organization [facility] Address [address] [place] [address] Care Team Providers Care Channel Business Manager Name Role Phone Kimmy Green Primary Care Provider [phone] Allergies No known active allergies Medications Nurtec [...] 20 days. Family planning education, guidance, and grief counsellor ing 03/16/2025 Assessment & Plan (04/06/2025 4:02 [...] PM EDT Office Visit Obstetrics & Gynecology [facility] [place] [address] Radha Blue MD Hemorrhagic cyst of ovary (Primary Dx) 04/20/2025 Travel 04/18/2025 Travel 04/14/2025 Orders Only External Location [address] [place] [address] Hermelinda De Jesus MD 04/14/2025 Telephone Obstetrics & Gynecology [address] [place] [phone] Radha Blue MD H[facility] - Patient Message 04/11/2025 Telephone Obstetrics & Gynecology [address] [place] [phone] Radha Blue MD 04/06/2025 3:00 PM EDT Office Visit Obstetrics & Gynecology [address] [place] [address] Radha Blue MD Menorrhagia with irregular cycle (Primary Dx); Cyst of right ovary; Family planning education, guidance, and counseling 04/06/2025 2:55 PM EDT Ancillary Procedure Obstetrics & Gynecology [address] [place] [address] Menorrhagia with irregular cycle 04/06/2025 Travel from Last 3 Months Family History Medical History Relation Name Comments ADD / ADHD Father Other cancer Maternal Grandmother Autoimmune disease Mother Yareli lewis Depression Mother Yareli lewis Thyroid disease Mother Yareli lewis Breast cancer Paternal Grandmother Anxiety disorder Sister 1 Depression Sister 2 Summer quinton Miscarriages / Stillbirths Sister 2 Summer oracioli n Depression Sister 3 Saray alcantara Relation [...] Visit Obstetrics & Gynecology [address] [place] [address] Radha Blue MD [address] [place] [address] 08/25/2025 2:00 PM EST Procedure Visit Obstetrics & Gynecology [address] [place] [address] Pool Garduno MD [address] [place] [address] Health Maintenance Due Date Last Done Comments [facility]-Infant/Child/Adol SDOH Screenings 2003 HPV Vaccines (3 - 3-dose series) 07/15/2019 02/15/2019, 2019 [facility]- SDOH Screenings 2021 [facility]-Adult SDOH Screenings 2021 [facility]-DTaP,Tdap,and Td Vaccines (7 - Td or Tdap) 10/26/2023 10/25/2013, 01/14/2007, 04/20/2004, Additional history exists [facility]-Pap Smear 01/14/2024 [id number] Vaccine (3 - season) 2025 09/21/2021, 08/24/2021 [facility]-Influenza Vaccine (#1) [...] 2:52 PM EDT Menorrhagia with irregular cycle HEPATITIS C ANTIBODY W/REFLEX TO HCV QUANT [...] 12:30 PM EDT) Only the most recent of2 resultswithin the time period is included. External WBC 5.5 4.0 - 10.5 K/ul [facility] External Red Blood Cell (RBC) 3.1(L) 4.2 - 6.4 M/mm3 [facility] External Hemoglobin 9.7(L) 12.5 - 16.0 gm/dl [facility] External Hematocrit 29.2(L) 37.0 - 47.0 % [facility] External MCV 93.3 78 - 100 fl [facility] External MCH 31.0 27 - 31 pg [facility] External MCHC 33.2 32 - 36 g/dl [facility] External RDW 11.6 11.5 - 14.0 % [facility] External Platelets 211 150 - 450 K/ul [facility] External MPV 9.7(H) 6 - 9.5 fl [facility] External Manual Differential NO [facility] 04/15/2025 12:3 0 PM EDT 04/15/2025 12:34 PM EDT us Hermelinda De Jesus MD LAB BLOOD ORDERABLES Final Res ult [facility] * (ABNORMAL) CBC and Differential (04/15/2025 6:06 AM EDT) Only the most recent of2 resultswithin the time period is included. External WBC 4.7 4.0 - 10.5 K/ul [facility] External Red Blood Cell (RBC) 2.9(L) 4.2 - 6.4 M/mm3 [facility] External Hemoglobin 9.0(L) 12.5 - 16.0 gm/dl [facility] External Hematocrit 27.2(L) 37.0 - 47.0 % [facility] External MCV 93.2 78 - 100 fl [facility] External MCH 30.8 27 - 31 pg [facility] External MCHC 33.1 32 - 36 g/dl [facility] External RDW 11.6 11.5 - 14.0 % [facility] External Platelets 180 150 - 450 K/ul [facility] External MPV 9.3 6 - 9.5 fl [facility] External Neutrophils % 54.1 43 - 65 % [facility] External Lymphocyte % 32.9 20.5 - 45.5 % [facility] External Monocyte % 9.2 5.5 - 11.7 % [facility] External Eosinophil% 3.2(H) 0.9 - 2.9 % [facility] External Basophil % 0.4 0.2 - 1.0 % [facility] External Immature Granulocyte% 0.2 0.0 - 0.8 % [facility] External Nucleated RBC % 0.0 % [facility] External Neutrophil# 2.5 2.2 - 4.8 K/uL [facility] External Lymphocyte# 1.5 1.3 - 2.9 [facility] External Monocyte# 0.4 0.3 - 0.8 [facility] External Eosinophils# 0.2 0 - 0.2 [facility] External Baso# 0.0 0.0 - 1.0 [facility] External Immature Granulocyte Abs 0.01 K/ul [facility] External Nucleated RBC Absolute 0.00 K/uL [facility] External Manual Differential NO [facility] 04/15/2025 6:06 AM EDT 04/15/2025 6:09 AM EDT us Hermelinda De Jesus MD LAB BLOOD ORDERABLES Final Res ult [facility] * Type and Screen (04/14/2025 9:00 PM EDT) External History Check Completed [facility] External ABO/Rh A POSITIVE [facility] External Antibody Screen NEGATIVE [facility] External Status Information Completed [facility] 04/14/2025 9:00 PM EDT 04/14/2025 9:00 PM EDT us Hermelinda De Jesus MD LAB BLOOD BANK TEST ORDERABLES Final Result Performing Organization Address [facility]/ZIP Co de Phone Number [facility] * US Pelvis Transvaginal (04/06/2025 2:52 PM EDT) Anatomical Region Laterality Modality Pelvis Ultrasound 04/06/2025 3:17 PM EDT Impressions 04/06/2025 4:37 PM EDT The OB Ultrasound you requested has been resulted. Please navigate to the Imaging tab in [employer] for review. This message has been generated by the interface. Narrative Procedure Note Radha Blue MD - 04/06/2025 IMPRESSION: The OB Ultrasound you requested has been resulted. Please navigate to theImaging tab in If[employer] for review. This message has been generated by [employer]. us Radha Blue MD IM US PROCEDURES Final Result * Chlamydia trachomatis DNA by PCR (08/24/2024 3:03 PM EST) Chlamydia trachomatis DNA PCR Result Not Detected Not Detected 08/25/2024 2:46 PM EST [facility] Urine Urine specimen obtained by clean catch procedure / Unknown Non-blood Collection / Unknown 08/24/2024 3:03 PM EST 08/24/2024 6:01 PM EST Narrative [facility] - 08/25/2024 2:46 PM EST This test is performed by the [employer] m2000 instrument for Real Time PCR C. trachomatis and N. gonorrhea. This test is FDA approved for use with endocervical, vaginal, and urine specimens. This test is used for clinical purposes. It should not be regarded as invesigational or for research. [facility] Microbiology [facility] is certified under the Clinical Laboratory Improvement Amendments of 1988 (CLIA-88) as qualified to perform high complexity clinical laboratory testing. Result Nakita Garduno MD LAB MICROBIOLOGY - [facility] Final Result Performing Organization Address City/[facility]/[place] [address] * HIV 1 & 2 Antibody/Antigen Screen (08/24/2024 3:03 PM EST) HIV 1 & 2 Antibody/Antigen Screen Non Reactive Non Reactive 08/24/2024 6:39 PM EST [facility] Comment:Screening for HIV 1 & 2 antibodies, and P24 antigen is NONREACTIVE. No confirmatory testing is required. Blood Venous blood specimen / Unknown Venipuncture / Unknown 08/24/2024 3:03 PM EST 08/24/2024 6:02 PM EST Result Nakita Garduno MD LAB BLOOD ORDERABLES Final Resu lt Performing Organization Address [facility]/ZIP Co de Phone Number [facility] [address] [place] [address] * Hepatitis C Antibody w/Reflex to HCV Quant PCR (08/24/2024 3:03 PM EST) Hepatitis C Antibody Negative Negative 08/24/2024 7:19 PM EST [facility] Blood Venous blood specimen / Unknown Venipuncture / Unknown 08/24/2024 3:03 PM EST 08/24/2024 6:02 PM EST Result Nakita Garduno MD LAB BLOOD ORDERABLES Final Resu lt [facility] [address] [place] [address], [place] [address] from Last 3 Months or Most Recently Relevant to Health Maintenance Insurance [facility] Care Teams Channel Business Manager Relationship Specialty Start Date End Date Kimmy Green PA [address] [place] [address] PCP - General 12/15/20
== END 2025-07-05 23:59 | disposition home or self-care (01) ==
LOC: LAB 08:09
PROVIDERS: PCP Student in an Organized Health Care Education/Training Program; Visit Provider Obstetrics & Gynecology
DX: Z34.90 Encounter for supervision of normal pregnancy, unspecified, unspecified trimester (principal); Z3A.00 Weeks of gestation of pregnancy not specified
CPT/HCPCS: 36415; 84144; 84702

== ENCOUNTER 2025-07-22 08:13 | Emergency (ER) | payer MEDICAID, SELFPAY ==
[2025-07-22 08:18] VITALS: BP 120/74; PULSE 85; O2SAT 98
[2025-07-22 08:23] VITALS: BP 120/74; PULSE 90; RESP 18; TEMP 36.6; O2SAT 99; BMI 21.9
[2025-07-22 08:30] VITALS: BP 104/68; PULSE 91; O2SAT 98
--- NOTE | 2025-07-22 08:32 | ED_ITS ---
Discharge Plan Disposition Patient Disposition: Home, Self-Care Prescriptions Prescriptions: New cephalexin 500 mg capsule 500 mg PO QID 7 Days Qty: 28 0RF No Action DHA 200 mg capsule PO azithromycin 250 mg tablet See Rx Instructions PO .COMPLEX Qty: 6 0RF Rx Instructions: For 250 mg dose pack: take 500 mg today (day 1), then 250 mg for 4 days (days 2-5) PO rimegepant [Nurtec ODT] 75 mg tablet,disintegrating 0RF cyproheptadine 4 mg tablet 8 mg PO HS Qty: 60 5RF Rx Instructions: 2 tablets 1 hour before bedtime Referrals Follow up/Referrals: Kimmy Green PA [Primary Care Provider, Medical] - See instructions Activity Restrictions/Add. Instructions Additional Instructions/Restrictions: You had a single living intrauterine consistent with your dates confirmed on the bedside ultrasound. There is no concern at the moment for an ectopic or a heterotopic . There was blood in your urine as well as evidence of a possible urinary tract infection which is likely the explanation of the spotting that you noticed while urinating. Nonetheless with the concern for vaginal bleeding the diagnosis of a threatened miscarriage has been made and you can follow-up closely with your [facility] doctor but you should have a normal . Return to the emergency room with any other concerns. Clinical Impressions Clinical Impression: Confirmed intrauterine on ultrasound, Threatened miscarriage, UTI (urinary tract infection) Print Language Print Language: E[place] Discharge ED Provider: Kalia Hinson General Adult HPI General Chief complaint: OB/Uterine Contractions Stated complaint: 5 weeks AP- spotting Time Seen by Provider: 07/22/25 08:18 Mode of Arrival: Ambulatory Source of Information: Patient Description of Symptoms (Recalled from ER Triage Doc. by RN): Patient reports having light pink tinged bleeding. States she is 5 weeks and this is her first . History of Present Illness HPI narrative: The patient is a 20-year-old female G1, P0 at 5 weeks gestational age from dates who presents today with spotting. States she has had abdominal cramping over the last 6 weeks. No significant loss of blood fluid contractions etc. States that she noticed some blood tinge when she used the bathroom this morning when she urinated. No burning frequency urgency with urination. Patient is unsure of her blood type. Was told that she was unable to get in the past because of ovarian cysts so she is very excited about this . Related Data Home Medications ?Medication ?Instructions ?Recorded ?Confirmed docosahexaenoic acid 200 mg mg PO 07/14/25 07/14/25 capsule ( DHA) Previous Rx's ?Medication ?Instructions ?Recorded cyproheptadine 4 mg tablet 8 mg (2 x 4 mg) PO HS Heada humza 03/30/25 #60 tabs azithromycin 250 mg tablet See Rx Instructions PO .COM PLEX #6 07/14/25 tabs cephalexin 500 mg capsule 500 mg PO QID 7 days #28 cap s 07/22/25 Allergies Allergy/AdvReac Type Severity Reaction Status Date / Time No Known Allergies Allergy Verified 07/14/25 17:40 [facility] Disclaimer: The information contained in this section may have been updated after the patient was seen, as this information can be updated by other users. Medical History (Updated 07/22/25 @ 10:06 by Kalia Hinson MD) Sinusitis Remove/insert IUD Sinusitis Allergic rhinitis Generalized anxiety disorder History of migraine History of gastroesophageal reflux (GERD) History of depression History of asthma History of anxiety Anxiety Migraine Surgical History History of esophagogastroduodenoscopy (EGD) Family History Other Asthma Cancer Thyroid disorder Social History Smoking Status: Current every day smoker tobacco type: e-cigarettes second hand exposure: No alcohol intake: never substance use type: denies use current occupational status: student and other Travel in the last 8 weeks?: None household members: family housing: house number of children: 0 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 Have you lived/traveled outside [place] in past 30 days?: No Contact w/someone who lives/traveled outside [place] past 30 days?: No Exposure to someone with infectious disease in past 14 days?: No Do you have a fever (greater than 100.4 F or 38 C)?: No Have you tested positive for COVID-19?: No Exposed to someone with COVID-19 in past 14 days?: No Do you have a sore throat?: No Do you have a cough?: No Do you have any weakness?: No Do you have any diarrhea?: No Are you experiencing any unusual bleeding?: Yes Do you have any muscle aches/pain?: No Do you have any abdominal pain?: No Are you experiencing loss of taste or smell?: No Other Medical History Have you received the Flu Vaccine for this season: Yes Have you received the Pneumonia Vaccine: No ROS Obtained: Yes All systems reviewed & no additional complaints except as documented Physical Exam General General appearance: anxious (Tearful) Respiratory Respiratory exam: Present normal lung sounds bilaterally Cardiovascular Cardiovascular exam: Present regular rate Abdominal Exam Abdominal exam: Present soft; Absent distention or tenderness Neurological Exam Neurological exam: Present alert and oriented X3 Medical Decision Making Medical Records Screening: Per USPSTF and CDC recommendations, given the prevalence of disease in our region, it is our hospital?s policy to screen for HIV and viral Hepatitis for all patients aged 18 and over and those with ongoing risk factors. Steve Inquiry Pt receiving controlled substance: No Vital Signs: 07/22/25 08:18 07/22/25 08:23 07/22/25 08:30 Temperature 97.9 F Temperature Source Oral Pulse Rate 85 91 H Pulse Rate [Radial] 90 Respiratory Rate 18 Blood Pressure 120/74 104/68 L Blood Pressure [Right Arm] 120/74 Blood Pressure Mean [Right Arm] 89 Blood Pressure Source [Right Arm] Automatic Cuff Blood Pressure Position [Right Arm] Sitting 02 Sat by Pulse Oximetry 98 99 98 Oxygen Delivery Method Room Air Room Air Room Air Lab Data Lab results reviewed: Yes I reviewed the patient's lab results. Lab Results 07/22/25 08:40: Urine Color Yellow, Urine Appearance Clear, Urine pH 6.0, Ur Specific [place] 1.025, Urine Protein Negative, Urine Glucose (UA) Negative, Urine Ketones Negative, Urine Blood 1+ A, Urine Nitrate Negative, Urine Bilirubin Negative, Urine Urobilinogen 0.2, Ur Leukocyte Esterase 1+ A, Urine RBC Occasional, Urine WBC 3-5, Ur Squamous Epith Cells 5-10, Urine Bacteria Trace 07/22/25 08:50: WBC 10.7, RBC 4.97, Hgb 14.8, Hct 44.2, MCV 88.9, MCH 29.8, MCHC 33.5, RDW 11.7, Plt Count 321, MPV 9.4, Neut % (Auto) 71.3, Lymph % (Auto) 21.8, Weld % (Auto) 6.3, Eos % (Auto) 0.1, Baso % (Auto) 0.1, Neut # (Auto) 7.6, Lymph # (Auto) 2.3, Weld # (Auto) 0.7, Eos # (Auto) 0.0, Baso # (Auto) 0.0, Sodium 139, Potassium 3.5, Chloride 102, Carbon Dioxide 24, Anion Gap 16.5 H, BUN 12, Creatinine 0.70, Estimated Creat Clear 101, Estimated GFR 105, Est GFR ( Amer) 127, Glucose 101 H, Calcium 10.4 H, Total Bilirubin 0.5, AST 21, ALT 15, Alkaline Phosphatase 57, Total Protein 8.7 H, Albumin 5.3 H, Globulin 3.4 H, Albumin/Globulin Ratio 1.6, Blood Type A Positive 07/22/25 08:50 07/22/25 08:50 Orders (Tests/Meds): ORDERS Category Date Time Status Type and Screen Stat BBK 07/22/25 08:50 Results POCUS Point of Care (ER Only) Stat Exams 07/22/25 08:18 Ordered Beta HCG, Quant [HCG,Quantitative] Stat Lab 07/22/25 08:50 Results CBC w/Auto Diff [Complete Blood Count Auto Diff] Stat Lab 07/22/25 08:50 Completed CMP [Comprehensive Metabolic Panel] Stat Lab 07/22/25 08:50 Results HIV Combo Stat Lab 07/22/25 08:50 Received Hepatitis C Ab Qual. W/ RFX Stat Lab 07/22/25 08:50 Received UA [Urinalysis and Microscopic] Stat Lab 07/22/25 08:40 Completed Urine Culture Stat Micro 07/22/25 08:40 Received Medical Decision Narrative: Patient with above history and physical. Bedside ultrasound confirms intrauterine consistent with dates normal heart rate. Extremely unlikely to be an ectopic or heterotopic . Quantitative hCG will be obtained for baseline while drawing blood test to specifically obtain her Rh type. She is unsure of her blood type. Additionally we will get a urinalysis to see if she is having vaginal bleeding or urinary tract infection. Will have a low threshold to treat for UTI. Diagnosis is a threatened miscarriage we had an extensive discussion regarding this and will have her follow-up closely with normal expectant management with OB. Reassessment 1011 patient remains very stable blood type is a positive therefore she does not need RhoGAM. Urinalysis was positive for leuk esterase had some trace blood and that likely the cause or explanation of the spotting of blood when she urinated today. Will give her Keflex for her possible urinary tract infection. Nonetheless we will still diagnose her with a threatened miscarriage and have her follow-up with [facility]. She was discharged in stable condition. She was very reassured. Procedures Miscellaneous Procedure Procedure Performed: Limited OB ultrasound Indication: Vaginal bleeding Identified structures: [-Uterus -Left adnexa -Right adnexa -Pouch of [place]] Findings: Uterus: Definitive IUP FHR: 135 Right adnexa: No free fluid Left adnexa: No free fluid [place]: No free fluid Impression: Single living IUP consistent with dates with normal heart rate Images were saved to permanent archive The study was technically adequate CPT Transabdominal: 56145-54 This study was performed by me, and I personally interpreted all images/videos. Based on my clinical judgement, these images were adequate and did not necessitate further imaging. Critical Care Critical Care Time Critical Care Time: No
--- OUTSIDE RECORDS SUMMARY | 2025-07-22 08:33 | XMS_ITS | Continuity of Care Document ---
Author Organization [employer] [facility] Address [address] [place] [address] Assessment No assessment recorded. Plan of Treatment Reminders Order Date Submit Date Provider Last Modified By Organization Details Last Modified Time Details Appointments None recorded. Lab None recorded. Referral None recorded. Procedures None recorded. Surgeries None recorded. Imaging None recorded. Medication Orders promethazin e 12.5 mg tablet 2024 025 [facility], [address], [address], 5 05:01:24 Patient TargetsNo targets recorded. Patient InstructionsNo instructions recorded. Reason for Referral None Reported. Results Created Date Observation Date Name Description Value Unit Range Abnormal Flag Note LastModifiedBy Organization Detail LastModifiedTime Result Notes None recorded. Problems Name Problem SNOMED Code Status Onset Date Resolution Date Notes Provider Name and Address Organization Details Recorded Time Pain of right calf 86474077240182 03 Active 2023 VAL Montiel [address] [place] [address], [phone] 8, [employer] 4 16:48:00 Pneumonia 487245249 Active 2024 VAL Montiel [address] [place] [address], 70634-[address] 8, [employer] 5 17:17:35 Right lower quadrant pain 441935706 Active 2024 VAL Montiel [address] [place] [address], [phone] 8, [employer] 12:11:44 Acute vomiting 81313631 Active 2024 VAL Montiel [address] [place] [address], [phone] 8, [employer] 11:04:19 Pleurisy 267931502 Active 2024 VAL Montiel [address] [place] [address], [phone] 8, [employer] 15:02:41 Gestation period, 6 weeks 06915981 Active 2024 VAL Montiel [address] [place] [address], [phone] 8, [employer] 16:29:51 Problem Notes None recorded. Medical Equipment None Reported. Allergies No known drug allergies Medications Name Sig Start Date Stop Date Status Note LastModified by Organization Details LastModified Time amoxicillin 500 mg capsule TAKE 1 CAPSULE BY MOUTH THREE TIMES DAILY FOR 10 DAYS 05/30 completed Not Available Not Available Not Available buspirone 5 mg tablet TAKE 1 TABLET BY MOUTH ONCE DAILY 08/19 completed Not Available Not Available Not Available promethazin e-DM 6.25 mg-15 mg/5 mL oral syrup TAKE 5 ML BY MOUTH EVERY 4 HOURS NEEDED FOR COUGH FOR 10 DAYS 04/14 completed Not Available Not Available Not Available doxycycline hyclate 100 mg capsule TAKE 1 CAPSULE BY MOUTH TWICE DAILY FOR 10 DAYS 04/14 completed Not Available Not Available Not Available azithromyci n 250 mg tablet TAKE 2 TABLETS BY MOUTH ON DAY 1, AND THEN TAKE 1 TABLET BY MOUTH ONCE A DAY ON DAY 2 THROUGH DAY 5 07/18 completed Not Available Not Available Not Available dextrometho rphan HBr 10 mg/5 mL oral liquid Take 5 mL 4 times a day by oral route as needed for 10 days, for cough. 2024 active Not Available Not Available Not Avai lable ondansetron HCl 8 mg tablet TAKE 1 TABLET BY MOUTH EVERY 8 HOURS NEEDED FOR NAUSEA AND VOMITING 07/18 completed Not Available Not Available Not Available promethazin e 12.5 mg tablet Take 1 tablet 3 times a day by oral route as needed for 5 days. 06/11 completed Not Available Not Available Not Available prednisone 20 mg tablet Take 1 tablet twice a day by oral route as directed for 5 days. 2024 active Not Available Not Available Not Avai lable ketorolac 10 mg tablet TAKE 1 TABLET BY MOUTH EVERY 8 HOURS NEEDED FOR PAIN FOR 3 DAYS 08/19 completed Not Available Not Available Not Available cyproheptad ine 4 mg tablet TAKE 2 TABLETS BY MOUTH 1 HOUR BEFORE BEDTIME NIGHTLY FOR HEADACHE 07/18 completed Not Available Not Available Not Available propranolol 10 mg tablet TAKE 1 TABLET BY MOUTH ONCE DAILY 08/19 completed Not Available Not Available Not Available amoxicillin 875 mg tablet TAKE 1 TABLET BY MOUTH EVERY 12 HOURS 08/19 completed Not Available Not Available Not Available dicyclomine 20 mg tablet TAKE 1 TABLET BY MOUTH 4 TIMES DAILY NEEDED FOR ABDOMINAL PAIN 08/19 completed Not Available Not Available Not Available progesteron e micronized 200 mg capsule TAKE 1 CAPSULE BY MOUTH ONCE DAILY FOR 10 DAYS DIRECTED 07/18 completed Not Available Not Available Not Available gabapentin 300 mg capsule 04/14 completed Not Available Not Available Not Available ibuprofen 600 mg tablet TAKE 1 TABLET BY MOUTH EVERY 6 HOURS FOR MILD TO MODERATE PAIN 1-3 SCALE MODERATE PAIN 4-6 PAIN SCALE SEVERE PAIN SCALE 7-10 PAIN SCALE DO NOT EXCEED 2400 MG IN 24 HOURS 05/30 completed Not Available Not Available Not Available methylpredn isolone 4 mg tablets in a dose pack TAKE BY MOUTH DIRECTED ON INSIDE OF PACKAGE 04/14 completed Not Available Not Available Not Available bromphenira mine-pseudo ephedrine-D M 2 mg-30 mg-10 mg/5 mL oral syrup TAKE 10 ML (CC) BY MOUTH EVERY 6 HOURS NEEDED FOR COUGH OR COLD SYMPTOMS 04/14 completed Not Available Not Available Not Available ondansetron 4 mg disintegrat ing tablet DISSOLVE 1 TABLET IN MOUTH EVERY 8 HOURS NEEDED FOR NAUSEA AND VOMITING FOR 4 DAYS 04/14 completed Not Available Not Available Not Available cefdinir 300 mg capsule TAKE 1 CAPSULE BY MOUTH TWICE DAILY FOR 10 DAYS 04/14 completed Not Available Not Available Not Available fluticasone propionate 50 mcg/actuati on nasal spray,suspe nsion USE 2 SPRAY(S) IN EACH NOSTRIL ONCE DAILY 04/14 completed Not Available Not Available Not Available amoxicillin 875 mg-potassiu m clavulanate 125 mg tablet 05/30 completed Not Available Not Available Not Available Vitamin active Not Available Not Available Not Available tranexamic acid 650 mg tablet TAKE 2 TABLETS BY MOUTH THREE TIMES DAILY FOR 20 DAYS 07/18 completed Not Available Not Available Not Available Nurtec ODT 75 mg disintegrat ing tablet DISSOLVE 1 TABLET BY MOUTH ONCE DAILY NEEDED FOR HEADACHE 07/18 completed Not Available Not Available Not Available Qulipta 60 mg tablet TAKE 1 TABLET BY MOUTH ONCE DAILY 08/19 completed Not Available Not Available Not Available Airsupra 90 mcg-80 mcg/actuati on HFA aerosol inhaler INHALE 2 PUFFS EVERY 4 TO 6 HOURS NEEDED 04/14 completed Not Available Not Available Not Available Vitals Date Recorded Body height Body mass index (BMI) Body weight Oxygen saturation Heart rate Body temperature Systolic And Diastolic Provider Name and Address Organization Details Last Updated DateTime 152.4 cm 21.9 kg/m2 41321.0 6 g 97 % 90 /min 98.4 [degF] 112/72 mm[Hg] Carmina Juarez [employer] [employer] 10:50:37 Social History Question Answer Notes LastModified by Organizat ion Details LastModified Time Tobacco Smoking Status Never Smoker Carmina james [employer], [employer]. 05/31/2024 16:30:04 Do You Have An Advance Directive? No Information not available 05/31/2024 Is Your Home Air Conditioned? Yes Information not available 05/31/2024 If You Are , What Was Your Level Of Alcohol Consumption Prior To ? None Information not available 05/31/2024 How Many Years Have You Consumed Alcohol? 1 Information not available 05/31/2024 Do You Wear A Helmet When Biking? No Information not available 05/31/2024 Are You Blind Or Do You Have Difficulty Seeing? No Information not available 05/31/2024 What Is Your Level Of Caffeine Consumption? Moderate Information not available 07/18/2025 Are You A Caregiver? No Information not available 07/18/2025 What Type Of Technical Support 1 Software Engineer Do You Use? None Information not available 05/31/2024 Have You Been To An Area Known To Be High Risk For COVID-19? No Information not available 05/31/2024 Are You Deaf Or Do You Have Serious Difficulty Hearing? No Information not available 05/31/2024 What Type Of Diet Are You Following? REGULAR Information not available 05/31/2024 What Is The Highest Grade Or Level Of School You Have Completed Or The Highest Degree You Have Received? [id number] Information not available 05/31/2024 Who Is Your Employer? [employer] [facility] [employer] [employer] Information not available 05/31/2024 How Many Days Of Moderate To Strenuous Exercise, Like A Brisk Walk, Did You Do In The Last 7 Days? 5 Information not available 05/31/2024 On Those Days That You Engage In Moderate To Strenuous Exercise, How Many Minutes, On Average, Do You Exercise? 480 Information not available 07/18/2025 Have There Been Any Changes To Your Family Or Social Situation? No Information not available 05/31/2024 Are There Any Guns Present In Your Home? No Information not available 05/31/2024 Which Of Your Hands Is Dominant? Left Information not available 05/31/2024 Do You Engage In Moderate/heavy Exercise (e.g. Brisk Walk, Jogging, Strength Training, Etc)? Yes Information not available 07/18/2025 What Is Your Home Situation? Both Parents Information not available 05/31/2024 How Many Times In The Past Year Have You Used An Illegal Drug Or Used A Prescription Medication For Nonmedical Reasons? 0 Information not available 07/18/2025 Where Do You Live? SingleLevelHouse Information not available 07/18/2025 Do You Have A Medical Power Of Patient Placement Coordinator? No Information not available 05/31/2024 What Was The Date Of Your Most Recent Tobacco Screening? 07/18/2025 Information not available 07/18/2025 Are There Any Occupational Health Risks Where You Work? No Information not available 05/31/2024 Have You Ever Been Counseled For Unhealthy Alcohol Use? No Information not available 05/31/2024 Do You Have Any Pets? Yes Information not available 05/31/2024 Do You Use Protection During Sex? No Information not available 05/31/2024 Do You Use Protection Against STDs? No Information not available 05/31/2024 What Is Your Relationship Status? Single Information not available 05/31/2024 Have You Repeated Any Grades? No Information not available 05/31/2024 Do You Wear A Seatbelt When Driving Or As A Passenger? Yes Information not available 07/18/2025 Do You Use Your Seat Belt Or Car Seat Routinely? Yes Information not available 05/31/2024 Are You Sexually Active? Yes Information not available 05/31/2024 Do You Have Any Siblings? Yes Information not available 05/31/2024 Do You Have Smoke And Carbon Monoxide Detectors In Your Home? Yes Information not available 05/31/2024 Are You Passively Exposed To Smoke? Yes Information not available 05/31/2024 Are There Any Smokers In Your House? No Information not available 05/31/2024 Do You Participate In Social Media? Yes Information not available 05/31/2024 What Types Of Sporting Activities Do You Participate In? Walking, Hiking Information not available 07/18/2025 Do You Use Sunscreen Routinely? No Information not available 05/31/2024 Has Tobacco Cessation Counseling Been Provided? Yes Information not available 05/31/2024 On What Date Was Tobacco Cessation Counseling Provided? 07/18/2025 Information not available 07/18/2025 Have You Recently Traveled Abroad? No Information not available 05/31/2024 Do You Have Difficulty Walking Or Climbing Stairs? No Information not available 05/31/2024 Are You Currently In School? No Information not available 05/31/2024 What Contraceptive Method Was Reported At Start Of This Visit? None Information not available 05/31/2024 Do You Feel Safe In Your Home? Yes Information not available 07/18/2025 Do You Have Any Dietary Restrictions? No Information not available 05/31/2024 How Many Days In The Past Year Have You Consumed 4 Or More Drinks? 0 Information not available 07/18/2025 What Is Your Reason For Having No Contraceptive Method At Start Of This Visit? Other Information not available 05/31/2024 Sex: Unknown Functional Status Question Answer Note LastModified by Organizat ion Details LastModified Time How many times per week do you consume alcohol? Less than 1 time per week Information not available 07/18/2025 Do you or have you ever used smokeless tobacco? Never used smokeless tobacco Information not available 05/31/2024 Are you currently employed? Yes Information not available 05/31/2024 Do you have transportation difficulties? No Information not available 05/31/2024 Are you able to care for yourself independently? Yes Information not available 05/31/2024 Do you have difficulty dressing, bathing, grooming, or toileting? No Information not available 05/31/2024 Do you or have you ever used e-cigarettes or vape? Current user of electronic cigarettes Information not available 05/31/2024 What is your exercise level? Heavy Information not available 05/31/2024 Do you use any illicit or recreational drugs? No Information not available 05/31/2024 Do you feel safe in your relationship? Yes Information not available 07/18/2025 Do you or have you ever used any other forms of tobacco or nicotine? Yes Information not available 05/31/2024 What is your level of alcohol consumption? Occasional Information not available 05/31/2024 Are you able to walk independently without assistance or assistive devices? YESWOREST Information not available 05/31/2024 Do you have difficulty doing errands alone? No Information not available 05/31/2024 Mental Status Question Answer Note LastModified by Organizat ion Details LastModified Time Do you feel stressed (tense, restless, nervous, or anxious, or unable to sleep at night)? [id number] Information not available 05/31/2024 Do you have difficulty concentrating, remembering or making decisions? Yes Information no t available 05/31/2024 Are you or have you been involved with bullying? No Information not available 05/31/2024 Family History Relationship Description Onset Age of this Age Resolved Age Notes LastModified by Organization Details LastModified Time Mother Anxiety disorder Not available 2023 16:30:03 Mother Depressive disorder Not available 2023 16:30:03 Sister Anxiety disorder Not available 2023 16:30:03 Sister Depressive disorder Not available 2023 16:30:03 Medical History Condition Response Anxiety Disorder Y Hospitalizations N Emergency room visit since last appointm ent. N Depression Y Asthma Y GI Problems Y ADD/ADHD Y Headaches Y Gynecological History Statement/Question Response Abnormal Pap N Flow Heavy Date of LMP 06/06/2025 HPV Vaccine Y Duration of Flow (days) 5 Most Recent Mammogram Age at Menarche 11 Current Control Method Age at First Child No child Frequency of Cycle (Q days) 26 Sexually Active? Y Menses Monthly Y Date of Last Pap Smear LMP Definite Obstetrics History GPAL:G 0 P 0 0 0 0 Immunizations Vaccine Type Date Status Note Provider Nam e and Address Organization Details Recorded Time Hib-Hep B 3 completed Lorraine james, [employer] 08/19/2024 16:57:17 meningococcal B, OMV 9 completed Lorraine james, [employer] 08/19/2024 16:57:17 meningococcal B, OMV 9 completed Lorraine james, [employer] 08/19/2024 16:57:17 HPV9 9 completed Lorraine james, [employer] 08/19/2024 16:57:17 HPV9 9 completed Lorraine james, [employer] 08/19/2024 16:57:17 IPV 7 completed Lorraine james, [employer] 08/19/2024 16:57:17 IPV 3 completed Lorraine Tavarez null, [employer] 08/19/2024 16:57:17 IPV 3 completed Lorraine Tavarez null, [employer] 08/19/2024 16:57:17 IPV 3 completed Lorraine Tavarez null, [employer] 08/19/2024 16:57:17 MMR 7 completed Lorarine Tavarez null, [employer] 08/19/2024 16:57:17 MMR 4 completed Lorraine Tavarez null, [employer] 08/19/2024 16:57:17 COVID-19, mRNA, LNP-S, PF, 30 mcg/0.3 mL dose, rosalie-sucrose 2 completed Lorraine Tavarez null, [employer] 08/19/2024 16:57:18 COVID-19, mRNA, LNP-S, PF, 30 mcg/0.3 mL dose, rosalie-sucrose 2 completed Lorraine Tavarez null, [employer] 08/19/2024 16:57:18 pneumococcal conjugate PCV 7 3 completed Lorraine Tavarez null, [employer] 08/19/2024 16:57:18 pneumococcal conjugate PCV 7 3 completed Lorraine Tavarez null, [employer] 08/19/2024 16:57:18 pneumococcal conjugate PCV 7 3 completed Lorraine Tavarez null, [employer] 08/19/2024 16:57:18 Tdap 4 completed Lorraine Tavarez null, [employer] 08/19/2024 16:57:18 varicella 4 completed Lorraine Tavarez null, [employer] 08/19/2024 16:57:18 varicella 4 completed Lorraine Tavarez null, [employer] 08/19/2024 16:57:18 Influenza, split virus, trivalent, preservative 9 completed Lorraine Tavarez null, [employer] 08/19/2024 16:57:18 Influenza, split virus, trivalent, preservative 8 completed Lorraine Tavarez null, [employer] 08/19/2024 16:57:18 Influenza, split virus, trivalent, preservative 7 completed Lorraine Tavarez null, [employer] 08/19/2024 16:57:18 Hep B, adolescent or pediatric 3 completed Lorraine Tavarez null, [employer] 08/19/2024 16:57:18 Hep B, adolescent or pediatric 4 completed Lorraine Tavarez null, [employer] 08/19/2024 16:57:18 Hep A, ped/adol, 2 dose 8 completed Lorraine Tavarez null, [employer] 08/19/2024 16:57:18 Hep A, ped/adol, 2 dose 8 completed Lorraine Tavarez null, [employer] 08/19/2024 16:57:18 Hib (PRP-OMP) 4 completed Lorraine Tavarez null, [employer] 08/19/2024 16:57:18 Hib (PRP-OMP) 3 completed Lorraine Tavarez null, [employer] 08/19/2024 16:57:18 meningococcal MCV4P 9 completed Lorraine Tavarez null, [employer] 08/19/2024 16:57:18 DTaP, unspecified formulation 7 completed Lorraine Tavarez null, [employer] 08/19/2024 16:57:18 DTaP, unspecified formulation 3 completed Lorraine Tavarez null, [employer] 08/19/2024 16:57:18 DTaP, unspecified formulation 4 completed Lorraine Tavarez null, [employer] 08/19/2024 16:57:18 DTaP, unspecified formulation 3 completed Lorraine Tavarez null, [employer] 08/19/2024 16:57:18 DTaP, unspecified formulation 3 completed Lorraine Tavarez null, [employer] 08/19/2024 16:57:18 meningococcal MCV4, unspecified formulation 4 completed Lorraine Tavarez null, [employer] 08/19/2024 16:57:18 Past Encounters Encounter ID Performer Location Encounter Start Date Encounter Closed Date Diagnosis/Indication Diagnosis SNOMED-CT Code Diagnosis ICD10 Code Diagnosis IMO Codes Diagnosis Note [id number] VAL Montiel [facility] [address] [place] [address] 05/30/2025 10:33:52 05/30/2025 11:03:14 Acute vomiting 77690348 R11.10 [id number] Phenerghan Clear liquids, BRAT dietRTC if not improving Health Concerns Section Related Observation LastModified by Organization Detai ls LastModified Time None Recorded Concern Status LastModified by Organization Details LastModified Time None Recorded Payers Encounter Date Sequence Insurance Name Policy Number Policy Dewitt Covered Member ID Dewitt Member ID Guarantor Name 05/30/2025 1 [employer] (MEDICAID HMO) Bharati Gaston [id number] Bharati Gaston Notes Date Note Type Note Provider Name and Address Organization Details Recorded Time 05/30/2025 text/html ROS as noted in the HPI Vomiting, diarrhea, body aches, chills. Had last week, got better, then started again yesterday. Works at [employer]. Zofran did not help. Fever last week but not this time VAL Montiel [address] [place] [address], [place], [phone], [facility] [employer] 05/31/2025 17:59:40 OBGyn Episode No OBEpisode recorded.
--- OUTSIDE RECORDS SUMMARY | 2025-07-22 08:33 | XMS_ITS | Data Portability ---
Author Organization [place] [employer] [place] [facility] Address [address] [place] [address] Assessment No assessment recorded. Plan of Treatment Reminders Order Date Submit Date Provider Last Modified By Organization Details Last Modified Time Details Appointments None recorded. Lab chlamydia trachomatis + neisseria gonorrhoeae + trichomonas vaginalis rRNA panel, ASHLEY+probe 2024 025 [facility], [address] [place] [address], [address], 5 04:06:28 urinalysis, dipstick [address], [address] [place] [address], [address], 5 11:42:02 CMP, serum or plasma 2023 024 [facility]), [address] [place] [address], [address], 4 12:09:03 TSH, ultra-sensi tive, serum 2023 024 [facility]), [address] [place] [address], [address], 4 12:09:04 unlisted lab - fe+CBC/D/pl t+TIBC+bharat 2023 024 [facility], [address] [place] [address], [address], 4 12:09:02 magnesium, serum or plasma 2023 024 [place] [facility] ([place]), [address] [facility], [place], [address], 4 12:09:04 Referral None recorded. Procedures None recorded. Surgeries None recorded. Imaging US, duplex, venous, lower extremity, unilateral - first available appt 2023 [facility] ([facility]), [address], [place], [address], 4 09:43:05 Medication Orders prednisone 20 mg tablet 2024 [facility], [address] [place], [address], 5 15:03:34 dextrometho rphan HBr 10 mg/5 mL oral liquid 2024 025 [facility], [address] [place], [address], 5 15:03:32 promethazin e 12.5 mg tablet 2024 025 [facility], [address] [place], [address], 5 05:01:24 cefdinir 300 mg capsule 2024 025 [facility], [address] [place], [address], 5 08:56:15 prednisone 20 mg tablet 2024 025 [facility], [address] [place], [address], 5 08:56:39 Airsupra 90 mcg-80 mcg/actuati on HFA aerosol inhaler 2024 025 [facility], [address] [place], [address], 5 08:56:13 promethazin e-DM 6.25 mg-15 mg/5 mL oral syrup 2024 025 [facility], [address] [facility] [place], [address], 5 08:56:43 Patient TargetsNo targets recorded. Patient Instructions Encounter Date Encounter Id Patient Instructions Last Modified By Organization Details Last Modified Time 08/19/2024 [id number] pneumonia: care instructions [email or web address] Not available 08/19/2024 17:18:53 RTC if not improving. Not available 08/19/2024 17:23:25 07/18/2025 [id number] pleurisy: care instructions [email or web address] Not available 07/18/2025 15:03:28 Reason for Referral None Reported. Results Created Date Observation Date Name Description Value Unit Range Abnormal Flag Note LastModifiedBy Organization Detail LastModifiedTime 05/31/2006/02/2024 FE+CB C/D/P LT+TI BC+FE R iron bind.cap.(TI BC) 284 ug/dL 250-45 0 normal Not Available [facility] ([facility]) [address] [place], [address], 06/02/2024 12:09:02 05/31/2006/02/2024 FE+CB C/D/P LT+TI BC+FE R UIBC 200 ug/dL 131-42 5 normal Not Available [facility] ([facility]) [address] [facility], [place], [address], 06/02/2024 12:09:02 05/31/20 24 06/02/2024 FE+CB C/D/P LT+TI BC+FE R iron 84 ug/dL 27-159 normal Not Available [facility] ([facility]) [address] [facility], [place], [address], 06/02/2024 12:09:02 05/31/2006/02/2024 FE+CB C/D/P LT+TI BC+FE R iron saturation 30 % 15-55 normal Not Available [facility] ([facility]) [address] [facility], [place], [address], 06/02/2024 12:09:02 05/31/2006/02/2024 FE+CB C/D/P LT+TI BC+FE R ferritin 63 NG/mL 15-150 normal Not Available [facility] ([facility]) [address] [facility], [place], [address], 06/02/2024 12:09:02 05/31/2006/02/2024 FE+CB C/D/P LT+TI BC+FE R WBC 11.7 x10e3 /uL 3.4-10 .8 above high normal Not Available [facility] ([facility]) [address] [facility], [place], [address], 06/02/2024 12:09:02 05/31/2006/02/2024 FE+CB C/D/P LT+TI BC+FE R RBC 4.57 x10e6 /uL 3.77-5 .28 normal Not Available [facility] ([facility]) [address] [facility], [place], [address], 06/02/2024 12:09:02 05/31/2006/02/2024 FE+CB C/D/P LT+TI BC+FE R hemoglobin 14.2 g/dL 11.1-1 5.9 normal Not Available [facility] ([facility]) [address] [facility], [place], [address], 06/02/2024 12:09:02 05/31/2006/02/2024 FE+CB C/D/P LT+TI BC+FE R hematocrit 43.4 % 34.0-4 6.6 normal Not Available [facility] ([facility]) [address] [place], [address], 06/02/2024 12:09:02 05/31/2006/02/2024 FE+CB C/D/P LT+TI BC+FE R MCV 95 fL 79-97 normal Not Available [facility] ([facility]) [address] [facility], [place], [address], 06/02/2024 12:09:02 05/31/2006/02/2024 FE+CB C/D/P LT+TI BC+FE R MCH 31.1 pg 26.6-3 3.0 normal Not Available [facility] ([facility]) [address] [place], [address], 06/02/2024 12:09:02 05/31/2006/02/2024 FE+CB C/D/P LT+TI BC+FE R MCHC 32.7 g/dL 31.5-3 5.7 normal Not Available [facility] ([facility]) [address] [place], [address], 06/02/2024 12:09:02 05/31/2006/02/2024 FE+CB C/D/P LT+TI BC+FE R RDW 11.7 % 11.7-1 5.4 Not Available [facility] ([facility]) [address] [place], [address], 06/02/2024 12:09:02 05/31/2006/02/2024 FE+CB C/D/P LT+TI BC+FE R platelets 319 x10e3 /uL 150-45 0 normal Not Available [facility] ([facility]) [address] [place], [address], 06/02/2024 12:09:02 05/31/2006/02/2024 FE+CB C/D/P LT+TI BC+FE R neutrophils 69 % not estab. normal Not Available [facility] ([facility]) [address] [facility], [place], [address], 06/02/2024 12:09:02 05/31/2006/02/2024 FE+CB C/D/P LT+TI BC+FE R lymphs 23 % not estab. normal Not Available [facility] ([facility]) [address] [facility], [place], [address], 06/02/2024 12:09:02 05/31/2006/02/2024 FE+CB C/D/P LT+TI BC+FE R monocytes 7 % not estab. normal Not Available [facility] ([facility]) [address] [facility], [place], [address], 06/02/2024 12:09:02 05/31/2006/02/2024 FE+CB C/D/P LT+TI BC+FE R eos 1 % not estab. normal Not Available [facility] ([facility]) [address] [facility], [place], [address], 06/02/2024 12:09:02 05/31/2006/02/2024 FE+CB C/D/P LT+TI BC+FE R basos 0 % not estab. normal Not Available [facility] ([facility]) [address] [facility], [place], [address], 06/02/2024 12:09:02 05/31/2006/02/2024 FE+CB C/D/P LT+TI BC+FE R immature cells TECHNICAL SERVICES CONSULTANT Not Available [facility] ([facility]) [address] [place], [address], 06/02/2024 12:09:02 05/31/2006/02/2024 FE+CB C/D/P LT+TI BC+FE R neutrophils (absolute) 8.0 x10e3 /uL 1.4-7. 0 above high normal Not Available [facility] ([facility]) [address] [place], [address], 06/02/2024 12:09:02 05/31/2006/02/2024 FE+CB C/D/P LT+TI BC+FE R lymphs (absolute) 2.7 x10e3 /uL 0.7-3. 1 normal Not Available [facility] ([facility]) [address] [place], [address], 06/02/2024 12:09:02 05/31/2006/02/2024 FE+CB C/D/P LT+TI BC+FE R monocytes(ab solute) 0.8 x10e3 /uL 0.1-0. 9 normal Not Available [facility] ([facility]) [address] [place], [address], 06/02/2024 12:09:02 05/31/2006/02/2024 FE+CB C/D/P LT+TI BC+FE R eos (absolute) 0.1 x10e3 /uL 0.0-0. 4 normal Not Available [facility] ([facility]) [address] [facility], [place], [address], 06/02/2024 12:09:02 05/31/2006/02/2024 FE+CB C/D/P LT+TI BC+FE R baso (absolute) 0.1 x10e3 /uL 0.0-0. 2 normal Not Available [facility] ([facility]) [address] [place], [address], 06/02/2024 12:09:02 05/31/2006/02/2024 FE+CB C/D/P LT+TI BC+FE R immature granulocytes 0 % not estab. Not Available [facility] ([facility]) [address] [place], [address], 06/02/2024 12:09:02 05/31/20 24 06/02/2024 FE+CB C/D/P LT+TI BC+FE R immature grans (abs) 0.0 x10e3 /uL 0.0-0. 1 Not Available [facility] ([facility]) [address] [facility], [place], [address], 06/02/2024 12:09:02 05/31/2006/02/2024 FE+CB C/D/P LT+TI BC+FE R NRBC TECHNICAL SERVICES CONSULTANT Not Available [facility] ([facility]) [address] [facility], [place], [address], 06/02/2024 12:09:02 05/31/2006/02/2024 FE+CB C/D/P LT+TI BC+FE R hematology comments: TECHNICAL SERVICES CONSULTANT Not Available [facility] ([facility]) [address] [facility], [place], [address], 06/02/2024 12:09:02 05/31/2006/02/2024 COMP. METAB OLIC PANEL (14) glucose 80 mg/dL 70-99 normal Not Available [facility] ([facility]) [address] [facility], [place], [address], 06/02/2024 12:09:03 05/31/2006/02/2024 COMP. METAB OLIC PANEL (14) BUN 13 mg/dL 6-20 normal Not Available [facility] ([facility]) [address] [place], [address], 06/02/2024 12:09:03 05/31/2006/02/2024 COMP. METAB OLIC PANEL (14) creatinine 0.83 mg/dL 0.57-1 .00 normal Not Available [facility] ([facility]) [address] [place], [address], 06/02/2024 12:09:03 05/31/20 24 06/02/2024 COMP. METAB OLIC PANEL (14) eGFR 103 mL/mi n/1.7 3 >59 normal Not Available [facility] ([facility]) [address] [facility], [place], [address], 06/02/2024 12:09:03 05/31/20 24 06/02/2024 COMP. METAB OLIC PANEL (14) BUN/creatini ne ratio 16 9-23 normal Not Available [facility] ([facility]) [address] [facility], [place], [address], 06/02/2024 12:09:03 05/31/2006/02/2024 COMP. METAB OLIC PANEL (14) sodium 141 mmol/ L 134-14 4 normal Not Available [facility] ([facility]) [address] [facility], [place], [address], 06/02/2024 12:09:03 05/31/20 24 06/02/2024 COMP. METAB OLIC PANEL (14) potassium 4.1 mmol/ L 3.5-5. 2 normal Not Available [facility] ([facility]) [address] [facility], [place], [address], 06/02/2024 12:09:03 05/31/20 24 06/02/2024 COMP. METAB OLIC PANEL (14) chloride 104 mmol/ L 96-106 normal Not Available [facility] ([facility]) [address] [facility], [place], [address], 06/02/2024 12:09:03 05/31/20 24 06/02/2024 COMP. METAB OLIC PANEL (14) carbon dioxide, total 21 mmol/ L 20-29 normal Not Available [facility] ([facility]) [address] [facility], [place], [address], 06/02/2024 12:09:03 05/31/20 24 06/02/2024 COMP. METAB OLIC PANEL (14) calcium 9.7 mg/dL 8.7-10 .2 normal Not Available [facility] ([facility]) [address] [facility], [place], [address], 06/02/2024 12:09:03 05/31/20 24 06/02/2024 COMP. METAB OLIC PANEL (14) protein, total 7.0 g/dL 6.0-8. 5 normal Not Available [facility] ([facility]) [address] [facility] [place], [address], 06/02/2024 12:09:03 05/31/20 24 06/02/2024 COMP. METAB OLIC PANEL (14) albumin 4.6 g/dL 4.0-5. 0 normal Not Available [facility] ([facility]) [address] [facility], [place], [address], 06/02/2024 12:09:03 05/31/20 24 06/02/2024 COMP. METAB OLIC PANEL (14) globulin, total 2.4 g/dL 1.5-4. 5 Not Available [facility] ([facility]) [address] [facility] [place], [address], 06/02/2024 12:09:03 05/31/20 24 06/02/2024 COMP. METAB OLIC PANEL (14) bilirubin, total 0.3 mg/dL 0.0-1. 2 normal Not Available [facility] ([facility]) [address] [facility] [place], [address], 06/02/2024 12:09:03 05/31/20 24 06/02/2024 COMP. METAB OLIC PANEL (14) alkaline phosphatase 69 IU/L 44-121 normal Not Available [facility] ([facility]) [address] [facility], [place], [address], 06/02/2024 12:09:03 05/31/20 24 06/02/2024 COMP. METAB OLIC PANEL (14) AST (SGOT) 10 IU/L 0-40 normal Not Available [facility] ([facility]) [address] [facility], [place], [address], 06/02/2024 12:09:03 05/31/2006/02/2024 COMP. METAB OLIC PANEL (14) ALT (SGPT) 6 IU/L 0-32 normal Not Available [facility] ([facility]) [address] [facility], [place], [address], 06/02/2024 12:09:03 05/31/20 24 06/02/2024 TSH RFX ON ABNOR MAL TO FREE T4 TSH 0.984 uIU/m L 0.450- 4.500 normal Not Available [facility] ([facility]) [address] [place], [address], 06/02/2024 12:09:04 05/31/2006/02/2024 MAGNE SIUM magnesium 2.0 mg/dL 1.6-2. 3 normal Not Available [facility] ([facility]) [address] [place], [address], 06/02/2024 12:09:04 04/14/2004/18/2025 CT, NG, TRICH VAG BY ASHLEY chlamydia by ASHLEY Negati ve negati ve Not Available [facility] ([facility]) [address] [place], [address], 04/18/2025 04:06:27 04/14/2004/18/2025 CT, NG, TRICH VAG BY ASHLEY gonococcus by ASHLEY Negati ve negati ve Not Available [facility] ([facility]) [address] [place], [address], 04/18/2025 04:06:27 04/14/2004/18/2025 CT, NG, TRICH VAG BY ASHLEY trich vag by ASHLEY Negati ve negati ve Not Available [facility] ([facility]) [address] [place], [address], 04/18/2025 04:06:27 04/14/20 25 04/14/2025 urina lysis , dipst ick Leukocytes Negati ve Not Available [address], [place], [address], 04/14/2025 09:20:35 04/14/20 25 04/14/2025 urina lysis , dipst ick Nitrite negati ve Not Available [address], [place], [address], 04/14/2025 09:20:35 04/14/20 25 04/14/2025 urina lysis , dipst ick Urobilinogen .2 Not Available [address], [place], [address], 04/14/2025 09:20:35 04/14/20 25 04/14/2025 urina lysis , dipst ick Protein Trace Not Available [address], [place], [address], 04/14/2025 09:20:35 04/14/20 25 04/14/2025 urina lysis , dipst ick pH 5.5 Not Available [address], [place], [address], 04/14/2025 09:20:35 04/14/20 25 04/14/2025 urina lysis , dipst ick Blood Negati ve Not Available [address], [address], 04/14/2025 09:20:35 04/14/20 25 04/14/2025 urina lysis , dipst ick Specific [employer] 1.030 Not Available [address], [address], 04/14/2025 09:20:35 04/14/20 25 04/14/2025 urina lysis , dipst ick Ketone Negati ve Not Available [address], [place], [address], 04/14/2025 09:20:35 04/14/20 25 04/14/2025 urina lysis , dipst ick Bilirubin Negati ve Not Available [address], [place], [address], 04/14/2025 09:20:35 04/14/20 25 04/14/2025 urina lysis , dipst ick Glucose Negati ve Not Available [address], [place], [address], 04/14/2025 09:20:35 04/14/20 25 04/14/2025 urina lysis , dipst ick Appearance Slight ly Cloudy Not Available [address], [place], [address], 04/14/2025 09:20:35 04/14/20 25 04/14/2025 urina lysis , dipst ick Color Dark Yellow Not Available [address], [place], [address], 04/14/2025 09:20:35 06/15/20 24 06/09/2024 US, duple x, venou s, lower extre mity, unila teral No observ ation record ed. [email or web address] [facility] ([facility]) [address], [place], [place], [address], 08/19/2024 17:20:45 03/30/20 25 03/30/2025 XR, wrist No observ ation record ed. [email or web address] [facility] [address], [place], [address], 03/31/2025 08:46:18 Result Notes None recorded. Problems Name Problem SNOMED Code Status Onset Date Resolution Date Notes Provider Name and Address Organization Details Recorded Time Pain of right calf 01737874841687 03 Active 2023 VAL Montiel [address] [place] [address], [address], [employer] 4 16:48:00 Pneumonia 136943888 Active 2024 VAL Montiel [address] [place] [address], [address], [employer] 5 17:17:35 Right lower quadrant pain 680706109 Active 2024 VAL Montiel [address] [place] [address], [address], [employer] 5 12:11:44 Acute vomiting 99561137 Active 2024 VAL Montiel [address] [place] [address], [address], [employer] 5 11:04:19 Pleurisy 089789051 Active 2024 VAL Montiel [address] [place] [address], [address], [employer] 5 15:02:41 Gestation period, 6 weeks 69088536 Active 2024 VAL Montiel [address] [place] [address], [address], [employer] 5 16:29:51 Problem Notes None recorded. Medical Equipment [...] Organization Details Last Updated DateTime 152.4 cm 22.1 kg/m2 39620.0 4 g 98 % 92 /min 98 [degF] 112/73 mm[Hg] Lorraine Tavarez [employer] 5 17:01:40 Date Recorded Body height Body mass index (BMI) Body weight Oxygen saturation Heart rate Body temperature Systolic And Diastolic Provider Name and Address Organization Details Last Updated DateTime 5 152.4 cm 22.8 kg/m2 18408.5 9 g 99 % 84 /min 98.4 [degF] 99/62 mm[Hg] [employer] 5 09:00:27 Date Recorded Body height Body mass index (BMI) Body weight Oxygen saturation Heart rate Body temperature Systolic And Diastolic Provider Name and Address Organization Details Last Updated DateTime 5 152.4 cm 21.9 kg/m2 08983.0 6 g 97 % 90 /min 98.4 [degF] 112/72 mm[Hg] [facility] 5 10:50:37 Date Recorded Body weight Body mass index (BMI) Body height Heart rate Oxygen saturation Systolic And Diastolic Provider Name and Address Organization Details Last Updated DateTime 4 28796.6 9 g 21.1 kg/m2 152.4 cm 87 /min 98 % 101/65 mm[Hg] [facility]. 4 16:29:31 Date Recorded Body height Body mass index (BMI) Body weight Oxygen saturation Heart rate Body temperature Systolic And Diastolic Provider Name and Address Organization Details Last Updated DateTime 5 152.4 cm 21.9 kg/m2 32727.0 6 g 97 % 88 /min 98.4 [degF] 98/66 mm[Hg] [employer] 5 14:50:10 Social History Question Answer Notes LastModified by Organizat ion Details LastModified Time Tobacco Smoking Status Never Smoker [employer] 05/31/2024 16:30:04 Do You Have An Advance [...] Information not available 07/18/2025 What Type Of Toll Operator Do You Use? None Information not available [...] Or The Highest Degree You Have Received? [id number] Information not available 05/31/2024 Who Is Your Employer? [employer] [facility] Information not available 05/31/2024 How Many Days [...] Do You Have A Medical Power Of [employer]? No Information not available 05/31/2024 What Was [...] anxious, or unable to sleep at night)? [id number] Information not available 05/31/2024 Do you have [...] available 2023 16:30:03 Medical History Condition Response Hospitalizations N Emergency room visit since last appointm ent. N Depression Y GI Problems Y ADD/ADHD Y Anxiety Disorder Y Asthma Y Headaches Y Gynecological History Statement/Question Response [...] Recorded Time Hib-Hep B 3 completed Lorraine james [employer] 08/19/2024 16:57:17 meningococcal B, OMV 9 completed Lorraine james [employer] 08/19/2024 16:57:17 meningococcal B, OMV 9 completed Lorraine james [employer] 08/19/2024 16:57:17 HPV9 9 completed Lorraine Tavarez null, [employer] 08/19/2024 16:57:17 HPV9 9 completed Lorraine Tavarez null, [employer] 08/19/2024 16:57:17 IPV 7 completed Lorraine Tavarez null, [employer] 08/19/2024 16:57:17 IPV 3 completed Lorraine Tavarez null, [employer] 08/19/2024 16:57:17 IPV 3 completed Lorraine Tavarez null, [employer] 08/19/2024 16:57:17 IPV 3 completed Lorraine Tavarez null, [employer] 08/19/2024 16:57:17 MMR 7 completed Lorraine Tavarez null, [employer] 08/19/2024 16:57:17 MMR 4 completed Lorraine Tavarez null, [employer] 08/19/2024 16:57:17 COVID-19, mRNA, LNP-S, PF, 30 mcg/0.3 mL dose, rosalie-sucrose 2 completed Lorraine Tavarez null, [employer] 08/19/2024 16:57:18 COVID-19, mRNA, LNP-S, PF, 30 mcg/0.3 mL dose, rosalie-sucrose 2 completed Lorraine Tavarez null, [employer] 08/19/2024 16:57:18 pneumococcal conjugate PCV 7 3 completed Lorraine Tavarez null, [employer] 08/19/2024 16:57:18 pneumococcal conjugate PCV 7 3 completed Lorraine Tavarez null, [employer] 08/19/2024 16:57:18 pneumococcal conjugate PCV 7 3 completed Lorraine Tavarez null, [employer] 08/19/2024 16:57:18 Tdap 4 completed Lorraine Tavarez null, [employer] 08/19/2024 16:57:18 varicella 4 completed Lorraine Tavarez null, [employer] 08/19/2024 16:57:18 varicella 4 completed Lorraine Tavarez null, [employer] 08/19/2024 16:57:18 Influenza, split virus, trivalent, preservative 9 completed Lorraine Tavarez null, [employer] 08/19/2024 16:57:18 Influenza, split virus, trivalent, preservative 8 completed Lorraine Tavarez null, [employer] 08/19/2024 16:57:18 Influenza, split virus, trivalent, preservative 7 completed Lorraine Tavarez null, [employer] 08/19/2024 16:57:18 Hep B, adolescent or pediatric 3 completed Lorraine Tavarez null, [employer] 08/19/2024 16:57:18 Hep B, adolescent or pediatric 4 completed Lorraine Tavarez null, [employer] 08/19/2024 16:57:18 Hep A, ped/adol, 2 dose 8 completed Lorraine Tavarez null, [employer] 08/19/2024 16:57:18 Hep A, ped/adol, 2 dose 8 completed Lorraine Tavarez null, [employer] 08/19/2024 16:57:18 Hib (PRP-OMP) 4 completed Lorraine Tavarez null, [employer] 08/19/2024 16:57:18 Hib (PRP-OMP) 3 completed Lorraine Tavarez null, [employer] 08/19/2024 16:57:18 meningococcal MCV4P 9 completed Lorraine Tavarez null, [employer] 08/19/2024 16:57:18 DTaP, unspecified formulation 7 completed Lorraine Tavarez null, [employer] 08/19/2024 16:57:18 DTaP, unspecified formulation 3 completed Lorraine Tavarez null, [employer] 08/19/2024 16:57:18 DTaP, unspecified formulation 4 completed Lorraine Tavarez null, [employer] 08/19/2024 16:57:18 DTaP, unspecified formulation 3 completed Lorraine Tavarez null, [employer] 08/19/2024 16:57:18 DTaP, unspecified formulation 3 completed Lorraine Tavarez null, [employer] 08/19/2024 16:57:18 meningococcal MCV4, unspecified formulation 4 completed Lorraine Tavarez null, [employer] 08/19/2024 16:57:18 Past Encounters Encounter ID Performer Location Encounter Start Date Encounter Closed Date Diagnosis/Indication Diagnosis SNOMED-CT Code Diagnosis ICD10 Code Diagnosis IMO Codes Diagnosis Note [id number] VAL Montiel [address] [address] 05/31/2024 16:18:16 05/31/2024 16:59:28 Pain of right calf 1560703842 452184 M79.357 [id number] VAL Montiel [address] [place] [address] 08/19/2024 16:49:49 08/19/2024 17:16:57 Pneumonia 105356694 J18.9 [id number] Kimmy Green [address] [address] 04/14/2025 08:40:49 04/14/2025 09:58:16 Yellow vaginal discharge 342019743 N89.8 [id number] Bacterial disease screening 184183171 Z11.8 250703 Right lowe r quadrant pain 258088977 R10.31 [id number] Severe RLQ pain in patient with known right ovarian cyst - attempted to call Dr Blue 's office, but had to leave message for call back. Patient was advised to go to ER to rule out ovarian torsion. Boyfriend is agreeable to transporti ng her. [id number] VAL Montiel [facility] [address] [place] [address] 05/30/2025 10:33:52 05/30/2025 11:03:14 Acute vomiting [id number] R11.10 [id number] Phenerghan Clear liquids, BRAT dietRTC if not improving [id number] VAL Montiel [facility] [address] [place] [address] 07/18/2025 14:25:11 07/18/2025 15:04:32 Pleurisy [id number] R09.1 39365 Humidifier , fluids. RTC if not improving. Gestation period, 6 weeks [id number] Z3A.01 [id number] Health Concerns Section Related Observation LastModified by Organization Detai ls LastModified Time None Recorded Concern Status LastModified by Organization Details LastModified Time None Recorded Advance Directives Directive N: Payers Insurance Date Sequence Insurance Name Policy Number Policy Dewitt Covered Member ID Dewitt Member ID Guarantor Name 07/18/2025 1 [facility] (MEDICAID HMO) Bharati Gaston [id number] Bharati Gaston Notes Date Note Type Note Provider Name and Address Organization Details Recorded Time 05/31/2024 text/html Patient presents to establish care at [facility].She has a 4-5 week history of pain in her right calf. Feels like muscle spasms. Worse with squatting/bending. No swelling.No history of DVT. Started after dog scratched her leg but no redness or drainage. VAL Montiel [address] [place], [address], [employer] 05/31/2024 17:08:22 08/19/2024 text/html Patient has been sick since August 05. Initially diagnosed with bronchitis - given Zpack, cough meds. Went back August 14. Had CXR that showed pneumonia. Now on doxycycline. Still feels terrible. Cough is non productive. No fever. No vomiting or diarrhea. VAL Montiel [address] [place], [address], [employer] 08/19/2024 17:24:08 04/14/2025 text/html ROS as noted in the HPI Patient presents with severe RLQ pain. She was seen by [facility] last week for amenorrhea. She was found to have a right ovarian cyst at that time, but it was not causing any pain. She was started on progesterone to induce ovulation, but states she has not started that medicine yet.04/11 she began having severe RLQ pain. Was seen at [facility] ER. Had CT which showed ruptured ovarian cyst. Was given Toradol, told that pain should start to improve.Instead, pain is getting worse. No fever. Nausea and vomiting. Cannot lay flat or lay on her side without pain. Deep breaths hurt. Walking hurts. She is not urinating much. No vaginal bleeding but has had some creamy yellow discharge. VAL Montiel [address] [place], [address], [employer] 04/14/2025 12:13:53 05/30/2025 text/html ROS as noted in the HPI Vomiting, diarrhea, body aches, chills. Had last week, got better, then started again yesterday. 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 Zofran did not help. Fever last week but not this time VAL Montiel [address] [place], [address], [employer] 05/31/2025 17:59:40 07/18/2025 text/html ROS as noted in the HPI Cough, congestion X 1 week. Approximately 5-6 weeks . Given Zpack last week at [facility]. Isn't feeling any better. Hurts to take a deep breath. VAL Montiel [address] [place], [address], [employer] 07/21/2025 16:31:12 OBGyn Episode No OBEpisode recorded.
--- OUTSIDE RECORDS SUMMARY | 2025-07-22 08:34 | XMS_ITS | Encounter Summary ---
Author Organization Healthcare Address [address] [place] [address] Care Team Providers Care Molder Setter Name Role Phone Kimmy Green Primary Care Provider [phone] Encounter Details Date Type Department Care Team (Late st Contact Info) Description 03/22/2025 Results Follow-Up Obstetrics & Gynecology [address] [place] [address] Radha Blue MD [address] [place] [address] Social History Tobacco Use Types [...] all 04/20/2025 2:45 PM EDT Corby, Bob Devries Feeling tired or having candie le energy Not at all 04/20/2025 2:45 PM EDT Corby, Bob Devries Poor appetite or overeating Not at all 04/20/2025 2: 45 PM EDT Tavarez, Bob Devries Feeling bad about yourself - or that you are a failure or have let yourself or your family down Not at all 04/20/2025 2:45 PM EDT Corby, Jose David Devries Trouble concentrating on thi ngs, such as reading the newspaper or watching television Not at all 04/20/2025 2:45 PM EDT Corby, Bob Devries Moving or speaking so slowly that other people could have noticed. Or the opposite - being so fidgety or restless that you have been moving around a lot more than usual Not at all 04/20/2025 2:45 PM EDT Corby, Jose David Devries Thoughts that you would be b maggi [...] documented as of this encounter Care Teams Molder Setter Relationship Specialty Start Date End Date Kimmy Green PA [address] [place] [address] PCP - General 12/15/20 documented as of this encounter
--- OUTSIDE RECORDS SUMMARY | 2025-07-22 08:34 | XMS_ITS | Clinical Summary ---
Author Organization [employer] ([place], [place], [place], [place], [place]) Address [address] [place] [address] Care Team Providers Care Pug Machine Operator Name Role Phone Kimmy Green PA-C Primary Care Provider [phone] Allergies No known active allergies Medications No [...] history exists Pap Smear 01/14/2024 COVID-19 VACCINE (2024- season) 2025 09/21/2021, 08/24/2021 Influenza Vaccine (#1) 2025 Pneumococcal Vaccine: 0-49 Years Aged Out 2003, 2003, 2003 No longer eligible based on patient's age to complete this topic Insurance [facility] Care Teams Pug Machine Operator Relationship Specialty Start Date End Date Kimmy Green PA-C [address] [place] [address] PCP - General Physician Blueprint Tracer 04/12/25
--- OUTSIDE RECORDS SUMMARY | 2025-07-22 08:34 | XMS_ITS | Continuity of Care Document ---
Author Organization [email or web address] Address [address] [place] [address] Assessment No assessment recorded. Plan of Treatment Reminders Order Date Submit Date Provider Last Modified By Organization Details Last Modified Time Details Appointments None recorded. Lab None recorded. Referral None recorded. Procedures None recorded. Surgeries None recorded. Imaging None recorded. Medication Orders prednisone 20 mg tablet 2024 025 [facility], [address], [address], 5 15:03:34 dextrometho rphan HBr 10 mg/5 mL oral liquid 2024 025 [facility], [address], [address], 5 15:03:32 Patient TargetsNo targets recorded. Patient Instructions Encounter Date Encounter Id Patient Instructions Last Modified By Organization Details Last Modified Time 07/18/2025 [id number] pleurisy: care instructions [id number] Not available 07/18/2025 15:03:28 Reason for Referral None Reported. Problems Name Problem SNOMED Code Status Onset Date Resolution Date Notes Provider Name and Address Organization Details Recorded Time Pain of right calf [id number] 03 Active 2023 VAL Montiel [address] [place] [address], [address], [place] [facility] 4 16:48:00 Pneumonia 796697888 Active 2024 VAL Montiel [address] [place] [address], [address], [employer] 17:17:35 Right lower quadrant pain 733788228 Active 2024 VAL Montiel [address] [place] [address], [address], [employer] 12:11:44 Acute vomiting 56127509 Active 2024 VAL Montiel [address] [place] [address], [address], [employer] 5 11:04:19 Pleurisy 345194786 Active 2024 VAL Montiel [address] [place] [address], [address], [employer] 15:02:41 Gestation period, 6 weeks 45714410 Active 2024 VAL Montiel [address] [place] [address], [address], [employer] 16:29:51 Problem Notes None recorded. Medical [...] Updated DateTime 5 152.4 cm 21.9 kg/m2 62184.0 6 g 97 % 88 /min 98.4 [degF] 98/66 mm[Hg] Carmina Juarez [employer] 5 14:50:10 Social History Question Answer Notes LastModified by Organizat ion Details LastModified Time Tobacco Smoking Status Never Smoker Carmina james [employer]. 05/31/2024 16:30:04 Do You Have An Advance [...] Information not available 07/18/2025 What Type Of Business Liaison Officer Do You Use? None Information not available [...] Or The Highest Degree You Have Received? [id number] Information not available 05/31/2024 Who Is Your Employer? [employer] Information not available 05/31/2024 How Many Days [...] Do You Have A Medical Power Of Event Marketing Representative? No Information not available 05/31/2024 What Was [...] anxious, or unable to sleep at night)? [id number] Information not available 05/31/2024 Do you have [...] available 2023 16:30:03 Medical History Condition Response ADD/ADHD Y Anxiety Disorder Y Hospitalizations N Emergency room visit since last appointm ent. N Headaches Y Depression Y Asthma Y GI Problems Y Gynecological History Statement/Question Response Abnormal Pap [...] Time Hib-Hep B 3 completed Lorraine james [employer] 08/19/2024 16:57:17 meningococcal B, OMV 9 completed Lorraine james [employer] 08/19/2024 16:57:17 meningococcal B, OMV 9 completed Lorraine james [employer] 08/19/2024 16:57:17 HPV9 9 completed Lorraine Tavarez null, [facility] [facility] [employer] 08/19/2024 16:57:17 HPV9 9 completed Lorraine Tavarez null, [employer] 08/19/2024 16:57:17 IPV 7 completed Lorraine Tavarez null, [employer] 08/19/2024 16:57:17 IPV 3 completed Lorraine Tavarez null, [employer] 08/19/2024 16:57:17 IPV 3 completed Lorraine Tavarez null, [employer] 08/19/2024 16:57:17 IPV 3 completed Lorraine Tavarez null, [employer] 08/19/2024 16:57:17 MMR 7 completed Lorraine Tavarez null, [employer] 08/19/2024 16:57:17 MMR 4 completed Lorraine Tavarez null, [employer] 08/19/2024 16:57:17 COVID-19, mRNA, LNP-S, PF, 30 mcg/0.3 mL dose, rosalie-sucrose 2 completed Lorraine Tavarez null, [employer] 08/19/2024 16:57:18 COVID-19, mRNA, LNP-S, PF, 30 mcg/0.3 mL dose, rosalie-sucrose 2 completed Lorraine Tavarez null, [employer] 08/19/2024 16:57:18 pneumococcal conjugate PCV 7 3 completed Lorraine Tavarez null, [employer] 08/19/2024 16:57:18 pneumococcal conjugate PCV 7 3 completed Lorraine Tavarez null, [employer] 08/19/2024 16:57:18 pneumococcal conjugate PCV 7 3 completed Lorraine Tavarez null, [employer] 08/19/2024 16:57:18 Tdap 4 completed Lorraine Tavarez null, [employer] 08/19/2024 16:57:18 varicella 4 completed Lorraine Tavarez null, [employer] 08/19/2024 16:57:18 varicella 4 completed Lorraine Tavarez null, [employer] 08/19/2024 16:57:18 Influenza, split virus, trivalent, preservative 9 completed Lorraine Tavarez null, [employer] 08/19/2024 16:57:18 Influenza, split virus, trivalent, preservative 8 completed Lorraine Tavarez null, [employer] 08/19/2024 16:57:18 Influenza, split virus, trivalent, preservative 7 completed Lorraine Tavarez null, [employer] 08/19/2024 16:57:18 Hep B, adolescent or pediatric 3 completed Lorraine Tavarez null, [employer] 08/19/2024 16:57:18 Hep B, adolescent or pediatric 4 completed Lorraine Tavarez null, [employer] 08/19/2024 16:57:18 Hep A, ped/adol, 2 dose 8 completed Lorraine Tavarez null, [employer] 08/19/2024 16:57:18 Hep A, ped/adol, 2 dose 8 completed Lorraine Tavarez null, [employer] 08/19/2024 16:57:18 Hib (PRP-OMP) 4 completed Lorraine Tavarez null, [employer] 08/19/2024 16:57:18 Hib (PRP-OMP) 3 completed Lorraine Tavarez null, [employer] 08/19/2024 16:57:18 meningococcal MCV4P 9 completed Lorraine Tavarez null, [employer] 08/19/2024 16:57:18 DTaP, unspecified formulation 7 completed Lorraine Tavarez null, [employer] 08/19/2024 16:57:18 DTaP, unspecified formulation 3 completed Lorraine Tavarez null, [employer] 08/19/2024 16:57:18 DTaP, unspecified formulation 4 completed Lorraine Tavarez null, [employer] 08/19/2024 16:57:18 DTaP, unspecified formulation 3 completed Lorraine Tavarez null, [employer] 08/19/2024 16:57:18 DTaP, unspecified formulation 3 completed Lorraine Tavarez null, [employer] 08/19/2024 16:57:18 meningococcal MCV4, unspecified formulation 4 completed Lorraine Tavarez null, [employer] 08/19/2024 16:57:18 Past Encounters Encounter ID Performer Location Encounter Start Date Encounter Closed Date Diagnosis/Indication Diagnosis SNOMED-CT Code Diagnosis ICD10 Code Diagnosis IMO Codes Diagnosis Note [id number] VAL Montiel [facility] [address] [place] [address] 07/18/2025 14:25:11 07/18/2025 15:04:32 Pleurisy [id number] R09.1 79934 Humidifier , fluids. RTC if not improving. Gestation period, 6 weeks 32445299 Z3A.01 [id number] Health Concerns Section Related Observation LastModified by Organization Detai ls LastModified Time None Recorded Concern Status LastModified by Organization Details LastModified Time None Recorded Payers Encounter Date Sequence Insurance Name Policy Number Policy Dewitt Covered Member ID Dewitt Member ID Guarantor Name 07/18/2025 1 [facility] (MEDICAID HMO) Bharati Gaston [id number] Bharati Gaston Notes Date Note Type Note Provider Name and Address Organization Details Recorded Time 07/18/2025 text/html ROS as noted in the HPI Cough, congestion X 1 week. Approximately 5-6 weeks . Given Zpack last week at [facility]. Isn't feeling any better. Hurts to take a deep breath. VAL Montiel [address] [place] [address], [address], [facility] [employer] 07/21/2025 16:31:12 OBGyn Episode No OBEpisode recorded.
--- OUTSIDE RECORDS SUMMARY | 2025-07-22 08:34 | XMS_ITS | Clinical Summary ---
Author Organization [facility] Address [address] [place] [address] Care Team Providers Care Manager International Name Role Phone Kimmy Green Primary Care Provider [phone] Allergies No known active allergies Medications Nurtec [...] 20 days. Family planning education, guidance, and residential treatment counselor ing 03/16/2025 Assessment & Plan (04/06/2025 [...] Date Resolved Date History of ovarian cyst 09/29/2024 09/0 10/2024 Pelvic and perineal pain 09/29/202410/2024 Weight loss 10/31/2020 04/24/2025 Family History Medical History Relation Name Comments ADD / ADHD Father Other cancer Maternal Grandmother Autoimmune disease Mother Yareli lewis Depression Mother Yareli lewis Thyroid disease Mother Yareli lewis Breast cancer Paternal Grandmother Anxiety disorder Sister 1 Depression Sister 2 summer Miscarriages / Stillbirths Sister 2 Summer [facility] n Depression Sister 3 Saray [...] 04/20/2025 2:46 PM EDT Plan of Treatment Health Maintenance Due Date Last Done Comments [facility]-Infant/Child/Adol SDOH Screenings 2003 HPV Vaccines (3 - 3-dose series) 07/15/2019 02/15/2019, 2019 [facility]- SDOH Screenings 2021 [facility]-Adult SDOH Screenings 2021 [facility]-DTaP,Tdap,and Td Vaccines (7 - Td or Tdap) 10/26/2023 10/25/2013, 01/14/2007, 04/20/2004, Additional history exists [facility]-Pap Smear 01/14/2024 [id number]-07 Vaccine ( season) 2025 09/21/2021, 08/24/2021 [facility]-Influenza [...] Detected Not Detected 08/25/2024 2:46 PM EST [facility] Urine Urine specimen obtained by clean catch procedure / Unknown Non-blood Collection / Unknown 08/24/2024 3:03 PM EST 08/24/2024 6:01 PM EST Narrative [facility] - 08/25/2024 2:46 PM EST This test is performed by the [employer] instrument for Real Time PCR C. trachomatis and N. gonorrhea. This test is FDA approved for use with endocervical, vaginal, and urine specimens. This test is used for clinical purposes. It should not be regarded as invesigational or for research. The [facility] is certified under the Clinical Laboratory Improvement Amendments of 1988 (CLIA-88) as qualified to perform high complexity clinical laboratory testing. Result Nakita Garduno MD LAB MICROBIOLOGY - GENERAL ORDE [facility] Final Result Performing Organization Address [facility]/ZIP Co de Phone Number [facility] [address] [place] [address] * HIV 1 & 2 Antibody/Antigen Screen (08/24/2024 3:03 PM EST) Pathologist [facility] HIV 1 & 2 Antibody/Antigen Screen Non Reactive Non Reactive 08/24/2024 6:39 PM EST [facility] Comment:Screening for HIV 1 & 2 antibodies, and P24 antigen is NONREACTIVE. No confirmatory testing is required. Blood Venous blood specimen / Unknown Venipuncture / Unknown 08/24/2024 3:03 PM EST 08/24/2024 6:02 PM EST Result Nakita Garduno MD LAB BLOOD ORDERABLES Final Resu lt Performing Organization Address [facility]/ZIP Co de Phone Number [facility] [address] [place] [address] * Hepatitis C Antibody w/Reflex to HCV Quant PCR (08/24/2024 3:03 PM EST) [facility] Hepatitis C Antibody Negative Negative 08/24/2024 7:19 PM EST [facility] Blood Venous blood specimen / Unknown Venipuncture / Unknown 08/24/2024 3:03 PM EST 08/24/2024 6:02 PM EST Result Nakita Garduno MD LAB BLOOD ORDERABLES Final Resu lt Performing Organization Address City/[facility]/ZIP Co de Phone Number [facility] [address] [place] [address] from Last 3 Months or Most Recently Relevant to Health Maintenance Insurance MEDICAID Care Teams Manager International Relationship Specialty Start Date End Date Kimmy Green PA [address] [place] [address] PCP - General 12/15/20
--- OUTSIDE RECORDS SUMMARY | 2025-07-22 08:34 | XMS_ITS | Referral Summary ---
Author Organization [employer] ([place], [place], [place], [place], [place]) Address [address] [place] [address] Care Team Providers Care Brand Strategy Manager Name Role Phone Kimmy Green PA-C Primary Care Provider [phone] Allergies No known active allergies Medications No [...] EDT Plan of Treatment Not on file Insurance [facility] Care Teams Brand Strategy Manager Relationship Specialty Start Date End Date Kimmy Green PA-C [address] [place] [address] PCP - General Physician Batter Depositor 04/12/25
[2025-07-22 08:43] LABS: Microscopic, Urine URINE MICROSCOPIC (MICROSCOPIC)
[2025-07-22 08:59] LABS: Hematocrit 44.2 % (37.0-47.0); Hemoglobin 14.8 g/dL (12.2-16.2); Immature Granulocytes % 0.4 %; Mean Corpuscular HGB Conc 33.5 g/dL (31.8-35.4); Mean Corpuscular Hemoglobin 29.8 pg (27.0-31.2); Mean Corpuscular Volume 88.9 fl (81-99); Nucleated Red Blood Cells % 0 %; Platelet Count 321 K/mm3 (142-424); Red Blood Count 4.97 M/mm3 (4.20-5.40); Red Cell Distribution Width-SD 37.8 fL; White Blood Count 10.7 K/mm3 (4.8-10.8)
[2025-07-22 09:03] LABS: Bilirubin,Urine Negative (Negative); Color,Urine YELLOW (Yellow); Glucose,Urine (UA) Negative (Negative); Ketones,Urine Negative (Negative); Leukocyte Esterase,Urine 1+ (Negative); PH,Urine 6.0 (5.0-8.5); Protein,Urine Negative (Negative); Specific Gravity, Urine 1.025 (1.005-1.030); Urobilinogen,Urine 0.2 EU/dl (0.2)
[2025-07-22 09:22] LABS: Chloride 102 mmol/L (98-107)
[2025-07-22 09:23] LABS: Albumin Level 5.3 g/dl (3.5-5.0); Potassium 3.5 mmoL/L (3.5-5.1); Sodium 139 mmol/L (136-145)
[2025-07-22 09:25] LABS: Alanine Aminotransferase 15 U/L (12-78); Anion Gap 16.5 mEq/L (5-15); Aspartate Amino Transferase 21 U/L (14-36); Blood Urea Nitrogen 12 mg/dl (7-17); Carbon Dioxide 24 mmol/L (22.0-30.0); Creatinine Clearance Estimated 101 mL/min (50-200); Creatinine,Serum 0.70 mg/dl (0.52-1.04); Estimated Glomerular Filt Rate 105 ml/min (>60); GFR (African American) 127 ML/MIN (>60)
[2025-07-22 09:26] LABS: Albumin/Globulin Ratio 1.6 (1.1-1.8); Alkaline Phosphatase 57 U/L (38-126); Bilirubin,Total 0.5 mg/dl (0.2-1.3); Calcium 10.4 mg/dl (8.4-10.2); Globulin 3.4 g/dL (1.3-3.2); Glucose 101 mg/dl (74-100); Total Protein,Serum 8.7 g/dl (6.3-8.2)
[2025-07-22 09:46] LABS: Bacteria,Urine Trace /lpf; RBC,Urine Occasional #/hpf (0-3)
[2025-07-22 10:14] VITALS: BP 100/58; PULSE 66; RESP 15; TEMP 36.6; O2SAT 99
[2025-07-22 10:40] LABS: Hepatitis C Ab Qual. W/ RFX NEGATIVE (Negative)
== END 2025-07-22 10:15 | disposition home or self-care (01) ==
PROVIDERS: Emergency Provider Student in an Organized Health Care Education/Training Program; PCP Physician Assistant
DX: O20.9 Hemorrhage in early pregnancy, unspecified (principal); Z3A.01 Less than 8 weeks gestation of pregnancy
CPT/HCPCS: 80053; 81001; 84702; 85025; 86803; 86850; 87086; 87389; 99284; 99285